=== PATIENT | female | born 1960 | race Caucasian/White ===

== ENCOUNTER 2017-10-05 13:09 | Emergency (ER) | payer MEDICARE, MEDICAID, SELFPAY ==
[2017-10-05 13:10] VITALS: BP 132/66; PULSE 109; RESP 16; TEMP 36.8; O2SAT 98; BMI 38.0
--- NOTE | 2017-10-05 13:54 | ED.DCSUM_ITS ---
- ER Visit Summary Date of Service: 10/05/17 Chief Complaint: [] Acute recurrent lumbar back pain History of Present Illness: The patient is a 56 F [] history of lumbar back pain lumbar back surgery 2013 that did not results resolve her back pain issues. She indicates in having long-standing lumbar back pain she said the pain management physician she gets intermittent lumbar back injections, she is on MS Contin and Percocet Flexeril and other medications she reports that is not helping her pain she had no obvious reason for the exacerbation of the pain she has had no trauma no fever no cough normal bowel bladder habits is able to walk and execute activities affect is a walking to the bridge without difficulty she is indicating something else things with of her pain as her home meds are not helping View of systems otherwise negative Physical Examination: [] Is in no distress head neck chest unremarkable the lungs are clear the abdomen soft nontender the midline back shows some scar in the midline is a vague diffuse pain to this area but no lesions with petechia or purpura. Her gait was strong sitting stable on arrival to the emergency department no weakness numbness or paresthesias or signs of cauda equina She assures me this is her chronic recurring pain Test Results: [] Emergency Department Course and Treatment: [] I explained to her that given her pain management her chronic condition she needs to follow-up with her pain management physicians her care cannot be assumed from the emergency department, she given the restrictions related to narcotic use and the fact she is on multiple narcotics of the medication should be treated with Toradol 60 mg IM will follow with her physicians return for change in symptoms Treatment Plan: [] Disposition: [] Home stable Impression: [] Acute recurrent lumbar back pain This note was generated with [employer] dictation software. It may contain incorrect words, spelling, and punctuation that were not noted in review of the chart prior to signing ED Disposition - Plan for ED Patient: Chief Complaint: Back Referrals: Gauri Kidd MD [Primary Care Provider] -
--- NOTE | 2017-10-05 13:54 | ED.DEP ---
ED Disposition - Plan for ED Patient: Chief Complaint: Back Instructions: ED Spasm Back No Trauma Referrals: Gauri Kidd MD [Primary Care Provider] -
[2017-10-05] MEDS: Ketorolac 60 MG/2 ML Vial IM (14:07)
== END 2017-10-05 14:33 | disposition short-term general hospital (02) ==
PROVIDERS: Emergency Provider Emergency Medicine; Family Provider Family Medicine; PCP Family Medicine
DX: M54.5 Low back pain (principal); Z79.891 Long term (current) use of opiate analgesic
CPT/HCPCS: 96372; 99282

== ENCOUNTER 2018-08-18 14:11 | Emergency (ER) | payer MEDICARE, MEDICAID, SELFPAY ==
[2018-08-18 14:13] VITALS: BP 112/81; PULSE 91; RESP 18; TEMP 36.2; O2SAT 93; BMI 38.2
--- NOTE | 2018-08-18 15:14 | ED.VISSUMM ---
- ER Visit Summary Date of Service: 08/18/18 Chief Complaint: Back pain History of Present Illness: The patient is a 57 F presenting with back pain. Patient states this started a week ago. She states she was reaching for a cereal box and had pain in her low back. She has pain that goes down both legs. She denies numbness or weakness. Denies bowel or bladder incontinence. She is able to ambulate with pain. She is in pain management for chronic back pain. She takes [place], MS Contin, Flexeril, and gabapentin. She denies fever. Denies other complaints. Physical Examination: Vitals are stable. Patient is afebrile. Alert no acute distress. HEENT exam is unremarkable. Neck is supple. Lungs are clear and equal bilaterally. Heart is regular rate and rhythm. Abdomen is soft nontender nondistended. Back bilateral paraspinal lumbar muscle tenderness, no midline tenderness. Extremities are unremarkable. Skin is warm and dry. No focal neurologic deficit. Normal strength and sensation Remainder of exam is unremarkable. Emergency Department Course and Treatment: Patient was given Dilaudid, Zofran IM. She is advised to follow up with her pain management physician. Advised return to ED for worsening complaints. Disposition: Discharge home Impression: Acute on chronic back pain This note was generated with [employer] dictation software. It may contain incorrect words, spelling, and punctuation that were not noted in review of the chart prior to signing ED Disposition - Plan for ED Patient: Instructions: ED Sprain Strain Lumbar Referrals: Gauri Kidd MD [Primary Care Provider] -
--- NOTE | 2018-08-18 15:17 | ED.DCSUM_ITS ---
- ER Visit Summary Date of Service: 08/18/18 Chief Complaint: Back pain History of Present Illness: The patient is a 57 F presenting with back pain. Patient states this started a week ago. She states she was reaching for a cereal box and had pain in her low back. She has pain that goes down both legs. She denies numbness or weakness. Denies bowel or bladder incontinence. She is able to ambulate with pain. She is in pain management for chronic back pain. She takes [place], MS Contin, Flexeril, and gabapentin. She denies fever. Denies other complaints. Physical Examination: Vitals are stable. Patient is afebrile. Alert no acute distress. HEENT exam is unremarkable. Neck is supple. Lungs are clear and equal bilaterally. Heart is regular rate and rhythm. Abdomen is soft nontender nondistended. Back bilateral paraspinal lumbar muscle tenderness, no midline tenderness. Extremities are unremarkable. Skin is warm and dry. No focal neurologic deficit. Normal strength and sensation Remainder of exam is unremarkable. Emergency Department Course and Treatment: Patient was given Dilaudid, Zofran IM. She is advised to follow up with her pain management physician. Advised return to ED for worsening complaints. Disposition: Discharge home Impression: Acute on chronic back pain This note was generated with [employer] dictation software. It may contain incorrect words, spelling, and punctuation that were not noted in review of the chart prior to signing ED Disposition - Plan for ED Patient: Instructions: ED Sprain Strain Lumbar Referrals: Gauri Kidd MD [Primary Care Provider] -
[2018-08-18] MEDS: HYDROmorphone 1 MG/ML Syringe 2 MG IM (15:21)
[2018-08-18] MEDS: Ondansetron 4 MG/2 ML Vial IM (15:22)
[2018-08-18 16:20] VITALS: BP 148/76; PULSE 85; RESP 18; O2SAT 93
== END 2018-08-18 16:22 | disposition home or self-care (01) ==
LOC: ED 15:33
PROVIDERS: Emergency Provider Emergency Medicine; Family Provider Family Medicine; PCP Family Medicine
DX: M54.5 Low back pain (principal); G89.29 Other chronic pain; I10 Essential (primary) hypertension; E11.9 Type 2 diabetes mellitus without complications; J44.9 Chronic obstructive pulmonary disease, unspecified; Z79.891 Long term (current) use of opiate analgesic; Z79.84 Long term (current) use of oral hypoglycemic drugs; Z79.899 Other long term (current) drug therapy
CPT/HCPCS: 96372; 99282; J2405

== ENCOUNTER → 2019-03-17 16:49 | Outpatient (CLI) | payer MEDICARE, MEDICAID, SELFPAY ==
--- NOTE | 2019-03-17 17:27 | MRI_ITS ---
STUDY: MRI LEFT FOREFOOT WITHOUT CONTRAST REASON FOR EXAM: Female, 58 years old. R/O STRESS FX, C/O PAIN LATERAL TECHNIQUE: Standardized fat and water weighted pulse sequences were obtained in all 3 orthogonal planes. COMPARISON: None. FINDINGS: There is mild degenerative arthrosis of the metatarsophalangeal joint of the hallux. Normal tibial and fibular sesamoids, with normal sesamoids-first metatarsal articulations. Normal interphalangeal joint of the hallux. Normal proximal and distal phalanges of the great toe. Normal medial and lateral heads of the flexor hallucis brevis tendons. Normal flexor and extensor hallucis longus tendons. Normal second through fifth metatarsophalangeal (MTP) joints. Normal interphalangeal joints of the second through fifth toes. Normal proximal, middle and distal phalanges of the second through fifth toes. There is intermetatarsal bursitis of the second interspace. There is adjacent 0.6 cm diminished T1 signal consistent with neuroma, series 4 image /. Normal flexor and extensor tendons of the second through fifth toes. Normal visualized metatarsi. Normal intrinsic muscles of the forefoot. There is no demonstrated fracture. MRI/Lower Ext/No Jt/w/o IMPRESSION: No fracture or periosteal reaction. 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 Electronically Signed: Hardeep Bay MD at 23:10 EST , Service support ,
== END ==
PROVIDERS: Family Provider Family Medicine; PCP Family Medicine; Referring Provider Podiatrist; Visit Provider Podiatrist
DX: M84.375A Stress fracture, left foot, initial encounter for fracture (principal)
CPT/HCPCS: 73718

== ENCOUNTER 2021-09-01 15:35 | Emergency (ER) | payer MEDICARE, MEDICAID, SELFPAY ==
[2021-09-01] VITALS (7 sets, daily range): BP systolic 90–127; BP diastolic 45–64; PULSE 69–79; RESP 13–18; TEMP 36.8; O2SAT 93–99; BMI 29.2
--- NOTE | 2021-09-01 15:11 | RAD_ITS ---
STUDY: X-RAY - LEFT ANKLE REASON FOR EXAM: Female, 60 years old. Injury/Pain TECHNIQUE: 3 view(s) of the ankle. COMPARISON: None. FINDINGS: Normal visualized distal tibia and fibula. Osseous densities adjacent to the lateral malleolus and talus with soft tissue swelling. Normal tibiotalar articulation and ankle mortise. Normal visualized talus and calcaneus. The visualized subtalar, talonavicular, calcaneocuboid and tarsal articulations are normal. The soft tissue structures are otherwise unremarkable. RAD/Ankle min 3 Views IMPRESSION: Avulsion fractures of the lateral ankle likely arising from the talus and lateral malleolus. Electronically Signed: Clive Chambers MD ([place]) at 17:32 EDT ,
--- NOTE | 2021-09-01 16:24 | EX.ED.DYSGE1 ---
HPI History of Present Illness Chief Complaint: Syncope Onset/Context/Timing Onset: Today Context: Sudden Onset Timing: Intermittent Quality: Loss of consciousness Location: Generalized Worsened by: Nothing Relieved by: Nothing Associated Symptoms Associated Symptoms: Patient also has pain in her left ankle. Patient describes it as sharp. Narrative Narrative: Patient presents with syncopal episodes that occurred today. Patient states she was walking along the sidewalk down a slope when she twisted her left ankle. Patient states she fell and felt something pop in her left ankle. Since that time, she has had 3 syncopal episodes. Patient states that she completely lost her vision and passed out patient denies any chest pain or palpitations. Patient denies any shortness of breath or cough. Patient denies any nausea or vomiting. Patient denies any prodromal symptoms. [facility] Medical History (Updated 09/01/21 @ 20:[address] Juan Pablo Denney, ) Diabetes Home Medications Flexeril 15 mg PO TID 07/20/15 [History Last Taken Unknown] aripiprazole 15 mg tablet (Abilify) 15 mg PO DAILY 07/20/15 [History Last Taken Unknown] atorvastatin 40 mg tablet 40 mg PO QHS 07/20/15 [History Last Taken Unknown] dexlansoprazole 60 mg capsule,biphase delayed release (Dexilant) 60 mg PO DAILY 07/20/15 [History Last Taken Unknown] duloxetine 60 mg capsule,delayed release 120 mg PO DAILY 07/20/15 [History Last Taken Unknown] estradiol 1 mg tablet 1 mg PO DAILY 07/20/15 [History Last Taken Unknown] morphine 15 mg tablet,extended release 15 mg PO Q8H 07/20/15 [History Last Taken Unknown] oxycodone-acetaminophen 7.5 mg-325 mg tablet (Percocet) 1 tab PO Q6H PRN PRN Pain 07/20/15 [History Last Taken Unknown] zolpidem 10 mg tablet (Ambien) 10 mg PO QHS 07/20/15 [History Last Taken Unknown] oxybutynin chloride 5 mg tablet 5 mg PO DAILY 11/07/15 [History Last Taken Unknown] albuterol sulfate 90 mcg/actuation aerosol inhaler (ProAir HFA) 2 puff inhalation Q4H PRN PRN Sob &/Or Wheezing 10/05/17 [History Last Taken Unknown] alprazolam 1 mg tablet (Xanax) 1 mg PO TID 10/05/17 [History Last Taken Unknown] dapagliflozin 10 mg tablet (Farxiga) 10 mg PO DAILY 10/05/17 [History Last Taken Unknown] gabapentin 800 mg tablet 800 mg PO TIDCM 10/05/17 [History Last Taken Unknown] levothyroxine 137 mcg tablet (Levoxyl) 137 mcg PO DAILY 10/05/17 [History Last Taken Unknown] lisinopril 5 mg tablet 5 mg PO DAILY 10/05/17 [History Last Taken Unknown] metformin 1,000 mg 24 hr tablet,extended release 1,000 mg PO BID 10/05/17 [History Last Taken Unknown] Allergy/AdvReac Type Severity Reaction Status Date / Time clarithromycin [From Biaxin] AdvReac Nausea Verified 09/01/21 15:39 hydromorphone [From Dilaudid] AdvReac Upset Verified 09/01/21 15:39 Stomach Surgical History (Updated 09/01/21 @ 16:[address] Juan Pablo Denney DO) History of back surgery Social History Smoking Status: Former smoker ROS ROS ED Constitutional Constitutional ED: Denies chills or fever(s) Eyes Eyes: Reports change in vision; Denies blurry vision ENT ENT ED: Denies rhinorrhea or sore throat Cardiovascular Cardiovascular: Denies chest pain or palpitations Respiratory/Chest Respiratory/Chest: Denies cough or dyspnea Gastrointestinal Gastrointestinal: Denies nausea or vomiting Genitourinary Genitourinary ED: Denies dysuria or hematuria Musculoskeletal Musculoskeletal: Reports back pain and neck pain Integumentary Denies abscess or rash Neurologic Neurologic: Denies headache(s) or weakness Allergic/Immunologic Allergic/Immunologic ED: Denies mouth swelling or urticaria EXAM Physical Exam Const Vital Signs: 09/01/21 15:36 09/01/21 16:46 09/01/21 17:40 Temperature 98.2 F Temperature Source Temporal Pulse Rate 79 74 Respiratory Rate 16 17 Respiratory Effort Normal Non-Labored Respiratory Depth Normal Respiratory Pattern Normal Blood Pressure 90/45 L 105/54 L Blood Pressure Mean 60 71 Pulse Ox 98 98 Oxygen Delivery Method Room Air Room Air Room Air 09/01/21 17:46 09/01/21 18:34 09/01/21 19:00 Temperature Temperature Source Pulse Rate 70 72 70 Respiratory Rate 18 16 15 Respiratory Effort Respiratory Depth Respiratory Pattern Blood Pressure 127/64 H 109/57 L 116/52 L Blood Pressure Mean 85 74 73 Pulse Ox 97 97 93 Oxygen Delivery Method Room Air Room Air Room Air 09/01/21 20:00 Temperature Temperature Source Pulse Rate 74 Respiratory Rate 18 Respiratory Effort Respiratory Depth Respiratory Pattern Blood Pressure 120/64 Blood Pressure Mean 82 Pulse Ox 95 Oxygen Delivery Method Room Air Positive well nourished and well developed General Appearance ED: well developed HEENT Reports moist mucous membranes Neck supple and no JVD Resp normal respiratory effort and clear to auscultation bilaterally Cardio regular rate, regular rhythm and no murmurs GI normal to inspection, nondistended, normoactive bowel sounds and non-tender Palpation: soft Extremity Extremity Narrative: There is tenderness, edema, and ecchymosis over the lateral aspect of the left ankle. There is no obvious deformity. Range of motion was limited in all motions of the left ankle secondary to pain. Pedal pulses are equal bilaterally. Sensation was intact to light touch bilaterally in the lower extremities. Strength is 5/5 bilaterally in the lower extremities. Neuro oriented x3, CN's II-XII intact bilaterally and no sensory deficits noted Sensorium / Orientation: alert Motor Exam: strength 5/5 throughout Psych mental status grossly normal Skin Skin Narrative: There is a superficial abrasion over the anterior aspect of the right knee. There is no active bleeding. There is no tenderness. There is good range of motion. Trauma: abrasion MDM MDM MDM Narrative Medical decision making narrative: EKG was obtained. On my interpretation, it showed a normal sinus rhythm with a rate of 75. MT interval, QRS interval, and QTc intervals were all normal. [place] was normal. There are no acute ST or T wave changes. X-rays of the left ankle were obtained. There are 3 views. On my interpretation, there are small avulsion fractures of the distal fibula and lateral talus. There is no dislocation noted. There is mild soft tissue swelling noted. Radiologist also interpreted the x-rays and agrees. CBC and comprehensive metabolic profile were obtained and were within normal limits. High-sensitivity troponin was normal. 2-hour repeat high-sensitivity troponin was normal. Patient was given a walking boot. Patient was instructed to ice and elevate the left ankle. Patient was instructed to follow-up with her primary care physician in 5 to 7 days. Patient understood and was agreeable with the plan. All questions were answered. Lab Data Attestation: I reviewed the patient's lab results. Labs: Laboratory Results - last 24 hr 09/01/21 09/01/21 09/01/21 16:15 16:15 19:27 WBC 10.0 RBC 4.67 Hgb 13.7 Hct 41.9 MCV 89.7 MCH 29.3 MCHC 32.7 RDW Std Deviation 46.4 H RDW Coeff of Shawn 14.1 Plt Count 202 MPV 10.0 Immature Gran % (Auto) 0.700 Neut % (Auto) 82.3 H Lymph % (Auto) 11.[address] [place] % (Auto) 4.8 Eos % (Auto) 0.1 Baso % (Auto) 0.3 Absolute Neuts (auto) 8.3 H Absolute Lymphs (auto) 1.18 Nucleated RBC % 0 Sodium 137 Potassium 4.1 Chloride 103 Carbon Dioxide 29.0 Anion Gap 5 BUN 17 Creatinine 1.19 H Estim Creat Clear Calc 43.96 Est GFR (MDRD) Af Amer 60 Est GFR (MDRD) Non-Af 49 L BUN/Creatinine Ratio 14.3 Glucose 160 H Calcium 9.2 Total Bilirubin 0.40 AST 18 ALT 31 Alkaline Phosphatase 84 Troponin I High Sens < 3 L 3 Total Protein 6.9 Albumin 3.8 Globulin 3.1 Albumin/Globulin Ratio 1.2 Radiography Diagnostic Testing: Clinical Impression(s) from Imaging Studies Ankle X-Ray 09/01/21 15:11 IMPRESSION: Avulsion fractures of the lateral ankle likely arising from the talus and lateral malleolus. Electronically Signed: Clive Chambers MD ([place]) at 17:32 EDT , Discharge Plan Triage Chief Complaint: Syncope Other Complaint: Fall ED Provider: Juan Pablo Denney Dx/Rx/DC Orders Clinical Impression: Avulsion fracture of left ankle, Syncope and collapse Instructions: ED Ankle Fracture, ED Fainting, Uncertain Cause Prescriptions: No Action atorvastatin 40 MG tablet 40 mg PO QHS estradiol 1 MG tablet 1 mg PO DAILY morphine 15 MG tablet 15 mg PO Q8H oxycodone-acetaminophen [Percocet] 1 EACH tablet 1 tab PO Q6H PRN PRN (Reason: Pain) zolpidem [Ambien] 10 MG tablet 10 mg PO QHS aripiprazole [Abilify] 15 MG tablet 15 mg PO DAILY duloxetine 60 MG capsule 120 mg PO DAILY dexlansoprazole [Dexilant] 60 MG Cap.Dr.Mp 60 mg PO DAILY Flexeril 10 MG 15 mg PO TID oxybutynin chloride 5 MG tablet 5 mg PO DAILY levothyroxine [Levoxyl] 137 MCG tablet 137 mcg PO DAILY alprazolam [Xanax] 1 MG tablet 1 mg PO TID gabapentin 800 MG tablet 800 mg PO TIDCM lisinopril 5 MG tablet 5 mg PO DAILY albuterol sulfate [ProAir HFA] 1 PUFF inhaler 2 puff inhalation Q4H PRN PRN (Reason: Sob &/Or Wheezing) metformin 1,000 MG [id number] 1,000 mg PO BID dapagliflozin [Farxiga] 10 MG tablet 10 mg PO DAILY Primary Care Provider: Gauri Kidd Referrals: Gauri Kidd MD [Primary Care Provider] - 5-7 Days Disposition Disposition: Home, Self Care
--- NOTE | 2021-09-01 16:29 | EKG12_ITS ---
Test Reason : SYNCOPE Blood Pressure : / mmHG Vent. Rate : 075 BPM Atrial Rate : 075 BPM P-R Int : 162 ms QRS Dur : 094 ms QT Int : 376 ms P-R-T Axes : 072 068 045 degrees QTc Int : 419 ms Normal sinus rhythm Normal ECG Confirmed by JOSEMANUEL GREWAL, ERIN ([id number]), food editor AGUSTIN WORKMAN ([id number]) on 09/04/2021 8:19:46 AM Referred By: MIGUEL Confirmed By:ERIN ABERNATHY MD
[2021-09-01] MEDS: HYDROcodone Bitartrate/Apap 5/325 Tablet PO (16:50)
[2021-09-01] MEDS: 0.9% Normal Saline 1,000 ML 1000 ML IV (16:51)
[2021-09-01 16:53] LABS: Absolute Lymphocyte Count 1.18 X10^3/uL (0.83-4.51); Absolute Neutrophil Count 8.3 X10^3/uL (2.0-7.7); Basophil# 0.03 X10^3/uL; Basophil% 0.3 % (0-1); Eosinophil# 0.01 X10^3/uL; Eosinophils% 0.1 % (0-5); Hematocrit 41.9 % (37-47); Hemoglobin 13.7 g/dL (12.0-15.0); Lymphocyte # 1.18 X10^3/ul (0.83-4.51); Lymphocyte % 11.8 % (19-41); Mean Corp Hgb Conc 32.7 g/dL (32-36); Mean Corpuscular Hgb 29.3 pg (27.0-32.0); Mean Corpuscular Volume 89.7 fL (81-99); Monocyte# 0.48 X10^3/uL; Monocyte% 4.8 % (0-10); NRBC Flagged by Analyzer 0 % (0-5); Neutrophil # 8.25 X10^3/uL (2.7-7.7); Neutrophil % 82.3 % (47-70); Platelet Count 202 K/mm3 (150-450); RBC Distribution Width CV 14.1 % (11.6-14.6); RBC Distribution Width SD 46.4 fl (35.1-43.9); Red Blood Count 4.67 M/mm3 (4.2-5.4)
[2021-09-01 17:11] LABS: ALB/GLOB Ratio 1.2 RATIO (0.9-2.4); AST(SGOT) 18 U/L (15-37); Alanine Aminotransfer ALT/SGPT 31 U/L (13-56); Albumin, Serum 3.8 g/dL (3.2-5.0); Alkaline Phosphatase 84 U/L (45-117); Anion Gap 5 (5-15); BUN 17 mg/dL (7-18); BUN/Creat Ratio 14.3 RATIO (10-20); Calcium,Total 9.2 mg/dL (8.5-10.1); Chloride 103 mmol/L (98-107); Creatinine, Serum 1.19 mg/dL (0.55-1.02); EST Glomerular Filtration Rate 49 mL/min (>60); Est Glom Filt Rate - Afr Amer 60 mL/min (>60); Estimated Creatinine Clearance 43.96 ml/min; Globulin 3.1 g/dL (2.2-4.2); Glucose 160 mg/dL (74-106); Potassium 4.1 mmol/L (3.5-5.1); Protein, Total 6.9 g/dL (6.4-8.2); Sodium Level 137 mmol/L (136-145); Troponin-I HS (w/2H Reflex) < 3 pg/mL (3.0-54.0)
[2021-09-01 18:49] LABS: Reflex Troponin-HS? (from REC) Y
[2021-09-01 19:53] LABS: Troponin-I HS 3 pg/mL (3.0-54.0)
== END 2021-09-01 20:41 | disposition home or self-care (01) ==
PROVIDERS: Emergency Provider Emergency Medicine; PCP Family Medicine; Visit Provider Emergency Medicine
DX: S82.892A Other fracture of left lower leg, initial encounter for closed fracture (principal); E11.9 Type 2 diabetes mellitus without complications; W19.XXXA Unspecified fall, initial encounter; Z79.899 Other long term (current) drug therapy; Z87.891 Personal history of nicotine dependence
CPT/HCPCS: 73610; 80053; 84484; 85025; 93005; 96360; 99285; J7030; A4216

== ENCOUNTER → 2023-05-21 | Outpatient (CLI) | payer MEDICARE, SELFPAY ==
--- NOTE | 2023-05-21 13:06 | RAD_ITS ---
STUDY: X-RAY CHEST REASON FOR EXAM: Female, 62 years old. Emphysema. TECHNIQUE: Frontal and lateral views of the chest. COMPARISON: 11/07/2015 FINDINGS: Stable mild hyperinflation. There is no demonstrated pleural abnormality. Mild cardiomegaly unchanged. Normal mediastinum and janeen. Prominent central pulmonary arteries. Aortic tortuosity with calcification unchanged. Thoracic osteopenia with diffuse spondylosis. Normal visualized ribs, clavicles, and shoulders. No abnormality of the visualized soft tissue structures of the upper abdomen. RAD/Chest PA and Lateral IMPRESSION: Stable cardiomegaly with hyperinflation and no acute finding. Electronically Signed: Nakul Malcolm MD at 15:39 EDT ,
--- OUTSIDE RECORDS SUMMARY | 2023-05-21 21:13 | XMS RPT_ITS | CCD ---
Author Name Unknown Address [address] [facility] [address] [place] [address] Organization [facility] Care Team Providers Care Track Rider Name Role Phone RANDA LARSON Unavailable Unavailable SMARTALEC III, RANDA GUDINO Unavailable Un available Gauri Kidd Primary Care Provider [phone] Gauri Kidd Primary Care Provider [phone] Gauri Kidd MD Primary Care Provider [employer] CAMP ATTENDANT-COMPUTER SYSTEMS SUPPORT SPECIALIST, Samantha Unavailable [phone] Gauri Kidd Primary Care Unavailable PROVIDER, UNKNOWN Referring Unavailable Keaton Gardiner Attending Unavailable Gauri Kidd Attending Unavailable PROVIDER, UNKNOWN Referring Unavailable Gauri Kidd Primary Care Unavailable Gauri Kidd MD Primary Care Provider Gauri Kidd MD Primary Care Provider Gauri Kidd MD Primary Care Provider GAURI KIDD Primary Care Unavailable CONI GRAY Referring Unavailable KEISHA ACNDELARIA Attending Unavailable GAURI KIDD Primary Care Unavailable CONI GRAY Referring Unavailable GAURI KIDD Primary Care Unavailable CONI GRAY Referring Unavailable CONI GRAY Attending Unavailable GAURI KIDD Primary Care Unavailable GAURI KIDD Primary Care Unavailable KALKA, KEISHA Referring Unavailable GAURI KIDD Primary Care Unavailable KALKA, KEISHA Referring Unavailable KALKA, KEISHA Referring Unavailable GAURI KIDD Primary Care Unavailable KALKEISHA MARTINEZ Attending Unavailable GAURI KIDD Primary Care Unavailable CATIA ISIDRO Attending Unavaila ble KALKA, KEISHA Referring Unavailable GAURI KIDD Primary Care Unavailable Gauri Kidd MD Primary Care Provider KEATON GARDINER Referring Unavailable GAURI KIDD Primary Care Unavailable LISBETH HAQ Attending Unavailable GAURI KIDD Primary Care Unavailable Allergies Allergy Classification Reported Allergen(s) Allergy Type Date of Onset Reaction(s) Facility (20 sources) clarithromycin; Translations: [CLARITHROMYCIN] Drug Allergy 07-06-19 11 Unknown [facility] Repository (20 sources) pregabalin; Translations: [PREGABALIN] Drug Allergy 08-25-19 19 [place], [place] (20 sources) Amoxicillin-Pot Clavulanate; Translations: [AMOXICILLIN-POT CLAVULANATE] Propensity to adverse reactions to drug 08-25-19 19 [place], [place] (1 source) Clarithromycin Drug Allergy 11-25-19 12 gi [facility] Work Phone: (15 sources) HYDROmorphone; Translations: [HYDROMORPHONE] Drug Allergy 09-02-19 22 Other: See Comments [facility] (3 sources) Pregabalin Propensity to adverse reactions 08-25-19 [facility] Medications Current Medications Medication Drug Class(es) Dates Sig (Normalized) Sig (Original) [id number] 200 actuat albuterol 0.09 mg/actuat metered dose inhaler (8 sources) beta2-Adrenergic Agonist Start: 10-02-2022 take 2 puff(s) by inhalation four times daily albuterol 108 (90 Base) MCG/ACT inhaler inhale 2 puffs FOUR TIMES A DAY 0 10/02/2022 Active Completed/Discontinued Medications Medication Drug Class(es) Dates Sig (Normalized) Sig (Original) Acetaminophen (1 source) Start: 08-17-2020 TYLENOL 325 MG CAPS ACETAMINOPHEN Grace Leos AT celecoxib 200 mg oral capsule (12 sources) Nonsteroidal Anti-inflammatory Drug Start: 12-18-2020 celecoxib (CELEBREX) 200 mg capsule Take 200 mg by mouth. 0 12/18/2020 Active Problems Active Problems Problem Classification Problem Date Documented Da te Episodic/Chronic Abdominal hernia (1 source) Gastroesophageal reflux disease with hiatal hernia; Translations: [Diaphragmatic hernia without obstruction or gangrene] Episodic Abdominal pain (8 sources) Generalized abdominal pain; Translations: [Generalized abdominal pain] Onset: 3 Episodic Biliary tract disease (6 sources) Polyp of gallbladder; Translations: [Cholesterolosis of gallbladder] Onset: 3 Episodic Esophageal disorders (1 source) Lower esophageal ring; Translations: [Esophageal obstruction] Chronic Mood disorders (1 source) Major depressive disorder, recurrent, in full remission; Translations: [Major depressive disorder, recurrent, in full remission] Onset: 7 Chronic Nausea and vomiting (3 sources) Nausea; Translations: [Nausea] Onset: 3 Episodic Other gastrointestinal disorders (1 source) Alteration in bowel elimination; Translations: [Change in bowel habit] Episodic Other gastrointestinal disorders (2 sources) Loose stool; Translations: [Other fecal abnormalities] Episodic Other gastrointestinal disorders (4 sources) Abdominal bloating; Translations: [Abdominal distension (gaseous)] Episodic Other gastrointestinal disorders (1 source) Stool color abnormal; Translations: [Other fecal abnormalities] Episodic Other gastrointestinal disorders (1 source) Swollen abdomen; Translations: [Abdominal distension (gaseous)] Episodic Other gastrointestinal disorders (1 source) Altered bowel function; Translations: [Change in bowel habit] Episodic Other gastrointestinal disorders (2 sources) Abdominal distension, gaseous; Translations: [Abdominal distension (gaseous)] Episodic Other gastrointestinal disorders (2 sources) Abdominal distension (gaseous); Translations: [Bloating] Onset: 3 Episodic Other nervous system disorders (1 source) Chronic low back pain; Translations: [Other chronic pain] Onset: 9 08-20-2018 Chronic Other nutritional; endocrine; and metabolic disorders (2 sources) Abnormal weight loss; Translations: [Abnormal weight loss] Episodic Other nutritional; endocrine; and metabolic disorders (1 source) Abnormal weight loss; Translations: [Abnormal weight loss] Onset: 3 Episodic Other screening for suspected conditions (not mental disorders or infectious disease) (2 sources) Encounter for screening mammogram for malignant neoplasm of breast; Translations: [Encntr screen mammogram for malignant neoplasm of breast] Onset: 2 Episodic Residual codes; unclassified (1 source) FH: Stomach cancer; Translations: [Family history of malignant neoplasm of digestive organs] Episodic Spondylosis; intervertebral disc disorders; other back problems (7 sources) Lumbar post-laminectomy syndrome; Translations: [Postlaminectomy syndrome, not elsewhere classified] Onset: 9 11-16-2018 Chronic Thyroid disorders (13 sources) Hypothyroidism; Translations: [Hypothyroidism, unspecified] Onset: 9 08-24-2018 Chronic Past or Other Problems Problem Classification Problem Date Documented Da te Episodic/Chronic Joint disorders and dislocations; trauma-related (1 source) Tear of medial meniscus of knee; Translations: [Other tear of medial meniscus, current injury, left knee, initial encounter] Onset: 11-16-2018 11-16-2018 Episodic Other connective tissue disease (1 source) History of lumbar fusion; Translations: [Arthrodesis status] Onset: 11-16-2018 11-16-2018 Episodic Other non-traumatic joint disorders (1 source) Knee pain; Translations: [Pain in unspecified knee] Onset: 11-16-2018 11-16-2018 Episodic Spondylosis; intervertebral disc disorders; other back problems (9 sources) Disorder of sacrum; Translations: [Sacrococcygeal disorders, not elsewhere classified] Onset: 08-20-2018 03-23-2020 Episodic Sprains and strains (1 source) Lower back injury; Translations: [Strain of muscle, fascia and tendon of lower back, initial encounter] Onset: 08-20-2018 08-20-2018 Episodic Unclassified (1 source) Problem Results Test Name Value Interpretation Reference Range Facil ity Vital Signs Date Time Vital Sign Value Performing Clinician Facility 11-28-2022 [id number] Body weight 87.54 kg Lisbeth Haq DO Work Phone: [facility] 07-09-2022 11:31-0400 Body height 162.6 cm Keisha BUSTOS-Michael Work Phone: [facility] 07-09-2022 11:31-0400 Body weight 85.73 kg Keisha BUSTOS-C Work Phone: [facility] 07-09-2022 11:31-0400 Diastolic blood pressure 72 mm[Hg] Keisha BUSTOS-C Work Phone: [facility] 07-09-2022 11:31-0400 Heart rate 83 /min Keisha Kalka PA-C Work Phone: [facility] 07-09-2022 11:31-0400 Systolic blood pressure 118 mm[Hg] Keisha Kalka PA-C Work Phone: [facility] 05-30-2022 11:47-0400 Body height 162.6 cm Keisha Kalka PA-C Work Phone: [facility] 05-30-2022 11:47-0400 Body weight 88.91 kg Keisha Kalka PA-C Work Phone: [facility] 05-30-2022 11:47-0400 Diastolic blood pressure 80 mm[Hg] Keisha Kalka PA-C Work Phone: [facility] 05-30-2022 11:47-0400 Heart rate 76 /min Keisha Kalka PA-C Work Phone: [facility] 05-30-2022 11:47-0400 Systolic blood pressure 136 mm[Hg] Keisha Kalka PA-C Work Phone: [facility] 12-31-2021 11:51-0400 Body height 162.6 cm Coni Gray MD Work Phone: [facility] 12-31-2021 11:51-0400 Body weight 80.29 kg Coni Gray MD Work Phone: [facility] 12-31-2021 11:51-0400 Diastolic blood pressure 80 mm[Hg] Coni Gray MD Work Phone: [facility] 12-31-2021 11:51-0400 Heart rate 80 /min Coni Gray MD Work Phone: [facility] 12-31-2021 11:51-0400 Systolic blood pressure 138 mm[Hg] Coni Gray MD Work Phone: [facility] NEGATED: Highlighted [id number] 12:55-0500 Body height 162.56 cm Grace Villalta AT [facility] Work Phone: NEGATED: Highlighted [id number] 12:55-0500 Body height 163 cm Grace Villalta AT [facility] Work Phone: NEGATED: Highlighted [id number] 12:55-0500 Body mass index (BMI) [Ratio] 32.39 kg/m2 Grace Villalta AT [facility] Work Phone: NEGATED: Highlighted [id number] 12:55-0500 Body temperature 98 [degF] Grace Villalta AT [facility] Work Phone: NEGATED: Highlighted [id number] 12:55-0500 Body temperature 98.06 [degF] Grace Villalta AT [facility] Work Phone: NEGATED: Highlighted [id number] 12:55-0500 Body weight 85.28 kg Grace Villalta AT [facility] Work Phone: NEGATED: Highlighted [id number] 12:55-0500 Body weight 85 kg Grace Villalta AT [facility] Work Phone: Encounters Encounter Date Encounter Type Care Provider Facility Start: 05-12-2023 [facility]ulatory [facility] Start: 05-12-2023 Patient encounter procedure Lia Perez Clinical Communication Start: 11-28-2022 End: 11-28-2022 ambulatory LISBETH HAQ [facility] Start: 11-28-2022 End: 11-28-2022 Office outpatient new 30 minutes Lisbeth Haq DO Work Phone: [facility] Procedures Date Procedure Procedure Detail Performing Clinician Start: 07-16-2022 Ct abdomen & pelvis w/contrast material Keisha Candelaria PA-C Work Phone: Start: 04-04-2022 Us abdominal real ti me w/image limited Coni Gray MD Work Phone: Start: 12-26-2021 End: 12-26-2021 Screening digital breast tomosynthesis bi Gauri Kidd MD Work Phone: Start: 05-01-2021 End: 05-01-2021 BP scrn no perf at interval Samantha Marino CAMP ATTENDANT-COMPUTER SYSTEMS SUPPORT SPECIALIST Work Phone: Start: 05-01-2021 End: 05-01-2021 Calc BMI out nrm magali nof/u Samantha Marino CAMP ATTENDANT-COMPUTER SYSTEMS SUPPORT SPECIALIST Work Phone: Start: 05-01-2021 End: 05-01-2021 Current tobacco non-user cad cap copd pv dm Samantha Marino CAMP ATTENDANT-COMPUTER SYSTEMS SUPPORT SPECIALIST Work Phone: Start: 05-01-2021 End: 05-01-2021 Docrev cur meds by izabella Marino CAMP ATTENDANT-COMPUTER SYSTEMS SUPPORT SPECIALIST Work Phone: Start: 05-01-2021 End: 05-01-2021 Pain doc pos and plan Samantha Marino CAMP ATTENDANT-COMPUTER SYSTEMS SUPPORT SPECIALIST Work Phone: Start: 05-01-2021 End: 05-01-2021 Patient encounter procedure Samantha Marino CAMP ATTENDANT-COMPUTER SYSTEMS SUPPORT SPECIALIST Work Phone: Start: 04-27-2020 Creatinine blood Lolis Randhawa Work Phone: Start: 11-03-2019 Screening digital br east tomosynthesis bi Gauri Kidd Work Phone: Start: 10-13-2019 Colonoscopy oCni gomez MD Work Phone: Start: 11-20-2018 Mri any jt lower ext rem w/o contrast matrl Keaton R Magoline Work Phone: NEGATED: Highlighted rowStart: 05-01-2021 End: 02-22-2022 Documentation of current medications Grace Villalta AT Plan of Treatment Date Care Activity Detail Author Start: 12-26-2022 Mammography Mammogram Screening [facility] Start: 12-26-2022 Screening for malign ant neoplasm of breast Mammogram [facility] Start: 12-12-2022 Screening for malign ant neoplasm of breast Breast cancer screen [facility] Start: 11-08-2022 Covid-19 Vaccine () Covid-19 Vaccine () [facility] Start: 11-08-2022 Influenza vaccination Influenza Vacc ine (#1) [facility] Start: 09-29-2022 End: 06-29-2023 US ABD RT UPPER QUADRANT US ABD RT UPPER QUADRANT Radiology Routine Gallbladder polyp Expected: 09/29/2022, Expires: 06/29/2023 [facility] Work Phone: Immunizations Immunization Date Immunization Notes Care Provider Fa cility 12-28-2021 influenza virus vacc ine, unspecified formulation [address] 06-22-2020 Pfizer SARS-CoV-[address] 06-02-2020 Pfizer SARS-CoV-[address] Payers Date Payer Category Payer Medicaid MEDICAID [facility] DEPT OF JOB xxxxxxxxxxxx 2014-Present [phone] [address] [place] [address] xxxxxxxxxxxx [id number] 2014 Medicaid [id number] 2014 Medicare MEDICARE MEDICAR E PART A AND B xxxxxxxxxxx 2014-Present [phone] [place] [address] xxxxxxxxxxx [id number] 1997 Medicare [id number] 1997 Medicare 1960 Unknown [id number] 1960 Unknown [id number] Medicaid Medicare [id number] Social History Date Type Detail Facility Start: 09-03-2018 End: 12-10-2018 Tobacco smoking status NHIS Never smoker [facility] Work Phone: Start: 09-03-2018 End: 11-28-2022 Alcohol intake No [facility] [employer] Start: 1960 Sex Assigned At Not on file M [employer] Start: 12-10-2018 End: 11-28-2022 Alcohol intake Current non-drinker of alcohol (finding) [facility] [employer] Start: 12-10-2018 End: 05-30-2022 Tobacco use and exposure Never used [facility] [employer] Start: 05-01-2021 End: 05-01-2021 Assertion Unknown if ever smoked [facility] Work Phone: Start: 01-06-2018 End: 05-30-2022 Tobacco smoking status MSIS Ex-smoker [facility] History of tobacco use Current smoker [facility] Start: 01-06-2018 Alcohol Comment quit [facility] Start: 12-21-2021 End: 10-29-2022 Exposure to SARS-CoV-2 (event) Not sure [facility] Start: 07-09-2022 End: 11-28-2022 History of Social function [facility] National Score (1-10 0), lower number is lower risk 99 [facility] Medical Equipment Procedure Code Equipment Code Equipment Origin al Text Equipment Identifier Dates Start: 2015 Clinical Notes 12-31-2021 to 05-12-2023 Telephone Encounter - Lia Srinivasan RN - 05/12/2023 7:19 AM ESTTelephone Encounter - Lia Srinivasan RN - 05/12/2023 7:19 AM Joaquim Haq DO - 11/28/2022 11:00 AM EDT Note Date & Type Note Facility 05-12-2023 Telephone encounter Note S: Patient called the clinical access center B: She cancelled her appointment for scheduled blood work A: She cancelled due to not feeling well. She is aware she has a scheduled follow up next week. R: She can be reached at [phone]. Appointment scheduled for today has been cancelled. Patient instructed to call back with worsening symptoms, concerns or questions. Documented in Ruby Reason for Disposition Health Information question, no triage required and triager able to answer question Protocols used: Information Only Call - No [id number] [facility] 05-12-2023 Miscellaneous Notes S: Patient called the clinical access center B: She cancelled her appointment for scheduled blood work A: She cancelled due to not feeling well. She is aware she has a scheduled follow up next week. R: She can be reached at [phone]. Appointment scheduled for today has been cancelled. Patient instructed to call back with worsening symptoms, concerns or questions. Documented in Ruby Reason for Disposition Health Information question, no triage required and triager able to answer question Protocols used: Information Only Call - No [id number] documented in this encounter [facility] 11-28-2022 History of Present illness Narrative [facility] [address] [facility] [address] Dept: [phone] Dept Loc: [phone] Assessment and Recommendations Marissa was seen today for new patient. Diagnoses and all orders for this visit: Cervical radiculopathy (Primary) Patient's laryngoscopy shows normal bilateral vocal cord motion. Specifically the right side shows no postprocedure paralysis or paresis can proceed with revision ACDF via the left side without any concern for bilateral vocal cord injury. Follow-up with me as needed Subjective: Patient: Marissa Miller is a 61 y.o. female HPI Marissa Miller is a 61 y.o. yo female who presents to clinic today for presurgical clearance for revision ACDF surgery with Dr. Hogue on Friday for symptoms of cervical radiculopathy with numbness and tingling in the upper extremities. She reports her prior ACDF surgery was back in 1992 via right anterior approach. Denies any problems with postoperative dysphonia or dysphagia. Currently not having any problems with dysphonia or dysphagia. No blood thinners. No history of tobacco use. Review of Systems 14 point review of systems completed and all negative except as noted in HPI. Allergies Allergen Reactions Clarithromycin Other reaction(s): gi upset, Nausea, Unknown nausea Amoxicillin-Pot Clavulanate Other reaction(s): GI Upset Hydromorphone Other reaction(s): Other: See Comments, Upset Stomach Pregabalin Other reaction(s): GI Upset Current Outpatient Medications Medication Sig Dispense Refill gabapentin (Neurontin) 800 MG tablet Take 800 mg by mouth 3 times daily. lamoTRIgine (LaMICtal) 200 MG tablet Take 1 tablet by mouth daily. Mometasone Furoate 100 MCG/ACT aerosol Inhale 2 puffs 2 times daily. pregabalin (Lyrica) 100 MG capsule Take 100 mg by mouth 3 times daily. pregabalin (Lyrica) 150 MG capsule Take 150 mg by mouth 3 times daily. zolpidem (Ambien) 10 MG tablet Take 10 mg by mouth Nightly. No current facility-administered medications for this visit. Past Medical History: Diagnosis Date Anemia Asthma Cancer ([facility]) ([facility]) Cholesterolosis of gallbladder Chronic pain Degeneration of lumbar intervertebral disc Diabetes mellitus ([facility]) GERD (gastroesophageal reflux disease) Hyperlipidemia Hypertension Hyperthyroidism Major depressive disorder Morbid obesity due to excess calories ([facility]) Osteoarthritis Osteopenia Sleep apnea, obstructive Past Surgical History: Procedure Laterality Date LUMBAR FUSION 2013 2 titanium rods placed [facility] Family History Problem Relation Name Age of Onset Cancer Mother 79.00 STOMACH Other ([id number]) Father PACEMAKER Social History Tobacco Use Smoking status: Never Smokeless tobacco: Never Substance Use Topics Alcohol use: No Objective: Wt 193 lb (87.5 kg) Physical Exam General: Patient is not in acute distress. Appearance: Patient is well-developed. Eyes: Conjunctiva/sclera: Conjunctivae normal. Pupils: Pupils are equal, round, and reactive to light. HENT: Jaw: No trismus. Ears: Microscope brought in for exam. Bilateral external ears normal. Right EAC normal, TM clear with normal middle ear landmarks. Left EAC normal, TM clear with normal middle ear landmarks Nose: No nasal deformity, mucosal edema or rhinorrhea. Mouth: Mucous membranes are not pale, not dry and not cyanotic. No oral lesions. Pharynx: Uvula midline. No oropharyngeal exudate or uvula swelling. Tonsils: No tonsillar exudate. No abnormal masses or lesions Neck: No lymphadenopathy Thyroid: No significant thyromegaly. Trachea: Trachea and phonation normal. No tracheal deviation. Pulmonary: Effort: Pulmonary effort is normal. No respiratory distress. Breath sounds: No stridor. Musculoskeletal: Head: Normocephalic and atraumatic. Neck: Full passive range of motion without pain, neck supple. Skin: General: Skin is warm and dry. Findings: No erythema or rash. Neurological: Cranial Nerves: No cranial nerve deficit. Sensory: No sensory deficit. Coordination: Coordination normal. Extremities: No significant peripheral edema or varicosities Psychiatric: Mood and Affect: Mood and affect normal. Cognition and Memory: Cognition and memory normal. Procedure: Flexible fiberoptic laryngoscopy Indications: Presurgical clearance for revision ACDF Mirror examination was attempted for visualization of the hypopharynx and vocal cords, this was unsuccessful secondary to patient's gag reflex therefore flexible laryngoscopy was obtained Anesthesia: None Consent: Indications, risks, benefits and alternatives were discussed with the patient. The patient was given an opportunity to ask questions and after they were answered he verbally consented to the procedure. Description: The fiberoptic scope was advanced down the patients right nare to the nasopharynx. There were no signs of pus, polyps, or synechia. The nasopharynx was clear or any masses or lesions. The scope was then flexed and advanced downwards to the vocal folds. The cords were inspected and work properly; no lesions, masses, paresis or paralysis noted. The patient's piriform spaces, vallecula, epiglottis, aryepiglottic folds and base of tongue were inspected and found to be normal without masses, lesions or ulcerations. The scope was removed and the patient tolerated the procedure well. No complications noted. Significant findings: Normal bilateral vocal cord motion documented in this encounter [facility] 07-16-2022 Note HNO ID: [id number] Author: RT Sade(Anil) Service: ? Author Type: Auditing Coder Type: Progress Notes Filed: 07/16/2022 1:30 PM Note Text: Radiology Service Progress Note DATE OF SERVICE: July 16, 2022 TIME: 1:30 PM PATIENT IDENTITY VERIFICATION COMPLETED USING TWO (2) STANDARD IDENTIFIERS: Name and Date of confirmed by patient verbally. FALL SCREENING: Has the patient had 2 falls in the last year or 1 fall with injury or currently using an Ambulatory Assistive Device (Walker, Cane, Wheelchair, Crutches, etc.)? No PATIENT GENDER DATA: Female. status: : No status: NO. PATIENT RELEVANT IMPLANT DATA REVIEWED: Yes ALLERGIES: Reviewed and unchanged CONTRAST ALLERGY: NO. EXAM: CT -CONTRAST INDUCED NEPHROPATHY RISK FACTORS: Patient age > 60 years CREATININE: Creatinine Date Value Ref Range Status 07/10/2022 0.75 0.58 - 0.96 mg/dL Final Estimated Glomerular Filtration Rate Date Value Ref Range Status 07/10/2022 91 >=60 mL/min/1.73m? Final Comment: Estimated Glomerular Filtration Rate (eGFR) is calculated using the 2020 CKD-EPI creatinine equation. This equation utilizes serum creatinine, sex, and age as parameters. The creatinine assay has traceable calibration to isotope dilution-mass spectrometry. Refer to KDIGO guidelines for clinical interpretation. In patients with unstable renal function, e.g. those with acute kidney injury, the eGFR may not accurately reflect actual GFR. P.O.C.T. RESULTS: POC done: Yes, See Lab Tab July 16, 2022 TREATMENT: N/A PERIPHERAL IV DATA: Ambulatory: A peripheral IV was started in the Left antecubital site with a Angio cath: 22 gauge. RADIOLOGY DEPARTMENT: CT; Exam(s) Completed: Abdomen/Pelvis SIGNATURE: RT Alphonso(R) PATIENT NAME: Marissa Miller DATE: July 16, 2022 TIME: 1:30 PM [facility] 07-16-2022 History of Present illness Narrative Radiology Service Progress Note DATE OF SERVICE: July 16, 2022 TIME: 1:30 PM PATIENT IDENTITY VERIFICATION COMPLETED USING TWO (2) STANDARD IDENTIFIERS: Name and Date of confirmed by patient verbally. FALL SCREENING: Has the patient had 2 falls in the last year or 1 fall with injury or currently using an Ambulatory Assistive Device (Walker, Cane, Wheelchair, Crutches, etc.)? No PATIENT GENDER DATA: Female. status: : No status: NO. PATIENT RELEVANT IMPLANT DATA REVIEWED: Yes ALLERGIES: Reviewed and unchanged CONTRAST ALLERGY: NO. EXAM: CT -CONTRAST INDUCED NEPHROPATHY RISK FACTORS: Patient age > 60 years CREATININE: Creatinine Date Value Ref Range Status 07/10/2022 0.75 0.58 - 0.96 mg/dL Final Estimated Glomerular Filtration Rate Date Value Ref Range Status 07/10/2022 91 >=60 mL/min/1.73m Final Comment: Estimated Glomerular Filtration Rate (eGFR) is calculated using the 2020 CKD-EPI creatinine equation. This equation utilizes serum creatinine, sex, and age as parameters. The creatinine assay has traceable calibration to isotope dilution-mass spectrometry. Refer to KDIGO guidelines for clinical interpretation. In patients with unstable renal function, e.g. those with acute kidney injury, the eGFR may not accurately reflect actual GFR. P.O.C.T. RESULTS: POC done: Yes, See Lab Tab July 16, 2022 TREATMENT: N/A PERIPHERAL IV DATA: Ambulatory: A peripheral IV was started in the Left antecubital site with a Angio cath: 22 gauge. RADIOLOGY DEPARTMENT: CT; Exam(s) Completed: Abdomen/Pelvis SIGNATURE: RT Alphonso(R) PATIENT NAME: Marissa Miller DATE: July 16, 2022 TIME: 1:30 PM documented in this encounter [facility] 07-09-2022 Miscellaneous Notes Reviewed. Keisha Candelaria PA-C Just an FYI for the future Patient called in to let us know that Dr. Miller is no longer taking gallbladder patients at this time. She was given the number to Dr. Maldonado instead. documented in this encounter [facility] 07-09-2022 Note HNO ID: [id number] Author: Keisha Candelaria PA-C Service: ? Author Type: Physician Exchange Engineer Type: Progress Notes Filed: 07/09/2022 12:21 PM Note Text: CHIEF COMPLAINT: Patient presents with: Procedure Follow Up: Complains of abdominal bloating and pain. Some nausea this morning. EGD 06/04/22 HPI Marissa Miller is a 61 year old female here today for Procedure Follow Up (Complains of abdominal bloating and pain. Some nausea this morning. EGD 06/04/22). Seen last for postprandial epigastric pain, gallbladder polyp, altered Bms. Repeat EGD 05/2022 showed evidence of GERD w/ HH. Lost 7 lbs since last OV, includes part of this was intentional. Not able to start carafate as med was on backorder. Admits to persistent postprandial bloating/epigastric pain, mild in severity. Stool is green in color. Bms are daily, loose to formed, no blood. EGD 05/2022 4 cm HH, Schatzki's (no dilation), LA Grade A esophagitis FINAL DIAGNOSIS A. Stomach, antrum, biopsy: - Gastric antral mucosa with no significant pathologic change. - No intestinal metaplasia or morphologic evidence of Helicobacter pylori organisms. RUQ US 03/2022 IMPRESSION: Unchanged size of a 9 mm gallbladder polyp. A follow-up study could BE obtained in 6 months to assess for any change in size. Colonoscopy 10/13/2019 - Preparation of the colon was fair. - Three 5 to 7 mm polyps in the rectum and at 15 cm proximal to the anus, removed with a hot snare. Resected and retrieved. - Diverticulosis in the sigmoid colon. Rectum, polypectomy x3 - Fragments of hyperplastic polyp OV 05/2022 Marissa Miller is a 61 year old female here today for Recheck (Gallbladder polyp- repeat US done /Abdominal pain, constipation/diarrhea, gas, nausea ). Seen last by Dr. Gray for altered bowel habits, gallbladder polyp. Repeat RUQ US showed persistent unchanged polyp. Started on trial of Questran which she was unable to tolerate. Admits to persistent epigastric abd pain, altered bowel habits, postprandial abd pain. Prilosec 40 mg daily working well for her heartburn. Bms are daily, alters between constipated/diarrhea (more loose), no blood. Not able to tolerate fiber powders. [facility] 03/2022 IMPRESSION: Unchanged size of a 9 mm gallbladder polyp. A follow-up study could BE obtained in 6 months to assess for any change in size. EGD 02/17/2018 - Normal esophagus. - Bilious gastric fluid. - Bile gastritis. Biopsied. - Normal duodenal bulb, first portion of the duodenum and second portion of the duodenum. Antrum, biopsy - Antral and fundic mucosa with reactive foveolar hyperplasia. Colonoscopy 10/13/2019 - Preparation of the colon was fair. - Three 5 to 7 mm polyps in the rectum and at 15 cm proximal to the anus, removed with a hot snare. Resected and retrieved. - Diverticulosis in the sigmoid colon. Rectum, polypectomy x3 - Fragments of hyperplastic polyp Current Outpatient Medications Medication Sig lamoTRIgine (LAMICTAL) 200 mg tablet Take 200 mg by mouth once daily. pregabalin (LYRICA) 100 mg capsule Take 100 mg by mouth three times daily. lisinopril (ZESTRIL) 10 mg tablet Take 10 mg by mouth once daily. omeprazole (PRILOSEC) 40 mg capsule take 1 capsule by mouth once daily celecoxib (CELEBREX) 200 mg capsule Take 200 mg by mouth. glimepiride (AMARYL) 4 mg tablet Take 4 mg by mouth twice daily. levothyroxine (SYNTHROID) 100 mcg tablet oxybutynin XL (DITROPAN XL) 5 mg 24 hr tablet VITAMIN B-12 1,000 mcg tab promethazine (PHENERGAN) 25 mg tablet Take 12.5 mg by mouth. FARXIGA 10 mg tab Take 10 mg by mouth once daily. ARIPiprazole (ABILIFY) 15 mg tablet Take 1 tablet by mouth once daily. DULoxetine (CYMBALTA) 60 mg capsule Take 2 capsules by mouth once daily. HEALTHPRO TEST STRIPS test strip EASY TOUCH TWIST LANCETS 30 gauge misc atorvastatin (LIPITOR) 40 mg tablet cyclobenzaprine (FLEXERIL) 10 mg tablet No current facility-administered medications for this visit. Facility-Administered Medications Ordered in Other Visits Medication Dose Route Frequency lidocaine (PF) 10 mg/mL (1 %) 1-2 mg injection (XYLOCAINE) 0.1-0.2 mL INTRADERMAL PRN lactated ringers iv infusion 30 mL/hr INTRAVENOUS CONTINUOUS ALLERGIES Allergen Reactions Clarithromycin Unknown Amoxicillin-Pot Cla* GI Upset Hydromorphone Other: See Comments Pregabalin GI Upset Social History Tobacco Use Smoking status: Former Smokeless tobacco: Never Vaping Use Vaping Use: Never used Substance Use Topics Alcohol use: No Comment: quit Drug use: No PAST MEDICAL HISTORY Diagnosis Date Anemia Back pain Bile reflux gastritis Cancer (HCC) Cholesterolosis of gallbladder Depression DM (diabetes mellitus) (HCC) Fatty liver Fibromyalgia Gastroparesis GERD with esophagitis History of colon polyps HTN (hypertension) Hypothyroidism IBS (irritable bowel syndrome) Thyroid disease Ulcer, gastric, acute PAST SURG (more content not included)... [facility] 07-09-2022 History of Present illness Narrative CHIEF COMPLAINT: Patient presents with: Procedure Follow Up: Complains of abdominal bloating and pain. Some nausea this morning. EGD 06/04/22 HPI Marissa Miller is a 61 year old female here today for Procedure Follow Up (Complains of abdominal bloating and pain. Some nausea this morning. EGD 06/04/22). Seen last for postprandial epigastric pain, gallbladder polyp, altered Bms. Repeat EGD 05/2022 showed evidence of GERD w/ HH. Lost 7 lbs since last OV, includes part of this was intentional. Not able to start carafate as med was on backorder. Admits to persistent postprandial bloating/epigastric pain, mild in severity. Stool is green in color. Bms are daily, loose to formed, no blood. EGD 05/2022 4 cm HH, Schatzki's (no dilation), LA Grade A esophagitis FINAL DIAGNOSIS A. Stomach, antrum, biopsy: - Gastric antral mucosa with no significant pathologic change. - No intestinal metaplasia or morphologic evidence of Helicobacter pylori organisms. RUQ US 03/2022 IMPRESSION: Unchanged size of a 9 mm gallbladder polyp. A follow-up study could BE obtained in 6 months to assess for any change in size. Colonoscopy 10/13/2019 - Preparation of the colon was fair. - Three 5 to 7 mm polyps in the rectum and at 15 cm proximal to the anus, removed with a hot snare. Resected and retrieved. - Diverticulosis in the sigmoid colon. Rectum, polypectomy x3 - Fragments of hyperplastic polyp OV 05/2022 Marissa Miller is a 61 year old female here today for Recheck (Gallbladder polyp- repeat US done /Abdominal pain, constipation/diarrhea, gas, nausea ). Seen last by Dr. Gray for altered bowel habits, gallbladder polyp. Repeat RUQ US showed persistent unchanged polyp. Started on trial of Questran which she was unable to tolerate. Admits to persistent epigastric abd pain, altered bowel habits, postprandial abd pain. Prilosec 40 mg daily working well for her heartburn. Bms are daily, alters between constipated/diarrhea (more loose), no blood. Not able to tolerate fiber powders. RUQ US 03/2022 IMPRESSION: Unchanged size of a 9 mm gallbladder polyp. A follow-up study could BE obtained in 6 months to assess for any change in size. EGD 02/17/2018 - Normal esophagus. - Bilious gastric fluid. - Bile gastritis. Biopsied. - Normal duodenal bulb, first portion of the duodenum and second portion of the duodenum. Antrum, biopsy - Antral and fundic mucosa with reactive foveolar hyperplasia. Colonoscopy 10/13/2019 - Preparation of the colon was fair. - Three 5 to 7 mm polyps in the rectum and at 15 cm proximal to the anus, removed with a hot snare. Resected and retrieved. - Diverticulosis in the sigmoid colon. Rectum, polypectomy x3 - Fragments of hyperplastic polyp Current Outpatient Medications Medication Sig lamoTRIgine (LAMICTAL) 200 mg tablet Take 200 mg by mouth once daily. pregabalin (LYRICA) 100 mg capsule Take 100 mg by mouth three times daily. lisinopril (ZESTRIL) 10 mg tablet Take 10 mg by mouth once daily. omeprazole (PRILOSEC) 40 mg capsule take 1 capsule by mouth once daily celecoxib (CELEBREX) 200 mg capsule Take 200 mg by mouth. glimepiride (AMARYL) 4 mg tablet Take 4 mg by mouth twice daily. levothyroxine (SYNTHROID) 100 mcg tablet oxybutynin XL (DITROPAN XL) 5 mg 24 hr tablet VITAMIN B-12 1,000 mcg tab promethazine (PHENERGAN) 25 mg tablet Take 12.5 mg by mouth. FARXIGA 10 mg tab Take 10 mg by mouth once daily. ARIPiprazole (ABILIFY) 15 mg tablet Take 1 tablet by mouth once daily. DULoxetine (CYMBALTA) 60 mg capsule Take 2 capsules by mouth once daily. HEALTHPRO TEST STRIPS test strip EASY TOUCH TWIST LANCETS 30 gauge misc atorvastatin (LIPITOR) 40 mg tablet cyclobenzaprine (FLEXERIL) 10 mg tablet No current facility-administered medications for this visit. Facility-Administered Medications Ordered in Other Visits Medication Dose Route Frequency lidocaine (PF) 10 mg/mL (1 %) 1-2 mg injection (XYLOCAINE) 0.1-0.2 mL INTRADERMAL PRN lactated ringers iv infusion 30 mL/hr INTRAVENOUS CONTINUOUS ALLERGIES Allergen Reactions Clarithromycin Unknown Amoxicillin-Pot Cla* GI Upset Hydromorphone Other: See Comments Pregabalin GI Upset Social History Tobacco Use Smoking status: Former Smokeless tobacco: Never Vaping Use Vaping Use: Never used Substance Use Topics Alcohol use: No Comment: quit Drug use: No PAST MEDICAL HISTORY Diagnosis Date Anemia Back pain Bile reflux gastritis Cancer (HCC) Cholesterolosis of gallbladder Depression DM (diabetes mellitus) (HCC) Fatty liver Fibromyalgia Gastroparesis GERD with esophagitis History of colon polyps HTN (hypertension) Hypothyroidism IBS (irritable bowel syndrome) Thyroid disease Ulcer, gastric, acute PAST SURGICAL HISTORY Procedure Laterality Date APPENDECTOMY BACK SURGERY HX x 3 COLONOSCOPY 09/27/2014 hyperplastic polyp COLONOSCOPY GEN ANES N/A 10/13/2019 fair prep, hyperplastic polyps x3, diverticulosis EGD 10/31/2014 negative H pylori, gastritis, esophagitis EGD 02/17/2018 Bile gastritis. EGD W/O BRSH SPEC VARICIES INJ 06/04/2022 Normal GASTRIC EMPTYING STUDY 03/17/2018 normal HYSTERECTOMY PAST SURGICAL HISTORY OF stomach surgery FAMILY HISTORY Problem Relation Age of Onset other (heart problems) Mother other (liver disease) Mother other (stomach cancer) Mother Skin Cancer Father other (colon polyps) Father other (htn) Father REVIEW OF SYSTEMS Review of Systems Constitutional: Positive for fatigue. Gastrointestinal: Positive for abdominal distention, abdominal pain, diarrhea and nausea. Gas All other systems reviewed and are negative. PHYSICAL EXAM BP 118/72 Pulse 83 Ht 162.6 cm (5' 4 ) Wt 85.7 kg (189 lb) BMI 32.44 kg/m Physical Exam Constitutional: General: She is not in acute distress. Appearance: Normal appearance. She is obese. She is not ill-appearing, toxic-appearing or diaphoretic. HENT: Head: Normocephalic and atraumatic. Nose: Nose normal. Eyes: General: No scleral icterus. Right eye: No discharge. Left eye: No discharge. Extraocular Movements: Extraocular movements intact. Conjunctiva/sclera: Conjunctivae normal. Pupils: Pupils are equal, round, and reactive to light. Cardiovascular: Rate and Rhythm: Normal rate and regular rhythm. Pulses: Normal pulses. Heart sounds: Normal heart sounds. No murmur heard. No friction rub. No gallop. Pulmonary: Effort: No respiratory distress. Breath sounds: Normal breath sounds. No stridor. No wheezing, rhonchi or rales. Chest: Chest wall: No tenderness. Abdominal: General: Bowel sounds are normal. There is distension. Palpations: Abdomen is soft. There is no mass. Tenderness: There is abdominal tenderness (Mild generalized TTP). There is no right CVA tenderness, left CVA tenderness, guarding or rebound. Hernia: No hernia is present. Musculoskeletal: General: Normal range of motion. Cervical back: Normal range of motion and neck supple. Skin: General: Skin is warm and dry. Neurological: General: No focal deficit present. Mental Status: She is alert and oriented to person, place, and time. Psychiatric: Mood and Affect: Mood normal. Behavior: Behavior normal. Assessment/Plan (R10.84) Generalized abdominal pain (primary encounter diagnosis) (K82.4) Gallbladder polyp (K44.9, K21.00) Hiatal hernia with GERD and esophagitis (K22.2) Lower esophageal ring (Schatzki) (R19.5) Loose stools (R14.0) Bloating (R63.4) Abnormal weight loss (R14.0) Abdominal distension (gaseous) (R11.0) Nausea 1. Generalized abdominal pain - CELIAC SCREEN WITH REFLEX; Future - CT ABD/PEL W IVCON; Future - iv contrast (will be provided with radiology test); CT ABD/PEL -Inject, intravenously, once for 1 dose.No IV access, insert saline lock prior to the beginning of sedation, infusion, injection of imaging exam. Discontinue saline lock post exam. If Pt. has a central line or IVAD, may access for administration according to line specific nursing protocol. Once exam is complete flush line and de-access according to line specific nursing protocol in the CT contrast administration guidelines link. Dispense: 1 Each; Refill: 0 - enteric contrast (will be provided with radiology test); For CT ABD/PEL W IVCON Routine order Administer, As Directed One Time Only, via Oral, Rectal, both Oral and Rectal, Enteric Tube, Stoma or Indwelling Catheter, Enteric Contrast as designated per enteric contrast guidelines Dispense: 1 Each; Refill: 0 - CREATININE BLD; Future - Check Celiac serology - Will obtain CT abd to further assess generalized abd pain, bloating - Discussed potential to obtain HIDA to r/o biliary dyskinesia given h/o polyp. Pt reports she attempted HIDA in the past but could not lay on table due to severe back pain. She is interested in discussing with surgeon potential options for cholecystectomy as she is concerned about malignant potential for gallbladder polyp. Referral placed 2. Gallbladder polyp - CONSULT TO GENERAL SURGERY; Future 3. Hiatal hernia with GERD and esophagitis - Prilosec 40 mg daily working well for GERD, neg stomach biopsies from EGD 05/2022 4. Lower esophageal ring (Schatzki) 5. Loose stools - colestipol (COLESTID) 1 gram tablet; Take 1 tablet by mouth twice daily. Dispense: 120 tablet; Refill: 1 - Not able to tolerate fiber powders - Not able to tolerate Questran - Will provide trial of Colestid - Pt declined stool testing at this time until she is able to get CT/surg opinion on gallbladder - H/O colonic polyps, due for repeat 10/2024 I spent a total of 22 minutes on the date of the service which included preparing to see the patient, [id number] patient care, completing clinical documentation, obtaining and/or reviewing separately obtained history, performing a medically appropriate examination, counseling and educating the patient/family/caregiver, ordering medications, tests, or procedures, communicating with other HCPs (not separately reported), independently interpreting results (not separately reported), communicating results to the patient/family/caregiver, and care coordination (not separately reported). Keisha Candelaria PA-C July 09, 2022 11:53 AM documented in this encounter [facility] 06-04-2022 Note HNO ID: [id number] Author: Donal Solomon RN Service: Gastroenterology Author Type: Registered Nurse Type: Nursing Progress Note Filed: 06/04/2022 11:31 AM Note Text: MD at the bedside. [facility] 06-04-2022 Note HNO ID: [id number] Author: Donal Solomon RN Service: Gastroenterology Author Type: Registered Nurse Type: Nursing Progress Note Filed: 06/04/2022 11:31 AM Note Text: Discharge instructions given, pt verbalized understanding. [facility] 05-30-2022 Note HNO ID: [id number] Author: Keisha Candelaria PA-C Service: ? Author Type: Physician Exchange Engineer Type: Progress Notes Filed: 05/30/2022 12:26 PM Note Text: CHIEF COMPLAINT: Patient presents with: Recheck: Gallbladder polyp- repeat US done Abdominal pain, constipation/diarrhea, gas, nausea HPI Marissa Miller is a 61 year old female here today for Recheck (Gallbladder polyp- repeat US done /Abdominal pain, constipation/diarrhea, gas, nausea ). Seen last by Dr. Gray for altered bowel habits, gallbladder polyp. Repeat RUQ US showed persistent unchanged polyp. Started on trial of Questran which she was unable to tolerate. Admits to persistent epigastric abd pain, altered bowel habits, postprandial abd pain. Prilosec 40 mg daily working well for her heartburn. Bms are daily, alters between constipated/diarrhea (more loose), no blood. Not able to tolerate fiber powders. RUQ US 03/2022 IMPRESSION: Unchanged size of a 9 mm gallbladder polyp. A follow-up study could BE obtained in 6 months to assess for any change in size. EGD 02/17/2018 - Normal esophagus. - Bilious gastric fluid. - Bile gastritis. Biopsied. - Normal duodenal bulb, first portion of the duodenum and second portion of the duodenum. Antrum, biopsy - Antral and fundic mucosa with reactive foveolar hyperplasia. Colonoscopy 10/13/2019 - Preparation of the colon was fair. - Three 5 to 7 mm polyps in the rectum and at 15 cm proximal to the anus, removed with a hot snare. Resected and retrieved. - Diverticulosis in the sigmoid colon. Rectum, polypectomy x3 - Fragments of hyperplastic polyp OV 12/2021 Marissa Miller is a 61 year old female here today for Abdominal Pain (Abdominal bloating and stool is a different color. ) Abd cramping Intermittent For the past few months Comes with green stool ++ bloating all the times Epigastric area with distention and there was lump there Bowel movements are altered between diarrhea and constipation Moving 1-2 loose bowel movements Previous ultrasound with polyp in the gallbladder and cholesterolosis Mother of stomach cancer the patient is concerned EGD 02/17/2018 - Normal esophagus. - Bilious gastric fluid. - Bile gastritis. Biopsied. - Normal duodenal bulb, first portion of the duodenum and second portion of the duodenum. Antrum, biopsy - Antral and fundic mucosa with reactive foveolar hyperplasia. Colonoscopy 10/13/2019 - Preparation of the colon was fair. - Three 5 to 7 mm polyps in the rectum and at 15 cm proximal to the anus, removed with a hot snare. Resected and retrieved. - Diverticulosis in the sigmoid colon. Rectum, polypectomy x3 - Fragments of hyperplastic polyp Current Outpatient Medications Medication Sig lamoTRIgine (LAMICTAL) 200 mg tablet Take 200 mg by mouth once daily. pregabalin (LYRICA) 100 mg capsule Take 100 mg by mouth three times daily. lisinopril (ZESTRIL) 10 mg tablet Take 10 mg by mouth once daily. omeprazole (PRILOSEC) 40 mg capsule take 1 capsule by mouth once daily celecoxib (CELEBREX) 200 mg capsule Take 200 mg by mouth. glimepiride (AMARYL) 4 mg tablet Take 4 mg by mouth twice daily. levothyroxine (SYNTHROID) 100 mcg tablet oxybutynin XL (DITROPAN XL) 5 mg 24 hr tablet VITAMIN B-12 1,000 mcg tab promethazine (PHENERGAN) 25 mg tablet Take 12.5 mg by mouth. FARXIGA 10 mg tab Take 10 mg by mouth once daily. ARIPiprazole (ABILIFY) 15 mg tablet Take 1 tablet by mouth once daily. DULoxetine (CYMBALTA) 60 mg capsule Take 2 capsules by mouth once daily. HEALTHPRO TEST STRIPS test strip EASY TOUCH TWIST LANCETS 30 gauge misc atorvastatin (LIPITOR) 40 mg tablet cyclobenzaprine (FLEXERIL) 10 mg tablet No current facility-administered medications for this visit. ALLERGIES Allergen Reactions Clarithromycin Unknown Amoxicillin-Pot Cla* GI Upset Hydromorphone Other: See Comments Pregabalin GI Upset Social History Tobacco Use Smoking status: Former Smokeless tobacco: Never Vaping Use Vaping Use: Never used Substance Use Topics Alcohol use: No Comment: quit Drug use: No PAST MEDICAL HISTORY Diagnosis Date Anemia Back pain Bile reflux gastritis Cancer (HCC) Cholesterolosis of gallbladder Depression DM (diabetes mellitus) (HCC) Fatty liver Fibromyalgia Gastroparesis GERD with esophagitis History of colon polyps HTN (hypertension) Hypothyroidism IBS (irritable bowel syndrome) Thyroid disease Ulcer, gastric, acute PAST SURGICAL HISTORY Procedure Laterality Date APPENDECTOMY BACK SURGERY HX x 3 COLONOSCOPY 09/27/2014 hyperplastic polyp COLONOSCOPY GEN ANES N/A 10/13/2019 fair prep, hyperplastic polyps x3, diverticulosis EGD 10/31/2014 negative H pylori, gastritis, esophagitis EGD 02/17/2018 Bile gastritis. GASTRIC EMPTYING STUDY 03/17/2018 normal HYSTERECTOMY PAST SURGICAL HISTORY OF stomach surgery FAMILY HISTORY Problem Relation Ag (more content not included)... [facility] 05-30-2022 History of Present illness Narrative CHIEF COMPLAINT: Patient presents with: Recheck: Gallbladder polyp- repeat US done Abdominal pain, constipation/diarrhea, gas, nausea HPI Marissa Miller is a 61 year old female here today for Recheck (Gallbladder polyp- repeat US done /Abdominal pain, constipation/diarrhea, gas, nausea ). Seen last by Dr. Gray for altered bowel habits, gallbladder polyp. Repeat RUQ US showed persistent unchanged polyp. Started on trial of Questran which she was unable to tolerate. Admits to persistent epigastric abd pain, altered bowel habits, postprandial abd pain. Prilosec 40 mg daily working well for her heartburn. Bms are daily, alters between constipated/diarrhea (more loose), no blood. Not able to tolerate fiber powders. RUQ US 03/2022 IMPRESSION: Unchanged size of a 9 mm gallbladder polyp. A follow-up study could BE obtained in 6 months to assess for any change in size. EGD 02/17/2018 - Normal esophagus. - Bilious gastric fluid. - Bile gastritis. Biopsied. - Normal duodenal bulb, first portion of the duodenum and second portion of the duodenum. Antrum, biopsy - Antral and fundic mucosa with reactive foveolar hyperplasia. Colonoscopy 10/13/2019 - Preparation of the colon was fair. - Three 5 to 7 mm polyps in the rectum and at 15 cm proximal to the anus, removed with a hot snare. Resected and retrieved. - Diverticulosis in the sigmoid colon. Rectum, polypectomy x3 - Fragments of hyperplastic polyp OV 12/2021 Marissa Miller is a 61 year old female here today for Abdominal Pain (Abdominal bloating and stool is a different color. ) Abd cramping Intermittent For the past few months Comes with green stool ++ bloating all the times Epigastric area with distention and there was lump there Bowel movements are altered between diarrhea and constipation Moving 1-2 loose bowel movements Previous ultrasound with polyp in the gallbladder and cholesterolosis Mother of stomach cancer the patient is concerned EGD 02/17/2018 - Normal esophagus. - Bilious gastric fluid. - Bile gastritis. Biopsied. - Normal duodenal bulb, first portion of the duodenum and second portion of the duodenum. Antrum, biopsy - Antral and fundic mucosa with reactive foveolar hyperplasia. Colonoscopy 10/13/2019 - Preparation of the colon was fair. - Three 5 to 7 mm polyps in the rectum and at 15 cm proximal to the anus, removed with a hot snare. Resected and retrieved. - Diverticulosis in the sigmoid colon. Rectum, polypectomy x3 - Fragments of hyperplastic polyp Current Outpatient Medications Medication Sig lamoTRIgine (LAMICTAL) 200 mg tablet Take 200 mg by mouth once daily. pregabalin (LYRICA) 100 mg capsule Take 100 mg by mouth three times daily. lisinopril (ZESTRIL) 10 mg tablet Take 10 mg by mouth once daily. omeprazole (PRILOSEC) 40 mg capsule take 1 capsule by mouth once daily celecoxib (CELEBREX) 200 mg capsule Take 200 mg by mouth. glimepiride (AMARYL) 4 mg tablet Take 4 mg by mouth twice daily. levothyroxine (SYNTHROID) 100 mcg tablet oxybutynin XL (DITROPAN XL) 5 mg 24 hr tablet VITAMIN B-12 1,000 mcg tab promethazine (PHENERGAN) 25 mg tablet Take 12.5 mg by mouth. FARXIGA 10 mg tab Take 10 mg by mouth once daily. ARIPiprazole (ABILIFY) 15 mg tablet Take 1 tablet by mouth once daily. DULoxetine (CYMBALTA) 60 mg capsule Take 2 capsules by mouth once daily. HEALTHPRO TEST STRIPS test strip EASY TOUCH TWIST LANCETS 30 gauge misc atorvastatin (LIPITOR) 40 mg tablet cyclobenzaprine (FLEXERIL) 10 mg tablet No current facility-administered medications for this visit. ALLERGIES Allergen Reactions Clarithromycin Unknown Amoxicillin-Pot Cla* GI Upset Hydromorphone Other: See Comments Pregabalin GI Upset Social History Tobacco Use Smoking status: Former Smokeless tobacco: Never Vaping Use Vaping Use: Never used Substance Use Topics Alcohol use: No Comment: quit Drug use: No PAST MEDICAL HISTORY Diagnosis Date Anemia Back pain Bile reflux gastritis Cancer (HCC) Cholesterolosis of gallbladder Depression DM (diabetes mellitus) (HCC) Fatty liver Fibromyalgia Gastroparesis GERD with esophagitis History of colon polyps HTN (hypertension) Hypothyroidism IBS (irritable bowel syndrome) Thyroid disease Ulcer, gastric, acute PAST SURGICAL HISTORY Procedure Laterality Date APPENDECTOMY BACK SURGERY HX x 3 COLONOSCOPY 09/27/2014 hyperplastic polyp COLONOSCOPY GEN ANES N/A 10/13/2019 fair prep, hyperplastic polyps x3, diverticulosis EGD 10/31/2014 negative H pylori, gastritis, esophagitis EGD 02/17/2018 Bile gastritis. GASTRIC EMPTYING STUDY 03/17/2018 normal HYSTERECTOMY PAST SURGICAL HISTORY OF stomach surgery FAMILY HISTORY Problem Relation Age of Onset other (heart problems) Mother other (liver disease) Mother other (stomach cancer) Mother Skin Cancer Father other (colon polyps) Father other (htn) Father REVIEW OF SYSTEMS Review of Systems Constitutional: Positive for unexpected weight change. Gastrointestinal: Positive for abdominal distention, abdominal pain, constipation, diarrhea and nausea. Change in Bowel Habits, Gas, Heartburn All other systems reviewed and are negative. PHYSICAL EXAM BP 136/80 Pulse 76 Ht 5' 4 (1.63m) Wt 196 lb (88.9kg) BMI 33.63 kg/(m^2). Physical Exam Constitutional: General: She is not in acute distress. Appearance: Normal appearance. She is normal weight. She is not ill-appearing, toxic-appearing or diaphoretic. HENT: Head: Normocephalic and atraumatic. Nose: Nose normal. Eyes: General: No scleral icterus. Right eye: No discharge. Left eye: No discharge. Extraocular Movements: Extraocular movements intact. Conjunctiva/sclera: Conjunctivae normal. Pupils: Pupils are equal, round, and reactive to light. Cardiovascular: Rate and Rhythm: Normal rate and regular rhythm. Pulses: Normal pulses. Heart sounds: Normal heart sounds. No murmur heard. No friction rub. No gallop. Pulmonary: Effort: No respiratory distress. Breath sounds: Normal breath sounds. No stridor. No wheezing, rhonchi or rales. Chest: Chest wall: No tenderness. Abdominal: General: Abdomen is flat. Bowel sounds are normal. There is no distension. Palpations: Abdomen is soft. There is no mass. Tenderness: There is no abdominal tenderness. There is no right CVA tenderness, left CVA tenderness, guarding or rebound. Hernia: No hernia is present. Musculoskeletal: General: Normal range of motion. Cervical back: Normal range of motion and neck supple. Skin: General: Skin is warm and dry. Neurological: General: No focal deficit present. Mental Status: She is alert and oriented to person, place, and time. Psychiatric: Mood and Affect: Mood normal. Behavior: Behavior normal. Assessment/Plan (R10.13) Postprandial epigastric pain (primary encounter diagnosis) (R19.4) Altered bowel habits (K82.4) Gallbladder polyp 1. Postprandial epigastric pain - sucralfate (CARAFATE) 1 gram tablet; Take 1 tablet by mouth twice daily. Crush and mix with small tablespoon of applesauce. Dispense: 60 tablet; Refill: 0 - EGD DIAGNOSTIC; Future - Continue Prilosec 40 mg daily - Start Carafate BID for h/o bile gastritis, pt reports control of blood sugars, is to monitor numbers while taking med - EGD to r/o H. Pylori, Celiac 2. Altered bowel habits - H/O side effects with fiber powders - Consider colon if EGD unremarkable, h/o colonic polyps, due for repeat 10/2024 3. Gallbladder polyp - US ABD RT UPPER QUADRANT; Future - Repeat RUQ US around 09/2022 I spent a total of 15 minutes on the date of the service which included preparing to see the patient, [id number] patient care, completing clinical documentation, obtaining and/or reviewing separately obtained history, performing a medically appropriate examination, counseling and educating the patient/family/caregiver, ordering medications, tests, or procedures, communicating with other HCPs (not separately reported), independently interpreting results (not separately reported), communicating results to the patient/family/caregiver, and care coordination (not separately reported). Keisha Candelaria PA-C May 30, 2022 12:04 PM documented in this encounter [facility] 04-04-2022 Note HNO ID: [id number] Author: Nova Vallejo RDMS Service: ? Author Type: Auditing Coder Type: Progress Notes Filed: 04/04/2022 10:54 AM Note Text: Radiology Service Progress Note PATIENT NAME: Marissa Miller DATE OF SERVICE: April 04, 2022 TIME: 10:54 AM PATIENT IDENTITY VERIFICATION COMPLETED USING TWO (2) IDENTIFIERS: Name and Date of confirmed by patient verbally. FALL SCREENING: Has the patient had 2 falls in the last year or 1 fall with injury or currently using an Ambulatory Assistive Device (Walker, Cane, Wheelchair, Crutches, etc.)? No PATIENT GENDER DATA: Female. status: : No status: NO. PATIENT RELEVANT IMPLANT DATA REVIEWED: Not Applicable RADIOLOGY DEPARTMENT: Ultrasound PERIPHERAL IV DATA: Not applicable SIGNED BY: Nova Vallejo RDMS April 04, 2022 10:54 AM [facility] 04-04-2022 History of Present illness Narrative Radiology Service Progress Note PATIENT NAME: Marissa Miller DATE OF SERVICE: April 04, 2022 TIME: 10:54 AM PATIENT IDENTITY VERIFICATION COMPLETED USING TWO (2) IDENTIFIERS: Name and Date of confirmed by patient verbally. FALL SCREENING: Has the patient had 2 falls in the last year or 1 fall with injury or currently using an Ambulatory Assistive Device (Walker, Cane, Wheelchair, Crutches, etc.)? No PATIENT GENDER DATA: Female. status: : No status: NO. PATIENT RELEVANT IMPLANT DATA REVIEWED: Not Applicable RADIOLOGY DEPARTMENT: Ultrasound PERIPHERAL IV DATA: Not applicable SIGNED BY: Nova Vallejo RDMS April 04, 2022 10:54 AM documented in this encounter [facility] 03-18-2022 Miscellaneous Notes Patient phones requesting refills as follows: Requested Prescriptions Pending Prescriptions Disp Refills omeprazole (PRILOSEC) 40 mg capsule [Pharmacy Med Name: OMEPRAZOLE DR 40 MG CAPSULE] 90 capsule 3 Sig: take 1 capsule by mouth once daily Please review and advise. Pavel Mota MA documented in this encounter [facility] 01-04-2022 Miscellaneous Notes Patient notified of results and recommendations. Ultrasound of the liver showed a polyp in the gallbladder but does not look like cancer. Please repeat ultrasound after 3 months. If it grows, will refer to surgery since it could potentially become a cancer documented in this encounter [facility] 01-03-2022 Note HNO ID: [id number] Author: RT Caleb(R) Service: Radiology Author Type: Technologist Type: Progress Notes Filed: 01/03/2022 2:49 PM Note Text: Radiology Service Progress Note PATIENT NAME: Marissa Miller DATE OF SERVICE: January 03, 2022 TIME: 2:48 PM PATIENT IDENTITY VERIFICATION COMPLETED USING TWO (2) IDENTIFIERS: Name and Date of confirmed by patient verbally. FALL SCREENING: Has the patient had 2 falls in the last year or 1 fall with injury or currently using an Ambulatory Assistive Device (Walker, Cane, Wheelchair, Crutches, etc.)? No PATIENT GENDER DATA: Female. status: : No status: N/A PATIENT RELEVANT IMPLANT DATA REVIEWED: Not Applicable RADIOLOGY DEPARTMENT: Ultrasound PERIPHERAL IV DATA: Not applicable SIGNED BY: Marlin Alicea Rdms January 03, 2022 2:48 PM [facility] 12-31-2021 Note HNO ID: [id number] Author: Coni Gray MD Service: ? Author Type: Physician Type: Progress Notes Filed: 12/31/2021 12:27 PM Note Text: CHIEF COMPLAINT: Patient presents with: Abdominal Pain: Abdominal bloating and stool is a different color. HPI Marissa Miller is a 61 year old female here today for Abdominal Pain (Abdominal bloating and stool is a different color. ) Abd cramping Intermittent For the past few months Comes with green stool ++ bloating all the times Epigastric area with distention and there was lump there Bowel movements are altered between diarrhea and constipation Moving 1-2 loose bowel movements Previous ultrasound with polyp in the gallbladder and cholesterolosis Mother of stomach cancer the patient is concerned EGD 02/17/2018 - Normal esophagus. - Bilious gastric fluid. - Bile gastritis. Biopsied. - Normal duodenal bulb, first portion of the duodenum and second portion of the duodenum. Antrum, biopsy - Antral and fundic mucosa with reactive foveolar hyperplasia. Colonoscopy 10/13/2019 - Preparation of the colon was fair. - Three 5 to 7 mm polyps in the rectum and at 15 cm proximal to the anus, removed with a hot snare. Resected and retrieved. - Diverticulosis in the sigmoid colon. Rectum, polypectomy x3 - Fragments of hyperplastic polyp Current Outpatient Medications Medication Sig celecoxib (CELEBREX) 200 mg capsule Take 200 mg by mouth. glimepiride (AMARYL) 4 mg tablet Take 4 mg by mouth twice daily. levothyroxine (SYNTHROID) 100 mcg tablet oxybutynin XL (DITROPAN XL) 5 mg 24 hr tablet omeprazole (PRILOSEC) 40 mg capsule Take 1 capsule by mouth once daily. VITAMIN B-12 1,000 mcg tab promethazine (PHENERGAN) 25 mg tablet Take 12.5 mg by mouth. FARXIGA 10 mg tab Take 10 mg by mouth once daily. lisinopril (ZESTRIL, PRINIVIL) 5 mg tablet Take 5 mg by mouth once daily. ARIPiprazole (ABILIFY) 15 mg tablet Take 1 tablet by mouth once daily. DULoxetine (CYMBALTA) 60 mg capsule Take 2 capsules by mouth once daily. zolpidem (AMBIEN) 10 mg tab Take 1 tablet by mouth daily at bedtime. HEALTHPRO TEST STRIPS test strip EASY TOUCH TWIST LANCETS [facility] atorvastatin (LIPITOR) 40 mg tablet cyclobenzaprine (FLEXERIL) 10 mg tablet gabapentin (NEURONTIN) 800 mg tablet cholestyramine low-calorie (CHOLESTYRAMINE LIGHT) 4 gram packet Take 1 Packet by mouth twice daily with meals. No current facility-administered medications for this visit. ALLERGIES Allergen Reactions Clarithromycin Unknown Amoxicillin-Pot Cla* GI Upset Hydromorphone Other: See Comments Pregabalin GI Upset Social History Tobacco Use Smoking status: Former Smokeless tobacco: Never Vaping Use Vaping Use: Never used Substance Use Topics Alcohol use: No Comment: quit Drug use: No PAST MEDICAL HISTORY Diagnosis Date Anemia Back pain Bile reflux gastritis Cancer (HCC) Cholesterolosis of gallbladder Depression DM (diabetes mellitus) (HCC) Fatty liver Fibromyalgia Gastroparesis GERD with esophagitis History of colon polyps HTN (hypertension) Hypothyroidism IBS (irritable bowel syndrome) Thyroid disease Ulcer, gastric, acute PAST SURGICAL HISTORY Procedure Laterality Date APPENDECTOMY BACK SURGERY HX x 3 COLONOSCOPY 09/27/2014 hyperplastic polyp COLONOSCOPY GEN ANES N/A 10/13/2019 fair prep, hyperplastic polyps x3, diverticulosis EGD 10/31/2014 negative H pylori, gastritis, esophagitis EGD 02/17/2018 Bile gastritis. GASTRIC EMPTYING STUDY 03/17/2018 normal HYSTERECTOMY PAST SURGICAL HISTORY OF stomach surgery FAMILY HISTORY Problem Relation Age of Onset other (heart problems) Mother other (liver disease) Mother other (stomach cancer) Mother Skin Cancer Father other (colon polyps) Father other (htn) Father REVIEW OF SYSTEMS Review of Systems Constitutional: Positive for fatigue. Gastrointestinal: Positive for abdominal distention, abdominal pain and diarrhea. Change in bowel habits All other systems reviewed and are negative. PHYSICAL EXAM BP 138/80 Pulse 80 Ht 5' 4 (1.63m) Wt 177 lb (80.3kg) BMI 30.37 kg/(m2). Physical Exam General: Alert, oriented, No acute distress. Skin: No rash; warm. Head: Normocephalic, atraumatic. Eyes: EOMI, PERRLA. Lymph: No cervical lymphadenopathy. Thyroid: Neck supple. No thyromegaly. Heart: S1, S2. No murmurs, gallops or rubs. Lungs: Clear to auscultation bilaterally. No wheezes or crackles. Abdomen: Soft, diffusely tender, nondistended. Bowel sounds are normal. No organomegaly. Musculoskeletal: No joint swelling or effusion. Extremities: No cyanosis, clubbing or edema. Mental: Mood appropriate. Not depressed. Neuro: Cranial nerves II through XII intact. ASSESSMENT: Gallbladder polyp (primary encounter diagnosis) Altered bowel habits Loose stools Bloating Stool color abnormal Abdominal distention Gen (more content not included)... [facility] 12-31-2021 History of Present illness Narrative CHIEF COMPLAINT: Patient presents with: Abdominal Pain: Abdominal bloating and stool is a different color. HPI Marissa Miller is a 61 year old female here today for Abdominal Pain (Abdominal bloating and stool is a different color. ) Abd cramping Intermittent For the past few months Comes with green stool ++ bloating all the times Epigastric area with distention and there was lump there Bowel movements are altered between diarrhea and constipation Moving 1-2 loose bowel movements Previous ultrasound with polyp in the gallbladder and cholesterolosis Mother of stomach cancer the patient is concerned EGD 02/17/2018 - Normal esophagus. - Bilious gastric fluid. - Bile gastritis. Biopsied. - Normal duodenal bulb, first portion of the duodenum and second portion of the duodenum. Antrum, biopsy - Antral and fundic mucosa with reactive foveolar hyperplasia. Colonoscopy 10/13/2019 - Preparation of the colon was fair. - Three 5 to 7 mm polyps in the rectum and at 15 cm proximal to the anus, removed with a hot snare. Resected and retrieved. - Diverticulosis in the sigmoid colon. Rectum, polypectomy x3 - Fragments of hyperplastic polyp Current Outpatient Medications Medication Sig celecoxib (CELEBREX) 200 mg capsule Take 200 mg by mouth. glimepiride (AMARYL) 4 mg tablet Take 4 mg by mouth twice daily. levothyroxine (SYNTHROID) 100 mcg tablet oxybutynin XL (DITROPAN XL) 5 mg 24 hr tablet omeprazole (PRILOSEC) 40 mg capsule Take 1 capsule by mouth once daily. VITAMIN B-12 1,000 mcg tab promethazine (PHENERGAN) 25 mg tablet Take 12.5 mg by mouth. FARXIGA 10 mg tab Take 10 mg by mouth once daily. lisinopril (ZESTRIL, PRINIVIL) 5 mg tablet Take 5 mg by mouth once daily. ARIPiprazole (ABILIFY) 15 mg tablet Take 1 tablet by mouth once daily. DULoxetine (CYMBALTA) 60 mg capsule Take 2 capsules by mouth once daily. zolpidem (AMBIEN) 10 mg tab Take 1 tablet by mouth daily at bedtime. HEALTHPRO TEST STRIPS test strip EASY TOUCH TWIST LANCETS 30 gauge [facility] atorvastatin (LIPITOR) 40 mg tablet cyclobenzaprine (FLEXERIL) 10 mg tablet gabapentin (NEURONTIN) 800 mg tablet cholestyramine low-calorie (CHOLESTYRAMINE LIGHT) 4 gram packet Take 1 Packet by mouth twice daily with meals. No current facility-administered medications for this visit. ALLERGIES Allergen Reactions Clarithromycin Unknown Amoxicillin-Pot Cla* GI Upset Hydromorphone Other: See Comments Pregabalin GI Upset Social History Tobacco Use Smoking status: Former Smokeless tobacco: Never Vaping Use Vaping Use: Never used Substance Use Topics Alcohol use: No Comment: quit Drug use: No PAST MEDICAL HISTORY Diagnosis Date Anemia Back pain Bile reflux gastritis Cancer (HCC) Cholesterolosis of gallbladder Depression DM (diabetes mellitus) (HCC) Fatty liver Fibromyalgia Gastroparesis GERD with esophagitis History of colon polyps HTN (hypertension) Hypothyroidism IBS (irritable bowel syndrome) Thyroid disease Ulcer, gastric, acute PAST SURGICAL HISTORY Procedure Laterality Date APPENDECTOMY BACK SURGERY HX x 3 COLONOSCOPY 09/27/2014 hyperplastic polyp COLONOSCOPY GEN ANES N/A 10/13/2019 fair prep, hyperplastic polyps x3, diverticulosis EGD 10/31/2014 negative H pylori, gastritis, esophagitis EGD 02/17/2018 Bile gastritis. GASTRIC EMPTYING STUDY 03/17/2018 normal HYSTERECTOMY PAST SURGICAL HISTORY OF stomach surgery FAMILY HISTORY Problem Relation Age of Onset other (heart problems) Mother other (liver disease) Mother other (stomach cancer) Mother Skin Cancer Father other (colon polyps) Father other (htn) Father REVIEW OF SYSTEMS Review of Systems Constitutional: Positive for fatigue. Gastrointestinal: Positive for abdominal distention, abdominal pain and diarrhea. Change in bowel habits All other systems reviewed and are negative. PHYSICAL EXAM BP 138/80 Pulse 80 Ht 5' 4 (1.63m) Wt 177 lb (80.3kg) BMI 30.37 kg/(m^2). Physical Exam General: Alert, oriented, No acute distress. Skin: No rash; warm. Head: Normocephalic, atraumatic. Eyes: EOMI, PERRLA. Lymph: No cervical lymphadenopathy. Thyroid: Neck supple. No thyromegaly. Heart: S1, S2. No murmurs, gallops or rubs. Lungs: Clear to auscultation bilaterally. No wheezes or crackles. Abdomen: Soft, diffusely tender, nondistended. Bowel sounds are normal. No organomegaly. Musculoskeletal: No joint swelling or effusion. Extremities: No cyanosis, clubbing or edema. Mental: Mood appropriate. Not depressed. Neuro: Cranial nerves II through XII intact. ASSESSMENT: Gallbladder polyp (primary encounter diagnosis) Altered bowel habits Loose stools Bloating Stool color abnormal Abdominal distention Generalized abdominal pain Family history of stomach cancer PLAN: Start Questran once a day since she likely has bile salt induced loose stool Repeat colonoscopy next year per last colonoscopy recommendation. No history of colon polyps per the patient Might benefit from repeat upper endoscopy with small bowel biopsies if she does not improve Might benefit from low FODMAP diet in the future Obtain ultrasound of the right upper quadrant to check her gallbladder polyp This office note has been created using [employer], a speech recognition software program, and may contain errors including punctuation, grammar, spelling, gender, and inappropriate words or phrases that pertain to the sytem. Coni Gray MD Office Visit on 12/31/21 US ABD RT UPPER QUADRANT No follow-ups on file. Coni Gray MD DATE: 12/31/21 TIME: 11:54 AM documented in this encounter [facility] Evaluation note There may be informa tion available, but it has not been provided by the sender. [facility] Work Phone: [facility] Gallbladder polyp- Primary Cholesterolosis of gallbladder [facility] Diagnosis Epigastric abdominal tenderness without rebound tenderness Bloating Flatulence, eructation, and gas pain [facility] Diagnosis Postprandial epigastric pain- Primary Abdominal pain, epigastric Altered bowel habits Other symptoms involving digestive system Gallbladder polyp Cholesterolosis of gallbladder [facility] Diagnosis Postprandial epigastric pain Abdominal pain, epigastric [facility] Diagnosis Generalized abdominal pain- Primary Abdominal pain, generalized Gallbladder polyp Cholesterolosis of gallbladder Hiatal hernia with GERD and esophagitis Lower esophageal ring (Schatzki) Loose stools Abnormal feces Bloating Flatulence, eructation, and gas pain Abnormal weight loss Loss of weight Abdominal distension (gaseous) Flatulence, eructation, and gas pain Nausea Nausea alone documented in this encounter [facility] note* Diagnosis Postlaminectomy syndrome, not elsewhere classified documented in this encounter [facility] note* Diagnosis Cervical radiculopathy- Primary Brachial neuritis or radiculitis nos documented in this encounter [facility] note* Diagnosis Gallbladder polyp Cholesterolosis of gallbladder documented in this encounter [facility] note* Diagnosis Generalized abdominal pain Abdominal pain, generalized Bloating Flatulence, eructation, and gas pain Abnormal weight loss Loss of weight Abdominal distension (gaseous) Flatulence, eructation, and gas pain Nausea Nausea alone documented in this encounter [facility] note* Diagnosis Postlaminectomy syndrome, not elsewhere classified- Primary Postlaminectomy syndrome, not elsewhere classified [facility] Description Start Date Completed [facility] Work Phone: [facility] for referral (narrative)* Diagnostic Procedure Only (Routine) - Authorized Specialty Diagnoses / Procedures Referred By Contac t Referred To Contact US IMAGING Diagnoses Gallbladder polyp Procedures US ABD RT UPPER QUADRANT US ABDOMINAL [place] [address] [place] [id number] Us Imaging Referral ID Status Reason Start Date Expiration Date Visits Requested Visits Authorized [id number] Authorized Auto-Generat ed Referral 2 01/30/2023 1 1 [facility] for referral (narrative)* Diagnostic Procedure Only (Routine) - Pending Review Specialty Diagnoses / Procedures Referred By Contac t Referred To Contact US IMAGING Diagnoses Gallbladder polyp Procedures US ABD RT UPPER QUADRANT US ABDOMINAL REAL TIME W/IMAGE LIMITED Coni Gray MD [address] [place], [place] [address], [place] [address] Us Imaging Referral ID Status Reason Start Date Expiration Date Visits Requested Visits Authorized [id number] Pending Review Auto-Generat ed Referral 02/03/2023 1 1 [facility] for referral (narrative)* Outpatient Procedure (Routine) - Authorized Specialty Diagnoses / Procedures [facility] Diagnoses Postprandial epigastric pain Procedures EGD DIAGNOSTIC ESOPHAGOGASTRODUODENOS COPY TRANSORAL DIAGNOSTIC Keisha Candelaria PA-C [address] [place] [address] [facility] [place] [address] [place] [address] Referral ID Status Reason Start Date Expiration Date Visits Requested Visits Authorized [id number] Authorized Auto-Generat ed Referral 05/30/2022 05/31/2023 1 1 * Diagnostic Procedure Only (Routine) - Pending Review Specialty Diagnoses / Procedures [facility] Referred To Contact US IMAGING Diagnoses Gallbladder polyp Procedures US ABD RT UPPER QUADRANT US ABDOMINAL REAL TIME W/IMAGE LIMITED Keisha Candelaria PA-C [address] [place] [address] Us Imaging Referral ID Status Reason Start Date Expiration Date Visits Requested Visits Authorized [id number] Pending Review Auto-Generat ed Referral 09/29/2022 06/29/2023 1 1 [facility] for referral (narrative)* Diagnostic Procedure Only (Routine) - Closed Specialty Diagnoses / Procedures [facility] To Contact [facility] IMAGING Diagnoses Gallbladder polyp Procedures US ABD RT UPPER QUADRANT US ABDOMINAL REAL TIME W/IMAGE LIMITED Coni Gray MD [address] [place] [address] [place] [address] Referral ID Status Reason Start Date Expiration Date V isits Requested Visits Authorized [id number] Closed Auto-Generate d Referral 01/04/2022 02/03/2023 1 1 [facility] Summary Purpose Family History No Family History Records FoundNo Family History Records FoundThere may be information available, but it has not been provided by the sender.No Family History Records FoundNo Family History Records FoundNo Family History Records Found Advance Directives No Advanced Directives Records FoundDocuments on File Type Date Recorded Patient Event Attendant Expl anation Advance Directives and Living Will Power of Ultra Sound Technician Latest Code Status on File Code Status Date Activated Date Inactivated Comments Full Code 08/25/2018 12:25 AM 08/28/2018 3:47 PM Documents on File Type Date Recorded Patient Event Attendant Expl anation ACP-Advance Directive ACP-Power of Ultra Sound Technician Chief Complaint Chief Complaint Description Start Date lower back post Lumbar fusio n L4-L5 L5-S1 on 04/09/2021 Preliminary chief co mplaint data, not yet signed by the author as of Reason for Referral Specialty Diagnoses / Procedures [facility] IM[facility]ING Diagnoses Generalized abdominal pain Bloating Abnormal weight loss Abdominal distension (gaseous) Nausea Procedures CT ABD/PEL W IVCON CT ABD & PELVIS W/CONTRAST Keisha Candelaria PA-C [address] [facility] [place] [address] Ct Imaging Referral ID Status Reason Start Date Expiration Date Visits Requested Visits Authorized [id number] Authorized Auto-Generat ed Referral 07/09/2022 08/08/2023 1 1 Specialty Diagnoses / Procedures [facility]erred To Contact General Surgery Diagnoses Gallbladder polyp Generalized abdominal pain Procedures CONSULT TO GENERAL SURGERY Keisha Candelaria PA-C [address] [facility] [place] [address] Vasquez Miller MD [address] [address] Referral ID Status Reason Start Date Expiration Date Visits Requested Visits Authorized [id number] Ref Not Required PCP Requested Referral 07/09/2022 07/09/2023 1 1 Specialty Diagnoses / Procedures [facility] To Contact CT IMAGING Diagnoses Generalized abdominal pain Bloating Abnormal weight loss Abdominal distension (gaseous) Nausea Procedures CT ABD/PEL W IVCON CT ABD & PELVIS W/CONTRAST Keisha Candelaria PA-C [address] [place] [address] Ct Imaging [facility] Referral ID Status Reason Start Date Expiration Date V isits Requested Visits Authorized [id number] Closed Auto-Generate d Referral 07/09/2022 08/08/2023 1 1 Additional Source Comments INFORMATION SOURCE (unrecogn ized section and content) DATE CREATED AUTHOR AUTHOR'S ORGANIZ ATION 09/03/2017 [facility] DATE CREATED AUTHOR AUTHOR'S ORGANIZ ATION 12/29/2021 [facility] DATE CREATED AUTHOR AUTHOR'S ORGANIZ ATION 08/20/2022 [facility] DATE CREATED AUTHOR AUTHOR'S ORGANIZ ATION 05/12/2023 [facility] Reason for Visit (unrecogniz ed section and content) Specialty Diagnoses / Procedures Referred By [facility] t Referred To Contact CT IMAGING Diagnoses Generalized abdominal pain Bloating Abnormal weight loss Abdominal distension (gaseous) Nausea Procedures CT ABD/PEL W IVCON CT ABD & PELVIS W/CONTRAST Keisha Candelaria PA-C [address] [place] [address] Ct Imaging [place] [address] Referral ID Status Reason Start Date Expiration Date V isits Requested Visits Authorized [id number] Closed Auto-Generate d Referral 07/09/2022 08/08/2023 1 1 Reason For Visit Description Start Date Postop - 1st visit Preliminary reason f or visit data, not yet signed by the author as of lower back post Lumbar fusio n L4-L5 L5-S1 on 04/09/2021 Reason Comments Abdominal Pain Abdominal bloating a nd stool is a different color. Reason Comments Results Reason Comments Refill Request Reason Comments Recheck Gallbladder polyp- r epeat US done Abdominal pain, constipation/diarrhea, gas, nausea Reason Comments Med Change Request Reason Comments Procedure Follow Up Complains of abdomin al bloating and pain. Some nausea this morning. EGD 06/04/22 Reason Comments Patient Update Reason Comments New Patient Check throat Reason Comments Radiology US Specialty Diagnoses / Procedures Referred By [facility] t Referred To Contact US IMAGING Diagnoses Gallbladder polyp Procedures US ABD RT UPPER QUADRANT US ABDOMINAL REAL TIME W/IMAGE LIMITED Coni Gray MD [address] [place] [address] [place] [address] Referral ID Status Reason Start Date Expiration Date V isits Requested Visits Authorized [id number] Closed Auto-Generate d Referral 01/04/2022 02/03/2023 1 1 Reason Onset Date Comments Cancelled Appointment 05/12/2023 Care Teams (unrecognized sec tion and content) Track Rider Relationship Specialty Start Date End Date Gauri Kidd MD [address] [address] PCP - General Family Medicine 10/27/17 Track Rider Relationship Specialty Start Date End Date Gauri Kidd MD [address] [address] PCP - General Family Medicine 10/27/17 Track Rider Relationship Specialty Start Date End Date Gauri Kidd MD [address] [address] PCP - General Family Medicine 10/27/17 Track Rider Relationship Specialty Start Date End Date Gauri Kidd MD [address] [address] PCP - General Family Medicine 10/27/17 Track Rider Relationship Specialty Start Date End Date Gauri Kidd MD [address] [address] PCP - General Family Medicine 10/27/17 Track Rider Relationship Specialty Start Date End Date Gauri Kidd MD [address] [address] PCP - General Family Medicine 10/27/17 Track Rider Relationship Specialty Start Date End Date Gauri Kidd MD [address] [place] [address] PCP - General Family Medicine 10/27/17 Track Rider Relationship Specialty Start Date End Date Gauri Kidd MD [address] [place] [address] PCP - General Family Medicine 10/27/17 Track Rider Relationship Specialty Start Date End Date Gauri Kidd MD [address] [place] [phone] PCP - General 11/22/15 Track Rider Relationship Specialty Start Date End Date Gauri Kidd MD [address] [place] [phone] PCP - General 11/22/15 Track Rider Relationship Specialty Start Date End Date Gauri Kdid MD [address] [place] [address] PCP - General Family Medicine 10/27/17 Track Rider Relationship Specialty Start Date End Date Gauri Kidd MD [address] [place] [address] PCP - General Family Medicine 10/27/17 Track Rider Relationship Specialty Start Date End Date Gauri Kidd MD [address] [place] [address] PCP - General Family Medicine 10/27/17 Track Rider Relationship Specialty Start Date End Date Gauri Kidd MD [address] [place] [phone] PCP - General 11/22/15 Source Comments (unrecognize d section and content) In the event this informatio n is protected by the Federal Confidentiality of Alcohol and Drug Abuse Patient Records regulations: The Federal rules restrict any use of the information to criminally investigate or prosecute any alcohol or drug abuse patient.[facility] the event this information is protected by the Federal Confidentiality of Alcohol and Drug Abuse Patient Records regulations: The Federal rules restrict any use of the information to criminally investigate or prosecute any alcohol or drug abuse patient.[facility] the event this information is protected by the Federal Confidentiality of Alcohol and Drug Abuse Patient Records regulations: The Federal rules restrict any use of the information to criminally investigate or prosecute any alcohol or drug abuse patient.[facility] the event this information is protected by the Federal Confidentiality of Alcohol and Drug Abuse Patient Records regulations: The Federal rules restrict any use of the information to criminally investigate or prosecute any alcohol or drug abuse patient.[facility] the event this information is protected by the Federal Confidentiality of Alcohol and Drug Abuse Patient Records regulations: The Federal rules restrict any use of the information to criminally investigate or prosecute any alcohol or drug abuse patient.[facility] the event this information is protected by the Federal Confidentiality of Alcohol and Drug Abuse Patient Records regulations: The Federal rules restrict any use of the information to criminally investigate or prosecute any alcohol or drug abuse patient.[facility] the event this information is protected by the Federal Confidentiality of Alcohol and Drug Abuse Patient Records regulations: The Federal rules restrict any use of the information to criminally investigate or prosecute any alcohol or drug abuse patient.[facility] the event this information is protected by the Federal Confidentiality of Alcohol and Drug Abuse Patient Records regulations: The Federal rules restrict any use of the information to criminally investigate or prosecute any alcohol or drug abuse patient.[facility] the event this information is protected by the Federal Confidentiality of Alcohol and Drug Abuse Patient Records regulations: The Federal rules restrict any use of the information to criminally investigate or prosecute any alcohol or drug abuse patient.[facility] the event this information is protected by the Federal Confidentiality of Alcohol and Drug Abuse Patient Records regulations: The Federal rules restrict any use of the information to criminally investigate or prosecute any alcohol or drug abuse patient.[facility] the event this information is protected by the Federal Confidentiality of Alcohol and Drug Abuse Patient Records regulations: The Federal rules restrict any use of the information to criminally investigate or prosecute any alcohol or drug abuse patient.[facility] FOR RECORDS PERTAINING TO PATIENTS WHO ARE OR HAVE BEEN ENROLLED IN A CHEMICAL DEPENDENCY/SUBSTANCEABUSE PROGRAM, SOME INFORMATION MAY BE OMITTED. This clinical summary was aggregated from multiple sources. Caution should be exercised in using it in the provision of clinical care. This summary normalizes information from multiple sources, and as a consequence, information in this document may materially change the coding, format and clinical context of patient data. In addition, data may be omitted in some cases. CLINICAL DECISIONS SHOULD BE BASED ON THE PRIMARY CLINICAL RECORDS. [facility]. provides no warranty or guarantee of the accuracy or completeness of information in this document."
== END | disposition home or self-care (01) ==
LOC: LAB 12:58
PROVIDERS: PCP Family Medicine; Referring Provider Family Medicine; Visit Provider Family Medicine
DX: J43.2 Centrilobular emphysema (principal)
CPT/HCPCS: 71046

== ENCOUNTER → 2023-07-09 | Outpatient (CLI) | payer MEDICARE, SELFPAY ==
--- NOTE | 2023-07-09 15:14 | BD_ITS ---
STUDY: DUAL ENERGY X-RAY ABSORPTIOMETRY / DXA REASON FOR EXAM: Female, 62 years old. Z780 TECHNIQUE: Bone Mineral Density (BMD) measurements of left forearm and bilateral hips were obtained. COMPARISON: None. FINDINGS: Left Femur Total: g/cm2 (0.774) / T-score (-1.4) / Z-score (-0.3) Left Femoral Neck: g/cm2 (0.610) / T-score (-2.2) / Z-score (-0.8) Right Femur Total: g/cm2 (0.805) / T-score (-1.1) / Z-score (-0.1) Right Femoral Neck: g/cm2 (0.908) / T-score (0.5) / Z-score (1.9) Left Forearm: g/cm2 (0.565) / T-score (-0.3) / Z-score (1.1) BD/Dexa Bone Density Study IMPRESSION: The patient is considered osteopenic as outlined below according to World Rasheed Organization (WHO) criteria with a high fracture risk. Reference Information: The T-score is the number of standard deviations above or below the standard which is normal for young adults at their peak bone mineral density. The World Health Organization (WHO) interprets the T-scores as follows: Above -1 Normal bone density Between -1 and -2.5 Osteopenia Equal to / or below -2.5 Osteoporosis As a practical clinical guideline, osteopenia may be graded as follows: Mild -1 through -1.5 Moderate -1.6 through -2.0 Severe -2.1 through -2.4 The Z-score is the number of standard deviations above or below age-matched controls. A Z-score of less than -1.5 would be considered abnormal. References: 1. NIH Osteoporosis and Related Bone Diseases www osteo.org 2. International Society for Clinical Densitometry www iscd.org 3. National Osteoporosis Foundation www nof.org Electronically Signed: Dilip Rodriguez MD at 8:42 EDT ,
== END | disposition home or self-care (01) ==
LOC: OPBD 15:10
PROVIDERS: PCP Family Medicine; Referring Provider Family Medicine; Visit Provider Family Medicine
DX: Z78.0 Asymptomatic menopausal state (principal)
CPT/HCPCS: 77080

== ENCOUNTER → 2023-07-18 | Outpatient (CLI) | payer MEDICARE, SELFPAY | END | disposition home or self-care (01) | LOC: PSN 12:49 | PROVIDERS: PCP Family Medicine; Referring Provider Family Medicine; Visit Provider Family Medicine | DX: J43.2 Centrilobular emphysema (principal) | CPT/HCPCS: 94060; 94726; 94729 ==

== ENCOUNTER 2023-07-24 10:54 | Day surgery (SDC) | payer MEDICARE, SELFPAY ==
[2023-07-24 11:09] VITALS: BP 140/72; PULSE 91; RESP 16; TEMP 37.1; O2SAT 95; BMI 32.3
--- NOTE | 2023-07-24 11:15 | HP.PCM_ITS ---
History and Physical Date of Admission: 07/24/23 Date of Service: 07/04/23 MR#: [id number] Acct: [id number] Name: MATTIE RODRIGUES Rep #: [id number] : 1960 Provider: Dr. Chhaya May MD Age/Sex: 62/F Location: [facility] Status: Signed Intake Vital Signs 09/01/2214:36 07/03/2408:48 Height 5 ft 4 in 5 ft 4 in Weight: 191 lb BMI 32.8 BP 105/67 Blood Pressure Location Rt brachial Position Sitting Respiration 17 Pulse 88 Pulse Source Monitor Temp 97 F L Temp Source Temporal Pulse Oximetry (%) 97 Oxygen Delivery Method room air Intake Visit Reasons: GALLBLADDER POLYP Chief Complaint: gallbladder polyp Is patient in pain?: No Allergies clarithromycin [From Biaxin] Adverse Reaction (Verified 07/04/23 09:50) Nauseahydromorphone [From Dilaudid] Adverse Reaction (Verified 07/04/23 09:50) Upset Stomach Medications aripiprazole 15 mg tablet (Abilify) 15 mg PO DAILY 07/20/15 [History Confirmed 07/04/23] atorvastatin 40 mg tablet 40 mg PO QHS 07/20/15 [History Confirmed 07/04/23] duloxetine 60 mg capsule,delayed release 60 mg PO DAILY 07/20/15 [History Confirmed 07/04/23] zolpidem 10 mg tablet (Ambien) 10 mg PO QHS 07/20/15 [History Confirmed 07/04/23] oxybutynin chloride 5 mg tablet 5 mg PO DAILY 11/07/15 [History Confirmed 07/04/23] dapagliflozin propanediol 10 mg tablet (Farxiga) 10 mg PO DAILY 10/05/17 [History Confirmed 07/04/23] celecoxib 200 mg capsule 200 mg PO DAILY 09/01/21 [History Confirmed 07/04/23] cyclobenzaprine 10 mg tablet 1 tab PO TID 09/01/21 [History Confirmed 07/04/23] glimepiride 4 mg tablet 4 mg PO DAILY 09/01/21 [History Confirmed 07/04/23] omeprazole 40 mg capsule,delayed release 40 mg PO DAILY 09/01/21 [History Confirmed 07/04/23] levothyroxine 112 mcg tablet 112 mcg PO QDAY 07/04/23 [History Confirmed 07/04/23] lisinopril 10 mg tablet 10 mg PO QDAY 07/04/23 [History Confirmed 07/04/23] sucralfate 1 gram tablet 1 g PO QACHS #56 tabs 07/04/23 [Rx Confirmed 07/04/23] PFSH Medical History (Updated 07/04/23 @ 12:[address] Chhaya May MD) Arthritis Asthma Back problem COPD (chronic obstructive pulmonary disease) Diabetes HTN (hypertension) Thyroid disease Surgical History (Updated 07/04/23 @ 09:46 by Marly Bhatt) Cervical vertebral fusion History of back surgery Family History (Updated 07/04/23 @ 09:47 by Marly Bhatt) Father Heart disease HypertensionMother Heart disease Thyroid disorder Social History (Updated 07/04/23 @ 09:48 by Marly Bhatt) Smoking Status: Former smoker alcohol intake: never additional social history: medical marijuana HPI HPI HPI: 62-year-old female presents due to gallbladder polyp as well as epigastric pain and bloating. Patient states she has had the epigastric discomfort fairly constant for the last couple of years along with some bloating. Patient states she gets them bloating right after eating. Patient also states occasionally she has green stool she has had diarrhea daily for the last year before that was normal. Patient denies any blood. Patient did have an ultrasound showed 1 cm x 0.9 cm polyp near the neck of the gallbladder otherwise normal wall no pericholecystic fluid. Patient states she has been on previous reflux medication including Protonix and has been on omeprazole 40 mg p.o. daily for the last 4 years patient states she had an EGD 2 years ago by [facility] she was found to have a hiatal hernia and a question gastroparesis per the patient. Patient states her last colonoscopy was about 2019 and she had polyps at that time denies any family history of colon cancer. ROS General General: Yes fatigue; No weight change, appetite, colon cancer or breast cancer HEENT HEENT: Yes eye surgery; No difficulty swallowing, eye injury, swollen glands or hoarseness Endo Endocrine: Yes thyroid disease and diabetes mellitus; No thyroid cancer, Hair loss, heat intolerance or cold intolerance Skin Skin: No rash or changing moles Musc Musculoskeletal: Yes back problems and arthritis; No rheumatoid arthritis, gout or joint pain Cardio Cardiovascular: Yes high blood pressure; No murmur, pacemaker, heart disease, atrial fibrillation, heart attack, heart stent, palpitations, shortness of breat with exertion or chest pain Psych Psychiatric: No depression, anxiety or hearing voices Resp Respiratory: No shortness of breath, No sleep apnea, Yes cough, Yes COPD, Yes asthma, Yes emphysema and No wheezing Gastro Gastrointestinal: Yes abdominal pain, Yes nausea or vomiting, Yes diarrhea, No constipation, No blood in stool, Yes acid reflux, No hemorrhoids, No ulcers, Yes gallbladder problem and No black,tarry stools Sven Hematologic: No blood thinners, No blood disorders, No bleeding, No anemia and No blood clots Neuro Neurologic: Yes numbness and Yes tingling Exam Const General: cooperative, healthy appearing, comfortable and no acute distress HENWV Head: normocephalic and atraumatic Neck Neck: supple Resp Effort & Inspection: normal respiratory effort Cardio Rate: regular rate GI Inspection: non-distended Palpation: soft and tender in the epigastrum and in the LUQ Skin General: no rashes or lesions noted Neuro General: CN's II-XI intact bilaterally Extrem General: normal to inspection Psych Mental Status: mental status grossly normal Attitude: cooperative Assessment and Plan Assessment and Plan (1) Gallbladder polyp: Status: Acute Comment: 1 cm x 0.9 mm?measured on ultrasound (2) GERD (gastroesophageal reflux disease): Status: Acute (3) Hx of colonic polyps: Status: Acute Medications: New sucralfate Take an hour before meals and at bedtime 1 g PO QACHS 56 tabs 1RF Plan Discussed with patient that likely her abdominal pain and bloating are more likely due to gastric etiology would recommend patient going on Carafate that does not improve may also recommend changing to Nexium as she has been on omeprazole for 4 years. Will also plan for an EGD and colonoscopy for GERD and screening. Would plan to do the scope prior to laparoscopic cholecystectomy as if she continued to have pain after the surgery, otherwise would assume there is a complication that may just be due to other etiologies not being treated. I have discussed the above with the patient. I have offered the patient esophagogastroduodenoscopy and colonoscopy for evaluation. I have explained the risks/benefits of the procedure and described the procedure. I have discussed the risks with the patient, including but not limited to: infection, bleeding, perforation of the GI tract requiring emergency surgery, inability to complete the procedure, injury to any internal organs, complications of anesthesia, etc. - the patient understands and agrees to proceed. I have answered all the patient's questions to the patient's satisfaction and the patient has no further questions. The patient has been given instructions for the colon cleansing preparation. 1 day of clears, MiraLAX Dulcolax split prep. Reviewed the anatomy with the patient and discussed the procedure: laparoscopic cholecystectomy with possible cholangiograms, possible open--will plan to do due to the centimeter bladder polyp. Review risks including but not limited to bleeding, infection, hernia, bile leak, retained gallstones requiring another procedure ERCP- Endoscopic Retrograde Cholangiopancreatography, injury to another organ (bile ducts, common bile duct, small bowel, etc.) and conversion to an open procedure. All questions were answered. Chhaya May M.D. Pager: [phone] [facility] [address] [place] [address], [address] [place] [address] Office: [phone] Coding Level of Care Code Off vis,new,level 4 Diagnoses Gallbladder polyp K82.4 GERD (gastroesophageal reflux disease) K21.9 Hx of colonic polyps Z86.010 07/04/23 1300 <Electronically signed by Chhaya May MD> Date Chhaya May MD
[2023-07-24] MEDS: Lactated Ringers 1,000 ML 15 ML IV (11:19)
[2023-07-24 11:42] LABS: Bedside Glucose 116 mg/dL (74-106)
--- NOTE | 2023-07-24 12:15 | IMM_PTH ---
PATIENT: MATTIE RODRIGUES LOC: EN U#:[id number] AGE/SX: 62/F ROOM: RE07/24/[address]: Dr. Chhaya May MD : 1960 BED: DIS: 07/24/2023 SPEC #: [id number] RECD: 07/25/23 08:02 STATUS: ROBERT MAGNUS #: [id number] KATT: 07/24/23 12:[address]: Chhaya May DEPT: IMMUNOHISTOCHEMISTRY RECD BY: Brent Mon ENTERED: 07/25/23 08:02 SP TYPE: IMMUNO OTHR DR: Dr. Gauri Kidd MD Tissues: A - Stomach, NOS Procedures: H Pylori (initial) PHYSICIAN & INSTITUTION [place] [id number] SPECIMEN INFORMATION: Tissue Source: A- Gastric antrum biopsy Clinical Info: Gallbladder polyp, cm x 0.9mm- measured on ultrasound, GERD, history of colonic polyps Specimen Number: [id number] CPT code: 21023 METHODOLOGY: Deparaffinized sections of prefer/formalin-fixed tissue or PAP/DQ stained slides are incubated with monoclonal/polyclonal antibodies/oligonucleotide probes. Localization is made via biotin free immunoperoxidase method. Appropriate controls are performed and reacted as expected. Results on target cell population are indicated in the following table: RESULTS: ANTIBODY / CLONE RESULT Block A H Pylori (polyclonal) negative These tests were developed and their performance characteristics determined by [facility]. They may not have been cleared or approved by the U.S. Food and Drug Administration. The FDA has determined that such clearance or approval is not necessary. The above immunohistochemical/dualISH markers are ordered and reviewed by the Pathologist. INTERPRETATION: A. Gastric antrum, biopsy: Negative for Helicobacter pylori organisms. LIGIA/ 07/28/2023
--- NOTE | 2023-07-24 12:15 | EGD_PTH ---
PATIENT: MATTIE RODRIGUES LOC: EN U#:[id number] AGE/SX: 62/F ROOM: RE07/24/[address]: Dr. Chhaya May MD : 1960 BED: DIS: 07/24/2023 SPEC #: [id number] RECD: 07/24/23 15:28 STATUS: ROBERT MAGNUS #: [id number] KATT: 07/24/23 12:[address]: Chhaya May DEPT: SURGICAL PATHOLOGY RECD BY: Renate Ventura ENTERED: 07/25/23 07:28 SP TYPE: EGD BIOPSY DELMA DR: Dr. Gauri Kidd MD Tissues: A - Gastric mucous membrane B - Sigmoid colon biopsy C - Rectum, NOS Procedures: Surgery Specimen Level IV HEADER OPERATION: Colonoscopy, EGD, biopsy PRE-OP DIAGNOSIS: Gallbladder polyp, c, x0.9mm- measured on ultrasound, history of colonic polyps TISSUE SUBMITTED: A- Antrum biopsy, B- Sigmoid polypsx2 biopsy, C- Rectal polyps biopsy MICROSCOPIC DIAGNOSIS A. Gastric antrum, biopsy: Mild chronic gastritis. B. Sigmoid colon polyp, biopsy: Fragments of hyperplastic polyp. C. Rectal polyps, biopsy: Fragments of hyperplastic polyp. LIGIA/ 07/28/2023 COMMENT A. The results of immunohistochemistry for Helicobacter pylori will be reported separately ([id number]). MICROSCOPIC DESCRIPTION Slides are reviewed. GROSS DESCRIPTION A. Received in fixative is one container labeled with the patient's name and designated Antrum biopsy. The specimen consists of one irregular fragment of light benitez soft tissue that measures 0.4 x 0.3 x 0.1 cm. The specimen is totally submitted in one cassette. B. Received in fixative is one container labeled with the patient's name and designated Sigmoid polyps. The specimen consists of multiple irregular fragments of light benitez soft tissue that in aggregate measure 0.8 x 0.3 x 0.1 cm. The specimen is totally submitted in one cassette. C. Received in fixative is one container labeled with the patient's name and designated Rectal polyp biopsy. The specimen consists of multiple irregular fragments of light benitez soft tissue that in aggregate measure 1.0 x 0.4 x 0.1 cm. The specimen is totally submitted in one cassette. Morena 07/25/2023 TC:5 CPT:78375b4
[2023-07-24 13:20] VITALS: BP 140/72; BP 94/55; PULSE 110; RESP 16; TEMP 36.3; O2SAT 99
--- NOTE | 2023-07-24 13:24 | OP.EGD_ITS ---
Patient Name: Marissa Miller Procedure Date: 07/24/2023 12:37 PM Date of : 1960 Age: 62 Procedure: Upper GI endoscopy Indications: Heartburn Providers: Chhaya May MD Referring MD: Gauri Kidd Md Medicines: Monitored Anesthesia Care Patient Profile: This is a 62 year old female. Complications: No immediate complications. Procedure: Pre-Anesthesia Assessment: - Prior to the procedure, a History and Physical was performed, and patient medications and allergies were reviewed. The patient's tolerance of previous anesthesia was also reviewed. The risks and benefits of the procedure and the sedation options and risks were discussed with the patient. All questions were answered, and informed consent was obtained. Prior Anticoagulants: The patient has taken no anticoagulant or antiplatelet agents. ASA Grade Assessment: Per anesthesia. After reviewing the risks and benefits, the patient was deemed in satisfactory condition to undergo the procedure. After obtaining informed consent, the endoscope was passed under direct vision. Throughout the procedure, the patient's blood pressure, pulse, and oxygen saturations were monitored continuously. The Colonoscope was introduced through the mouth, and advanced to the second part of duodenum. The upper GI endoscopy was accomplished without difficulty. The patient tolerated the procedure well. Scope In: 12:48:01 PM Scope Out: 12:52:32 PM Total Procedure Duration Time 0 hours 4 minutes 31 seconds Findings: The Z-line was variable and was found 40 cm from the incisors. The cardia and gastric fundus were normal on retroflexion. The examined duodenum was normal. Diffuse mildly erythematous mucosa without bleeding was found in the gastric antrum. Biopsies were taken with a cold forceps for histology. Biopsies were taken with a cold forceps for Helicobacter pylori cultures. Bilious fluid was found in the gastric antrum. Impression: - Z-line variable, 40 cm from the incisors. - Normal examined duodenum. - Erythematous mucosa in the antrum. Biopsied. - Bilious gastric fluid. Recommendation: - Await pathology results. - Discharge patient to home. - Resume previous diet. - Use Nexium (esomeprazole) 40 mg PO daily. - Continue present medications. Procedure Code(s): --- Professional --- 41611, Esophagogastroduodenoscopy, flexible, transoral; with biopsy, single or multiple Diagnosis Code(s): --- Professional --- K22.89, Other specified disease of esophagus K31.89, Other diseases of stomach and duodenum R12, Heartburn CPT copyright 2021 [employer]. All rights reserved. The codes documented in this report are preliminary and upon bookbinder apprentice review may be revised to meet current compliance requirements. MD Chhaya Santiago MD 07/24/2023 1:24:46 PM This report has been signed electronically. Number of Addenda: 0 Note Initiated On: 07/24/2023 12:37 PM
[2023-07-24 13:25] VITALS: BP 112/55; BP 140/72; PULSE 74; RESP 16; O2SAT 99
--- NOTE | 2023-07-24 13:25 | OP.CCLET_ITS ---
07/24/2023 Gauri Kidd Md Re : Upper GI endoscopy procedure for Marissa Rios Bernabe This procedure was performed on July. My impressions and recommendations are as follows: Impressions : - Z-line variable, 40 cm from the incisors. - Normal examined duodenum. - Erythematous mucosa in the antrum. Biopsied. - Bilious gastric fluid. Recommendations : - Await pathology results. - Discharge patient to home. - Resume previous diet. - Use Nexium (esomeprazole) 40 mg PO daily. - Continue present medications. My findings are described in the full procedure note, which is enclosed. If I can be of further assistance, please feel free to contact me at Doctor phone number(s): , Work: . Sincerely, MD Chhaya Santiago MD 07/24/2023 1:24:46 PM This report has been signed electronically.
--- NOTE | 2023-07-24 13:28 | OP.CCLET_ITS ---
07/24/2023 Gauri Kidd Md Re : Colonoscopy procedure for Marissa Kidd This procedure was performed on July. My impressions and recommendations are as follows: Impressions : - Multiple less than 5 mm polyps in the rectum and in the sigmoid colon, removed with a cold biopsy forceps. Resected and retrieved. - The examination was otherwise normal on direct and retroflexion views. Recommendations : - Discharge patient to home. - Resume previous diet. - Continue present medications. - Await pathology results. - Repeat colonoscopy in 5-10 years for surveillance of multiple polyps. My findings are described in the full procedure note, which is enclosed. If I can be of further assistance, please feel free to contact me at Doctor phone number(s): , Work: . Sincerely, MD Chhaya Santiago MD 07/24/2023 1:27:46 PM This report has been signed electronically.
--- NOTE | 2023-07-24 13:28 | OP.COLON_ITS ---
Patient Name: Marissa Miller Procedure Date: 07/24/2023 12:52 PM Date of : 1960 Age: 62 Procedure: Colonoscopy Indications: High risk colon cancer surveillance: Personal history of colonic polyps Providers: Chhaya May MD Referring MD: Gauri Kidd Md Medicines: Monitored Anesthesia Care Patient Profile: This is a 62 year old female. Last Colonoscopy: 2019. Complications: No immediate complications. Procedure: Pre-Anesthesia Assessment: - Prior to the procedure, a History and Physical was performed, and patient medications and allergies were reviewed. The patient's tolerance of previous anesthesia was also reviewed. The risks and benefits of the procedure and the sedation options and risks were discussed with the patient. All questions were answered, and informed consent was obtained. Prior Anticoagulants: The patient has taken no anticoagulant or antiplatelet agents. ASA Grade Assessment: Per anesthesia. After reviewing the risks and benefits, the patient was deemed in satisfactory condition to undergo the procedure. After I obtained informed consent, the scope was passed under direct vision. Throughout the procedure, the patient's blood pressure, pulse, and oxygen saturations were monitored continuously. The Colonoscope was introduced through the anus and advanced to the cecum, identified by the appendiceal orifice, ileocecal valve and palpation. The colonoscopy was performed without difficulty. The patient tolerated the procedure well. The quality of the bowel preparation was good. Scope In: 12:54:07 PM Scope Withdrawal Time 0 hours 13 minutes 26 seconds Scope Out: 1:15:56 PM Total Procedure Duration Time 0 hours 21 minutes 49 seconds Findings: The perianal and digital rectal examinations were normal. Multiple sessile polyps were found in the rectum and sigmoid colon. The polyps were less than 5 mm in size. These polyps were removed with a cold biopsy forceps. Resection and retrieval were complete. The exam was otherwise without abnormality on direct and retroflexion views. Impression: - Multiple less than 5 mm polyps in the rectum and in the sigmoid colon, removed with a cold biopsy forceps. Resected and retrieved. - The examination was otherwise normal on direct and retroflexion views. Recommendation: - Discharge patient to home. - Resume previous diet. - Continue present medications. - Await pathology results. - Repeat colonoscopy in 5-10 years for surveillance of multiple polyps. Procedure Code(s): --- Professional --- 21764, PT, Colonoscopy, flexible; with biopsy, single or multiple Diagnosis Code(s): --- Professional --- Z86.010, Personal history of colonic polyps D12.8, Benign neoplasm of rectum D12.5, Benign neoplasm of sigmoid colon CPT copyright 2021 [employer]. All rights reserved. The codes documented in this report are preliminary and upon lead systems architect review may be revised to meet current compliance requirements. MD Chhaya Santiago MD 07/24/2023 1:27:46 PM This report has been signed electronically. Number of Addenda: 0 Note Initiated On: 07/24/2023 12:52 PM
[2023-07-24 13:30] VITALS: BP 122/61; BP 140/72; PULSE 74; RESP 16; TEMP 36.5; O2SAT 99
[2023-07-24 13:46] VITALS: BP 140/72
== END 2023-07-24 13:56 | disposition home or self-care (01) ==
LOC: EN 10:56 → AC 10:57
PROVIDERS: PCP Family Medicine; Referring Provider Family Medicine; Visit Provider Surgery
PROC: 0DJD8ZZ Inspection of Lower Intestinal Tract, Via Natural or Artificial Opening Endoscopic (ICD-10-PCS; CPT 45378; principal; 2023-07-24 12:10)
DX: K29.50 Unspecified chronic gastritis without bleeding (principal); J44.9 Chronic obstructive pulmonary disease, unspecified; E11.9 Type 2 diabetes mellitus without complications; K21.9 Gastro-esophageal reflux disease without esophagitis; K82.4 Cholesterolosis of gallbladder; K62.1 Rectal polyp; I10 Essential (primary) hypertension; Z79.84 Long term (current) use of oral hypoglycemic drugs; Z87.891 Personal history of nicotine dependence; Z86.010 Personal history of colon polyps; K63.5 Polyp of colon; Z79.899 Other long term (current) drug therapy; Z79.890 Hormone replacement therapy; E78.00 Pure hypercholesterolemia, unspecified; Z87.19 Personal history of other diseases of the digestive system; E03.9 Hypothyroidism, unspecified
CPT/HCPCS: 45380; 43239; 82962; 88305; 88342; J7120; J2405

== ENCOUNTER 2023-08-12 05:58 | Day surgery (SDC) | payer MEDICARE, SELFPAY ==
[2023-08-12] VITALS (13 sets, daily range): BP systolic 119–174; BP diastolic 57–88; PULSE 74–94; RESP 16–18; TEMP 36.7–36.9; O2SAT 86–96; BMI 32.8
--- NOTE | 2023-08-12 06:28 | EKG12_ITS ---
Test Reason : preop Blood Pressure : / mmHG Vent. Rate : 090 BPM Atrial Rate : 090 BPM P-R Int : 160 ms QRS Dur : 082 ms QT Int : 350 ms P-R-T Axes : 065 063 046 degrees QTc Int : 428 ms Normal sinus rhythm Normal ECG When compared with ECG of 01-SEP-2021 16:38, No significant change was found Confirmed by ZION GERWAL, JACK ([id number]), associate entertainment editor TYSON DAWN ([id number]) on 08/12/2023 2:17:05 PM Referred By: Chhaya May Confirmed By:JACK DONOVAN MD
--- NOTE | 2023-08-12 06:30 | RAD_ITS ---
STUDY: INTRAOPERATIVE CHOLANGIOGRAM. REASON FOR EXAM: Female, 62 years old. PAIN, LAP MELLO WITH IOC FLUOROSCOPY TIME (if supplied): ( 8.7 seconds ) minutes/seconds. 3.08 mGy. TECHNIQUE: An intraoperative cholangiogram was performed by the surgeon. Imaging was submitted. COMPARISON: None. FINDINGS: The intrahepatic biliary ducts and the common bile duct are unremarkable. No intraluminal filling defect is seen. There is free flow of contrast into the duodenum. RAD/Cholangiogram/ O R,Initial IMPRESSION: Unremarkable intraoperative cholangiogram. Electronically Signed: Dilip Rodriguez MD at 9:15 EDT ,
[2023-08-12] MEDS: Lactated Ringers 1,000 ML 15 ML IV ×2 (06:35→09:13)
--- NOTE | 2023-08-12 07:05 | HP.PCM_ITS ---
History and Physical Date of Admission: 08/12/23 Date of Service: 08/08/23 MR#: [id number] Acct: [id number] Name: MATTIE RODRIGUES Rep #: [id number] : 1960 Provider: Dr. Chhaya May MD Age/Sex: 62/F Location: [facility] Status: Signed Intake Vital Signs 07/23/2410:09 Height 5 ft 3.5 in Intake Visit Reasons: DISCUSS CSCOPE RESULTS/GALLBLADDER SURGERY Chief Complaint: discuss lap tyree Back Tender Insulation Board Required: No Is patient in pain?: No Allergies clarithromycin (From Biaxin) Adverse Reaction (Verified 08/08/23 12:58) Nauseahydromorphone (From Dilaudid) Adverse Reaction (Verified 08/08/23 12:58) Upset Stomach Medications ?Medication ?Instructions ?Recorded ?Confirmed ?Type atorvastatin 40 mg tablet 40 mg PO QHS 07/20/15 08/08/23 History duloxetine 60 mg capsule,delayed 60 mg PO BID 07/20/15 08/08/23 History release oxybutynin chloride 5 mg tablet 5 mg PO DAILY 11/07/15 08/08/23 History dapagliflozin propanediol 10 mg 10 mg PO DAILY 10/05/17 08/08/23 History tablet (Farxiga) celecoxib 200 mg capsule 200 mg PO DAILY 09/01/21 08/08/23 History cyclobenzaprine 10 mg tablet 1 tab PO TID PRN PRN pain 09/01/21 08/08/23 History glimepiride 4 mg tablet 4 mg PO DAILY 09/01/21 08/08/23 History levothyroxine 112 mcg tablet 112 mcg PO QDAY 07/04/23 08/08/23 History lisinopril 10 mg tablet 10 mg PO QDAY 07/04/23 08/08/23 History sucralfate 1 gram tablet 1 g PO QACHS #56 tabs 07/04/23 08/08/23 Rx albuterol sulfate 90 mcg/actuation 2 puff inhalation 4X/DAY PRN 07/23/23 08/08/23 History aerosol inhaler shortness of breath or wheezing tiotropium bromide 2.5 2 puff inhalation DAILY 07/23/23 08/08/23 History mcg/actuation mist for inhalation (Spiriva Respimat) esomeprazole magnesium 40 mg 40 mg PO DAILY #30 caps 07/24/23 08/08/23 Rx capsule,delayed release Subjective Details: 62-year-old female with presents status post EGD and colonoscopy to review pathology as well as discuss laparoscopic cholecystectomy due to gallbladder polyp which has somewhat creased in size. Patient states that she does chronically have diarrhea however states last 3 days it has gotten worse describes as watery. Patient goes 2-3 times daily. Patient is currently taking the omeprazole and Nexium and Carafate. Discussed with patient she only needs to take the generic Nexium and stop the omeprazole. Patient's biopsy showed some mild chronic gastritis, chronic inflammation, hyperplastic polyp in the sigmoid and rectum. Recommend follow-up colonoscopy in 10 years. Objective Details: Patient's abdomen soft, nondistended, mild tenderness epigastric, no peritoneal signs Coding Level of Care Code Off vis,est,level 3 Diagnoses Diarrhea R19.7 Gallbladder polyp K82.4 [facility] Medical History (Updated 08/08/23 @ 13:07 by Cece Corona) Diarrhea Wears glasses Wears dentures Post-menopausal Depression Marijuana use Bladder disease Anemia High cholesterol Back pain History of hiatal hernia History of ulceration History of IBS Gastric reflux Smoker Shortness of breath on exertion Leg cramps History of pain when walking History of stress test Asthma COPD (chronic obstructive pulmonary disease) HTN (hypertension) Arthritis Thyroid disease Diabetes Surgical History (Updated 07/23/23 @ 10:52 by Argenis Henderson) Hx of esophagogastroduodenoscopy Hx of colonoscopy History of hysteroscopy Hx of hysterectomy, total History of lumbar discectomy History of lumbar fusion Cervical vertebral fusion Family History (Updated 07/04/23 @ 09:47 by Maryl Bhatt) Father Heart disease HypertensionMother Heart disease Thyroid disorder Social History (Updated 07/04/23 @ 09:48 by Marly Bhatt) Smoking Status: Current some day smoker tobacco type: cigarettes alcohol intake: never additional social history: medical marijuana Assessment and Plan (No Qualifiers) Assessment and Plan (1) Diarrhea: Status: Acute (2) Gallbladder polyp: Status: Acute Comment: 1 cm x 0.9 mm?measured on ultrasound Plan Discussed with patient we will get stool studies due to the worsening diarrhea. Patient states she does have history of chronic diarrhea for about the past 2 years but again last few days it has been worse. Reviewed the anatomy with the patient and discussed the procedure: laparoscopic cholecystectomy with possible cholangiograms, possible open. Review risks including but not limited to bleeding, infection, hernia, bile leak, retained gallstones requiring another procedure ERCP- Endoscopic Retrograde Cholangiopancreatography, injury to another organ (bile ducts, common bile duct, small bowel, etc.) and conversion to an open procedure. All questions were answered. Patient is scheduled for laparoscopic cholecystectomy next Friday. Chhaya May M.D. Pager: [phone] [facility] [address] [place] [address] [place] [address] Office: [phone] 08/09/23 0838 <Electronically signed by Chhaya May MD> Date Chhaya May MD
[2023-08-12 07:25] LABS: Bedside Glucose 140 mg/dL (74-106)
--- NOTE | 2023-08-12 07:30 | GALL_PTH ---
PATIENT: MATTIE RODRIGUES [place] [facility] [id number] AGE/SX: 62/F ROOM: RE08/12/[address]: Dr. Chhaya May MD : 1960 BED: DIS: 08/12/2023 SPEC #: [id number] RECD: 08/12/23 10:49 STATUS: ROBERT MAGNUS #: [id number] KATT: 08/12/23 07:[address]: Chhaya May DEPT: SURGICAL PATHOLOGY RECD BY: Shanika Milan ENTERED: 08/12/23 11:52 SP TYPE: DALI NGUYỄN DR: Dr. Gauri Kidd MD Tissues: Gallbladder, NOS Procedures: Surgery Specimen Level III HEADER OPERATION: Laparoscopic, cholecystectomy with IOC PRE-OP DIAGNOSIS: Gallbladder polyp TISSUE SUBMITTED: Gallbladder MICROSCOPIC DIAGNOSIS Gallbladder, cholecystectomy: Chronic cholecystitis and cholelithiasis. AM/mr 08/13/2023 MICROSCOPIC DESCRIPTION Slides are reviewed. GROSS DESCRIPTION Received is one container labeled with the patient's name and designated gallbladder. The specimen consists of a gallbladder measuring 9.5 cm in length and up to 4.0 cm in diameter. The external surface is pink-benitez, smooth and glistening for the most part. Focally it is granular, hemorrhagic and contains cautery artifact. The gallbladder contains gyjpn-gztdgz-gmunl mucoid bile and one black irregular stone measuring in aggregate 1.0 cm in greatest dimension. The mucosa is bile-stained and without any mass lesions. The gallbladder wall measures up to 0.3 cm in thickness. Correctional Therapy Director sections from the gallbladder and the cystic duct are submitted in one cassette. / SJ:mr 08/12/2023 TC:3 CPT: 46566
[2023-08-12] MEDS: Cefazolin 2 GM in 0.9% Normal Saline (100mL Bag) 100 ML IV (07:39)
[2023-08-12] MEDS: Bupivacaine Mpf 0.5% 30 ML VIAL (07:44)
--- NOTE | 2023-08-12 08:38 | OP.PCM_ITS ---
Report of Operation Date of Procedure: 08/12/23 Pre-Operative Diagnosis: 9 mm gallbladder polyp Post-Operative Diagnosis: Same Surgery/Procedure Performed:: Laparoscopic cholecystectomy with cholangiograms Surgeon: Chhaya May policy specialist: Doe Bailey Type of Anesthesia: General/Supplemental Anesthesiologist: Juan Pablo Rogers Special Medications: Ancef 2 g IV x 1 Specimen's removed: Gallbladder Estimated Blood Loss (mL): 40 cc Description of Procedure: Indications: this is a 62 year-old female who developed abdominal pain/nausea/vomiting and on workup was found to have enlarging gallbladder polyp was 6 mm more recent ultrasound showed 9 mm, with a normal common bile duct. Laparoscopic cholecystectomy was elected. Description procedure: The patient was placed on operating table in supine position. A timeout was completed verifying correct patient, procedure, site, position and special equipment prior to beginning procedure. General Anesthesia was induced. The abdomen was prepped and draped in usual sterile fashion. An incision was made in the natural skin line above the umbilicus. The fascia was elevated and incised. The peritoneum was elevated and incised. Entry into the peritoneum was confirmed visually and no bowel was noted in the vicinity of the incision. Barraza trocar was placed. The abdomen was insufflated with carbon dioxide to a pressure of 12-15 mmHg. Patient tolerated insufflation well. The laparoscope was then inserted and abdomen inspected. No injuries from initial trocar placement were noted. Additional trochars were then inserted in the following locations 5 mm trocar in the epigastrium and 2 more 5 mm trochars along the right costal margin. The abdomen was inspected no abnormalities were found. The table is placed in reverse Trendelenburg position with the right side up. The dome of the gallbladder was grasped with atraumatic grasper passed through the lateral port and retracted over the dome of the liver. Infundibulum was then grasped with atraumatic grasper through the midclavicular port and re tracted to the right lower quadrant. This maneuver exposed Calot's triangle. The peritoneum overlying the gallbladder infundibulum was then incised and cystic duct and artery identified and circumferentially dissected. Houston catheter was used for cholangiograms. The cholangiogram showed good filling of the common bile duct into the duodenum with no filling defects, good filling of the right and left bile ducts as well. The cystic duct and artery were then doubly clipped and divided close to the gallbladder. The gallbladder then dissected from its peritoneal attachments by electrocautery?gallbladder was intrahepatic there is bleeding from the liver bed and so the gallbladder was being removed. Erbe was used for hemostasis.. Hemostasis was checked and the gallbladder was removed using the endoscopic retrieval bag through the umbilical port. The gallbladder is passed off table as specimen. The gallbladder fossa was irrigated with saline and hemostasis obtained with Erbe and Surgicel powder. There is no evidence of bleeding from the gallbladder fossa or cystic artery leakage of bile from the cystic duct stump. Secondary trochars removed under direct vision. No bleeding was noted the trocar sites. The laparoscope was withdrawn and umbilical trocar removed. The abdomen was allowed to collapse. The fascia of the 12 mm trocar was closed with a bqqxgy-jk-ygdld 0 Vicryl suture. The skin was closed with sutures of 4-0 Monocryl and Steri-Strips. The patient was extubated. The patient tolerated procedure well and was taken to the postanesthesia care unit in stable condition. Complications none
--- NOTE | 2023-08-12 08:43 | DCINST_ITS ---
Discharge Instructions Diet Discharge Diet: Light diet - advance as tolerated Activity Discharge Activity: May Not Drive (while taking narcotic pain medications.) May shower in (days): 1 Lifting Restrictions: no lifting >20 lbs x 2 wks, no strenuous exercise for 4 wks Dressing / Incision Call your doctor if your incision/area has: Continuous Slow Oozing, Sudden Increased Bleeding, Increased Pain/ Swelling, Increased Redness, Foul Smelling Discharge and Swelling at the incision site Call your doctor if you observe: Fever of 101 or Higher Remove Dressing in: 2 days Cleanse incision/area with: Soap & Water Additional Dressing/Incision Instructions:: Steri-Strips will fall off in 7 to 10 days, if they do not fall off okay to remove after 10 days. Follow Up Care Please Follow Up With: Chhaya May MD When: Call the office for a follow-up appointment 2 weeks; after 5 PM and on the weekends call [phone] with any concerns. Test Results: Test results from this visit will be discussed in further detail at your follow- up appointment, if applicable. Discharge Plan Admission Attending Provider: Chhaya May Primary Care Provider: Gauri Kidd Instructions Additional Instructions / Restrictions: Avoid aspirin for a week Print Language: Macedonian Discharge Orders/Prescriptions Prescriptions: New tramadol 50 mg tablet 50 mg PO Q6H PRN (Reason: pain) Qty: 14 0RF Continued lisinopril 10 mg tablet 10 mg PO QDAY levothyroxine 112 mcg tablet 112 mcg PO QDAY sucralfate 1 gram tablet 1 g PO QACHS Qty: 56 1RF Rx Instructions: Take an hour before meals and at bedtime atorvastatin 40 MG tablet 40 mg PO QHS duloxetine 60 MG capsule 60 mg PO BID oxybutynin chloride 5 MG tablet 5 mg PO DAILY dapagliflozin propanediol [Farxiga] 10 MG tablet 10 mg PO DAILY celecoxib 200 mg Capsule 200 mg PO DAILY cyclobenzaprine 10 mg tablet 1 tab PO TID PRN PRN (Reason: pain) glimepiride 4 mg Tablet 4 mg PO DAILY albuterol sulfate 90 mcg/actuation HFA aerosol inhaler 2 puff INHALATION 4X/DAY PRN (Reason: shortness of breath or wheezing) Spiriva Respimat 2.5 mcg/actuation mist 2 puff INHALATION DAILY esomeprazole magnesium 40 mg capsule,delayed release(DR/EC) 40 mg PO DAILY Qty: 30 5RF pregabalin 150 mg capsule 150 mg PO TID Referrals / Follow Up: Gauri Kidd MD [Primary Care Provider] - Disposition Disposition (needs filled in before D/C Order can be placed): Home, Self Care
--- NOTE | 2023-08-12 10:12 | EKG12_ITS ---
Test Reason : chest pain Blood Pressure : / mmHG Vent. Rate : 084 BPM Atrial Rate : 084 BPM P-R Int : 168 ms QRS Dur : 096 ms QT Int : 384 ms P-R-T Axes : 069 063 034 degrees QTc Int : 453 ms Normal sinus rhythm Possible Left atrial enlargement Borderline ECG When compared with ECG of 12-AUG-2023 06:31, MANUAL COMPARISON REQUIRED, DATA IS UNCONFIRMED Confirmed by ZION GREWAL, JACK ([id number]), movie editor AGUSTIN WORKMAN ([id number]) on 08/14/2023 9:52:57 AM Referred By: Chhaya May Confirmed By:JACK DONOVAN MD
[2023-08-12] MEDS: traMADol 50 MG Tablet PO (11:28)
== END 2023-08-12 12:04 | disposition home or self-care (01) ==
LOC: SDC 05:59 → AC 05:59
PROVIDERS: PCP Family Medicine; Referring Provider Surgery; Visit Provider Surgery
PROC: (CPT 47610; principal; 2023-08-12 07:10)
DX: K80.10 Calculus of gallbladder with chronic cholecystitis without obstruction (principal); J44.9 Chronic obstructive pulmonary disease, unspecified; E11.9 Type 2 diabetes mellitus without complications; R19.7 Diarrhea, unspecified; E78.00 Pure hypercholesterolemia, unspecified; I10 Essential (primary) hypertension; F17.210 Nicotine dependence, cigarettes, uncomplicated; F12.90 Cannabis use, unspecified, uncomplicated; K21.9 Gastro-esophageal reflux disease without esophagitis; Z79.51 Long term (current) use of inhaled steroids; Z79.899 Other long term (current) drug therapy; Z79.84 Long term (current) use of oral hypoglycemic drugs; Z86.010 Personal history of colon polyps
CPT/HCPCS: 47563; 00790; 74300; 76000; 82962; 88304; 93005; J7120; J2405

== ENCOUNTER → 2023-08-26 | Outpatient (CLI) | payer MEDICARE, SELFPAY ==
[2023-08-26 13:53] LABS: Absolute Neutrophil Count 6.2 X10^3/uL (2.0-7.7); Basophil# 0.07 X10^3/uL; Basophil% 0.8 % (0-1); Eosinophil# 0.06 X10^3/uL; Eosinophils% 0.7 % (0-5); Hematocrit 45.8 % (37-47); Lymphocyte % 25.4 % (19-41); Mean Corp Hgb Conc 34.9 g/dL (32-36); Mean Corpuscular Hgb 30.7 pg (27.0-32.0); Mean Corpuscular Volume 87.9 fL (81-99); Mean Platelet Vol. 10.7 fl (6.2-12.0); Monocyte# 0.42 X10^3/uL; Monocyte% 4.6 % (0-10); NRBC Flagged by Analyzer 0 % (0-5); Neutrophil # 6.18 X10^3/uL (2.7-7.7); Neutrophil % 68.2 % (47-70); Platelet Count 212 K/mm3 (150-450); RBC Distribution Width CV 14.2 % (11.6-14.6); RBC Distribution Width SD 45.3 fl (35.1-43.9); Red Blood Count 5.21 M/mm3 (4.2-5.4); White Blood Count 9.1 K/mm3 (4.4-11.0)
[2023-08-26 14:15] LABS: AST(SGOT) 12 U/L (15-37); Alanine Aminotransfer ALT/SGPT 22 U/L (13-56); Albumin, Serum 3.7 g/dL (3.2-5.0); Alkaline Phosphatase 102 U/L (45-117); Anion Gap 3 (5-15); BUN 13 mg/dL (7-18); BUN/Creat Ratio 13.9 RATIO (10-20); Chloride 105 mmol/L (98-107); Creatinine, Serum 0.94 mg/dL (0.55-1.02); EST Glomerular Filtration Rate 64 mL/min (>60); Est Glom Filt Rate - Afr Amer 78 mL/min (>60); Globulin 3.6 g/dL (2.2-4.2); Glucose 108 mg/dL (74-106); Potassium 4.1 mmol/L (3.5-5.1); Protein, Total 7.3 g/dL (6.4-8.2); Sodium Level 138 mmol/L (136-145)
== END | disposition home or self-care (01) ==
LOC: PAVLAB 13:16
PROVIDERS: Physician Assistant; PCP Family Medicine; Referring Provider Surgery; Visit Provider Surgery
DX: K82.4 Cholesterolosis of gallbladder (principal)
CPT/HCPCS: 36415; 80053; 85025

== ENCOUNTER 2023-09-02 12:22 | Observation (INO) | payer MEDICARE, SELFPAY ==
[2023-09-02] VITALS (8 sets, daily range): BP systolic 119–152; BP diastolic 62–113; PULSE 72–92; RESP 16–74; TEMP 36.4–36.8; O2SAT 97–99; BMI 32.1; BMI 31.8
[2023-09-02 13:21] LABS: Color, Urine Yellow (Yellow); Glucose, Dipstick 1000 mg/dl (Normal); Ketone-Dipstick 15 mg/dl (Negative); Leukocyte Esterase-Dipstick 25 /ul (Negative); Nitrite-Dipstick Negative (Negative); Occult Blood-Urine 10 /ul (Negative); Protein-Dipstick 30 mg/dl (Negative); Urine Bilirubin Dipstick Negative (Negative); Urine Clarity Clear (Clear); Urine Urobilinogen Normal (Normal)
[2023-09-02 13:22] LABS: Absolute Lymphocyte Count 2.39 X10^3/uL (0.83-4.51); Absolute Neutrophil Count 7.1 X10^3/uL (2.0-7.7); Basophil# 0.11 X10^3/uL; Basophil% 1.1 % (0-1); Eosinophil# 0.03 X10^3/uL; Eosinophils% 0.3 % (0-5); Hematocrit 54.1 % (37-47); Hemoglobin 17.9 g/dL (12.0-15.0); Lymphocyte # 2.39 X10^3/ul (0.83-4.51); Lymphocyte % 23.6 % (19-41); Mean Corp Hgb Conc 33.1 g/dL (32-36); Mean Corpuscular Hgb 29.4 pg (27.0-32.0); Mean Platelet Vol. 10.6 fl (6.2-12.0); Monocyte# 0.47 X10^3/uL; Monocyte% 4.6 % (0-10); NRBC Flagged by Analyzer 0 % (0-5); Platelet Count 251 K/mm3 (150-450); RBC Distribution Width CV 14.7 % (11.6-14.6); RBC Distribution Width SD 47.5 fl (35.1-43.9); Red Blood Count 6.08 M/mm3 (4.2-5.4); White Blood Count 10.1 K/mm3 (4.4-11.0)
[2023-09-02 13:28] LABS: Bacteria 1+ /hpf (None Seen); Mucous, Urine 1+ /hpf (<or=2+); Red Blood Cells-Urine 0-5 SEEN /hpf (0-5); Squamous Epithelial Cells - UA 0-5 SEEN /hpf (5-10); White Blood Cells 0-5 SEEN /hpf (0-5)
[2023-09-02 13:36] LABS: AST(SGOT) 13 U/L (15-37); Alanine Aminotransfer ALT/SGPT 31 U/L (13-56); Albumin, Serum 4.4 g/dL (3.2-5.0); Alkaline Phosphatase 123 U/L (45-117); Anion Gap 3 (5-15); BUN 12 mg/dL (7-18); BUN/Creat Ratio 12.1 RATIO (10-20); Calcium,Total 10.3 mg/dL (8.5-10.1); Chloride 103 mmol/L (98-107); Creatinine, Serum 0.99 mg/dL (0.55-1.02); EST Glomerular Filtration Rate 60 mL/min (>60); Est Glom Filt Rate - Afr Amer 73 mL/min (>60); Estimated Creatinine Clearance 60.62 ml/min; Globulin 4.2 g/dL (2.2-4.2); Glucose 114 mg/dL (74-106); Potassium 4.3 mmol/L (3.5-5.1); Protein, Total 8.6 g/dL (6.4-8.2); Sodium Level 135 mmol/L (136-145)
--- NOTE | 2023-09-02 14:08 | ED.VIS.GI ---
HPI HPI - GI History of Present Illness Chief Complaint: Nausea/Vomiting Informant: patient Nausea/Vomiting/Emesis GI Symptom: Positive for Nausea and Vomiting Onset: Weeks (2.5) Quality: Positive for Nonbilious; Negative for Blood streaks, Coffee ground or Hematemesis Diarrhea/Melena/Hematochezia GI Symptom: Positive for Diarrhea; Negative for Melena or Hematochezia Associated Symptoms Associated Symptoms: Positive for Dysuria; Negative for Frequency or Hematuria Narrative Narrative: Patient presents with nausea vomiting for the past 2-1/2 weeks. Patient also admits to some diarrhea. Patient states she had a cholecystectomy 3 weeks ago. Patient states that a few days after that she started having the nausea and vomiting. Patient denies any hematemesis or coffee-ground emesis. Patient states she is unable to keep much down. Patient states that over the past couple days she started feeling she was getting a urinary tract infection and was having some mild dysuria. Patient denies any abdominal pain. Patient admits to a low-grade fever of 101 at home. Patient also admits to some subjective chills. Patient admits to a headache and feeling weak. [facility] Medical History Diarrhea Wears glasses Wears dentures Post-menopausal Depression Marijuana use Bladder disease Anemia High cholesterol Back pain History of hiatal hernia History of ulceration History of IBS Gastric reflux Smoker Shortness of breath on exertion Leg cramps History of pain when walking History of stress test Asthma COPD (chronic obstructive pulmonary disease) HTN (hypertension) Arthritis Thyroid disease Diabetes Home Medications ?Medication ?Instructions ?Recorded ?Last Taken ?Type atorvastatin 40 mg tablet 40 mg PO QHS 07/20/15 08/11/23 History duloxetine 60 mg capsule,delayed 60 mg PO BID 07/20/15 08/11/23 History release oxybutynin chloride 5 mg tablet 5 mg PO DAILY 11/07/15 08/11/23 History dapagliflozin propanediol 10 mg 10 mg PO DAILY 10/05/17 08/11/23 History tablet (Farxiga) celecoxib 200 mg capsule 200 mg PO DAILY 09/01/21 08/11/23 History cyclobenzaprine 10 mg tablet 1 tab PO TID PRN PRN pain 09/01/21 08/11/23 History glimepiride 4 mg tablet 4 mg PO DAILY 09/01/21 08/11/23 History levothyroxine 112 mcg tablet 112 mcg PO QDAY 07/04/23 08/12/23 History lisinopril 10 mg tablet 10 mg PO QDAY 07/04/23 08/12/23 History sucralfate 1 gram tablet 1 g PO QACHS #56 tabs 07/04/23 08/11/23 Rx albuterol sulfate 90 mcg/actuation 2 puff inhalation 4X/DAY PRN 07/23/23 Unknown History aerosol inhaler shortness of breath or wheezing tiotropium bromide 2.5 2 puff inhalation DAILY 07/23/23 08/12/23 History mcg/actuation mist for inhalation (Spiriva Respimat) esomeprazole magnesium 40 mg 40 mg PO DAILY #30 caps 07/24/23 08/12/23 Rx capsule,delayed release pregabalin 150 mg capsule 150 mg PO TID 08/11/23 08/12/23 History Allergy/AdvReac Type Severity Reaction Status Date / Time clarithromycin (From Biaxin) AdvReac Nausea Verified 09/02/23 12:34 hydromorphone (From Dilaudid) AdvReac Upset Verified 09/02/23 12:34 Stomach Family History Father Heart disease Hypertension Mother Heart disease Thyroid disorder Surgical History S/P cholecystectomy Hx of esophagogastroduodenoscopy Hx of colonoscopy History of hysteroscopy Hx of hysterectomy, total History of lumbar discectomy History of lumbar fusion Cervical vertebral fusion Social History household members: none housing: house current occupational status: retired Smoking Status: Current some day smoker tobacco type: cigarettes alcohol intake: never additional social history: medical marijuana ROS ROS ED Constitutional Constitutional ED: Reports chills and fever(s) Eyes Eyes: Denies blurry vision or change in vision ENT ENT ED: Denies rhinorrhea or sore throat Cardiovascular Cardiovascular: Denies chest pain or palpitations Respiratory/Chest Respiratory/Chest: Denies cough or dyspnea Gastrointestinal Gastrointestinal: Reports nausea and vomiting Genitourinary Genitourinary ED: Reports dysuria; Denies hematuria Musculoskeletal Musculoskeletal: Reports back pain and neck pain Integumentary Denies abscess or rash Neurologic Neurologic: Reports headache(s) and weakness Allergic/Immunologic Allergic/Immunologic ED: Denies mouth swelling or urticaria EXAM Physical Exam Const Vital Signs: 09/02/23 12:22 09/02/23 12:32 09/02/23 12:39 Temperature 98 F 98.2 F Temperature Source Temporal Oral Pulse Rate 92 86 Respiratory Rate 16 18 Blood Pressure 130/74 H 119/69 Blood Pressure Mean 92 85 Pulse Ox 98 97 Oxygen Delivery Method Room Air Room Air 09/02/23 14:32 09/02/23 16:05 Temperature Temperature Source Pulse Rate 76 Respiratory Rate 74 H 17 Blood Pressure 137/113 H 139/62 H Blood Pressure Mean 121 87 Pulse Ox 99 99 Oxygen Delivery Method Room Air Room Air Positive well nourished and well developed General Appearance ED: well developed and NAD HEENT Reports moist mucous membranes Neck supple and no JVD Resp normal respiratory effort and clear to auscultation bilaterally Cardio regular rate and regular rhythm GI non-distended Palpation: soft and tender epigastric and LUQ; Negative for guarding or rebound tenderness present Extremity full ROM Neuro CN's II-XII intact bilaterally, moves all extremities and no sensory deficits noted Sensorium / Orientation: alert Motor Exam: strength 5/5 throughout Psych mental status grossly normal and thought process normal MDM MDM MDM Narrative Medical decision making narrative: Differential diagnosis includes bowel obstruction, perforation, choledocholithiasis, peptic ulcer disease, duodenal ulcer, urinary tract infection, pyelonephritis, diverticulitis, and viral illness. CBC will be obtained to assess for leukocytosis and anemia. Comprehensive metabolic profile will be obtained to assess for hepatic function, renal function, and electrolyte abnormality. Lipase will be obtained to assess for pancreatitis. Urinalysis will be obtained to assess for urinary tract infection and pyelonephritis. CT scan of the abdomen pelvis will be obtained to assess for bowel obstruction, perforation, pancreatitis, and choledocholithiasis. Lab Data Attestation: I reviewed the patient's lab results. Lab results narrative: CBC was reviewed. Hemoglobin was slightly elevated at 17.9 and hematocrit was 54.1. Neurologist comprehensive metabolic profile was reviewed. Alkaline phosphatase was slightly elevated at 123. The remainder was essentially within normal limits. Urinalysis was reviewed. Urine glucose was 1000. There is no evidence of urinary tract infection or hematuria. Labs: Laboratory Results - last 24 hr 09/02/23 13:03 WBC 10.1 RBC 6.08 H Hgb 17.9 H Hct 54.1 H MCV 89.0 MCH 29.4 MCHC 33.1 RDW Std Deviation 47.5 H RDW Coeff of Shawn 14.7 H Plt Count 251 MPV 10.6 Immature Gran % (Auto) 0.400 Neut % (Auto) 70.0 Lymph % (Auto) 23.6 [place] % (Auto) 4.6 Eos % (Auto) 0.3 Baso % (Auto) 1.1 H Absolute Neuts (auto) 7.1 Absolute Lymphs (auto) 2.39 Nucleated RBC % 0 Sodium 135 L Potassium 4.3 Chloride 103 Carbon Dioxide 29.0 Anion Gap 3 L BUN 12 Creatinine 0.99 Estim Creat Clear Calc 60.62 Est GFR (MDRD) Af Amer 73 Est GFR (MDRD) Non-Af 60 BUN/Creatinine Ratio 12.1 Glucose 114 H Calcium 10.3 H Total Bilirubin 0.70 AST 13 L ALT 31 Alkaline Phosphatase 123 H Total Protein 8.6 H Albumin 4.4 Globulin 4.2 Albumin/Globulin Ratio 1.0 Lipase 33 Urine Color Yellow Urine Clarity Clear Urine pH 6.0 Ur Specific [place] 1.020 Urine Protein 30 H Urine Glucose (UA) 1000 H Urine Ketones 15 H Urine Occult Blood 10 H Urine Nitrite Negative Urine Bilirubin Negative Urine Urobilinogen Normal Ur Leukocyte Esterase 25 H Urine RBC 0-5 SEEN Urine WBC 0-5 SEEN Ur Squamous Epith Cells 0-5 SEEN Urine Bacteria 1+ Urine Mucus 1+ Radiography Diagnostic Testing: Clinical Impression(s) from Imaging Studies Abdomen/Pelvis CT 09/02/23 14:14 IMPRESSION: Ileus versus low-grade distal small bowel obstruction Electronically Signed: Nhan Steve MD at 16:27 EDT , ADDENDUM: 09/02/23 8934 IMPRESSION: undefined CT scan of the abdomen pelvis was obtained. There is ileus versus low-grade distal small bowel obstruction. There is fluid in the gallbladder fossa. This was interpreted by the radiologist was also independently reviewed by myself. Treatment and Re-Evaluation :: Patient was given IV fluids, morphine, and Zofran. Patient was feeling better on reevaluation. Patient was advised of her findings. Case was discussed with Dr. May. She will admit the patient to her service. Patient understood and was agreeable with the plan. All questions were answered. Discharge Plan Dx/Rx/DC Orders Clinical Impression: Nausea & vomiting, Intra-abdominal fluid collection, Ileus Disposition Disposition: Acute Care Hospital [facility]
--- NOTE | 2023-09-02 14:14 | CT_ITS ---
STUDY: CT ABDOMEN AND PELVIS WITH CONTRAST REASON FOR EXAM: Female, 62 years old. Abdominal pain -- IV PO Contrast RADIATION DOSAGE (If Supplied By Facility): CTDIvol = ( 14.38 ) mGy, DLP = ( 1010.06 ) mGycm TECHNIQUE: Transaxial images were obtained from the dome of the diaphragm to the symphysis pubis without oral contrast. 100 ML ISOVUE 300 AND 15ML GASTRO was administered. Sagittal and coronal images were reconstructed. Individualized dose optimization techniques were used for slightly distended with several air-fluid levels. CT. The protocol utilizes one or more of the following dose reduction techniques: automated exposure control, adjustment of mA and/or kV according to patient size,and/or use of iterative reconstruction technique. COMPARISON: Gallbladder ultrasound August 12, 2023. CT abdomen and pelvis July 20, 2015. FINDINGS: The visualized lung bases are unremarkable. The visualized portions of the heart are within normal limits. Normal liver. Normal gallbladder and extrahepatic biliary system. Normal spleen. Normal pancreas. Normal bilateral adrenal glands. Normal right kidney. Normal left kidney. Normal visualized stomach. Oral contrast noted throughout the small bowel Normal colon. The appendix is surgically absent. Calcified plaque noted along the aorta and its branches. Normal inferior vena cava. Surgical clips are noted along the retroperitoneum on the left. Normal urinary bladder. Surgical clips left pelvis. Normal abdominal wall. Posterior interbody fusion rods and pedicular screws at L3-4. Laminectomies and Disc spacers at L4-5 and L5-S1. CT/Abdomen/Pelvis WITH Contrast IMPRESSION: Ileus versus low-grade distal small bowel obstruction Electronically Signed: Nhan Steve MD at 16:27 EDT ,
[2023-09-02 14:28] LABS: Lipase 33 U/L (13-75)
[2023-09-02] MEDS: Acetaminophen 500 MG Tablet 1000 MG PO (14:28)
[2023-09-02] MEDS: 0.9% Normal Saline (1000mL) 1,000 ML 999 ML IV ×2 (14:28→17:17)
[2023-09-02] MEDS: Ondansetron 4 MG/2 ML Vial IV (14:29)
--- NOTE | 2023-09-02 16:40 | HP.PCM.SX_ITS ---
HPI - General General Date of Admission: 09/02/23 HPI Narrative MATTIE RODRIGUES, is a 62 F who presents due to nausea and vomiting and chills and fever of 101 at home. Patient status post laparoscopic cholecystectomy on 08/12/2023 due to believed polyp which was cholelithiasis. Patient states after surgery started having a lot of nausea and some vomiting and chills. Patient is also had some loose stools. Patient rates her abdominal pain as 3/10 and has not needed any medication for this. Patient states her incisional pain did resolve from the surgery. CBC showed normal white blood cell count no shift. Patient had an elevated alk phos slightly at 123 otherwise normal liver functions. Patient did have leukoesterase of 25 good catch nitrate negative for UA. CT abdomen pelvis was initially read normal gallbladder however there is a fluid collection at the gallbladder fossa status postcholecystectomy, also called mild ileus. [facility] Medical History Diarrhea Wears glasses Wears dentures Post-menopausal Depression Marijuana use Bladder disease Anemia High cholesterol Back pain History of hiatal hernia History of ulceration History of IBS Gastric reflux Smoker Shortness of breath on exertion Leg cramps History of pain when walking History of stress test Asthma COPD (chronic obstructive pulmonary disease) HTN (hypertension) Arthritis Thyroid disease Diabetes Home Medications ?Medication ?Instructions ?Recorded ?Last Taken ?Type atorvastatin 40 mg tablet 40 mg PO QHS 07/20/15 08/11/23 History duloxetine 60 mg capsule,delayed 60 mg PO BID 07/20/15 08/11/23 History release oxybutynin chloride 5 mg tablet 5 mg PO DAILY 11/07/15 08/11/23 History dapagliflozin propanediol 10 mg 10 mg PO DAILY 10/05/17 08/11/23 History tablet (Farxiga) celecoxib 200 mg capsule 200 mg PO DAILY 09/01/21 08/11/23 History cyclobenzaprine 10 mg tablet 1 tab PO TID PRN PRN pain 09/01/21 08/11/23 History glimepiride 4 mg tablet 4 mg PO DAILY 09/01/21 08/11/23 History levothyroxine 112 mcg tablet 112 mcg PO QDAY 07/04/23 08/12/23 History lisinopril 10 mg tablet 10 mg PO QDAY 07/04/23 08/12/23 History sucralfate 1 gram tablet 1 g PO QACHS #56 tabs 07/04/23 08/11/23 Rx albuterol sulfate 90 mcg/actuation 2 puff inhalation 4X/DAY PRN 07/23/23 Unknown History aerosol inhaler shortness of breath or wheezing tiotropium bromide 2.5 2 puff inhalation DAILY 07/23/23 08/12/23 History mcg/actuation mist for inhalation (Spiriva Respimat) esomeprazole magnesium 40 mg 40 mg PO DAILY #30 caps 07/24/23 08/12/23 Rx capsule,delayed release pregabalin 150 mg capsule 150 mg PO TID 08/11/23 08/12/23 History Allergy/AdvReac Type Severity Reaction Status Date / Time clarithromycin (From Biaxin) AdvReac Nausea Verified 09/02/23 12:34 hydromorphone (From Dilaudid) AdvReac Upset Verified 09/02/23 12:34 Stomach Family History Father Heart disease Hypertension Mother Heart disease Thyroid disorder Surgical History S/P cholecystectomy Hx of esophagogastroduodenoscopy Hx of colonoscopy History of hysteroscopy Hx of hysterectomy, total History of lumbar discectomy History of lumbar fusion Cervical vertebral fusion Social History household members: none housing: house current occupational status: retired Smoking Status: Former smoker alcohol intake: never additional social history: medical marijuana Vital Signs Vital Signs Vital Signs: 09/02/23 12:22 09/02/23 12:32 09/02/23 12:39 Temperature 98 F 98.2 F Temperature Source Temporal Oral Pulse Rate 92 86 Respiratory Rate 16 18 Blood Pressure 130/74 H 119/69 Blood Pressure Mean 92 85 Pulse Ox 98 97 Oxygen Delivery Method Room Air Room Air 09/02/23 14:32 09/02/23 16:05 Temperature Temperature Source Pulse Rate 76 Respiratory Rate 74 H 17 Blood Pressure 137/113 H 139/62 H Blood Pressure Mean 121 87 Pulse Ox 99 99 Oxygen Delivery Method Room Air Room Air Weight Weight: 181 lb 6 oz Body Mass Index (BMI) 32.1 Physical Exam Const oriented x3 and no apparent distress Resp normal respiratory effort Cardio regular rate GI soft to palpation GI Narrative: Mild tenderness palpation right upper quadrant and epigastric, no peritoneal signs Extremity normal to inspection Results Lab / Micro Data 09/02/23 13:03 09/02/23 13:03 Labs: Laboratory Results - last 24 hr 09/02/23 13:03: WBC 10.1, RBC 6.08 H, Hgb 17.9 H, Hct 54.1 H, MCV 89.0, MCH 29.4, MCHC 33.1, RDW Std Deviation 47.5 H, RDW Coeff of [place] 14.7 H, Plt Count 251, MPV 10.6, Immature Gran % (Auto) 0.400, Neut % (Auto) 70.0, Lymph % (Auto) 23.6, [place] % (Auto) 4.6, Eos % (Auto) 0.3, Baso % (Auto) 1.1 H, Absolute Neuts (auto) 7.1, Absolute Lymphs (auto) 2.39, Nucleated RBC % 0, Sodium 135 L, Potassium 4.3, Chloride 103, Carbon Dioxide 29.0, Anion Gap 3 L, BUN 12, Creatinine 0.99, Estim Creat Clear Calc 60.62, Est GFR (MDRD) Af Amer 73, Est GFR (MDRD) Non-Af 60, BUN/Creatinine Ratio 12.1, Glucose 114 H, Calcium 10.3 H, Total Bilirubin 0.70, AST 13 L, ALT 31, Alkaline Phosphatase 123 H, Total Protein 8.6 H, Albumin 4.4, Globulin 4.2, Albumin/Globulin Ratio 1.0, Lipase 33, Urine Color Yellow, Urine Clarity Clear, Urine pH 6.0, Ur Specific [place] 1.020, Urine Protein 30 H, Urine Glucose (UA) 1000 H, Urine Ketones 15 H, Urine Occult Blood 10 H, Urine Nitrite Negative, Urine Bilirubin Negative, Urine Urobilinogen Normal, Ur Leukocyte Esterase 25 H, Urine RBC 0-5 SEEN, Urine WBC 0-5 SEEN, Ur Squamous Epith Cells 0-5 SEEN, Urine Bacteria 1+, Urine Mucus 1+ Imaging Radiology Impression Abdomen/Pelvis CT 09/02/23 14:14 IMPRESSION: Ileus versus low-grade distal small bowel obstruction Electronically Signed: Nhan Steve MD at 16:27 EDT , Assessment & Plan Assessment/Plan (1) Nausea & vomiting: (2) Intra-abdominal fluid collection: PLAN: Plan Discussed with patient with plan to admit okay for clears today and then n.p.o. after midnight. Will plan to get a HIDA scan in the morning see if this fluid collection is bile or could just be hematoma as patient did have bleeding from the gallbladder which was thought to be controlled with Erbe at the time of surgery. Discussed with patient that if this were to found to be bile with plan for an ERCP as well as a drain to this collection whether this would be CT- guided or operative. Will place patient on Zosyn in case this is a bile leak, however patient does have a normal white blood cell count and no shift. Continue patient's home meds. Chhaya May M.D. Pager: [phone] [facility] [address] [place] [address], [facility], [address] [place] [address] Office: [phone]
[2023-09-02] MEDS: 0.9% Normal Saline (1000mL) 1,000 ML 130 ML IV (18:08)
[2023-09-02 18:33] LABS: Bedside Glucose 63 mg/dL (74-106)
[2023-09-02] MEDS: Pantoprazole Sodium 40 MG in 0.9% Normal Saline (100mL MB+) 100 ML 330 MG IV (18:34)
[2023-09-02] MEDS: 0.9% Normal Saline (250mL Bag) 250 ML 15 ML IV (18:46)
[2023-09-02] MEDS: Ketorolac 15 MG/ML Vial IV (18:49)
[2023-09-02] MEDS: 0.9% Saline Lock 10 ML Syringe IV (18:50)
[2023-09-02] MEDS: Piperacil/Tazobactam 3.375 GM in 0.9% Normal Saline (50mL MB+) 50 ML IV (18:54)
[2023-09-02] MEDS: DULoxetine Hcl 60 MG Capsule PO (21:42)
[2023-09-02] MEDS: Pregabalin 75 MG Capsule 150 MG PO (21:42)
[2023-09-02] MEDS: cycloBENZAPRine HCl 10 MG Tablet PO (21:42)
[2023-09-02] MEDS: Acetaminophen 325 MG Tablet 650 MG PO (21:42)
--- NOTE | 2023-09-02 23:44 | NURSING ---
FSBS 64, pt requesting kyrgyz ice to eat to help raise blood sugar level. Pt denies symptoms. Snack provided per request. RN will reassess blood sugar level.
[2023-09-02 23:59] LABS: Bedside Glucose 64 mg/dL (74-106)
[2023-09-03] VITALS (19 sets, daily range): BP systolic 96–142; BP diastolic 46–73; PULSE 63–73; RESP 12–16; TEMP 36.4–36.7; O2SAT 92–97
[2023-09-03] MEDS: 0.9% Normal Saline (1000mL) 1,000 ML 130 ML IV (00:20)
[2023-09-03 00:40] LABS: Bedside Glucose 97 mg/dL (74-106)
[2023-09-03] MEDS: Piperacil/Tazobactam 3.375 GM in 0.9% Normal Saline (50mL MB+) 50 ML IV (05:20)
[2023-09-03] MEDS: Ketorolac 15 MG/ML Vial IV (05:20)
[2023-09-03] MEDS: Ondansetron 4 MG/2 ML Vial IV (05:20)
[2023-09-03 05:32] LABS: Bedside Glucose 69 mg/dL (74-106)
[2023-09-03] MEDS: Dextrose 5%/0.9% NaCl 1,000 ML 130 ML IV (06:01)
[2023-09-03] MEDS: Dextrose 50%-Water 25 GM/50 ML DISP.SYRIN IV (06:01)
[2023-09-03 07:13] LABS: Bedside Glucose 208 mg/dL (74-106)
--- NOTE | 2023-09-03 07:30 | NM_ITS ---
CLINICAL: 62-year-old female with history of recent cholecystectomy with postoperative pain and suspected bile leak. RADIONUCLIDE HEPATOBILIARY SCINTIGRAPHY COMPARISON: CT of the abdomen-pelvis report 09/02/2023 FINDINGS: Following the intravenous administration of 5.9 mCi of 99m Tc Mebrofenin, hepatobiliary images reveal: 1. Relatively prompt and homogeneous radiopharmaceutical concentration is noted by a normal sized liver. No parenchymal defects are identified. 2. Gallbladder activity is not identified during 60 minutes of sequential imaging commensurate with known history of prior cholecystectomy. 3. Small intestinal tract is observed at 14-15 minutes post radiopharmaceutical administration. 4. Washout of the radiopharmaceutical by the hepatic parenchyma appears qualitatively normal. 5. There is no evidence of a visualized bile leak identified during 60 minutes of sequential imaging. 6. Duodenal gastric reflux is demonstrated initiating at approximately 41 minutes following radiotracer provision. NM/Hepatobilliary Imaging IMPRESSION: 1. Nonvisualization of the gallbladder is consistent with prior cholecystectomy. 2. There is no scintigraphic evidence of bile leak. 3. The presence of duodenal gastric reflux is visualized as articulated above. Electronically Signed: Landen Chang DO at 8:48 EDT ,
[2023-09-03] MEDS: Acetaminophen 325 MG Tablet 650 MG PO (07:53)
[2023-09-03] MEDS: Levothyroxine 112 MCG Tablet PO (07:55)
--- NOTE | 2023-09-03 08:08 | PCM.PN.SRG ---
Subjective Subjective Patient evaluated resting comfortably in bed. She voices her main concern is a severe headache with associated nausea. Patient denies any abdominal pain at this time. She denies any vomiting. Objective Data Objective Data Vital Signs: Vital Signs Temp Pulse Resp BP Pulse Ox O2 Del Method 97.6 F L 67 16 115/61 96 Room Air 09/03/23 08:00 09/03/23 08:00 09/03/23 08:00 09/03/23 08:00 09/03/23 08:00 09/03/23 08:00 Oxygen Delivery Method Room Air Weight: 182 lb 15.739 oz Body Mass Index (BMI) 31.8 Intake & Output: Intake and Output for Last 24 Hours 09/01/23 09/02/23 09/03/23 23:59 23:59 23:59 Intake Total 1453.17 / 1453.17 Balance 1453.17 / 1453.17 Lab / Micro Data 09/03/23 09:05 09/02/23 13:03 Labs: Laboratory Results - last 24 hr 09/02/23 13:03: WBC 10.1, RBC 6.08 H, Hgb 17.9 H, Hct 54.1 H, MCV 89.0, MCH 29.4, MCHC 33.1, RDW Std Deviation 47.5 H, RDW Coeff of Shawn 14.7 H, Plt Count 251, MPV 10.6, Immature Gran % (Auto) 0.400, Neut % (Auto) 70.0, Lymph % (Auto) 23.6, [place] % (Auto) 4.6, Eos % (Auto) 0.3, Baso % (Auto) 1.1 H, Absolute Neuts (auto) 7.1, Absolute Lymphs (auto) 2.39, Nucleated RBC % 0, Sodium 135 L, Potassium 4.3, Chloride 103, Carbon Dioxide 29.0, Anion Gap 3 L, BUN 12, Creatinine 0.99, Estim Creat Clear Calc 60.62, Est GFR (MDRD) Af Amer 73, Est GFR (MDRD) Non-Af 60, BUN/Creatinine Ratio 12.1, Glucose 114 H, Calcium 10.3 H, Total Bilirubin 0.70, AST 13 L, ALT 31, Alkaline Phosphatase 123 H, Total Protein 8.6 H, Albumin 4.4, Globulin 4.2, Albumin/Globulin Ratio 1.0, Lipase 33, Urine Color Yellow, Urine Clarity Clear, Urine pH 6.0, Ur Specific [place] 1.020, Urine Protein 30 H, Urine Glucose (UA) 1000 H, Urine Ketones 15 H, Urine Occult Blood 10 H, Urine Nitrite Negative, Urine Bilirubin Negative, Urine Urobilinogen Normal, Ur Leukocyte Esterase 25 H, Urine RBC 0-5 SEEN, Urine WBC 0-5 SEEN, Ur Squamous Epith Cells 0-5 SEEN, Urine Bacteria 1+, Urine Mucus 1+ 09/02/23 18:13: POC Glucose 63 L 09/02/23 23:39: POC Glucose 64 L 09/03/23 00:17: POC Glucose 97 09/03/23 05:14: POC Glucose 69 L 09/03/23 06:12: POC Glucose 208 H Radiography Diagnostic Testing: Radiology Impression Abdomen/Pelvis CT 09/02/23 14:14 IMPRESSION: Ileus versus low-grade distal small bowel obstruction Electronically Signed: Nhan Steve MD at 16:27 EDT , ADDENDUM: 09/02/23 0219 IMPRESSION: undefined Physical Exam GI GI Narrative: Abdomen- soft, mild tenderness in the RUQ. Incisions completely healed Assessment & Plan Assessment/Plan (1) Intra-abdominal fluid collection: (2) Ileus: PLAN: Plan I am following this patient in conjunction with Dr. May. She will independently evaluate this patient. Patient had a HIDA scan this morning to rule out a bile leak. Results returned demonstrating no bile was found. On CT scan of the ab/pel completed in the ED, patient does have a 6.9 x 3.5 cm loculated fluid collection. Plan to have radiology place a drain today. Plan to keep patient NPO at this time. Patient has had the opportunity to ask and have questions answered. Charges/Coding Visit Charges Inpatient E&M: 71110 [facility] Hosp L1
--- NOTE | 2023-09-03 08:18 | CPS ---
PATIENT NOT IN ROOM
[2023-09-03 09:12] LABS: Absolute Lymphocyte Count 1.53 X10^3/uL (0.83-4.51); Basophil# 0.06 X10^3/uL; Basophil% 1.4 % (0-1); Eosinophils% 11.4 % (0-5); Hematocrit 42.4 % (37-47); Hemoglobin 14.1 g/dL (12.0-15.0); Lymphocyte # 1.53 X10^3/ul (0.83-4.51); Mean Corp Hgb Conc 33.3 g/dL (32-36); Mean Corpuscular Hgb 29.6 pg (27.0-32.0); Mean Corpuscular Volume 89.1 fL (81-99); Mean Platelet Vol. 10.2 fl (6.2-12.0); Monocyte# 0.26 X10^3/uL; Monocyte% 5.9 % (0-10); NRBC Flagged by Analyzer 0 % (0-5); Neutrophil # 2.01 X10^3/uL (2.7-7.7); Neutrophil % 46.1 % (47-70); POSITIVE MORPHOLOGY YES; Platelet Count 155 K/mm3 (150-450); RBC Distribution Width CV 14.2 % (11.6-14.6); Red Blood Count 4.76 M/mm3 (4.2-5.4); White Blood Count 4.4 K/mm3 (4.4-11.0)
[2023-09-03 09:13] LABS: Differential Indicated SCAN CRITERIA MET
[2023-09-03 09:28] LABS: Anion Gap 1 (5-15); BUN 9 mg/dL (7-18); BUN/Creat Ratio 12.4 RATIO (10-20); Calcium,Total 8.5 mg/dL (8.5-10.1); Chloride 112 mmol/L (98-107); Creatinine, Serum 0.72 mg/dL (0.55-1.02); EST Glomerular Filtration Rate 87 mL/min (>60); Est Glom Filt Rate - Afr Amer 105 mL/min (>60); Estimated Creatinine Clearance 83.73 ml/min; Glucose 113 mg/dL (74-106); Potassium 3.8 mmol/L (3.5-5.1); Sodium Level 139 mmol/L (136-145)
[2023-09-03 09:34] LABS: Toxic Granulation 2+
[2023-09-03] MEDS: 0.9% Normal Saline (250mL Bag) 250 ML 15 ML IV (10:58)
[2023-09-03] MEDS: Midazolam 2 MG/2 ML Syringe IV ×2 (11:00→11:24)
[2023-09-03] MEDS: fentaNYL 100 MCG/2 ML Ampul IV (11:01)
[2023-09-03] MEDS: Lidocaine 2% (20 ml mdv) 20 ML Vial INFILT (11:26)
--- NOTE | 2023-09-03 11:49 | PRO.PCM_ITS ---
Procedure Report Date of Procedure: 09/03/23 Assessment & Plan Assessment/Plan (1) Intra-abdominal fluid collection: PLAN: PROCEDURE: CT DIRECTED drainage of postoperative fluid collection in the gallbladder fossa ORDERING PROVIDER: Dr. May INDICATION: Female, 62 years old. Postoperative fluid collection in the gallbladder fossa. PROVIDER: RUBY Ramires CONSENT: Written informed consent was obtained having explained the risks, benefits and alternatives in detail with the patient who accepted the risks and agreed to proceed. Laboratory review and clinical assessment was performed. PRE-PROCEDURE SEDATION ASSESSMENT: Current history and physical dictated by referring physician and reviewed. No clinical changes since date of exam. Patient has a Mallampati Score of Class 1 and ASA Class of 2. PROCEDURAL SEDATION PROTOCOL: The Drugs used were: 2 mg Versed, IV, and 50 mcg Fentanyl, IV. The sedation time was: 35 minutes, starting at 11:00 and terminated at 1135. The procedural sedation protocol was independently monitored by the department nurse. RADIATION DOSAGE (If Supplied By Facility): CTDIvol = 21.78 mGy, DLP = 1077.41 mGycm Individualized dose optimization techniques were used for this CT. CONSENT: Written informed consent was obtained having explained the risks, benefits and alternatives in detail with the patient who accepted the risks and agreed to proceed. Laboratory review and clinical assessment was performed. TECHNIQUE: CT sections were made through the abdomen and revealed fluid collection in the postoperative gallbladder fossa. The skin surface was prepped and draped in a sterile fashion. Puncture of this collection was performed with a 5 Maltese catheter and fluid was aspirated. Drainage catheter was then inserted into the collection and formed into position. Additional fluid was aspirated for a total of approximately 40 cc of dark raul cloudy colored fluid. The catheter was sutured into position to allow for continued drainage. Followup CT sections reveals good position of the catheter. IMPRESSION: 1. CT directed drainage of a fluid collection using CT image guidance and image documentation as described. 2. Procedural Sedation protocol utilized with independent monitoring by the department nurse. Procedures Radiology Radiology CT Procedures: 36938 Image guided catheter drainage
--- NOTE | 2023-09-03 12:26 | DCINST_ITS ---
Discharge Instructions Diet Discharge Diet: No restrictions Dressing / Incision Call your doctor if your incision/area has: Continuous Slow Oozing, Sudden Increased Bleeding, Increased Redness and Foul Smelling Discharge Change Dressing in: 1 day Additional Dressing/Incision Instructions:: If tried okay to leave open otherwise can redressed with a Band-Aid daily Follow Up Care Please Follow Up With: hChaya May MD When: Call the office for a follow-up appointment in 1 to 2 weeks Test Results: Test results from this visit will be discussed in further detail at your follow- up appointment, if applicable. Discharge Plan Admission Admit Date/Time: 09/02/23 16:41 Attending Provider: Chhaya May Primary Care Provider: Gauri Kidd Discharge Orders/Prescriptions Prescriptions: Continued lisinopril 10 mg tablet 10 mg PO QDAY levothyroxine 112 mcg tablet 112 mcg PO QDAY sucralfate 1 gram tablet 1 g PO QACHS Qty: 56 1RF Rx Instructions: Take an hour before meals and at bedtime atorvastatin 40 MG tablet 40 mg PO QHS duloxetine 60 MG capsule 60 mg PO BID oxybutynin chloride 5 MG tablet 5 mg PO DAILY dapagliflozin propanediol [Farxiga] 10 MG tablet 10 mg PO DAILY celecoxib 200 mg Capsule 200 mg PO DAILY cyclobenzaprine 10 mg tablet 1 tab PO TID PRN PRN (Reason: pain) glimepiride 4 mg Tablet 4 mg PO DAILY albuterol sulfate 90 mcg/actuation HFA aerosol inhaler 2 puff INHALATION 4X/DAY PRN (Reason: shortness of breath or wheezing) Spiriva Respimat 2.5 mcg/actuation mist 2 puff INHALATION DAILY esomeprazole magnesium 40 mg capsule,delayed release(DR/EC) 40 mg PO DAILY Qty: 30 5RF pregabalin 150 mg capsule 150 mg PO TID Referrals / Follow Up: Gauri Kidd MD [Primary Care Provider] - Disposition Disposition (needs filled in before D/C Order can be placed): Home, Self Care
--- NOTE | 2023-09-03 13:11 | PHA.DC.MR.R ---
Pharmacy [place] Med Reconciliation Pharmacy Service has performed discharge medication reconciliation for this patient. The patient's discharge medication list was reviewed for discrepancies and discrepancies were resolved. Medications at Discharge Home Medications atorvastatin 40 mg tablet 40 mg PO QHS 07/20/15 duloxetine 60 mg capsule,delayed release 60 mg PO BID 07/20/15 oxybutynin chloride 5 mg tablet 5 mg PO DAILY 11/07/15 dapagliflozin propanediol 10 mg tablet (Farxiga) 10 mg PO DAILY 10/05/17 celecoxib 200 mg capsule 200 mg PO DAILY 09/01/21 cyclobenzaprine 10 mg tablet 1 tab PO TID PRN PRN pain 09/01/21 glimepiride 4 mg tablet 4 mg PO DAILY 09/01/21 levothyroxine 112 mcg tablet 112 mcg PO QDAY 07/04/23 lisinopril 10 mg tablet 10 mg PO QDAY 07/04/23 sucralfate 1 gram tablet 1 g PO QACHS #56 tabs 07/04/23 albuterol sulfate 90 mcg/actuation aerosol inhaler 2 puff inhalation 4X/DAY PRN shortness of breath or wheezing 07/23/23 tiotropium bromide 2.5 mcg/actuation mist for inhalation (Spiriva Respimat) 2 puff inhalation DAILY 07/23/23 esomeprazole magnesium 40 mg capsule,delayed release 40 mg PO DAILY #30 caps 07/24/23 pregabalin 150 mg capsule 150 mg PO TID 08/11/23
== END 2023-09-03 13:51 | disposition home or self-care (01) ==
LOC: ED 16:56 → MS3 17:09
PROVIDERS: Admitting Provider Surgery; Emergency Provider Emergency Medicine; PCP Family Medicine; Visit Provider Surgery
DX: R18.8 Other ascites (principal); K56.7 Ileus, unspecified; J44.9 Chronic obstructive pulmonary disease, unspecified; E11.9 Type 2 diabetes mellitus without complications; R19.7 Diarrhea, unspecified; Z79.84 Long term (current) use of oral hypoglycemic drugs; R51.9 Headache, unspecified; I10 Essential (primary) hypertension; E07.9 Disorder of thyroid, unspecified; F17.210 Nicotine dependence, cigarettes, uncomplicated; E78.00 Pure hypercholesterolemia, unspecified; K91.872 Postprocedural seroma of a digestive system organ or structure following a digestive system procedure; Y83.6 Removal of other organ (partial) (total) as the cause of abnormal reaction of the patient, or of later complication, without mention of misadventure at the time of the procedure; Z79.899 Other long term (current) drug therapy; Z79.890 Hormone replacement therapy; R30.0 Dysuria; K21.9 Gastro-esophageal reflux disease without esophagitis
CPT/HCPCS: 49406; 20501; 36415; 74177; 77012; 78226; 80048; 80053; 81001; 82962; 83690; 85025; 87070; 87075; 87086; 87205; 96361; 96365; 96366; 96367; 96375; 96376; 99156; 99157; 99221; 99284; A9537; J7030; J7050; Q9967; A4216; G0378; J2405

== ENCOUNTER → 2023-09-19 | Outpatient (CLI) | payer MEDICARE, SELFPAY ==
--- NOTE | 2023-09-19 11:45 | RAD_ITS ---
STUDY: X-RAY - LEFT HAND REASON FOR EXAM: Female, 62 years old. INJURY OF LEFT MIDDLE FINGER TECHNIQUE: 2 view(s) of the hand. COMPARISON: None. FINDINGS: Normal radiocarpal articulation. Normal distal radioulnar joint. Normal visualized carpal bones. Normal carpal articulations Normal carpometacarpal articulation of the thumb. Normal second through fifth carpometacarpal joints. Normal metacarpi. Normal metacarpophalangeal joint of the thumb. Normal interphalangeal joint of the thumb. Normal proximal and distal phalanges of the thumb. Normal metacarpophalangeal joints of the second through fifth fingers. Normal proximal and distal interphalangeal joints of the second through fifth fingers. Acute nondisplaced oblique fracture of the dorsal aspect of the base of the third distal phalanx. The soft tissue structures are unremarkable. RAD/Hand 2 Views IMPRESSION: Acute nondisplaced oblique fracture of the dorsal aspect of the base of the third distal phalanx. Electronically Signed: Landen Sanchez MD at 12:57 EDT ,
--- NOTE | 2023-09-19 11:53 | RAD_ITS ---
STUDY: X-RAY - RIGHT HAND REASON FOR EXAM: Female, 62 years old. Unspecified injury of right wrist, hand and finger(s), initial en TECHNIQUE: 2 view(s) of the hand. COMPARISON: 04/28/2009 FINDINGS: Normal radiocarpal articulation. Normal distal radioulnar joint. Normal visualized carpal bones. Normal carpal articulations Normal carpometacarpal articulation of the thumb. Normal second through fifth carpometacarpal joints. Normal metacarpi. Normal metacarpophalangeal joint of the thumb. Normal interphalangeal joint of the thumb. Normal proximal and distal phalanges of the thumb. Normal metacarpophalangeal joints of the second through fifth fingers. Normal proximal and distal interphalangeal joints of the second through fifth fingers. Normal phalanges of the second through fifth fingers. The soft tissue structures are unremarkable. RAD/Hand 2 Views IMPRESSION: Normal x-ray examination of the hand. Electronically Signed: Landen Sanchez MD at 12:45 EDT ,
== END | disposition home or self-care (01) ==
PROVIDERS: PCP Family Medicine; Referring Provider Family Medicine; Visit Provider Family Medicine
DX: S69.91XA Unspecified injury of right wrist, hand and finger(s), initial encounter (principal)
CPT/HCPCS: 73120

== ENCOUNTER → 2023-10-14 | Outpatient (CLI) | payer MEDICARE, SELFPAY ==
--- NOTE | 2023-10-14 12:45 | RAD_ITS ---
HISTORY: Radiculopathy, thoracic region. TECHNIQUE: XR Spine Thoracic 3 Views. COMPARISON: Chest 05/21/2023. FINDINGS: VERTEBRAE: Cervical and lumbar spinal fusion hardware again seen. No acute fracture identified. ALIGNMENT: No significant anterior or posterior subluxation. Very mild upper thoracic levocurvature. INTERVERTEBRAL DISCS: Degenerative changes with osteophytes and mild intervertebral disc space narrowing at multiple levels. SOFT TISSUES: Unremarkable paraspinal soft tissues. RAD/Thoracic Spine 3 Views IMPRESSION: No acute fracture or dislocation identified in the thoracic spine. Mild degenerative change. Electronically Signed: Sasha Lawrence MD at 9:12 EDT ,
== END | disposition home or self-care (01) ==
LOC: RAD 12:36
PROVIDERS: PCP Family Medicine
DX: M54.14 Radiculopathy, thoracic region (principal)
CPT/HCPCS: 72072

== ENCOUNTER → 2023-11-05 | Outpatient (CLI) | payer MEDICARE, SELFPAY ==
--- NOTE | 2023-11-05 15:35 | MRI_ITS ---
INDICATION: RADICULOPATHY EXAMINATION: MRI - MR Spine Thoracic W/O Contrast TECHNIQUE: Multiplanar and multisequence MR images of the thoracic spine without contrast. IV Contrast Dosage and Agent: None COMPARISON: Thoracic spine radiograph October 14, 2023.. FINDINGS: VERTEBRAE: Heterogeneous bone marrow without discrete mass or intraosseous edema. No fracture or acute compression deformity. Vertebral body osseous fusion in the lower cervical spine. Normal thoracic spine alignment DISCS: T7-T8: small posterior central disc protrusion with mild spinal canal narrowing T8-T9: moderate posterior disc protrusion with slight cephalad extrusion extending 6 mm posterior to vertebral body and 4 mm superior to the inferior endplate of T8, effacing the anterior cord without gross compression. No significant neural foraminal stenosis. . T9-T10: small posterior left central disc protrusion with mild spinal canal narrowing T10-T11: small posterior left central disc protrusion with mild spinal canal narrowing T11-T12: Slight posterior left central disc protrusion with minimal spinal canal narrowing CORD: Unremarkable in signal and morphology. SOFT TISSUES: Mild diffuse fatty replacement of the posterior paraspinal musculature.. MRI/Spine Thoracic (Routine) IMPRESSION: Mid to lower thoracic spondylosis, most prominent at T8-T9 with effacement of the anterior cord by posterior disc extrusion. Electronically Signed: Camron Finnegan MD at 8:47 EDT ,
== END | disposition home or self-care (01) ==
LOC: MRI 15:28
PROVIDERS: PCP Family Medicine
DX: M54.14 Radiculopathy, thoracic region (principal)
CPT/HCPCS: 72146

== ENCOUNTER → 2023-12-05 | Outpatient (CLI) | payer MEDICARE, SELFPAY ==
--- NOTE | 2023-12-05 12:18 | BI_ITS ---
MAMMOGRAPHY - BILATERAL SCREENING REASON FOR EXAM: Female, 62 years old. Routine annual screening examination. PERTINENT HISTORY: Non-contributory. TECHNIQUE: Digital bilateral breast vaughn (3D mammographic acquisition) in the CC and MLO projections. 2-D mediolateral oblique (MLO) and craniocaudad (CC) views of both breasts were obtained. CAD: Full Field Digital Mammography with Computer Added Detection was performed. COMPARISON: Comparison is made with prior outside examination of December 26, 2021. FINDINGS: Breast Composition: The breasts are heterogeneously dense, which may obscure small masses. There is a 2.8 cm x 2.1 cm well-defined nodule in the upper the lateral aspect of the right breast. This most likely represents a cyst. Correlation with ultrasound is recommended. No other significant abnormalities are identified. BI/SCRN MAMM (CAD)W/VAUGHN BILAT IMPRESSION: Nodular density in the right breast as described. Correlation with ultrasound is recommended. ASSESSMENT CATEGORY: BIRADS Category 0: Incomplete. Need additional imaging evaluation. A letter regarding these results will be sent to the patient by the facility within 30 days. Approximately 10% of breast cancers are not detected by mammography. A normal mammogram should not delay biopsy of a clinically suspicious abnormality. [id number] Electronically Signed: Dilip Rodriguez MD at 13:55 EDT ,
== END | disposition home or self-care (01) ==
LOC: OPBI 12:17
PROVIDERS: PCP Family Medicine; Referring Provider Family Medicine; Visit Provider Family Medicine
DX: Z12.31 Encounter for screening mammogram for malignant neoplasm of breast (principal)
CPT/HCPCS: 77063; 77067

== ENCOUNTER → 2023-12-15 | Outpatient (CLI) | payer MEDICARE, SELFPAY ==
--- NOTE | 2023-12-15 13:44 | RAD_ITS ---
INDICATION: CHEST PAIN EXAMINATION/TECHNIQUE: X-RAY - XR Chest 2 Views COMPARISON: Prior study dated: 07/21/2023 FINDINGS: LINES/DEVICES: None. LUNGS: No consolidation, edema or effusion. No pneumothorax. MEDIASTINUM AND CARDIOVASCULAR STRUCTURES: Cardiac silhouette not enlarged. Central airways and mediastinal contour are unremarkable. BONES AND SOFT TISSUES: Stable soft tissues and osseous structures RAD/Chest PA and Lateral IMPRESSION: No radiographic evidence of acute cardiopulmonary disease. Electronically Signed: Lamont Taylor MD at 15:08 EDT ,
== END | disposition home or self-care (01) ==
LOC: RAD 13:40
PROVIDERS: PCP Family Medicine; Referring Provider Internal Medicine; Visit Provider Internal Medicine
DX: R07.9 Chest pain, unspecified (principal); J44.9 Chronic obstructive pulmonary disease, unspecified
CPT/HCPCS: 71046

== ENCOUNTER → 2023-12-18 | Outpatient (CLI) | payer MEDICARE, SELFPAY ==
--- NOTE | 2023-12-18 10:58 | US_ITS ---
STUDY: ULTRASOUND BREAST - RIGHT REASON FOR EXAM: Female, 62 years old. Abnormal screening mammogram. TECHNIQUE: Axial and longitudinal images of the RIGHT breast were performed with a high resolution ultrasound transducer. # OF IMAGES: 19 COMPARISON: Comparison is made with prior mammogram dated December 05, 2023. FINDINGS: RIGHT Breast: The upper outer quadrant of the right breast was examined with ultrasound. There is a heterogeneously dense fibroglandular tissue. No sonographic abnormality is seen. The mammographic abnormality most likely corresponded to superimposition of breast tissue. US/Breast Limited Unilateral IMPRESSION: Unremarkable sonogram of the upper outer quadrant of the right breast. Routine mammographic follow-up recommended. ASSESSMENT CATEGORY: BIRADS Category 2: Benign. A letter regarding these results will be sent to the patient by the facility within 30 days. Electronically Signed: Dilip Rodriguez MD at 11:59 EDT ,
== END | disposition home or self-care (01) ==
PROVIDERS: Referring Provider Internal Medicine; Visit Provider Internal Medicine
DX: R92.8 Other abnormal and inconclusive findings on diagnostic imaging of breast (principal)
CPT/HCPCS: 76642

== ENCOUNTER → 2024-01-12 | Outpatient (CLI) | payer MEDICARE, SELFPAY ==
--- NOTE | 2024-01-12 10:33 | RAD_ITS ---
INDICATION: ACUTE COUGH EXAMINATION/TECHNIQUE: X-RAY - XR Chest 2 Views COMPARISON: Prior study dated: 12/15/2023 FINDINGS: LINES/DEVICES: None. LUNGS: No consolidation, edema or effusion. No pneumothorax. MEDIASTINUM AND CARDIOVASCULAR STRUCTURES: Cardiac silhouette not enlarged. Central airways and mediastinal contour are unremarkable. BONES AND SOFT TISSUES: Stable soft tissues and osseous structures. RAD/Chest PA and Lateral IMPRESSION: No radiographic evidence of acute cardiopulmonary disease. Electronically Signed: Lamont Taylor MD at 9:27 EST ,
== END | disposition home or self-care (01) ==
LOC: RAD 10:29
PROVIDERS: PCP Family Medicine; Referring Provider Internal Medicine; Visit Provider Internal Medicine
DX: R05.1 Acute cough (principal)
CPT/HCPCS: 71046

== ENCOUNTER → 2024-02-10 | Outpatient (CLI) | payer MEDICARE, SELFPAY ==
[2024-02-10 12:56] LABS: T4 Free Direct 1.17 ng/dL (0.76-1.46)
== END | disposition home or self-care (01) ==
LOC: LAB 11:53
PROVIDERS: PCP Family Medicine; Referring Provider Nurse Practitioner Family; Visit Provider Nurse Practitioner Family
DX: E03.9 Hypothyroidism, unspecified (principal)
CPT/HCPCS: 36415; 84439; 84443

== ENCOUNTER → 2024-02-24 | Outpatient (CLI) | payer MEDICARE, SELFPAY ==
[2024-02-24 12:33] LABS: Absolute Neutrophil Count 4.1 X10^3/uL (2.0-7.7); Basophil# 0.05 X10^3/uL; Basophil% 0.8 % (0-1); Eosinophil# 0.16 X10^3/uL; Eosinophils% 2.4 % (0-5); Hematocrit 49.5 % (37-47); Lymphocyte % 28.8 % (19-41); Mean Corp Hgb Conc 32.3 g/dL (32-36); Mean Corpuscular Hgb 29.6 pg (27.0-32.0); Mean Corpuscular Volume 91.5 fL (81-99); Mean Platelet Vol. 11.5 fl (6.2-12.0); Monocyte# 0.39 X10^3/uL; Monocyte% 5.9 % (0-10); NRBC Flagged by Analyzer 0 % (0-5); Neutrophil # 4.05 X10^3/uL (2.7-7.7); Neutrophil % 61.5 % (47-70); Platelet Count 188 K/mm3 (150-450); RBC Distribution Width CV 14.5 % (11.6-14.6); RBC Distribution Width SD 48.5 fl (35.1-43.9); Red Blood Count 5.41 M/mm3 (4.2-5.4); White Blood Count 6.6 K/mm3 (4.4-11.0)
[2024-02-24 13:13] LABS: ALB/GLOB Ratio 0.9 RATIO (0.9-2.4); AST(SGOT) 12 U/L (15-37); Alanine Aminotransfer ALT/SGPT 28 U/L (13-56); Albumin, Serum 3.7 g/dL (3.2-5.0); Alkaline Phosphatase 119 U/L (45-117); Anion Gap 6 (5-15); BUN 15 mg/dL (7-18); BUN/Creat Ratio 15.9 RATIO (10-20); Calcium,Total 9.4 mg/dL (8.5-10.1); Chloride 101 mmol/L (98-107); Creatinine, Serum 0.94 mg/dL (0.55-1.02); EST Glomerular Filtration Rate 64 mL/min (>60); Est Glom Filt Rate - Afr Amer 77 mL/min (>60); Ferritin 30 ng/mL (8-252); Globulin 3.9 g/dL (2.2-4.2); Glucose 168 mg/dL (74-106); Iron 58 ug/dL (50-170); Potassium 4.2 mmol/L (3.5-5.1); Protein, Total 7.6 g/dL (6.4-8.2); Sodium Level 136 mmol/L (136-145)
[2024-02-26 08:32] LABS: Vitamin B12 560 pg/mL (211-911); Vitamin D,25 Hydroxy 23.5 ng/mL
== END | disposition home or self-care (01) ==
LOC: BFHLAB 08:48
PROVIDERS: PCP Family Medicine; Referring Provider Family Medicine; Visit Provider Family Medicine
DX: R53.83 Other fatigue (principal)
CPT/HCPCS: 36415; 80053; 82306; 82607; 82728; 83540; 85025

== ENCOUNTER → 2024-02-26 | Outpatient (CLI) | payer MEDICARE, SELFPAY ==
--- NOTE | 2024-02-26 10:54 | RAD_ITS ---
EXAM: XR CHEST, 2 VIEWS CLINICAL INDICATION: COUGH COPD TECHNIQUE: Frontal and lateral views of the chest. COMPARISON: XR Chest dated 01/12/2024 FINDINGS: LUNGS AND PLEURAL SPACES: Normal. No consolidation or edema. No pneumothorax. No effusion. HEART: Normal heart size. MEDIASTINUM: No mediastinal or hilar mass. BONES/JOINTS: No acute abnormality. RAD/Chest PA and Lateral IMPRESSION: No acute cardiopulmonary abnormality. No interval change. Electronically Signed: Viraj Godoy MD at 15:54 EST ,
== END | disposition home or self-care (01) ==
LOC: RAD 10:45
PROVIDERS: PCP Family Medicine; Referring Provider Family Medicine; Visit Provider Family Medicine
DX: J44.9 Chronic obstructive pulmonary disease, unspecified (principal)
CPT/HCPCS: 71046

== ENCOUNTER → 2024-03-23 | Outpatient (CLI) | payer MEDICARE, SELFPAY ==
--- NOTE | 2024-03-23 13:46 | CT_ITS ---
STUDY: LOW DOSE CT LUNG CANCER SCREENING REASON FOR EXAM: Female, 63 years old. Lung cancer screening -- and gt;20 p k yr hx;current smoker;asymptomatic RADIATION DOSAGE (If Supplied By Facility): CTDIvol = ( 3.18 ) mGy, DLP = ( 96.08 ) mGycm TECHNIQUE: No contrast was administered. Low dose technique was utilized (average mAS-38 and kVp 120). 1.25 mm axial source images with a slice interval of 1.25-mm were reconstructed in lung windows. 2.5 mm axial source images with a slice interval of 2.5-mm were reconstructed in lung windows. 5.0 mm axial source images with a slice interval of 5.0-mm were reconstructed in soft tissue windows. COMPARISON: None. NODULES: 3.1 mm noncalcified nodule in the anterior peripheral aspect of the right upper lobe as seen on axial image #72. Emphysema: Mild degree of emphysematous changes. Endobronchial lesion: None Aorta: Minimal atherosclerotic costophrenic plaques. CORONARY ARTERIES: Coronary artery calcification is seen. Heart: Unremarkable Pulmonary artery: Unremarkable Mediastinal nodes: Small mediastinal lymph nodes Other chest and abdominal findings: Healed right rib fractures. CT/Low Dose CT Lung Screening IMPRESSION: Lung-RADS category 2 - Continue annual screening with LDCT in 12 months. IMPORTANT NOTES FOR USE: ACR Lung-RADS Version 1.1 Assessment Categories Release Date: 2018 Category: Coded 0-4 bases on nodule(s) with highest degree of suspicion. Negative screen is defined as categories 1 and 2; a positive screen is defined as categories 3 and 4. Category 3 and 4A nodules that are unchanged on interval CT should be coded as category 2, and individuals returned to screening in 12 months. Category 4X: Category 3 or 4 nodules with additional imaging findings that increase the suspicion of lung cancer, such as spiculation, GGN that doubles in size in 1 year, enlarged lymph notes, etc. Category Modifiers: S (significant finding unrelated to lung cancer) Electronically Signed: Dilip Rodriguez MD at 14:14 EST ,
== END | disposition home or self-care (01) ==
PROVIDERS: PCP Nurse Practitioner Family; Referring Provider Nurse Practitioner Family; Visit Provider Nurse Practitioner Family
DX: Z12.2 Encounter for screening for malignant neoplasm of respiratory organs (principal); Z87.891 Personal history of nicotine dependence
CPT/HCPCS: 71271

== ENCOUNTER → 2024-05-05 | Outpatient (CLI) | payer MEDICARE, SELFPAY ==
--- NOTE | 2024-05-05 09:41 | STE_ITS ---
Reason For Study Reason For Study: Chest Pain; Palpitations; Dyspnea Stress Results Protocol: Rudi Protocol Maximum Predicted HR: 158 bpm Target HR: 134 bpm % Maximum Predicted HR: 82 % DurationHeart Rate Stage (mm:ss) (bpm) BP Comment Baseline 80 132/78Mild Chest Pressure Rudi Protocol Stage I 3:00 110 144/72Mod Chest Pressure; Mild Dyspnea Rudi Protocol Stage II 2:10 129 160/70Mod Chest Pressure; Mod Dyspnea; SPO2 95% Recovery 84 140/70Mild Chest Pressure Stress Duration: 5:10 mm:ss Maximum Stress HR: 129 bpm METS: 7 Baseline Echocardiogram Findings The estimated ejection fraction is 65 %. post exercise EF is 70%. Stress Echo Wall motion Data Resting WM Intermediate WM Stress WM Resting Wall Motion Wall Motion Stress No regional wall motion abnormalities No regional wall motion abnormalities noted. noted. EKG Data The baseline ECG displays normal sinus rhythm. No significant ischemic changes. Symptoms with Stress The patient experinced mild CP at rest that increased to moderate with exercise . Doppler Measurements & Calculations TR max kilo: 264.9 cm/sec TR max P.1 mmHg ECHO/Stress Test Echo w/o Contrast Interpretation Summary The estimated ejection fraction is 65 %. The patient had mild CP at rest that increased to moderate with exercise. Inability to reach 85% of maximal age-predicted heart rate decreases the sensit ivity of this test. Test is negative for exercise-induced EKG or echocardiographic changes of ische jan. Test is positive for exercise-induced chest pain as described above Ordering Physician: Marika Raymond Referring Physician: Marika Raymond Performed By: Isabella See RDCS
== END | disposition home or self-care (01) ==
LOC: CVS 09:40
PROVIDERS: PCP Nurse Practitioner Family; Referring Provider Nurse Practitioner Family; Visit Provider Nurse Practitioner Family
DX: R00.2 Palpitations (principal); R07.9 Chest pain, unspecified; Z82.49 Family history of ischemic heart disease and other diseases of the circulatory system
CPT/HCPCS: 93017; 93350

== ENCOUNTER → 2024-07-05 | Outpatient (CLI) | payer MEDICARE, SELFPAY ==
--- NOTE | 2024-07-05 10:12 | RAD_ITS ---
EXAM: Right elbow CLINICAL HISTORY: Elbow pain COMPARISON: None TECHNIQUE: Three views FINDINGS: No acute fracture or dislocation. Normal alignment the elbow joint. Normal soft tissues. RAD/Elbow min 3 Views IMPRESSION: Normal elbow. Reading Location: [id number]
== END | disposition home or self-care (01) ==
LOC: RAD 10:05
PROVIDERS: PCP Nurse Practitioner Family; Referring Provider Nurse Practitioner Family; Visit Provider Nurse Practitioner Family
DX: M79.601 Pain in right arm (principal)
CPT/HCPCS: 73080

== ENCOUNTER → 2024-07-19 | Outpatient (CLI) | payer MEDICARE, SELFPAY ==
--- NOTE | 2024-07-19 12:12 | MRI_ITS ---
PROCEDURE: UPPER EXT JOINT ONLY(ROUTINE) 07/19/2024 REASON FOR EXAM: RT ELBOW PAIN TECHNIQUE: MRI of the right elbow T1, T2, stir, multiplanar and multisequence images were obtained without IV contrast administration. COMPARISON: COMPARISON : July 05, 2024 FINDINGS: Bone Marrow: There is normal marrow signal seen in the distal humerus and in the visualized radius and ulna with no evidence of bony contusion or occult injury. Effusion: There is no joint effusion. Soft Tissues: The biceps and triceps tendons are normal in appearance. There is a partial-thickness undersurface tear of the common extensor tendon origin. There is moderate thickening of the radial collateral ligament without full-thickness tear or laxity. The lateral ulnar collateral ligament shows mild thickening with attenuation of the proximal portion without tear. There is normal alignment of the radiocapitellar articulation. The common flexor tendon is normal in appearance. The brachialis tendon is normal in appearance. Neurovascular bundle and ulnar nerves are normal in appearance. MRI/Upper Ext Joint Only(Routine) IMPRESSION: There is a partial-thickness undersurface tear of the common extensor tendon or igin. There is moderate thickening of the radial collateral ligament without full-thickness tear or laxity. The lateral ulnar co llateral ligament shows mild thickening with attenuation of the proximal portion without tear. Findings are consistent with lateral epicondylitis. Reading Location: [facility]
== END | disposition home or self-care (01) ==
LOC: MRI 13:23
PROVIDERS: PCP Nurse Practitioner Family; Referring Provider Nurse Practitioner Family; Visit Provider Nurse Practitioner Family
DX: M25.521 Pain in right elbow (principal)
CPT/HCPCS: 73221

== ENCOUNTER → 2024-08-12 | Outpatient (CLI) | payer MEDICARE, SELFPAY ==
[2024-08-12 08:36] VITALS: PULSE 100; PULSE 102; PULSE 103; PULSE 104; PULSE 91; PULSE 94; O2SAT 94; O2SAT 95; O2SAT 96; O2SAT 97; O2SAT 98
--- NOTE | 2024-08-13 13:07 | WT_ITS ---
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 Assistive device None used: Pre-test Oxygen Delivery Room Air Method Pulse Ox (%) 97 Pulse Rate (60-100 91 beats/min) Dyspnea Vani Scale ( 2 0-10) Exertion Vani Scale 7 (6-20) 1st minute Oxygen Delivery Room Air Method Pulse Ox (%) 95 Pulse Rate (60-100 94 beats/min) Dyspnea Vani Scale ( 2 0-10) Number of Rests 0 Taken 2nd minute Oxygen Delivery Room Air Method Pulse Ox (%) 95 Pulse Rate (60-100 100 beats/min) Dyspnea Vani Scale ( 2 0-10) Number of Rests 0 Taken 3rd minute Oxygen Delivery Room Air Method Pulse Ox (%) 97 Pulse Rate (60-100 102 H beats/min) Dyspnea Vani Scale ( 2 0-10) Number of Rests 0 Taken 4th minute Oxygen Delivery Room Air Method Pulse Ox (%) 94 Pulse Rate (60-100 102 H beats/min) Dyspnea Vani Scale ( 3 0-10) Number of Rests 0 Taken Reported Symptoms Increased Work of Breathing 5th minute Oxygen Delivery Room Air Method Pulse Ox (%) 96 Pulse Rate (60-100 103 H beats/min) Dyspnea Vani Scale ( 3 0-10) Number of Rests 0 Taken Reported Symptoms Increased Work of Breathing 6th minute Oxygen Delivery Room Air Method Pulse Ox (%) 95 Pulse Rate (60-100 104 H beats/min) Dyspnea Vani Scale ( 3 0-10) Exertion Vani Scale 7 (6-20) Number of Rests 0 Taken Reported Symptoms Increased Work of Breathing Post-test Oxygen Delivery Room Air Method Pulse Ox (%) 98 Pulse Rate (60-100 94 beats/min) Dyspnea Vani Scale ( 2 0-10) Full Laps Walked 16 Partial Lap, Number 37 of Tiles Walked Total Distance 981 Walked (ft) Interpretation Interpretation: The patient ambulated 981 feet over the course of 6 minutes beginning on room air without assistive devices. Pretesting oxygen saturation was noted to be 97% on room air. With ambulation, the lenny oxygen saturation was 94%. There was no significant exertional oxygen desaturation. Recommendations Recommendations: There is no indication for the use of supplemental oxygen at this time.
== END | disposition home or self-care (01) ==
LOC: PSN 08:12
PROVIDERS: PCP Nurse Practitioner Family; Referring Provider Nurse Practitioner Acute Care; Visit Provider Nurse Practitioner Acute Care
DX: R06.02 Shortness of breath (principal)
CPT/HCPCS: 94618

== ENCOUNTER → 2024-09-06 | Outpatient (CLI) | payer MEDICARE, SELFPAY | END | disposition home or self-care (01) | LOC: PSN 08:19 | PROVIDERS: PCP Nurse Practitioner Family; Referring Provider Nurse Practitioner Acute Care; Visit Provider Nurse Practitioner Acute Care | DX: R06.02 Shortness of breath (principal) | CPT/HCPCS: 94060; 94726; 94729 ==

== ENCOUNTER 2024-10-22 12:36 | Emergency (ER) | payer MEDICARE, SELFPAY ==
[2024-10-22 12:37] VITALS: BP 162/75; PULSE 59; RESP 16; TEMP 36.7; O2SAT 97
[2024-10-22 12:40] VITALS: BMI 34.7
--- NOTE | 2024-10-22 14:10 | ED.RN ---
c/o increased incontinence when standing up. 12/17 neck and back pain w/ a history of degenerative disc disease. pt states she does have a medical marijuana card and smokes daily.
[2024-10-22 14:36] VITALS: BP 143/68; PULSE 98; RESP 16; O2SAT 96
--- NOTE | 2024-10-22 15:30 | ED.VIS.BACK ---
HPI History of Present Illness Chief Complaint: Back Detail of Chief Complaint: Exacerbation of chronic back pain. Informant: patient Onset/Context/Timing Onset: Yesterday Context: Sudden Onset Chronic pain exacerbated by: Nothing specific Timing: Continuous Quality: Dull Location: Lumbar Current Severity: Moderate Maximum Severity: Severe Worsened by: improves with Movement, Ambulation and Bending Relieved by: Nothing Associated Symptoms Associated Symptoms: Numbness (Chronic numbness right lower extremity.), Radiation to Right Leg, Radiation to Left Leg and - (Denies saddle anesthesia or paresthesia, denies foot drop. Denies buckling of her knees going up or down steps.); Negative for Fever, Abdominal Pain, Dysuria, Unable to Ambulate, Unable to Transfer, Urinary Retention, Urinary Incontinence, Constipation or Fecal Incontinence Narrative Narrative: Patient is a 63-year-old with history of chronic back pain multiple surgeries by Dr. Hector Hogue at [facility]. She is now seeing Dr. Juan Pablo Valderrama. She has not had an MRI in a month or 2. She complains of low back pain that radiates to both the right and left greater trochanteric region. She denies bowel bladder dysfunction. Denies saddle paresthesia or anesthesia. She denies pain going down the back of her leg. She denies recent dental procedure. She denies fever or chills. She has no history of endocarditis or IV drug use. There is no specific inciting event. She states she has chronic numbness in her right leg. She has had multiple discectomies and fusion. Patient prefer to sit over standing. There is no history of trauma. Prior similar symptoms: Yes Recent Illness/Hospitalization: No PFSH PFS Medical History Tobacco use disorder, continuous Encounter for screening for malignant neoplasm of lung Diarrhea Wears glasses Wears dentures Post-menopausal Depression Marijuana use Bladder disease Anemia High cholesterol Back pain History of hiatal hernia History of ulceration History of IBS Gastric reflux Smoker Shortness of breath on exertion Leg cramps History of pain when walking History of stress test Asthma COPD (chronic obstructive pulmonary disease) HTN (hypertension) Arthritis Thyroid disease Diabetes Home Medications ?Medication ?Instructions ?Recorded ?Last Taken ?Type atorvastatin 40 mg tablet 40 mg PO QHS 07/20/15 08/11/23 History duloxetine 60 mg capsule,delayed 60 mg PO BID 07/20/15 08/11/23 History release cyclobenzaprine 10 mg tablet 1 tab PO TID PRN PRN pain 09/01/21 08/11/23 History glimepiride 4 mg tablet 4 mg PO DAILY 09/01/21 08/11/23 History levothyroxine 112 mcg tablet 112 mcg PO QDAY 07/04/23 08/12/23 History lisinopril 10 mg tablet 10 mg PO QDAY 07/04/23 08/12/23 History albuterol sulfate 90 mcg/actuation 2 puff inhalation 4X/DAY PRN 07/23/23 Unknown History aerosol inhaler shortness of breath or wheezing esomeprazole magnesium 40 mg 40 mg PO DAILY #30 caps 07/24/23 08/12/23 Rx capsule,delayed release pregabalin 150 mg capsule 150 mg PO TID 08/11/23 08/12/23 History medical marjuana miscellaneous 03/23/24 Unknown History fluticasone fur. 200 mcg-umeclid 1 inh inhalation QDAY 03/30/24 Unknown History 62.5 mcg-vilant 25 mcg inhalat.powder (Trelegy Ellipta) albuterol sulfate 0.63 mg/3 mL 0.63 mg inhalation Q4-6H PRN 09/21/24 Unknown History solution for nebulization albuterol sulfate 90 mcg/actuation 1 puff inhalation Q4-6H 09/21/24 Unknown History aerosol inhaler (Ventolin HFA) azithromycin 250 mg tablet See Rx Instructions PO .COMPLEX #6 09/21/24 Unknown Rx tabs buspirone 10 mg tablet 20 mg PO TID PRN anxiety 09/21/24 Unknown History celecoxib 200 mg capsule 200 mg PO DAILY 09/21/24 Unknown History guaifenesin 1,200 mg tablet, 1,200 mg PO .QD #90 tabs 09/21/24 Unknown Rx extended release 12 hr (Mucinex) omeprazole 40 mg capsule,delayed 40 mg PO QDAY 09/21/24 Unknown History release ondansetron HCl 4 mg tablet 4 mg PO BID PRN 09/21/24 Unknown History oxybutynin chloride 5 mg 5 mg PO QDAY 09/21/24 Unknown History tablet,extended release 24 hr prednisone 10 mg tablet 10 mg PO QDAY #27 tabs 09/21/24 Unknown Rx semaglutide 0.5 mg/0.1 mL mg subcut 09/21/24 Unknown History subcutaneous syringe tramadol 50 mg tablet 50 mg PO QD-BID PRN pain 09/21/24 Unknown History hydrocodone-acetaminophen 5-325mg 1 tab PO Q6H PRN PRN Pain 3 days 10/22/24 Unknown Rx 5mg-325mg #10 TABLETS Allergy/AdvReac Type Severity Reaction Status Date / Time clarithromycin (From Biaxin) AdvReac Nausea Verified 10/22/24 12:40 hydromorphone (From Dilaudid) AdvReac Upset Verified 10/22/24 12:40 Stomach Family History Father Heart disease Hypertension Mother Heart disease Thyroid disorder Surgical History S/P cholecystectomy Hx of esophagogastroduodenoscopy Hx of colonoscopy History of hysteroscopy Hx of hysterectomy, total History of lumbar discectomy History of lumbar fusion Cervical vertebral fusion Social History household members: none housing: house current occupational status: retired Smoking Status: Current every day smoker tobacco type: cigarettes Tobacco: How many years used: 30 how long ago did patient quit smoking: Pt. had stopped smoking for about 13 years and restarted last year. alcohol intake: never additional social history: medical marijuana ROS ROS ED Constitutional Constitutional ED: Denies chills, fever(s), subjective or sweats Gastrointestinal Gastrointestinal: Reports other Details: Further detailed HPI narrative ; Denies abdominal pain, constipation, diarrhea, melena, nausea or vomiting Genitourinary Genitourinary ED: Reports other Details: Further detailed HPI narrative ; Denies dysuria, hematuria or urinary frequency Musculoskeletal Musculoskeletal: Reports back pain Integumentary Denies Abrasions or rash Neurologic Neurologic: Reports paresthesias and other Details: Paresthesia chronic right lower extremity ; Denies weakness Psychiatric Psychiatric: Reports depression; Denies anxiety Hematologic/Lymphatic Hematologic/Lymphatic: Denies easy bleeding or easy bruising EXAM Physical Exam Const Vital Signs: 10/22/24 12:37 10/22/24 14:36 Temperature 98.0 F Temperature Source Oral Pulse Rate 59 L 98 Respiratory Rate 16 16 Blood Pressure 162/75 H 143/68 H Blood Pressure Mean 104 93 Pulse Ox 97 96 Oxygen Delivery Method Room Air Room Air Positive well nourished and well developed Constitutional Narrative: BMI is 34.8. General Appearance ED: well developed; Negative for pallor HEENT Reports moist mucous membranes HEENT Narrative: Head is atraumatic, cephalic. Ears normal. Eyes PERRL and EOMs intact bilaterally General Eye ED: Negative for pale conjunctiva or scleral icterus Neck no lymphadenopathy, supple and no JVD Resp normal respiratory effort and clear to auscultation bilaterally Cardio regular rate, regular rhythm, S1 normal heart sound, S2 normal heart sound and no murmurs GI normal to inspection, nondistended, normoactive bowel sounds, soft to palpation, non-tender, non-distended and no masses GI Narrative: There is no palpable mass or pulsatile mass. Back/Spine normal to inspection Back/Spine Narrative: Well-healed scars back. There is tenderness of the lumbar region and paralumbar region bilaterally. Patella and ankle reflex are 1+. There is no clonus at the ankles. There is no Babinski sign noted. EHL is intact. Sensation is abnormal L5. Gait was observed. She has no foot drop. She is able to walk on heels and toes. She able to perform 1 legged squat right and left. General Back: scar(s) Lumbar Spine / Lower Back: ROM limited and straight leg raise negative bilaterally Extremity normal to inspection and no clubbing, cyanosis or edema Neuro oriented x3 and no sensory deficits noted Sensorium / Orientation: alert Deep Tendon Reflexes: Rt Patellar (L4): 1+, Lt Patellar (L4): 1+, Rt Ankle (S1): 1+ and Lt Ankle (S1): 1+ Deep Tendon Reflexes Back: Rt Patellar (L4): 1+, Lt Patellar (L4): 1+, Rt Ankle (S1): 1+ and Lt Ankle (S1): 1+ Plantar Reflex: Downgoing: bilateral (There is no clonus at the ankles.) Psych mental status grossly normal Skin no rashes or lesions noted and no wounds General Skin Exam: Negative for jaundice or pallor Trauma: Negative for abrasion MDM MDM MDM Narrative Medical decision making narrative: Patient with acute exacerbation of chronic back pain. This is probably the cause of her elevated blood pressure. Patient has no objective new neurologic findings. She was medicated with Toradol and morphine. Her most recent BMP revealed no kidney dysfunction. In my opinion imaging is not indicated at this time. She does not require emergent MRI either. She is scheduled to see Dr. Juan Pablo Valderrama at the [facility]. He is a spine surgeon. Patient was reassessed at 1531. Her pain is improved markedly. She was discharged to home with pain medicine. History & Record Review Additional record(s) reviewed:: Prior inpatient record (Cholecystectomy due to cholesterol stones of the gallbladder. This was performed by Dr. May) and Prior outpatient record (Outpatient records for pulmonary visit, oncology visit were reviewed. This was for her COPD asthma and screen) Discharge Plan Triage Chief Complaint: Back ED Provider: Darci Rachel Dx/Rx/DC Orders Clinical Impression: Acute exacerbation of chronic low back pain, GERD (gastroesophageal reflux disease), Tobacco use disorder, continuous, Asthma-COPD overlap syndrome Instructions: ED Back Pain (Acute or Chronic) Prescriptions: New hydrocodone-acetaminophen 5-325 mg tablet 1 tab PO Q6H PRN PRN (Reason: Pain) 3 Days Qty: 10 0RF No Action lisinopril 10 mg tablet 10 mg PO QDAY levothyroxine 112 mcg tablet 112 mcg PO QDAY [facility] miscellaneous Trelegy Ellipta 200-62.5-25 mcg blister with device 1 inh inhalation QDAY semaglutide 0.5 mg/0.1 mL syringe subcut tramadol 50 mg tablet 50 mg PO QD-BID PRN (Reason: pain) omeprazole 40 mg capsule,delayed release(DR/EC) 40 mg PO QDAY ondansetron HCl 4 mg tablet 4 mg PO BID PRN buspirone 10 mg tablet 20 mg PO TID PRN (Reason: anxiety) oxybutynin chloride 5 mg tablet extended release 24hr 5 mg PO QDAY albuterol sulfate [Ventolin HFA] 90 mcg/actuation HFA aerosol inhaler 1 puff inhalation Q4-6H albuterol sulfate 0.63 mg/3 mL solution for nebulization 0.63 mg inhalation Q4-6H PRN guaifenesin [Mucinex] 1,200 mg tablet extended release 12hr 1,200 mg PO .QD Qty: 90 3RF azithromycin 250 mg tablet See Rx Instructions PO .COMPLEX Qty: 6 0RF Rx Instructions: For 250 mg dose pack: take 500 mg today (day 1), then 250 mg for 4 days (days 2-5) PO prednisone 10 mg tablet 10 mg PO QDAY Qty: 27 0RF Rx Instructions: take 4 tabs for three days, then 3 tabs for three days, then 2 tabs for three days atorvastatin 40 MG tablet 40 mg PO QHS duloxetine 60 MG capsule 60 mg PO BID cyclobenzaprine 10 mg tablet 1 tab PO TID PRN PRN (Reason: pain) glimepiride 4 mg Tablet 4 mg PO DAILY celecoxib 200 mg capsule 200 mg PO DAILY albuterol sulfate 90 mcg/actuation HFA aerosol inhaler 2 puff INHALATION 4X/DAY PRN (Reason: shortness of breath or wheezing) esomeprazole magnesium 40 mg capsule,delayed release(DR/EC) 40 mg PO DAILY Qty: 30 5RF pregabalin 150 mg capsule 150 mg PO TID Primary Care Provider: Marika Raymond Referrals: Marika Raymond, [employer]INE [employer]ATOR-[employer] [Primary Care Provider] - 3-5 Days if not improving Activity Restrictions/Additional Instructions: Return if you are unable to urinate, loss of bowel control, decrease sensation in your vaginal buttocks area or dragging your right leg. Print Language: Filipino Disposition Disposition: Home, Self Care
[2024-10-22 15:52] VITALS: BP 135/85; PULSE 70; RESP 18; TEMP 36.2; O2SAT 100
== END 2024-10-22 15:53 | disposition home or self-care (01) ==
PROVIDERS: Emergency Provider Emergency Medicine; PCP Nurse Practitioner Family; Visit Provider Emergency Medicine
DX: M54.50 Low back pain, unspecified (principal); J44.9 Chronic obstructive pulmonary disease, unspecified; E11.9 Type 2 diabetes mellitus without complications; G89.29 Other chronic pain; K21.9 Gastro-esophageal reflux disease without esophagitis; I10 Essential (primary) hypertension; F17.210 Nicotine dependence, cigarettes, uncomplicated; Z98.1 Arthrodesis status; Z79.51 Long term (current) use of inhaled steroids; Z79.84 Long term (current) use of oral hypoglycemic drugs; Z79.899 Other long term (current) drug therapy
CPT/HCPCS: 96374; 96375; 99283; A4216; J2405

== ENCOUNTER → 2024-11-22 | Outpatient (CLI) | payer MEDICARE, SELFPAY ==
[2024-11-22 12:05] LABS: Hematocrit 43.7 % (37-47); Hemoglobin 14.8 g/dL (12.0-15.0); Immature Granulocytes Count 0.060 X10^3/uL (0.0-0.0); Mean Corp Hgb Conc 33.9 g/dL (32-36); Mean Corpuscular Volume 92.0 fL (81-99); Mean Platelet Vol. 10.7 fl (6.2-12.0); NRBC Flagged by Analyzer 0 % (0-5); Platelet Count 173 K/mm3 (150-450); RBC Distribution Width CV 14.6 % (11.6-14.6); RBC Distribution Width SD 49.3 fl (35.1-43.9); Red Blood Count 4.75 M/mm3 (4.2-5.4); White Blood Count 10.8 K/mm3 (4.4-11.0)
[2024-11-22 13:05] LABS: Iron 76 ug/dL (50-170)
[2024-11-22 13:18] LABS: AST(SGOT) 15 U/L (<=31); Alanine Aminotransfer ALT/SGPT 21 U/L (<=34); Albumin, Serum 4.3 g/dL (3.4-4.8); Alkaline Phosphatase 81 U/L (35-104); Anion Gap 14 (5-15); BUN 16 mg/dL (4-19); BUN/Creat Ratio 15.1 RATIO (10-20); Calcium,Total 9.7 mg/dL (7.6-11.0); Carbon Dioxide 24.9 mmol/L (21.0-32.0); Chloride 101 mmol/L (98-108); Cholesterol 204 mg/dL (<=200); Ferritin 53 ng/mL (22-378); Globulin 2.4 g/dL (2.2-4.2); Glucose 72 mg/dL (70-99); Low Density Lipoprotein Calc. 88 mg/dL; Potassium 3.8 mmol/L (3.3-5.1); Triglycerides 92 mg/dL; Very Low Density Lipoprotein 18 mg/dL (5-40); Vitamin D,25 Hydroxy 33.1 ng/mL (30-100); cholesterol:hdl ratio screen 2.09
== END | disposition home or self-care (01) ==
LOC: BFHLAB 09:44
PROVIDERS: PCP Nurse Practitioner Family; Visit Provider Nurse Practitioner Family
DX: I10 Essential (primary) hypertension (principal); E11.69 Type 2 diabetes mellitus with other specified complication; E55.9 Vitamin D deficiency, unspecified; E61.1 Iron deficiency; E78.5 Hyperlipidemia, unspecified
CPT/HCPCS: 36415; 80053; 80061; 82306; 82728; 83036; 83540; 84439; 84443; 85025

== ENCOUNTER 2024-12-17 16:52 | Emergency (ER) | payer MEDICARE, SELFPAY ==
[2024-12-17] VITALS (8 sets, daily range): BP systolic 109–119; BP diastolic 52–69; PULSE 69–115; RESP 11–18; TEMP 36.6–36.7; O2SAT 96–100; BMI 34.9
--- NOTE | 2024-12-17 17:16 | ED.VIS.DYS ---
HPI History of Present Illness Chief Complaint: Shortness of Breath Informant: patient Onset/Context/Timing Onset: Weeks (2) Context: gradual Timing: Continuous Quality: Positive for Dyspnea on exertion Worsened by: Exertion Relieved by: Rest Associated Symptoms cough, post nasal drip and green sputum; Negative for rhinorrhea, ear pain, fever, sore throat, chills, sweats, clear sputum, white sputum or yellow sputum Chest Pain: Positive for Sharp, Aching and - (Right lower chest) Narrative Narrative: Patient presents with shortness of breath and cough that has been getting worse over the past 2 weeks. Patient states it came on gradually. Patient states her breathing is worse with any exertion. Patient states it is better with rest. Patient states she is coughing up some green or brown sputum. Patient also admits to some postnasal drainage. Patient states she has pain over the right side of her lower chest. Patient describes it as sharp and aching. Patient denies any fevers or chills. Patient admits to some nausea but denies any vomiting. PE Risk Factors: Negative for Cancer, Prior DVT or PE, Recent immobilization, Recent surgery or Recent travel [facility] Medical History Tobacco use disorder, continuous Encounter for screening for malignant neoplasm of lung Diarrhea Wears glasses Wears dentures Post-menopausal Depression Marijuana use Bladder disease Anemia High cholesterol Back pain History of hiatal hernia History of ulceration History of IBS Gastric reflux Smoker Shortness of breath on exertion Leg cramps History of pain when walking History of stress test Asthma COPD (chronic obstructive pulmonary disease) HTN (hypertension) Arthritis Thyroid disease Diabetes Home Medications ?Medication ?Instructions ?Recorded ?Last Taken ?Type atorvastatin 40 mg tablet 40 mg PO QHS 07/20/15 08/11/23 History duloxetine 60 mg capsule,delayed 60 mg PO BID 07/20/15 08/11/23 History release cyclobenzaprine 10 mg tablet 1 tab PO TID PRN PRN pain 09/01/21 08/11/23 History glimepiride 4 mg tablet 4 mg PO DAILY 09/01/21 08/11/23 History levothyroxine 112 mcg tablet 112 mcg PO QDAY 07/04/23 08/12/23 History lisinopril 10 mg tablet 10 mg PO QDAY 07/04/23 08/12/23 History esomeprazole magnesium 40 mg 40 mg PO DAILY #30 caps 07/24/23 08/12/23 Rx capsule,delayed release pregabalin 150 mg capsule 150 mg PO TID 08/11/23 08/12/23 History medical marjuana miscellaneous 03/23/24 Unknown History buspirone 10 mg tablet 20 mg PO TID PRN anxiety 09/21/24 Unknown History celecoxib 200 mg capsule 200 mg PO DAILY 09/21/24 Unknown History guaifenesin 1,200 mg tablet, 1,200 mg PO .QD #90 tabs 09/21/24 Unknown Rx extended release 12 hr (Mucinex) omeprazole 40 mg capsule,delayed 40 mg PO QDAY 09/21/24 Unknown History release ondansetron HCl 4 mg tablet 4 mg PO BID PRN nausea 09/21/24 Unknown History oxybutynin chloride 5 mg 5 mg PO QDAY 09/21/24 Unknown History tablet,extended release 24 hr tramadol 50 mg tablet 50 mg PO QD-BID PRN pain 09/21/24 Unknown History hydrocodone-acetaminophen 5-325mg 1 tab PO Q6H PRN PRN Pain 3 days 10/22/24 Unknown Rx 5mg-325mg #10 TABLETS amoxicillin 875 mg-potassium 1 tab PO BID #14 tabs 12/08/24 Unknown Rx clavulanate 125 mg tablet budesonide 160 mcg-glycopyr 9 2 inh inhalation BID #10.7 grams 12/08/24 Unknown Rx mcg-formot 4.8 mcg/actuation HFA inhaler (Breztri Aerosphere) levalbuterol HCl 0.63 mg/3 mL 0.63 mg (3 mL) inhalation ONCE #75 12/08/24 Unknown Rx solution for nebulization mL levalbuterol tartrate 45 2 puff inhalation Q4-6H PRN 12/08/24 Unknown Rx mcg/actuation aerosol inhaler shortness of breath or wheezing #15 grams nicotine (polacrilex) 2 mg buccal 2 mg buccal Q8H PRN nicotine 12/08/24 Unknown Rx lozenge cravings #72 ea nicotine See Rx Instructions transdermal 12/08/24 Unknown Rx 21mg/24hr-14mg/24hr-7mg/24hr daily .COMPLEX #56 patches transderm patches,sequentl tirzepatide 7.5 mg/0.5 mL mg subcut 12/08/24 Unknown History subcutaneous pen injector (Mounjaro) Allergy/AdvReac Type Severity Reaction Status Date / Time clarithromycin (From Biaxin) AdvReac Nausea Verified 12/17/24 16:54 hydromorphone (From Dilaudid) AdvReac Upset Verified 12/17/24 16:54 Stomach Family History Father Heart disease Hypertension Mother Heart disease Thyroid disorder Surgical History S/P cholecystectomy Hx of esophagogastroduodenoscopy Hx of colonoscopy History of hysteroscopy Hx of hysterectomy, total History of lumbar discectomy History of lumbar fusion Cervical vertebral fusion Social History household members: none housing: house current occupational status: retired Smoking Status: Current every day smoker tobacco type: cigarettes Tobacco: How many years used: 30 how long ago did patient quit smoking: Pt. had stopped smoking for about 13 years and restarted last year. alcohol intake: never additional social history: medical marijuana ROS ROS ED Constitutional Constitutional ED: Denies chills or fever(s) Eyes Eyes: Denies blurry vision or change in vision ENT ENT ED: Denies rhinorrhea or sore throat Cardiovascular Cardiovascular: Reports chest pain; Denies palpitations Respiratory/Chest Respiratory/Chest: Reports cough and dyspnea Gastrointestinal Gastrointestinal: Reports nausea; Denies vomiting Genitourinary Genitourinary ED: Denies dysuria or hematuria Musculoskeletal Musculoskeletal: Reports back pain and neck pain Integumentary Denies abscess or rash Neurologic Neurologic: Denies headache(s) or weakness Allergic/Immunologic Allergic/Immunologic ED: Denies mouth swelling or urticaria EXAM Physical Exam Const Vital Signs: 12/17/24 16:53 12/17/24 17:13 12/17/24 17:13 Temperature 98 F 98.1 F Temperature Source Oral Oral Pulse Rate 115 H 78 Respiratory Rate 16 16 Respiratory Effort Normal Respiratory Depth Normal Respiratory Pattern Normal Blood Pressure 109/69 117/58 L Blood Pressure Mean 82 77 Pulse Ox 98 96 Oxygen Delivery Method Room Air Room Air Room Air 12/17/24 18:17 12/17/24 18:18 12/17/24 18:55 Temperature 98.0 F 98.1 F Temperature Source Oral Oral Pulse Rate 69 71 74 Respiratory Rate 11 L 13 18 Respiratory Effort Respiratory Depth Respiratory Pattern Blood Pressure 119/59 L 118/52 L Blood Pressure Mean 79 74 Pulse Ox 98 96 Oxygen Delivery Method Room Air 12/17/24 20:00 Temperature 98.1 F Temperature Source Oral Pulse Rate 75 Respiratory Rate 18 Respiratory Effort Respiratory Depth Respiratory Pattern Blood Pressure 118/57 L Blood Pressure Mean 77 Pulse Ox 100 Oxygen Delivery Method Room Air Positive well nourished and well developed Constitutional Narrative: BMI is 34.9. General Appearance ED: well developed and NAD HEENT Reports moist mucous membranes Neck supple, no meningeal signs and no JVD Resp normal respiratory effort Auscultation: rhonchi throughout Cardio regular rate and regular rhythm GI non-tender and non-distended Palpation: soft Neuro oriented x3, CN's II-XII intact bilaterally and no sensory deficits noted Hoa Coma Scale: document GCS findings Spontaneous Obeys Commands Oriented 15 Sensorium / Orientation: alert Speech: speech normal Motor Exam: strength 5/5 throughout Psych mental status grossly normal MDM MDM MDM Narrative Medical decision making narrative: Differential diagnosis includes pneumonia, bronchitis, viral illness, dehydration, asthma exacerbation, and electrolyte abnormality. Chest x-ray will be obtained to assess for pneumonia and bronchitis. CBC will be obtained to assess for leukocytosis and anemia. Basic metabolic profile will be obtained to assess for electrolyte abnormality and renal function. Lab Data Attestation: I reviewed the patient's lab results. Lab results narrative: CBC was reviewed and was within normal limits. Basic metabolic profile was reviewed. Glucose was slightly low at 64. The remainder is within normal limits. COVID-19 PCR was reviewed and was negative. Influenza PCR was reviewed and was negative for influenza A and influenza B. RSV PCR was reviewed and was negative. Labs: Laboratory Results - last 24 hr 12/17/24 18:15 WBC 5.6 RBC 4.16 L Hgb 13.1 Hct 37.5 MCV 90.1 MCH 31.5 MCHC 34.9 RDW Std Deviation 46.9 H RDW Coeff of Shawn 14.1 Plt Count 145 L MPV 10.8 Immature Gran % (Auto) 0.400 Neut % (Auto) 55.8 Lymph % (Auto) 36.5 [place] % (Auto) 6.8 Eos % (Auto) 0.0 Baso % (Auto) 0.5 Absolute Neuts (auto) 3.1 Absolute Lymphs (auto) 2.05 Nucleated RBC % 0 Sodium 137 Potassium 3.8 Chloride 103 Carbon Dioxide 26.1 Anion Gap 8 BUN 9 Creatinine 0.96 Estim Creat Clear Calc 64.45 Est GFR (MDRD) Non-Af 67 BUN/Creatinine Ratio 9.2 L Glucose 64 L Calcium 9.0 Radiography Chest X-Ray - ED: 2 View, Read by ED Physician, Read by Radiologist and No Acute Disease Diagnostic Testing: Clinical Impression(s) from Imaging Studies Chest X-Ray 12/17/24 18:30 IMPRESSION: Possible vascular congestion. Reading Location: [address] [place] and lateral chest x-ray was obtained. There are 2 views. On my independent interpretation, lung gunn show possible mild vascular congestion. There is no acute infiltrate noted. There is normal cardiac silhouette. Bony thorax is normal. There is no acute process noted. Radiologist also interpreted the x-ray and agrees. Treatment and Re-Evaluation :: Patient was given a DuoNeb aerosol. Patient is feeling somewhat better on reevaluation. Patient was advised of her findings. Patient was instructed to continue her inhalers as prescribed. Patient was instructed to take Tylenol or ibuprofen as needed for any fevers or bodyaches. Patient was instructed to follow-up with her primary care physician in 5 to 7 days. Patient and spouse understood and was agreeable with plan. All questions were answered. Discharge Plan Triage Chief Complaint: Shortness of Breath ED Provider: Juan Pablo Denney Dx/Rx/DC Orders Clinical Impression: Acute viral bronchitis, Asthma-COPD overlap syndrome Instructions: ED Bronchitis, No Antibiotic (Adult) Prescriptions: No Action lisinopril 10 mg tablet 10 mg PO QDAY levothyroxine 112 mcg tablet 112 mcg PO QDAY [facility] miscellaneous tramadol 50 mg tablet 50 mg PO QD-BID PRN (Reason: pain) omeprazole 40 mg capsule,delayed release(DR/EC) 40 mg PO QDAY ondansetron HCl 4 mg tablet 4 mg PO BID PRN (Reason: nausea) buspirone 10 mg tablet 20 mg PO TID PRN (Reason: anxiety) oxybutynin chloride 5 mg tablet extended release 24hr 5 mg PO QDAY guaifenesin [Mucinex] 1,200 mg tablet extended release 12hr 1,200 mg PO .QD Qty: 90 3RF Mounjaro 7.5 mg/0.5 mL pen injector subcut Patient Comments: [NO ORIGINAL SIG] levalbuterol HCl 0.63 mg/3 mL solution for nebulization 0.63 mg inhalation ONCE Qty: 75 11RF Breztri Aerosphere 160-9-4.8 mcg/actuation HFA aerosol inhaler 2 inh inhalation BID Qty: 10.7 11RF levalbuterol tartrate 45 mcg/actuation HFA aerosol inhaler 2 puff inhalation Q4-6H PRN (Reason: shortness of breath or wheezing) Qty: 15 11RF nicotine 21-14-7 mg/24 hr patch, TD daily, sequential See Rx Instructions transdermal .COMPLEX Qty: 56 0RF Rx Instructions: apply 1-21 mg NICOTINE PATCH daily for 28 days; follow with 1-14 mg PATCH daily for 14 days, then 1-7mg PATCH daily for 14 days transdermal nicotine (polacrilex) 2 mg lozenge 2 mg buccal Q8H PRN (Reason: nicotine cravings) Qty: 72 2RF amoxicillin-pot clavulanate 875-125 mg tablet 1 tab PO BID Qty: 14 0RF atorvastatin 40 MG tablet 40 mg PO QHS duloxetine 60 MG capsule 60 mg PO BID cyclobenzaprine 10 mg tablet 1 tab PO TID PRN PRN (Reason: pain) glimepiride 4 mg Tablet 4 mg PO DAILY celecoxib 200 mg capsule 200 mg PO DAILY esomeprazole magnesium 40 mg capsule,delayed release(DR/EC) 40 mg PO DAILY Qty: 30 5RF pregabalin 150 mg capsule 150 mg PO TID hydrocodone-acetaminophen 5-325 mg tablet 1 tab PO Q6H PRN PRN (Reason: Pain) 3 Days Qty: 10 0RF Primary Care Provider: Marika Raymond Referrals: Marika Raymond NP-C [Primary Care Provider, Family Practice] - 5-7 Days Print Language: Serbian Disposition Disposition: Home, Self Care
--- NOTE | 2024-12-17 18:30 | RAD_ITS ---
PROCEDURE: CHEST PA AND LATERAL 12/17/2024 REASON FOR EXAM: COUGH TECHNIQUE: Procedure Code: RADCXR Modality: DX Procedure: CHEST PA AND LATERAL FINDINGS: The heart is normal in size. Hilar prominence suggestive of vascular congestion.. No acute osseous abnormalities. RAD/Chest PA and Lateral IMPRESSION: Possible vascular congestion. Reading Location: [id number]
[2024-12-17 18:31] LABS: Hematocrit 37.5 % (37-47); Hemoglobin 13.1 g/dL (12.0-15.0); Immature Granulocytes Count 0.020 X10^3/uL (0.0-0.0); Mean Corp Hgb Conc 34.9 g/dL (32-36); Mean Corpuscular Volume 90.1 fL (81-99); Mean Platelet Vol. 10.8 fl (6.2-12.0); NRBC Flagged by Analyzer 0 % (0-5); POSITIVE MORPHOLOGY YES; Platelet Count 145 K/mm3 (150-450); RBC Distribution Width CV 14.1 % (11.6-14.6); RBC Distribution Width SD 46.9 fl (35.1-43.9); Red Blood Count 4.16 M/mm3 (4.2-5.4); White Blood Count 5.6 K/mm3 (4.4-11.0)
[2024-12-17 19:16] LABS: Differential Indicated SCAN CRITERIA MET
[2024-12-17 19:28] LABS: Anion Gap 8 (5-15); BUN 9 mg/dL (4-19); BUN/Creat Ratio 9.2 RATIO (10-20); Calcium,Total 9.0 mg/dL (7.6-11.0); Carbon Dioxide 26.1 mmol/L (21.0-32.0); Chloride 103 mmol/L (98-108); Estimated Creatinine Clearance 64.45 ml/min (50-250); Glucose 64 mg/dL (70-99); Potassium 3.8 mmol/L (3.3-5.1)
[2024-12-17 20:56] LABS: Differential Comment SCANNED
== END 2024-12-17 21:17 | disposition home or self-care (01) ==
PROVIDERS: Emergency Provider Emergency Medicine; PCP Nurse Practitioner Family; Visit Provider Emergency Medicine
DX: J20.8 Acute bronchitis due to other specified organisms (principal); J44.9 Chronic obstructive pulmonary disease, unspecified; E11.9 Type 2 diabetes mellitus without complications; I10 Essential (primary) hypertension; K21.9 Gastro-esophageal reflux disease without esophagitis; E07.9 Disorder of thyroid, unspecified; F32.A Depression, unspecified; N32.9 Bladder disorder, unspecified; E78.00 Pure hypercholesterolemia, unspecified; F17.210 Nicotine dependence, cigarettes, uncomplicated; Z79.84 Long term (current) use of oral hypoglycemic drugs; Z79.890 Hormone replacement therapy; Z79.899 Other long term (current) drug therapy
CPT/HCPCS: 71046; 80048; 85025; 87631; 94640; 99284; A4216

== ENCOUNTER → 2025-01-24 | Outpatient (CLI) | payer MEDICARE, SELFPAY | END | disposition home or self-care (01) | LOC: LABSPEC 11:36 | PROVIDERS: PCP Nurse Practitioner Family; Visit Provider Nurse Practitioner Family | DX: N39.0 Urinary tract infection, site not specified (principal) | CPT/HCPCS: 87086; 87088 ==

== ENCOUNTER → 2025-02-01 | Outpatient (CLI) | payer MEDICARE, SELFPAY ==
--- NOTE | 2025-02-01 06:42 | CT_ITS ---
PROCEDURE: SPINE LUMBAR WITHOUT CONTRAST; SPINE THORACIC WITHOUT CONTRAS 02/01/2025 REASON FOR EXAM: FAILED BACK SYNDROME; THORACIC DISC DISORDER W/ RADICULOPATHY, FAILED TECHNIQUE: Procedure Code: CTSPL; CTSPTH Modality: CT Procedure: SPINE LUMBAR WITHOUT CONTRAST; SPINE THORACIC WITHOUT CONTRAS Coronal and Sagittal reconstruction series were provided. One or more dose reduction techniques were used (e.g., Automated exposure control, adjustment of the mA and/or kV according to patient size, use of iterative reconstruction technique COMPARISON: Correlation with MRI thoracic spine 11/05/2023 RADIATION DOSE SUMMARY: DLP: 1880 mGycm FINDINGS: For the purposes of this report, the lowest well-formed intervertebral disc space level in the midline sagittal plane will be designated L5-S1. Posterior fusion of L3-L4 with paired screws at each level within the confines of the cortex. There are bilateral vertical bars which appear intact. There has been posterior decompression. Streak artifact from spinal hardware limits evaluation of adjacent structures. The normal thoracic kyphosis and lumbar lordosis are maintained. The thoracolumbar vertebral bodies are within normal limits of height. Thoracolumbar vertebral alignment is maintained. There is thoracolumbar spondylosis. Multiple anterior osteophytes in the thoracic spine. T8-T9: Central disc protrusion with sjntpyay-bd-jkcmgn spinal canal stenosis. T9-T10: Left paracentral disc protrusion contributes to minimal spinal canal stenosis T10-T11: Central disc protrusion contributes to mild spinal canal stenosis. T12-L1: No significant spinal canal stenosis or neural foraminal narrowing. L1-L2: No significant spinal canal stenosis and neural foraminal narrowing. L2-L3: Posterior decompression. No significant spinal canal stenosis. Facet joint arthrosis contributes to ugen-jv-wmnjonan bilateral neural foraminal narrowing. L3-L4: Posterior decompression. No significant spinal canal stenosis. Facet joint arthrosis contributes to jtfo-ox-dcisdmhp bilateral neural foraminal narrowing. L4-L5: Posterior decompression. No significant spinal canal stenosis or neural foraminal narrowing. There is calcification within the intervertebral disc space. L5-S1: Posterior decompression. No significant spinal canal stenosis or neural foraminal narrowing. There is calcification within the intervertebral disc space. The visualized chest, abdomen, and pelvis appear within normal limits, although assessment is limited. CT/Spine Lumbar without Contrast IMPRESSION: 1. Streak artifact from spinal hardware limits evaluation of adjacent structure s. Posterior fusion of L3-L4. Multiple levels of posterior decompression in the lumbar spine. 2. Multiple disc herniations in the lower thoracic spine, most prominent at T8- T9 where there is wjyctqtw-jb-rpyhej spinal canal stenosis on CT. 3. No high-grade spinal canal stenosis in the lumbar spine. Reading Location: [id number]
--- NOTE | 2025-02-01 06:42 | CT_ITS ---
PROCEDURE: SPINE LUMBAR WITHOUT CONTRAST; SPINE THORACIC WITHOUT CONTRAS 02/01/2025 REASON FOR EXAM: FAILED BACK SYNDROME; THORACIC DISC DISORDER W/ RADICULOPATHY, FAILED TECHNIQUE: Procedure Code: CTSPL; CTSPTH Modality: CT Procedure: SPINE LUMBAR WITHOUT CONTRAST; SPINE THORACIC WITHOUT CONTRAS Coronal and Sagittal reconstruction series were provided. One or more dose reduction techniques were used (e.g., Automated exposure control, adjustment of the mA and/or kV according to patient size, use of iterative reconstruction technique COMPARISON: Correlation with MRI thoracic spine 11/05/2023 RADIATION DOSE SUMMARY: DLP: 1880 mGycm FINDINGS: For the purposes of this report, the lowest well-formed intervertebral disc space level in the midline sagittal plane will be designated L5-S1. Posterior fusion of L3-L4 with paired screws at each level within the confines of the cortex. There are bilateral vertical bars which appear intact. There has been posterior decompression. Streak artifact from spinal hardware limits evaluation of adjacent structures. The normal thoracic kyphosis and lumbar lordosis are maintained. The thoracolumbar vertebral bodies are within normal limits of height. Thoracolumbar vertebral alignment is maintained. There is thoracolumbar spondylosis. Multiple anterior osteophytes in the thoracic spine. T8-T9: Central disc protrusion with oxgatscu-eb-nbcpxn spinal canal stenosis. T9-T10: Left paracentral disc protrusion contributes to minimal spinal canal stenosis T10-T11: Central disc protrusion contributes to mild spinal canal stenosis. T12-L1: No significant spinal canal stenosis or neural foraminal narrowing. L1-L2: No significant spinal canal stenosis and neural foraminal narrowing. L2-L3: Posterior decompression. No significant spinal canal stenosis. Facet joint arthrosis contributes to hbra-qu-vtxgmauz bilateral neural foraminal narrowing. L3-L4: Posterior decompression. No significant spinal canal stenosis. Facet joint arthrosis contributes to kxgs-ku-jiwafncs bilateral neural foraminal narrowing. L4-L5: Posterior decompression. No significant spinal canal stenosis or neural foraminal narrowing. There is calcification within the intervertebral disc space. L5-S1: Posterior decompression. No significant spinal canal stenosis or neural foraminal narrowing. There is calcification within the intervertebral disc space. The visualized chest, abdomen, and pelvis appear within normal limits, although assessment is limited. CT/Spine Thoracic without Contras IMPRESSION: 1. Streak artifact from spinal hardware limits evaluation of adjacent structure s. Posterior fusion of L3-L4. Multiple levels of posterior decompression in the lumbar spine. 2. Multiple disc herniations in the lower thoracic spine, most prominent at T8- T9 where there is cekolmfv-ns-qwtgoc spinal canal stenosis on CT. 3. No high-grade spinal canal stenosis in the lumbar spine. Reading Location: [id number]
--- OUTSIDE RECORDS SUMMARY | 2025-02-01 06:56 | XMS RPT_ITS | CCD ---
Author Organization [facility] Care Team Providers Care Access Developer Name Role Phone NEONOEMÍLENNY Unavailable Unavailable SMARTALEC III, LENNY GUDINO Unavailable Un available Gauri Kidd Primary Care Provider Gauri Kidd Primary Care Provider [phone] Gauri Kidd MD Primary Care Provider Filippoitalec HIDES AND SKINS COLORER-MICROSTRATEGY ARCHITECT, Samantha Unavailable [phone] Gauri Kidd Primary Care Unavailable PROVIDER, UNKNOWN Referring Unavailable Keaton Gardiner Attending Unavailable Gauri Kidd Attending Unavailable PROVIDER, UNKNOWN Referring Unavailable Gauri Kidd Primary Care Unavailable Gauri Kidd MD Primary Care Provider Gauri Kidd MD Primary Care Provider Gauri Kidd MD Primary Care Provider GAURI KIDD Primary Care Unavailable JULES GRAY Referring Unavailable KEISHA CHEN Attending Unavailable GAURI KIDD Primary Care Unavailable JULES GRAY Referring Unavailable GAURI KIDD Primary Care Unavailable JULES GRAY Referring Unavailable JULES GRAY Attending Unavailable GAURI KIDD Primary Care Unavailable GAURI KIDD Primary Care Unavailable KALMICHELLE, KEISHA Referring Unavailable GAURI KIDD Primary Care Unavailable KALKA, KEISHA Referring Unavailable KALKA, KEISHA Referring Unavailable GAURI KIDD Primary Care Unavailable AURA CHENEN Attending Unavailable GAURI KIDD Primary Care Unavailable CATIA TRUJILLO Attending Unavaila ble TEAGAN KEISHA Referring Unavailable GAURI KIDD Primary Care Unavailable Kidd MD, Gauri A Primary Care Provider Dr. Gauri Kidd Primary Care Provider Dr. Gauri Kidd Referring Provider Dr. Chhaya May Attending Provider Gauri Kidd MD Primary Care Provider GAURI KIDD Primary Care Unavailable GILSON HAQ Attending Unavailable GAURI KIDD Referring Unavailable GAURI KIDD Attending Unavailable GAURI KIDD Primary Care Unavailable Dr. Ananda Menezes DO Primary Care Provider Segundo HOME HEALTH ATTENDANT-C, Marika Attending Provider Segundo HOME HEALTH ATTENDANT-C, Marika Referring Provider Dr. Ananda Menezes DO Attending Provider Dr. Ananda Menezes DO Referring Provider Kulwinder GREWAL, Dr. Guzman Attending Provider Dr. Megan Miramontes MD Referring Provider Maria De Jesus HOME HEALTH ATTENDANT-C, Soco Attending Provider Maria De Jesus HOME HEALTH ATTENDANT-C, Soco Referring Provider Segundo HOME HEALTH ATTENDANT-C, Marika Primary Care Provider Dawkins HOME HEALTH ATTENDANT-C, Talia Attending Provider Tracy GREWAL, Dr. Platt Attending Provider Segundo HOME HEALTH ATTENDANT-C, Marika Primary Care Provider Segundo HOME HEALTH ATTENDANT-C, Marika Referring Provider Segundo HOME HEALTH ATTENDANT-C, Marika Attending Provider Segundo HOME HEALTH ATTENDANT-C, Marika Primary Care Provider Segundo HOME HEALTH ATTENDANT-C, Marika Referring Provider [phone] Juancho HOME HEALTH ATTENDANT-C, Talia Attending Provider Juancho HOME HEALTH ATTENDANT-C, Talia Referring Provider Juancho HOME HEALTH ATTENDANT-C, Talia Other Provider Dr. Papi Rai DO Attending Provider Segundo HOME HEALTH ATTENDANT-C, Marika Primary Care Provider Segundo HOME HEALTH ATTENDANT-C, Marika Attending Provider Segundo HOME HEALTH ATTENDANT-C, Marika Referring Provider Renetta HOME HEALTH ATTENDANT-C, Zoran Erazo Attending Provider Wilson GREWAL, Dr. Bejarano Emergency Provider Chelsie GREWAL, Juan Pablo Esteves Unavailable NONE, NONE Unavailable Unavailable Segundo CATHETER BUILDER, Marika Unavailable Segundo HOME HEALTH ATTENDANT-C, Marika Primary Care Physician Juancho HOME HEALTH ATTENDANT-C, Talia Attending Physician Juancho HOME HEALTH ATTENDANT-C, Talia Nurse Practitioner Dr. Papi Rai DO Attending Physician Segundo HOME HEALTH ATTENDANT-C, Marika Referring Provider Renetta HOME HEALTH ATTENDANT-C, Zoran Erazo Attending Physician Wilson GREWAL, Dr. Bejarano Attending Physician [phone] Dr. Darci Rachel MD Emergency Department Physician Segundo HOME HEALTH ATTENDANT-C, Marika Attending Physician Segundo HOME HEALTH ATTENDANT-C, Marika Primary Care Physician Juancho HOME HEALTH ATTENDANT-C, Talia Attending Physician Juancho HOME HEALTH ATTENDANT-C, Talia Referring Provider Dr. Juan Pablo Denney DO Attending Physician Dr. Juan Pablo Denney DO Emergency Department Physi daljit Dulgar HIDES AND SKINS COLORER-MICROSTRATEGY ARCHITECT, Awa Unavailable Megan Miramontes Referring Unavailable Megan Miramontes Attending Unavailable Ananda Menezes Primary Care Unavailable Papi Rai Attending Unavailable Segundo, Marika Primary Care Unavailable Juancho HOME HEALTH ATTENDANT, Talia Referring Unavailable Papi Rai Attending Unavailable Esgundo, Marika Primary Care Unavailable Dawkins HOME HEALTH ATTENDANT, Talia Consulting Unavailable Dawkins HOME HEALTH ATTENDANT, Talia Referring Unavailable Zoran Jackson Attending Unavailable Segundo, Marika Primary Care Unavailable Segundo, Marika Referring Unavailable Segundo, Marika Primary Care Unavailable Dawkins HOME HEALTH ATTENDANT, Talia Referring Unavailable Dawkins HOME HEALTH ATTENDANT, Talia Attending Unavailable Segundo, Marika Attending Unavailable Segundo, Marika Primary Care Unavailable Segundo, Marika Referring Unavailable Segundo, Marika Primary Care Unavailable Juan Pablo Denney Attending Unavailable Segundo, Marika Primary Care Unavailable Darci Rachel Attending Unavailable Segundo, Marika Primary Care Unavailable Maria De Jesus HOME HEALTH ATTENDANT, Soco Referring Unavailable Maria De Jesus HOME HEALTH ATTENDANT, Soco Attending Unavailable Zoran Jackson Attending Unavailable Segundo, Marika Primary Care Unavailable Segundo, Marika Referring Unavailable Segundo, Marika Primary Care Unavailable Dawkins HOME HEALTH ATTENDANT, Talia Referring Unavailable Dawkins HOME HEALTH ATTENDANT, Talia Attending Unavailable Segundo, Marika Referring Unavailable Segundo, Marika Primary Care Unavailable Segundo, Marika Attending Unavailable Segundo, Marika Primary Care Unavailable Maria De Jesus HOME HEALTH ATTENDANT, Soco Referring Unavailable Maria De Jesus HOME HEALTH ATTENDANT, Soco Attending Unavailable Segundo, Marika Referring Unavailable Dawkins HOME HEALTH ATTENDANT, Talia Attending Unavailable Segundo, Marika Primary Care Unavailable Segundo, Marika Primary Care Unavailable Lc Molina Attending Unavailcatrachita Dawkins HOME HEALTH ATTENDANT, Talia Attending Unavailable Segundo, Marika Referring Unavailable Segundo, Marika Primary Care Unavailable Segundo, Marika Attending Unavailable Segundo, Marika Referring Unavailable Segundo, Marika Primary Care Unavailable Segundo, Marika Attending Unavailable Segundo, Marika Referring Unavailable Riri, Ananda Primary Care Unavailable Segundo, Marika Attending Unavailable Riri, Ananda Referring Unavailable Riri, Ananda Attending Unavailable Riri, Ananda Primary Care Unavailable Segundo, Marika Primary Care Unavailable ChelsieJuan Pablo crowder Referring Unavailable ChelsieJuan Pablo Attending Unavailable Segundo, Marika Attending Unavailable Segundo, Marika Primary Care Unavailable Allergies Allergy Classification Reported Allergen(s) Allergy Type Date of Onset Reaction(s) Facility (20 sources) clarithromycin; Translations: [CLARITHROMYCIN] Drug Allergy 07-06-19 11 Unknown [facility] Repository (20 sources) pregabalin; Translations: [PREGABALIN] Drug Allergy 08-25-19 19 [facility] [place] (20 sources) Amoxicillin-Pot Clavulanate; Translations: [AMOXICILLIN-POT CLAVULANATE] Propensity to adverse reactions to drug 08-25-19 19 [facility] [place] (5 sources) Clarithromycin Drug Allergy 11-25-19 12 gi upset [facility] Work Phone: (20 sources) HYDROmorphone; Translations: [HYDROMORPHONE] Drug Allergy 09-02-19 22 Other: See Comments [facility] (8 sources) Pregabalin Propensity to adverse reactions 08-25-19 19 [facility] (4 sources) DILAUDED Drug allergy (disorder) 12-18-19 23 [facility] (1 source) HYDROmorphone Drug Allergy 12-18-19 25 [facility] Repository Medications Current Medications Medication Drug Class(es) Dates Sig (Normalized) Sig (Original) acetaminophen 325 mg / HYDROcodone bitartrate 5 mg oral tablet (4 sources) Opioid Agonist Start: 10-22-2024 take 1 tablet by mouth every six hours as needed for pain Hydrocodone-Acetamino phen 5-325 mg tablet Active 1 {tbl} PO EVERY 6 HOURS NEEDED as needed for Pain 10 3 0 October 22, 2024 Acute exacerbation of chronic low back pain Gastroesophageal reflux disease Low back pain, unspecified Other chronic pain Gastro-esophageal reflux disease without esophagitis Complies with drug therapy albuterol sulfate HFA 108 (90 Base) MCG/ACT inhaler (3 sources) take 2 puff(s) by inhalation every six hours as needed for wheezing albuterol sulfate HFA 108 (90 Base) MCG/ACT inhaler Inhale 2 puffs into the lungs every 6 hours as needed for Wheezing 0 Active amoxicillin 875 mg / clavulanate 125 mg oral tablet (2 sources) Penicillin-class Antibacterial Start: 12-08-2024 ARIPiprazole 5 mg oral tablet (20 sources) Atypical Antipsychotic Start: 11-19-2022 ARIPiprazole (Abilify) 5 MG tablet 11/19/2022 Active Start: 07-20-2015 End: 07-23-2023 take 1 tablet by mouth once daily aripiprazole 15 mg tablet Take 1 tablet by mouth once a day active [facility] Start: 11-25-2011 JACOB HERNANDEZ t wice a day LILIANEMicki Leos AT Comment on above: Take 1 tablet by petar th once daily. atorvastatin 40 mg oral tablet (20 sources) HMG-CoA Reductase Inhibitor Start: 11-25-19 12 take 1 tablet by mouth once daily Lipitor 40 mg tablet Take 1 tablet by mouth once a day active [facility] Bgftdnsazs-Efifaivm-Wb rmoterol (2 sources) Corticosteroid, beta2-Adrenergic Agonist Start: 12-09-19 25 Budesonide-Glycopyr -Formoterol (Breztri Aerosphere) 160-9-4.8 mcg/actuation HFA aerosol inhaler Active 2 NMA INHALATION TWICE A DAY 10.7 11 December 08, 2024 12:00am Complies with drug therapy busPIRone hydrochloride 10 mg oral tablet (5 sources) Start: 09-22-19 25 take 2 tablets by mouth three times daily as needed for anxiety Buspirone 10 mg tablet Active 20 mg PO THREE TIMES A DAY as needed for anxiety September 21, 2024 12:00am Complies with drug therapy celecoxib 200 mg oral capsule (20 sources) Nonsteroidal Anti-inflammatory Drug Start: 12-19-19 21 End: 02-12-20 25 celecoxib 200 mg capsule Take 1 capsule by mouth once a day with meals active - Madeline Boone HIDES AND SKINS COLORER-MICROSTRATEGY ARCHITECT, [address] [facility] [address] [facility] [address] [facility] [place] Start: 11-26-2018 CELEBREX 100 M G CAPS 1 capsule once a day celecoxib [id number] Grace Leos AT Comment on above: Take 200 mg by mouth . clonazePAM 1 mg oral tablet (9 sources) Benzodiazepine take 1 tablet by mouth three times daily clonazePAM (KLONOPIN) 1 MG tablet Take 1 mg by mouth 3 times daily. 0 Active cyclobenzaprine hydrochloride 10 mg oral tablet (20 sources) Muscle Relaxant Start: 022 Cyclobenzaprine 10 mg tablet Active 1 {tbl} PO 3 TIMES DAILY NEEDED as needed for pain September 01, 2021 12:00am Complies with drug therapy Start: 07-20-2013 take 1 tablet by petar th three times daily cyclobenzaprine 10 mg tablet Take 1 tablet by mouth three times a day active [facility] Cymbalta 60 mg capsule,delayed release (2 sources) Start: 08-17-2020 take 2 capsules by mouth once daily Cymbalta 60 mg capsule,delayed release Take 2 capsule by mouth once a day active [facility] dexlansoprazole 60 mg delayed release oral capsule (9 sources) Proton Pump Inhibitor take 1 capsule by mouth once daily dexlansoprazole (DEXILANT) 60 MG CPDR capsule Take 60 mg by mouth daily 0 Active DULoxetine 60 mg delayed release oral capsule (20 sources) Serotonin and Norepinephrine Reuptake Inhibitor Start: 08-17-2020 CYMBALTA 20 MG CPEP duloxetine [id number] Grace Leos AT Start: 12-11-2016 take 2 capsules by m outh once daily Cymbalta 60 mg capsule,delayed release Take 2 capsule by mouth once a day active [facility] Start: 07-20-2015 take 1 capsule by mo uth twice daily Duloxetine 60 MG capsule Active 60 mg PO TWICE A DAY July 20, 2015 12:00am Complies with drug therapy Start: 07-20-2015 take 60 mg by mouth once daily Duloxetine Active 60 MG PO DAILY July 20, 2015 12:00am Comment on above: Take 2 capsules by m outh once daily. enteric contrast (will be provided with radiology test) (2 sources) Start: 07-10-19 End: 07-11-19 enteric contrast (will be provided with radiology test) Indications: Generalized abdominal pain , Bloating , Abnormal weight loss , Abdominal distension (gaseous) , Nausea For CT ABD/PEL W IVCON Routine order Administer, As Directed One Time Only, via Oral, Rectal, both Oral and Rectal, Enteric Tube, Stoma or Indwelling Catheter, Enteric Contrast as designated per enteric contrast guidelines 1 Each 0 07/09/2022 07/10/2022 Active Comment on above: For CT ABD/PEL W IVC ON Routine order Administer, As Directed One Time Only, via Oral, Rectal, both Oral and Rectal, Enteric Tube, Stoma or Indwelling Catheter, Enteric Contrast as designated per enteric contrast guidelines ergocalciferol 1.25 mg oral capsule (7 sources) Provitamin D2 Compound Start: 09-03-19 End: 11-20-19 take 1 capsule by mouth every week ergocalciferol (ERGOCALCIFEROL) 33525 units capsule Take 1 capsule by mouth once a week for 12 doses 12 capsule 0 09/02/2018 Active esomeprazole 40 mg delayed release oral capsule (9 sources) Proton Pump Inhibitor Start: 07-24-19 take 1 capsule by mouth once daily Esomeprazole Magnesium 40 mg capsule,delayed release(DR/EC) Active 40 mg PO DAILY 30 July 24, 2023 12:00am Complies with drug therapy estradiol 1 mg oral tablet (9 sources) Estrogen take 1 tablet by mouth once daily estradiol (ESTRACE) 1 MG tablet Take 1 mg by mouth daily 0 Active estrogens, conjugated (long-term) 0.45 mg oral tablet (9 sources) Estrogen take 1 tablet by mouth once daily estrogens, conjugated, (PREMARIN) 0.45 MG tablet Take 0.45 mg by mouth daily 0 Active glimepiride 4 mg oral tablet (20 sources) Sulfonylurea Start: 09-02-19 take 1 tablet by mouth once daily Glimepiride 4 mg Tablet Active 4 mg PO DAILY September 01, 2021 12:00am Complies with drug therapy Start: 11-27-2020 take 1 tablet by petar twice daily glimepiride (AMARYL) 4 mg tablet Take 4 mg by mouth twice daily. 11/27/2020 Active Start: 03-23-2020 glimepiride 2 mg tablet Take 1 1/2 tablet by mouth as directed 1 tablet in the am, 1/2 tablet in the pm active Kitty Sanchez [facility] Start: 03-23-2020 GLIMEPIRIDE 2 MG TABS 1 tablet twice a day glimepiride [id number] Grace Leos AT Comment on above: Take 4 mg by mouth t wice daily. 12 hr guaiFENesin 1200 mg extended release oral tablet (5 sources) Start: take 1 tablet by mouth once daily, then take 1 tablet by mouth every twelve hours Guaifenesin (Mucinex) 1,200 mg tablet extended release 12hr Active 1200 mg PO .QD 90 September 21, 2024 12:00am Complies with drug therapy iv contrast (will be provided with radiology test) (2 sources) Start: End: iv contrast (will be provided with radiology test) Indications: Generalized abdominal pain , Bloating , Abnormal weight loss , Abdominal distension (gaseous) , Nausea CT ABD/PEL -Inject, intravenously, once for 1 [...] in the CT contrast administration guidelines link. 1 Each 0 07/09/2022 07/10/2022 Active Comment on above: CT ABD/PEL -Inject, intravenously, once for 1 [...] in the CT contrast administration guidelines link. levalbuterol 0.21 mg/ml inhalation solution (4 sources) beta2-Adrenergic Agonist Start: 025 take 0.63 mg by inhalation once Levalbuterol Hcl 0.63 mg/3 mL solution for nebulization Active 0.63 mg INHALATION ONCE 75 December 08, 2024 12:00am Complies with drug therapy Start: 12-08-2024 Levalbuterol T artrate 45 mcg/actuation HFA aerosol inhaler Active 2 NMA INHALATION EVERY 4-6 HOURS as needed for shortness of breath or wheezing 15 December 08, 2024 12:00am Complies with drug therapy levothyroxine sodium 0.112 mg oral tablet (20 sources) l-Thyroxine Start: 09-05-2022 take 1 tablet by mouth once daily in the morning levothyroxine (Synthroid, Levoxyl) 125 MCG tablet Take 125 mcg by mouth every morning. Take on an empty stomach. 09/05/2022 Active Start: 12-28-2020 levothyroxine (SYNTHROID) 100 mcg tablet 12/28/2020 Active Start: 08-29-2018 take 1 tablet by petar th once daily levothyroxine (SYNTHROID) 137 MCG tablet Take 1 tablet by mouth Daily 30 tablet 0 08/29/2018 Active Start: 10-05-2017 End: 07-04-2023 Levothyroxine (Levoxyl) 137 MCG tablet Discontinued 100 ug PO DAILY October 05, 2017 12:00am July 04, 2023 9:51am Start: 11-25-2011 take 1 tablet by petar th once daily Synthroid 112 mcg tablet Take 1 tablet by mouth once a day active [facility] Start: 11-25-2011 take 1 tablet by petar th once daily SYNTHROID 125 MCG TABS 1 by mouth once a day levothyroxine [id number] Grace Leos AT lisinopril 10 mg oral tablet (20 sources) Angiotensin Converting Enzyme Inhibitor Start: 03-27-2022 take 1 tablet by mouth once daily Lisinopril 10 mg tablet Active 10 mg PO daily July 04, 2023 12:00am Complies with drug therapy Start: 10-05-2017 End: 07-04-2023 take 1 tablet by mouth once daily Lisinopril 5 MG tablet Discontinued 5 mg PO DAILY October 05, 2017 12:00am July 04, 2023 9:51am Comment on above: Take 5 mg by mouth o nce daily. Take 10 mg by mouth once daily. MEDICAL MARIJUANA (5 sources) Start: 03-23-2020 MEDICAL MARIJUANA Use as directed active [facility] Start: 03-23-2020 MEDICAL MARIJU IZABELLA MEDICAL MARIJUANA Grace Leos AT medical marjuana (9 sources) Start: 03-23-2024 medical marjua na Active March 23, 2024 1:00am Complies with drug therapy Start: 03-23-2024 Start: 03-23-2024 medical sheri burks Active [facility] March 23, 2024 1:00am metFORMIN hydrochloride 500 mg oral tablet (9 sources) Biguanide take 1 tablet by mouth twice daily at mealtime metFORMIN (GLUCOPHAGE) 500 MG tablet Take 500 mg by mouth 2 times daily (with meals) 0 Active 120 actuat mometasone furoate 0.1 mg/actuat metered dose inhaler (16 sources) Corticosteroid take 2 puff(s) by inhalation twice daily Mometasone Furoate 100 MCG/ACT aerosol Inhale 2 puffs 2 times daily. Active morphine sulfate 15 mg extended release oral tablet (9 sources) Opioid Agonist take 1 tablet by mouth twice daily morphine (MS CONTIN) 15 MG extended release tablet Take 15 mg by mouth 2 times daily. 0 Active Nicotine (4 sources) Cholinergic Nicotinic Agonist Start: 025 Nicotine (Polacrilex) 2 mg lozenge Active 2 mg BUCCAL Q8H as needed for nicotine cravings 72 2 December 08, 2024 12:00am Complies with drug therapy Start: 12-08-2024 apply 1 dose transde rmal route once daily, then apply 1 dose transdermal route once daily Nicotine 21-14-7 mg/24 hr patch, TD daily, sequential Active 0 TD .COMPLEX 56 0 December 08, 2024 12:00am apply 1-21 mg NICOTINE PATCH daily for 28 days; follow with 1-14 mg PATCH daily for 14 days, then 1-7mg PATCH daily for 14 days transdermal Complies with drug therapy omeprazole 40 mg delayed release oral capsule (20 sources) Proton Pump Inhibitor Start: 09-21-2024 take 1 capsule by mouth once daily Omeprazole 40 mg capsule,delayed release(DR/EC) Active 40 mg PO daily September 21, 2024 12:00am Complies with drug therapy Start: 01-08-2021 End: 07-24-2023 take 1 capsule by mouth once daily Omeprazole 40 mg Capsule,Delayed Release(Dr/Ec) Discontinued 40 mg PO DAILY September 01, 2021 12:00am July 24, 2023 1:19pm Comment on above: Take 1 capsule by [facility] once daily. take 1 capsule by [facility] once daily Omeprazole 40 mg capsule,delayed release(DR/EC) (2 sources) Start: take 1 capsule by mouth once daily Omeprazole 40 mg capsule,delayed release(DR/EC) Active 40 mg PO daily September 21, 2024 12:00am ondansetron 4 mg oral tablet (5 sources) Serotonin-3 Receptor Antagonist Start: take 1 tablet by mouth twice daily as needed for nausea Ondansetron Hcl 4 mg tablet Active 4 mg PO TWICE A DAY as needed for nausea September 21, 2024 12:00am Complies with drug therapy 24 hr oxybutynin chloride 5 mg extended release oral tablet (20 sources) Cholinergic Muscarinic Antagonist Start: take 1 tablet by mouth once daily Oxybutynin Chloride 5 mg tablet extended release 24hr Active 5 mg PO daily September 21, 2024 12:00am Complies with drug therapy Start: 12-28-2020 oxybutynin XL (DITROPAN XL) 5 mg 24 hr tablet 12/28/2020 Active Start: 11-07-2015 End: 09-21-2024 take 1 tablet by mouth once daily Oxybutynin Chloride 5 MG tablet Discontinued 5 mg PO DAILY November 07, 2015 12:00am September 21, 2024 9:43am oxyCODONE hydrochloride 5 mg oral tablet (1 source) Opioid Agonist Start: 04-30-2021 End: 05-07-2021 take 1 tablet by mouth every six hours as needed for pain OXYCODONE HCL 5 MG TABS Take 1 tablet by mouth every six hours as needed for pain oxycodone [id number] Samantha Marino HIDES AND SKINS COLORER-MICROSTRATEGY ARCHITECT predniSONE 20 mg oral tablet (9 sources) Start: 10-27-2024 take 3 tablets by mouth once daily, then take 2 tablets by mouth once daily, then take 1 tablet by mouth once daily prednisone 20 mg tablet Take 3 tablets by mouth daily for 6 days, then 2 tablets daily for 3 days, then 1 tablet daily for 3 days active Juan Pablo Holguin MD, [address] [facility] [address] [facility] Start: 09-21-2024 End: 12-08-2024 Prednisone 10 mg tablet Disc ontinued 10 mg PO daily 27 0 September 21, 2024 12:00am December 08, 2024 9:02am take 4 tabs for three days, then 3 tabs for three days, then 2 tabs for three days pregabalin 150 mg oral capsule (20 sources) Start: 10-29-2022 End: 01-12-2025 take 1 capsule by mouth three times daily Pregabalin 150 mg capsule Active 150 mg PO THREE TIMES A DAY August 11, 2023 12:00am Complies with drug therapy Start: 05-08-2022 take 1 capsule by mo uth three times daily pregabalin (LYRICA) 100 mg capsule Take 100 mg by mouth three times daily. 05/08/2022 Active Comment on above: Take 100 mg by mouth three times daily. promethazine hydrochloride 25 mg oral tablet (20 sources) Phenothiazine Start: 11-25-2011 promethazine (PHENERGAN) 25 mg tablet Take 12.5 mg by mouth. 11/25/2011 Active Start: 11-25-2011 promethazine 2 5 mg tablet Take 1 tablet by mouth as directed as needed active Kitty Sanchez [facility] Start: 11-25-2011 PROMETHAZINE H CL 25 MG TABS as needed promethazine [id number] Grace Leos AT Comment on above: Take 12.5 mg by mozohreh motta TIRZEPATIDE (3 sources) Mounjaro 5 mg/0. 5 mL subcutaneous pen injector as directed active [facility] [place] Tirzepatide (2 sources) Start: 12-08-2024 Start: 12-08-2024 Tirzepatide (M ounjaro) 7.5 mg/0.5 mL pen injector Active mg SC December 08, 2024 12:00am Complies with drug therapy traMADol hydrochloride 50 mg oral tablet (15 sources) Opioid Agonist Start: 10-27-2024 End: 11-03-2024 tramadol 50 mg tablet Take 1 tablet by mouth every eight hours for pain for 7 days active - Juan Pablo Holguin MD, [address] [facility] [address] [facility] [address] [facility] Start: 09-21-2024 Tramadol 50 mg tablet Active 50 mg PO 1 to 2 times per day as needed for pain September 21, 2024 12:00am Complies with drug therapy Start: 08-12-2023 End: 09-02-2023 take 1 tablet by mouth every six hours as needed for pain Tramadol 50 mg tablet Discontinued 50 mg PO EVERY 6 HOURS as needed for pain 14 0 August 12, 2023 12:00am September 02, 2023 12:36pm Postoperative pain Other acute postprocedural pain vitamin b12 1 mg oral tablet (20 sources) Vitamin B12 Start: 08-28-2018 VITAMIN B-12 1 ,000 mcg tab 0 08/28/2018 Active Completed/Discontinued Medications Medication Drug Class(es) Dates Sig (Normalized) Sig (Original) Acetaminophen (1 source) Start: 08-17-2020 TYLENOL 325 MG CAPS ACETAMINOPHEN Grace Leos AT [id number] 200 actuat albuterol 0.09 mg/actuat metered dose inhaler (20 sources) beta2-Adrenergic Agonist Start: 09-21-2024 End: 12-08-2024 take 0.63 mg by inhalation every four to six hours as needed Albuterol Sulfate 0.63 mg/3 mL solution for nebulization Discontinued 0.63 mg INHALATION EVERY 4-6 HOURS as needed September 21, 2024 12:00am December 08, 2024 9:16am Start: 09-21-2024 End: 12-08-2024 Albuterol Sulfate (Ventolin Hfa) 90 mcg/actuation HFA aerosol inhaler Discontinued 1 NMA INHALATION EVERY 4-6 HOURS September 21, 2024 12:00am December 08, 2024 9:18am Start: 07-23-2023 End: 12-08-2024 Albuterol Sulfate 90 mcg/act uation HFA aerosol inhaler Discontinued 2 NMA INHALATION 4 TIMES DAILY as needed for shortness of breath or wheezing July 23, 2023 12:00am December 08, 2024 9:03am Start: 10-02-2022 take 2 puff(s) by in halation four times daily albuterol 108 (90 Base) MCG/ACT inhaler inhale 2 puffs FOUR TIMES A DAY 10/02/2022 Active take 2 puff(s) by in halation every six hours as needed for wheezing albuterol sulfate HFA 108 (90 Base) MCG/ACT inhaler Inhale 2 puffs into the lungs every 6 hours as needed for Wheezing 0 Active take 2 puff(s) by in halation every six hours as needed for wheezing albuterol sulfate HFA 108 (90 Base) MCG/ACT inhaler Inhale 2 puffs into the lungs every 6 hours as needed for Wheezing 0 Active amoxicillin 500 mg oral tablet (9 sources) Penicillin-class Antibacterial Start: 07-24-2023 End: 08-08-2023 take 1 tablet by mouth three times daily Amoxicillin 500 mg tablet Discontinued 500 mg PO THREE TIMES A DAY July 24, 2023 12:00am August 08, 2023 12:58pm azithromycin 250 mg oral tablet (5 sources) Macrolide Antimicrobial Start: 09-21-2024 End: 12-08-2024 Azithromycin 250 mg tablet Discontinued 0 PO .COMPLEX 6 0 September 21, 2024 12:00am December 08, 2024 9:03am For 250 mg dose pack: take 500 mg today (day 1), then 250 mg for 4 days (days 2-5) PO sugar-free cholestyramine resin 4000 mg powder for oral suspension (5 sources) Bile Acid Sequestrant Start: 12-31-2021 End: 05-30-2022 take 1 dose by mouth twice daily at mealtime cholestyramine low-calorie (CHOLESTYRAMINE LIGHT) 4 gram packet Take 1 Packet by mouth twice daily with meals. 60 Packet 5 12/31/2021 05/30/2022 Discontinued Comment on above: Take 1 Packet by [facility] twice daily with meals. colestipol hydrochloride 5000 mg granules for oral suspension (20 sources) Bile Acid Sequestrant Start: 08-26-2023 End: 09-02-2023 take 5 g by mouth twice daily Colestipol 5 gram packet Discontinued 5 g PO TWICE A DAY 30 August 26, 2023 12:00am September 02, 2023 12:34pm Start: 07-09-2022 End: 09-07-2022 take 1 tablet by mouth twice daily colestipol (Colestid) 1 g tablet Take 1 g by mouth 2 times daily. 07/12/2022 Active Comment on above: Take 1 tablet by petar twice daily. dapagliflozin 10 mg oral tablet (20 sources) Sodium-Glucose Cotransporter 2 Inhibitor Start: 10-06-19 End: 09-22-19 take 1 tablet by mouth once daily Dapagliflozin Propanediol (Farxiga) 10 MG tablet Discontinued 10 mg PO DAILY October 05, 2017 12:00am September 21, 2024 9:42am Comment on above: Take 10 mg by mouth once daily. Fluticasone-Umeclidin -Vilanter (9 sources) Start: 03-30-19 End: 12-09-19 Fluticasone-Umeclidin -Vilanter (Trelegy Ellipta) 200-62.5-25 mcg blister with device Discontinued 1 NMA INHALATION daily March 30, 2024 1:00am December 08, 2024 9:15am Shortness of breath Shortness of breath Start: 03-30-2024 Start: 03-30-2024 Fluticasone-Um eclidin-Vilanter (Trelegy Ellipta) 200-62.5-25 mcg blister with device Active 1 NMA INHALATION daily March 30, 2024 1:00am Shortness of breath Shortness of breath Start: 03-30-2024 Fluticasone-Um eclidin-Vilanter (Trelegy Ellipta) 200-62.5-25 mcg blister with device Active 1 NMA INHALATION daily March 30, 2024 1:00am gabapentin 800 mg oral tablet (20 sources) Anti-epileptic Agent Start: 11-25-2011 End: 07-04-2023 take 1 tablet by mouth three times daily at mealtime Gabapentin 800 MG tablet Discontinued 800 mg PO 3 TIMES DAILY WITH MEALS October 05, 2017 12:00am July 04, 2023 9:50am Iopamidol (1 source) Radiographic Contrast Agent Start: 11-23-2018 End: 11-23-2018 iopamidol (ISOVUE-370) 76 % injection 75 mL lamoTRIgine 200 mg oral tablet (20 sources) Mood Stabilizer, Anti-epileptic Agent Start: 09-01-2021 End: 07-04-2023 Lamotrigine 200 mg tablet Discontinued 1 {tbl} PO DAILY September 01, 2021 12:00am July 04, 2023 9:51am Start: 06-29-2019 End: 07-04-2023 take 1 tablet by mouth once daily lamoTRIgine (LAMICTAL) 200 mg tablet Take 200 mg by mouth once daily. 03/23/2022 Active take 1 tablet by petar th once daily lamotrigine 100 mg tablet Take 1 tablet by mouth once a day active Kitty Sanchez [facility] Comment on above: Take 200 mg by mouth once daily. loratadine 10 mg oral tablet (10 sources) Start: 08-20-2018 LORATADINE 10 MG TABS Take once a day loratadine [id number] Grace Leos AT take 1 capsule by mouth once zana ly loratadine (CLARITIN) 10 MG capsule Take 10 mg by mouth daily 0 Active meclizine hydrochloride 25 mg oral tablet (10 sources) Antiemetic Start: 08-20-2018 MECLIZINE HCL 25 MG TABS Take 1 tablet three times a day meclizine [id number] Grace Leos AT methylPREDNISolone 4 mg oral tablet (1 source) Corticosteroid Start: 04-19-2021 MEDROL 4 MG TB PK Take by mouth as directed following package instructions methylprednisolone [id number] Samantha Marino [employer]ER-MICROSTRATEGY ARCHITECT Semaglutide 0.5 mg/0.1 mL syringe (5 sources) Start: 09-21-2024 End: 12-08-2024 Semaglutide 0.5 mg/0.1 mL syringe Discontinued mg SC September 21, 2024 12:00am December 08, 2024 9:02am Start: 09-21-2024 Start: 09-21-2024 Semaglutide 0. 5 mg/0.1 mL syringe Active mg SC September 21, 2024 12:00am sucralfate 1000 mg oral tablet (13 sources) Aluminum Complex Start: 07-04-2023 End: 09-12-2023 take 1 tablet by mouth once at bedtime Sucralfate 1 gram tablet Discontinued 1 g PO before meals and at bedtime 56 July 04, 2023 12:00am September 12, 2023 10:01am Take an hour before meals and at bedtime Start: 05-30-2022 End: 06-29-2022 take 1 tablet by mouth twice daily sucralfate (CARAFATE) 1 gram tablet Indications: Postprandial epigastric pain Take 1 tablet by mouth twice daily. Crush and mix with small tablespoon of applesauce. 60 tablet 05/30/2022 06/29/2022 Comment on above: Take 1 tablet by petar th twice daily. Crush and mix with small tablespoon of applesauce. 60 actuat tiotropium 0.0025 mg/actuat inhalation spray (9 sources) Anticholinergic Start: 07-23-19 End: 03-30-19 25 take 2.5 ug by inhalation once daily Tiotropium [place] (Spiriva Respimat) 2.5 mcg/actuation mist Discontinued 2 NMA INHALATION DAILY July 23, 2023 12:00am March 30, 2024 3:57pm zolpidem tartrate 10 mg oral tablet (20 sources) gamma-Aminobutyric Acid-ergic Agonist Start: 11-25-19 End: 07-23-19 take 1 tablet by mouth at bedtime Zolpidem (Ambien) 10 MG tablet Discontinued 10 mg PO AT BEDTIME July 20, 2015 12:00am July 23, 2023 10:42am Comment on above: Take 1 tablet by petar th daily at bedtime. Problems Active Problems Problem Classification Problem Date Documented Da te Episodic/Chronic Abdominal hernia (1 source) Gastroesophageal reflux disease with hiatal hernia; Translations: [Diaphragmatic hernia without obstruction or gangrene] Episodic Abdominal pain (10 sources) Generalized abdominal pain; Translations: [Generalized abdominal pain] Onset: 3 Episodic Acute bronchitis (1 source) Acute viral bronchitis; Translations: [Acute bronchitis due to other specified organisms] 12-25-2024 Episodic Administrative/social admission (4 sources) Patient encounter status; Translations: [Tobacco abuse counseling] 12-08-2024 Episodic Asthma (10 sources) Asthma-chronic obstructive pulmonary disease overlap syndrome; Translations: [Asthma-chronic obstructive pulmonary disease overlap syndrome] 09-21-2024 Chronic Biliary tract disease (20 sources) Polyp of gallbladder; Translations: [Cholesterolosis of gallbladder] Onset: 3 Episodic Chronic obstructive pulmonary disease and bronchiectasis (1 source) Chronic obstructive pulmonary disease, unspecified; Translations: [Chronic obstructive pulmonary disease, unspecified] Onset: 5 Chronic Chronic obstructive pulmonary disease and bronchiectasis (1 source) Chronic obstructive pulmonary disease and bronchiectasis; Translations: [Other specified chronic obstructive pulmonary disease] Onset: 5 Esophageal disorders (12 sources) Lower esophageal ring; Translations: [Esophageal obstruction] Chronic Essential hypertension (1 source) Essential (primary) hypertension; Translations: [Essential (primary) hypertension] Onset: 5 Chronic Fracture of lower limb (12 sources) Fracture of ankle; Translations: [Other fracture of left lower leg, initial encounter for closed fracture] 09-09-2021 Episodic Mood disorders (1 source) Major depressive disorder, recurrent, in full remission; Translations: [Major depressive disorder, recurrent, in full remission] Onset: 7 Chronic Nausea and vomiting (12 sources) Nausea; Translations: [Nausea] Onset: 3 Episodic Other and unspecified benign neoplasm (10 sources) History of polyp of colon; Translations: [Personal history of colonic polyps] 07-04-2023 Episodic Other and unspecified benign neoplasm (1 source) Personal history of colonic polyps; Translations: [Personal history of colonic polyps] 07-04-2023 Episodic Other connective tissue disease (1 source) Arthrodesis status; Translations: [Arthrodesis status] Onset: 5 Episodic Other gastrointestinal disorders (1 source) Alteration in bowel elimination; Translations: [Change in bowel habit] Episodic Other gastrointestinal disorders (2 sources) Loose stool; Translations: [Other fecal abnormalities] Episodic Other gastrointestinal disorders (5 sources) Abdominal bloating; Translations: [Abdominal distension (gaseous)] [...] (gaseous); Translations: [Bloating] Onset: 3 Episodic Other gastrointestinal disorders (9 sources) Diarrhea; Translations: [Diarrhea, unspecified] 08-08-2023 Episodic Other gastrointestinal disorders (9 sources) Intra-abdominal collection; Translations: [Other ascites] 09-13-2023 Episodic Comment on above: at [facility] fossa-hematoma -aspirated by IR--HIDA neg for bile leak Other lower respiratory disease (12 sources) Dyspnea; Translations: [Shortness of breath] 03-30-2024 Episodic Other lower respiratory disease (12 sources) Cough; Translations: [Cough] 03-31-2024 Episodic Other lower respiratory disease (2 sources) Shortness of breath; Translations: [Shortness of breath] Onset: 5 Episodic Other nervous system disorders (5 sources) Chronic low back pain; Translations: [Other chronic pain] Onset: 9 08-20-2018 Chronic Other nervous system disorders (4 sources) Spinal cord compression; Translations: [Other cord compression] Onset: 5 08-20-2024 Chronic Other nutritional; endocrine; and metabolic disorders (2 sources) Abnormal weight loss; Translations: [Abnormal weight loss] Episodic Other nutritional; endocrine; and metabolic disorders (1 source) Abnormal weight loss; Translations: [Abnormal weight loss] Onset: 3 Episodic Other screening for suspected conditions (not mental disorders or infectious disease) (14 sources) Encounter for screening mammogram for malignant neoplasm of breast; Translations: [Patient encounter status] Onset: 2 Episodic Residual codes; unclassified (1 source) FH: Stomach cancer; Translations: [Family history of malignant neoplasm of digestive organs] Episodic Spondylosis; intervertebral disc disorders; other back problems (20 sources) Lumbar post-laminectomy syndrome; Translations: [Postlaminectomy syndrome, not elsewhere classified] Onset: 9 11-16-2018 Chronic Spondylosis; intervertebral disc disorders; other back problems (20 sources) Disorder of sacrum; Translations: [Sacrococcygeal disorders, not elsewhere classified] Onset: 9 03-23-2020 Episodic Substance-related disorders (20 sources) Cigarette smoker ; Translations: [Nicotine dependence, cigarettes, uncomplicated] Onset: 5 03-31-2024 Chronic Syncope (12 sources) Syncope and collapse; Translations: [Syncope and collapse] 09-09-2021 Episodic Thyroid disorders (19 sources) Hypothyroidism; Translations: [Hypothyroidism, unspecified] Onset: 9 08-24-2018 Chronic Thyroid disorders (10 sources) Disorder of thyroid gland; Translations: [Disorder of thyroid, unspecified] 07-04-2023 Episodic Comment on above: ON MED Unclassified (1 source) Low back pain, unspecified; Translations: [Low back pain, unspecified] Onset: Past or Other Problems Problem Classification Problem Date Documented Da te Episodic/Chronic Cardiac dysrhythmias (1 source) Palpitations; Translations: [Palpitations] Onset: 05-18-2024 Episodic Joint disorders and dislocations; trauma-related (5 sources) Tear of medial meniscus of knee; Translations: [Other tear of medial meniscus, current injury, left knee, initial encounter] Onset: 11-16-2018 11-16-2018 Episodic Malaise and fatigue (1 source) Other fatigue; Translations: [Other fatigue] Onset: 05-05-2024 Episodic Other bone disease and musculoskeletal deformities (4 sources) Osteopenia; Translations: [Other specified disorders of bone density and structure, unspecified site] Onset: 06-17-2024 06-17-2024 Episodic Other connective tissue disease (5 sources) History of lumbar fusion; Translations: [Arthrodesis status] Onset: 11-16-2018 11-16-2018 Episodic Other connective tissue disease (4 sources) History of cervical spine fusion; Translations: [Arthrodesis status] Onset: 05-21-2022 05-21-2022 Episodic Other connective tissue disease (1 source) Pain in right arm; Translations: [Pain in right arm] Onset: 07-08-2024 Episodic Other nervous system disorders (4 sources) Numbness of finger; Translations: [Anesthesia of skin] Onset: 07-28-2024 08-19-2024 Episodic Other nervous system disorders (4 sources) Numbness of upper limb; Translations: [Anesthesia of skin] Onset: 07-28-2024 08-19-2024 Episodic Other non-traumatic joint disorders (5 sources) Knee pain; Translations: [Pain in unspecified knee] Onset: 11-16-2018 11-16-2018 Episodic Other non-traumatic joint disorders (1 source) Pain in right elbow; Translations: [Pain in right elbow] Onset: 07-22-2024 Episodic Screening and history of mental health and substance abuse codes (1 source) Personal history of nicotine dependence; Translations: [Personal history of nicotine dependence] Onset: 04-13-2024 Episodic Sprains and strains (20 sources) Lower back injury; Translations: [Strain of muscle, fascia and tendon of lower back, initial encounter] Onset: 08-20-2018 08-20-2018 Episodic Unclassified (1 source) Problem Results Test Name Value Interpretation Reference Range Facility Relevant diagnostic tests/la boratory data Narrativeon 01-12-2025 Fall risk assessment no [employer] Work Phone: MEDS REVIEW Documentation of current medications (procedure) [employer] Work Phone: MEDS REVIEWD Medications reviewed without changes [employer] Work Phone: Relevant diagnostic tests/la boratory data Narrativeon 01-05-2025 [facility] REVIEWD Medications reviewed without changes [employer] Work Phone: Relevant diagnostic tests/la boratory data Narrativeon 01-04-2025 Fall risk assessment no [employer] Work Phone: MEDS REVIEW Done [employer] Work Phone: MEDS REVIEWD Medications reviewed without changes [employer] Work Phone: Absolute lymphocyte countOrd ered By: Juan Pablo Denney on 12-17-2024 Lymphocytes Auto (Unsp spec) [#/Vol] 2.05 10*3/uL 0.83-4.51 [facility] Absolute neutrophil countOrd ered By: Juan Pablo Denney on 12-17-2024 Neutrophils (Bld) [#/Vol] 3.1 10*3/uL 2.0-7.7 [facility] Anion gap in Serum or Plasma Ordered By: Juan Pablo Denney on 12-17-2024 Anion gap [Moles/Vol] 8 mmol/L 5-15 [facility] Automated lymphocyte count a s percentage of total leukocytesOrdered By: Juan Pablo Denney on 12-17-2024 Lymphocytes/100 WBC Auto (Unsp spec) 36.5 % 19-41 [facility] BUN/creatinine ratioOrdered By: Juan Pablo Denney on 12-17-2024 Urea nitrogen/Creatinine [Mass ratio] 9.2 mg/mg Low 10-20 [facility] Basic Metabolic Profile (BMP )on 12-17-2024 BUN/CRE 9.2 RATIO Low - [facility] Comment on above: Performed By: #### L 500.2500, L100.0100 ####[facility] [address] [place], [address] Calcium [Mass/Vol] 9.0 mg/dL Normal 7.6-11.0 [facility] Comment on above: Performed By: #### L 500.2500, L100.0100 ####[facility] [address] [place], [address] Chloride [Moles/Vol] 103 mmol/L Normal 98-108 [facility] Comment on above: Performed By: #### L 500.2500, L100.0100 ####[facility] [address] [place], [address] CO2 [Moles/Vol] 26.1 mmol/L Normal 21.0-32.0 [facility] Comment on above: Performed By: #### L 500.2500, L100.0100 ####[facility] [address] [place], [address] Creatinine [Mass/Vol] 0.96 mg/dL Normal 0.70-1.20 [facility] Comment on above: Performed By: #### L 500.2500, L100.0100 ####[facility] [address] [place], [address] ECRCL 64.45 ml/min Normal 50-250 [facility] Comment on above: Performed By: #### L 500.2500, L100.0100 ####[facility] [address] [place], [address] GAP 8 Normal 5-15 [facility] Comment on above: Performed By: #### L 500.2500, L100.0100 ####[facility] [address] [place], [address] GFR/1.73 sq M.predicted among non-blacks MDRD (S/P/Bld) [Vol rate/Area] 67 mL/min/{1.73_m2} Normal >60 [facility] Comment on above: Result Comment: mL/m in/1.73m2 CKD-EPI Creatinine Equation (2020) Performed By: #### L 500.2500, L100.0100 ####[facility] [address] [place], [address] Glucose [Mass/Vol] 64 mg/dL Low 70-99 [facility] Comment on above: Performed By: #### L 500.2500, L100.0100 ####[facility] [address] [place], [address] Potassium [Moles/Vol] 3.8 mmol/L Normal 3.3-5.1 [facility] Comment on above: Performed By: #### L 500.2500, L100.0100 ####[facility] [address] [place], [address] Sodium [Moles/Vol] 137 mmol/L Normal 133-145 [facility] Comment on above: Performed By: #### L 500.2500, L100.0100 ####[facility] [address] [place], [address] Urea nitrogen [Mass/Vol] 9 mg/dL Normal 4-19 [facility] Comment on above: Performed By: #### L 500.2500, L100.0100 ####[facility] [address] [place], [address] Basophil percentageOrdered B y: Juan Pablo Denney on 12-17-2024 Basophils/100 WBC (Bld) 0.5 % 0-1 [facility] Blood manual differential co mment interpretation (narrative result)Ordered By: Juan Pablo Denney on 12-17-2024 Manual differential comment Atif (Bld) [Interp] SCANNED [facility] CBC W/Diff, Automatedon 12-08 PLT EST SLT DEC Normal ADEQ [facility] Comment on above: Performed By: #### L 500.2500, L100.0100 ####[facility] [address] [place], [address] SMEAR COMMENT SCANNED Normal [facility] Comment on above: Performed By: #### L 500.2500, L100.0100 ####[facility] [address] [place], [address] Carbon dioxide, total [Moles /volume] in Central venous bloodOrdered By: Juan Pablo Denney on 12-17-2024 CO2 [Moles/Vol] 26.1 mmol/L 21.0-32.0 [facility] Chest PA and Lateralon 12-17 Chest PA and Lateral [facility] [address] [place] [address] Chest PA and Lateral MR#: [id number] Acct: [id number] Name: MARISSA MILLER Rep #: [id number] : 1960 F 63 From: Camorn Dee MD PCP: NIKOLAI Zuleta Status: REG ER Study: Chest PA and Lateral Date of Exam: 12/17/24 Exam# [id number] Ordering Dr: Juan Pablo Denney DO PROCEDURE: CHEST PA AND LATERAL 12/17/2024 REASON FOR EXAM: COUGH TECHNIQUE: Procedure Code: RADCXR Modality: DX Procedure: CHEST PA AND LATERAL FINDINGS: The heart is normal in size. Hilar prominence suggestive of vascular congestion.. No acute osseous abnormalities. RAD/Chest PA and Lateral IMPRESSION: Possible vascular congestion. Reading Location: [address] CC: HOME HEALTH ATTENDANT-C Marika Raymond; Dr. Juan Pablo Denney DO [place]: Signed Normal [facility] Chloride assayOrdered By: Stef Denney on 12-17-2024 Chloride [Moles/Vol] 103 mmol/L 98-108 [facility] Emergency Department Summary on 12-17-2024 Emergency Department Summary [facility] Medical Records Department [address] [place] [address] Emergency Department Summary 12/17/24 MR#: [id number] Acct: [id number] Name: MARISSA MILLER Rep #: [id number] : 1960 63 From: Juan Pablo Denney DO PCP: FIGUEROA ZuletaC Status:DEP ER Location: ED HPI History of Present Illness Chief Complaint: Shortness of Breath Informant: patient Onset/Context/Timing Onset: Weeks (2) Context: gradual Timing: Continuous Quality: Positive for Dyspnea on exertion Worsened by: Exertion Relieved by: Rest Associated Symptoms cough, post nasal drip and green sputum; Negative for rhinorrhea, ear pain, fever, sore throat, chills, sweats, clear sputum, white sputum or yellow sputum Chest Pain: Positive for Sharp, Aching and - (Right lower chest) Narrative Narrative: Patient presents with shortness of breath and cough that has been getting worse over the past 2 weeks. Patient states it came on gradually. Patient states her breathing is worse with any exertion. Patient states it is better with rest. Patient states she is coughing up some green or brown sputum. Patient also admits to some postnasal drainage. Patient states she has pain over the right side of her lower chest. Patient describes it as sharp and aching. Patient denies any fevers or chills. Patient admits to some nausea but denies any vomiting. PE Risk Factors: Negative for Cancer, Prior DVT or PE, Recent immobilization, Recent surgery or Recent travel [facility] Medical History Tobacco use disorder, continuous Encounter for screening for malignant neoplasm of lung Diarrhea Wears glasses Wears dentures Post-menopausal Depression Marijuana use Bladder disease Anemia High cholesterol Back pain History of hiatal hernia History of ulceration History of IBS Gastric reflux Smoker Shortness of breath on exertion Leg cramps History of pain when walking History of stress test Asthma COPD (chronic obstructive pulmonary disease) HTN (hypertension) Arthritis Thyroid disease Diabetes Home Medications ???Medication ???Instructions ???Recorded ???Last Taken ???Type atorvastatin 40 mg tablet 40 mg PO QHS 07/20/15 08/11/23 His tory duloxetine 60 mg capsule,delayed 60 mg PO BID 07/20/15 08/11/23 His tory release cyclobenzaprine 10 mg tablet 1 tab PO TID PRN PRN pain 09/01/21 08/11/23 History glimepiride 4 mg tablet 4 mg PO DAILY 09/01/21 08/11/23 Hi story levothyroxine 112 mcg tablet 112 mcg PO QDAY 07/04/23 08/12/23 History lisinopril 10 mg tablet 10 mg PO QDAY 07/04/23 08/12/23 Hi story esomeprazole magnesium 40 mg 40 mg PO DAILY #30 caps 07/24/23 0 08/12/23 Rx capsule,delayed release pregabalin 150 mg capsule 150 mg PO TID 08/11/23 08/12/23 Hi story medical marjuana miscellaneous 03/23/24 Unknown His tory buspirone 10 mg tablet 20 mg PO TID PRN anxiety 09/21/24 Unknown History celecoxib 200 mg capsule 200 mg PO DAILY 09/21/24 Unknown H istory guaifenesin 1,200 mg tablet, 1,200 mg PO .QD #90 tabs 09/21/24 Unknown Rx extended release 12 hr (Mucinex) omeprazole 40 mg capsule,delayed 40 mg PO QDAY 09/21/24 Unknown His tory release ondansetron HCl 4 mg tablet 4 mg PO BID PRN nausea 09/21/24 Un known History oxybutynin chloride 5 mg 5 mg PO QDAY 09/21/24 Unknown Hist ory tablet,extended release 24 hr tramadol 50 mg tablet 50 mg PO QD-BID PRN pain 09/21/24 Unknown History hydrocodone-acetaminoph en 5-325mg 1 tab PO Q6H PRN PRN Pain 3 days 10/22/24 Unknown Rx 5mg-325mg #10 TABLETS amoxicillin 875 mg-potassium 1 tab PO BID #14 tabs 12/08/24 Unk nown Rx clavulanate 125 mg tablet budesonide 160 mcg-glycopyr 9 2 inh inhalation BID #10.7 grams 1 Unknown Rx mcg-formot 4.8 mcg/actuation HFA inhaler (Breztri Aerosphere) levalbuterol HCl 0.63 mg/3 mL 0.63 mg (3 mL) inhalation ONCE #75 12/08/24 Unknown Rx solution for nebulization mL levalbuterol tartrate 45 2 puff inhalation Q4-6H PRN Unknown Rx mcg/actuation aerosol inhaler shortness of breath or wheezing #15 grams nicotine (polacrilex) 2 mg buccal 2 mg buccal Q8H PRN nicotine 04/03 Unknown Rx lozenge cravings #72 ea nicotine See Rx Instructions transdermal Unknown Rx 21mg/24hr-14mg/24hr-7mg /24hr daily .COMPLEX #56 patches transderm patches,sequentl tirzepatide 7.5 mg/0.5 mL mg subcut 12/08/24 Unknown History subcutaneous pen injector (Mounaugustusro) Allergy/AdvReac Type Severity Reaction Status Date / Time clarithromycin (From Biaxin) AdvReac Nausea Verified 12/17/24 16:54 hydromorphone (From Dilaudid) AdvReac Upset Verified 12/17/24 16:54 Stomach Family History Father Vineet (more content not included)... Normal [facility] Eosinophil percentageOrdered By: Juan Pablo Denney on 12-17-2024 Eosinophils/100 WBC (Bld) 0.0 % 0-5 [facility] Erythrocyte distribution wid th ratioOrdered By: Juan Pablo Denney on 12-17-2024 Erythrocyte distribution width (RBC) [Ratio] 14.1 % 11.6-14.6 [facility] Erythrocyte distribution wid th standard deviationOrdered By: Juan Pablo Denney on 12-17-2024 Erythrocyte distribution width (RBC) [Ratio] 46.9 fl High 35.1-43.9 [facility] Glomerular filtration rate ( GFR) estimation/1.73 sq m using serum, plasma, or whole bOrdered By: Jaun Pablo Denney on 12-17-2024 GFR/1.73 sq M.predicted among non-blacks MDRD (S/P/Bld) [Vol rate/Area] 67 mL/min/{1.73_m2} >60 [facility] Comment on above: mL/min/1.73m2 CKD-EP I Creatinine Equation (2020) Hematocrit Auto (Bld) [Volum e fraction]Ordered By: Juan Pablo Denney on 12-17-2024 Hematocrit (Bld) [Volume fraction] 37.5 % 37-47 [facility] Hemoglobin measurementOrdere d By: Juan Pablo Denney on 12-17-2024 Hemoglobin (Bld) [Mass/Vol] 13.1 g/dL 12.0-15.0 [facility] Immature granulocytes/100 WB C Auto (Bld)Ordered By: Juan Pablo Denney on 12-17-2024 Immature granulocytes/100 WBC (Bld) 0.400 % 0.0-0.9 [facility] Comment on above: IG% - Immature Granu locytes (promyelocytes, myelocytes and metamyelocytes) > 1% indicates that a LEFT SHIFT is Present. Influenza virus A and B and SARS-CoV-2 (COVID-19) and Respiratory syncytial virus RNAOrdered By: Juan Pablo Denney on 12-17-2024 SARS-CoV-2 (COVID-19) RNA NEGRITO+probe Ql (Unsp spec) [facility] M100.678on 12-17-2024 M100.678 Pending SARS-CoV-2 (COVID 19) Negative INFLUENZA A Negative INFLUENZA B Negative RSV PCR Negative Normal [facility] Comment on above: Performed By: #### M 100.678 ####[facility] [address] [place], [address] MCV (mean corpuscular volume ) determinationOrdered By: Juan Pablo Denney on 12-17-2024 MCV (RBC) [Entitic vol] 90.1 fL 81-99 [facility] Mean corpuscular hemoglobin (MCH) determinationOrdered By: Juan Pablo Denney on 12-17-2024 MCH (RBC) [Entitic mass] 31.5 pg 27.0-32.0 [facility] Mean corpuscular hemoglobin concentration (MCHC) determinationOrdered By: Juan Pablo Denney on 12-17-2024 MCHC (RBC) [Mass/Vol] 34.9 g/dL 32-36 [facility] Mean platelet volume determi nationOrdered By: Juan Pablo Denney on 12-17-2024 Platelet mean volume (Bld) [Entitic vol] 10.8 fL 6.2-12.0 [facility] Monocyte percentageOrdered B y: Juan Pablo Denney on 12-17-2024 Monocytes/100 WBC (Bld) 6.8 % 0-10 [facility] Neutrophil percentageOrdered By: Juan Pablo Denney on 12-17-2024 Neutrophils/100 WBC (Bld) 55.8 % 47-70 [facility] Nucleated red blood cell per centageOrdered By: Juan Pablo Denney on 12-17-2024 Nucleated RBC/100 WBC (Bld) [Ratio] 0 % 0-5 [facility] Platelet countOrdered By: Stef Denney on 12-17-2024 Platelets (Bld) [#/Vol] 145 10*3/uL Low 150-450 [facility] Platelet estimateOrdered By: Juan Pablo Denney on 12-17-2024 Platelets LM Ql (Bld) SLT DEC ADEQ [facility] Potassium measurement (mass/ volume)Ordered By: Juan Pablo Denney on 12-17-2024 Potassium (Unsp spec) [Mass/Vol] 3.8 mmol/L 3.3-5.1 [facility] RBC Auto (Bld) [#/Vol]Ordere d By: Juan Pablo Denney on 12-17-2024 RBC (Bld) [#/Vol] 4.16 10*6/uL Low 4.2-5.4 [facility] Serum creatinine measurement (mass/volume)Ordered By: Juan Pablo Denney on 12-17-2024 Creatinine [Mass/Vol] 0.96 mg/dL 0.70-1.20 [facility] Serum glucose measurement (m ass/volume)Ordered By: Juan Pablo Denney on 12-17-2024 Glucose [Mass/Vol] 64 mg/dL Low 70-99 [facility] Serum or plasma calcium nas urement (mass/volume)Ordered By: Juan Pablo Denney on 12-17-2024 Calcium [Mass/Vol] 9.0 mg/dL 7.6-11.0 [facility] Serum or plasma urea nitroge n measurement (mass/volume)Ordered By: Juan Pablo Denney on 12-17-2024 Urea nitrogen [Mass/Vol] 9 mg/dL 4-19 [facility] Sodium levelOrdered By: Juan Pablo Denney on 12-17-2024 Sodium [Moles/Vol] 137 mmol/L 133-145 [facility] Urinalysis, Completeon 12-17 BACTERIA Normal None Seen [facility] Comment on above: Order Comment: CLEAN CATCH Result Comment: REHANA ENT DISCHARGED Performed By: #### L 400.0001 ####[facility] [address] [facility] [address] BILIRUBIN URINE Normal Negative [facility] Comment on above: Order Comment: CLEAN CATCH Result Comment: REHANA ENT DISCHARGED Performed By: #### L 400.0001 ####[facility] [address] [facility] [address] Clarity (U) Normal Clear [facility] Comment on above: Order Comment: CLEAN CATCH Result Comment: REHANA ENT DISCHARGED Performed By: #### L 400.0001 ####[facility] [address] [facility] [address] Color (U) Normal Yellow [facility] Comment on above: Order Comment: CLEAN CATCH Result Comment: REHANA ENT DISCHARGED Performed By: #### L 400.0001 ####[facility] [address] [place], [address] EPI,SQUAMOUS Normal 5-10 [facility] Comment on above: Order Comment: CLEAN CATCH Result Comment: REHANA ENT DISCHARGED Performed By: #### L 400.0001 ####[facility] [address] [facility] [address] GLUCOSE, UR Normal Normal [facility] Comment on above: Order Comment: CLEAN CATCH Result Comment: REHANA ENT DISCHARGED Performed By: #### L 400.0001 ####[facility] [address] [facility] [address] KETONE UR Normal Negative [facility] Comment on above: Order Comment: CLEAN CATCH Result Comment: REHANA ENT DISCHARGED Performed By: #### L 400.0001 ####[facility] [address] [place], [address] LEUK ESTERASE Normal Negative [facility] Comment on above: Order Comment: CLEAN CATCH Result Comment: REHANA ENT DISCHARGED Performed By: #### L 400.0001 ####[facility] [address] [place], [address] Mucus Ql (Urine sed) Normal [facility] Comment on above: Order Comment: CLEAN CATCH Result Comment: REHANA ENT DISCHARGED Performed By: #### L 400.0001 ####[facility] [address] [place], [address] Nitrite Ql (U) Normal Negative [facility] Comment on above: Order Comment: CLEAN CATCH Result Comment: REHANA ENT DISCHARGED Performed By: #### L 400.0001 ####[facility] [address] [place], [address] OCCULT BLOOD-UR Normal Negative [facility] Comment on above: Order Comment: CLEAN CATCH Result Comment: REHANA ENT DISCHARGED Performed By: #### L 400.0001 ####[facility] [address] [place], [address] pH UR Normal 5.0 - 8.0 [facility] Comment on above: Order Comment: CLEAN CATCH Result Comment: REHANA ENT DISCHARGED Performed By: #### L 400.0001 ####[facility] [address] [place], [address] PROT DIPSTX Normal Negative [facility] Comment on above: Order Comment: CLEAN CATCH Result Comment: REHANA ENT DISCHARGED Performed By: #### L 400.0001 ####[facility] [address] [place], [address] RBC Normal 0-5 [facility] Comment on above: Order Comment: CLEAN CATCH Result Comment: REHANA ENT DISCHARGED Performed By: #### L 400.0001 ####[facility] [address] [place], [address] SP.GR. DIPSTX Normal 1.002-1.030 [facility] Comment on above: Order Comment: CLEAN CATCH Result Comment: RHEANA ENT DISCHARGED Performed By: #### L 400.0001 ####[facility] [address] [place], [address] UR Preservative Normal [facility] Comment on above: Order Comment: CLEAN CATCH Result Comment: REHANA ENT DISCHARGED Performed By: #### L 400.0001 ####[facility] [address] [facility] [address] UROBILI Normal Normal [facility] Comment on above: Order Comment: CLEAN CATCH Result Comment: REHANA ENT DISCHARGED Performed By: #### L 400.0001 ####[facility] [address] [place], [address] WBC Normal 0-5 [facility] Comment on above: Order Comment: CLEAN CATCH Result Comment: REHANA ENT DISCHARGED Performed By: #### L 400.0001 ####[facility] [address] [place], [address] White blood cell (WBC) count Ordered By: Juan Pablo Denney on 12-17-2024 WBC (Bld) [#/Vol] 5.6 10*3/uL 4.4-11.0 [facility] Pulmonary Visit Reporton Pulmonary Visit Report [facility] Pulmonary Medicine [address] [place] [address] OFFICE VISIT Date of Service: 12/08/24 MR#: [id number] Acct: [id number] Name: MARISSA MILLER Rep #: [id number] : 1960 Provider: Zoran Jackson NP Age/Sex: 63/F [place] [facility] [place] Status: Signed Assessment and Plan Assessment and Plan (1) Asthma-COPD overlap syndrome: Status: Chronic Plan: Although the PFT is grossly normal there is a 10% change seen with use of beta agonist in FEV1. The patient does have seasonal allergy symptoms. She reports specifically grass is a trigger. There is significant bronchospasm on today's exam. There is emphysema identified on CT imaging. Today she is experiencing another exacerbation and I have recommended that she utilize Augmentin at this time due to recent use of Z-Yuan and the recent episode of worsening symptoms after eating. I have asked for her to complete a sputum culture prior to beginning this antibiotic. The patient's NIOX is not elevated so I do not plan to use oral prednisone especially in the context of the patient reporting that she is experience side effects in the past and poor respiratory response. She does have a nebulizing device that has a flutter component to it. Continue with Mucinex as well. Due to the side effects that she is experiencing with albuterol I have recommended changing from albuterol to lev albuterol and have ordered this accordingly today. She will be provided lev albuterol in both HFA and nebulized form. This has provided her with significant benefit in the past. I do believe that she is suboptimally controlled today because she is not on a daily maintenance therapy at this time. She has difficulty tolerating the dry powdered inhaler and have recommended that she transition from Trelegy to Breztri and have ordered this accordingly. The patient understands the proper oral hygiene involved with triple therapy. Samples have been provided to her. She understands the importance of a daily maintenance therapy to be utilized prior to escalating therapy. I plan to reassess on follow-up in short interval, 8 weeks and will consider an escalation in therapy if she has continued to exacerbate. The patient does have a history of elevated eosinophils from her blood work in February 2024. Her eosinophilic count is 158.4. Nucala may be an option if she continues to have exacerbations. (2) Smoking greater than 40 pack years: Status: Chronic Plan: Encourage complete smoking cessation. The patient previously was able to quit smoking for 12 years, unfortunately started smoking a few years ago again. She is appropriate for LDCT, previously ordered and planned for March 2025. (3) Encounter for tobacco use cessation counseling: Status: Acute Plan: The patient is educated about the benefits of smoking cessation. Medical nicotine replacement therapy was offered to the patient. Discussed habits, quit date, coping mechanisms. All questions were answered. Orders: Orders Culture, Sputum Today J44.89 - Other specified chronic obstructive pulmonary disease NIOX Today J44.89 - Other specified chronic obstructive pulmonary disease Medications: New iwozbswlfd-hdntxcvg-crn moterol 160-9-4.8 mcg/actuation (Breztri Aerosphere) 2 inhalations inhalation BID 10.7 grams 11RF levalbuterol HCl 0.63 mg (3 mL) inhalation ONCE 75 mL 11RF levalbuterol tartrate 45 mcg/actuation 2 puffs inhalation Q4-6H PRN 15 grams 11RF shortness of breath or wheezing nicotine apply 1-21 mg NICOTINE PATCH daily for 28 days; follow with 1-14 mg PATCH daily for 14 days, then 1-7mg PATCH daily for 14 days transdermal 56 patches 0RF nicotine (polacrilex) 2 mg buccal Q8H PRN 72 ea 2RF nicotine cravings amoxicillin-pot clavulanate 875-125 mg 1 TAB PO BID 14 tabs 0RF J44.89 - Other specified chronic obstructive pulmonary disease Discontinued rfshhhplqts-dnonukhrk-f ilanter 200-62.5-25 mcg (Trelegy Ellipta) Discontinued Reason: Order Changed 1 inh inhalation QDAY R06.02 - Shortness of breath albuterol sulfate 90 mcg/actuation (Ventolin HFA) Discontinued Reason: Order Changed 1 puff inhalation Q4-6H albuterol sulfate Discontinued Reason: Order Changed 0.63 mg inhalation Q4-6H PRN Plan Details Follow Up: 8 Weeks (LMR) HPI HPI Comments Details: Patient is a 63-year-old female who presents today for follow-up. She is ambulatory and currently on room air. She has not recently been seen in the ED or urgent care for any respiratory illness. She has not required any antibiotics or prednisone for any breathing problems since last visit when she was treated for an exacerbation with oral prednisone and a Z-Yuan. She is uncertain if the oral prednisone benefited her at that time. She reports that oral prednisone gives her severe hypersomnolence and when she (more content not included)... Normal [facility] Relevant diagnostic tests/la boratory data Narrativeon 11-23-2024 Fall risk assessment no [employer] Work Phone: MEDS REVIEW Done [employer] Work Phone: MEDS REVIEWD Medications reviewed with changes [employer] Work Phone: Absolute lymphocyte countOrd ered By: Marika Raymond on 11-22-2024 Lymphocytes Auto (Unsp spec) [#/Vol] 2.51 10*3/uL 0.83-4.51 [facility] Absolute neutrophil countOrd ered By: Marika Raymond on 11-22-2024 Neutrophils (Bld) [#/Vol] 7.8 10*3/uL High 2.0-7.7 [facility] Anion gap in Serum or Plasma Ordered By: Marika Segundo on 11-22-2024 Anion gap [Moles/Vol] 14 mmol/L 07-22 [facility] Automated lymphocyte count a s percentage of total leukocytesOrdered By: Marika Segundo on 11-22-2024 Lymphocytes/100 WBC Auto (Unsp spec) 23.2 % - [facility] BUN/creatinine ratioOrdered By: Marika Raymond on 11-22-2024 Urea nitrogen/Creatinine [Mass ratio] 15.1 mg/mg 12-27 [facility] Comment on above: Previous reported re sult: 14.5 RATIOEdited by: AUTOINS on 11/22/24:1318 AMENDED REPORT 11/22/24 1318 BUN/CRE previously reported as: 14.5 RATIO Basophil percentageOrdered B y: Marika Segundo on 11-22-2024 Basophils/100 WBC (Bld) 0.5 % [facility] Bilirubin, totalOrdered By: Marika Raymond on 11-22-2024 Bilirubin [Mass/Vol] 0.54 mg/dL 0.00-1.30 [facility] Comment on above: Previous reported re sult: 0.58 mg/dLEdited by: AUTOINS on 11/22/24:1318 AMENDED REPORT 11/22/24 1318 T BILI previously reported as: 0.58 mg/dL CBC W/Diff, Automatedon 11-08 Absolute Lymph 2.51 X10 3/uL Normal 0.83-4.51 [facility] Comment on above: Performed By: #### L 500.4100, L503.6150, L506.1001, L100.0100, L501.9985, L506.0400, L503.6550, L500.4050, L501.9520 ####[facility] [address] [place], [address] Absolute Neut 7.8 X10 3/uL High 2.0-7.7 [facility] Comment on above: Performed By: #### L 500.4100, L503.6150, L506.1001, L100.0100, L501.9985, L506.0400, L503.6550, L500.4050, L501.9520 ####[facility] [address] [place], [address] Basophils/100 WBC (Bld) 0.5 % Normal 0-1 [facility] Comment on above: Performed By: #### L 500.4100, L503.6150, L506.1001, L100.0100, L501.9985, L506.0400, L503.6550, L500.4050, L501.9520 ####[facility] [address] [place], [address] Eosinophils/100 WBC (Bld) 0.0 % Normal 0-5 [facility] Comment on above: Performed By: #### L 500.4100, L503.6150, L506.1001, L100.0100, L501.9985, L506.0400, L503.6550, L500.4050, L501.9520 ####[facility] [address] [place], [address] Erythrocyte distribution width (RBC) [Ratio] 14.6 % Normal 11.6-14.6 [facility] Comment on above: Performed By: #### L 500.4100, L503.6150, L506.1001, L100.0100, L501.9985, L506.0400, L503.6550, L500.4050, L501.9520 ####[facility] [address] [place], [address] Hematocrit (Bld) [Volume fraction] 43.7 % Normal 37-47 [facility] Comment on above: Performed By: #### L 500.4100, L503.6150, L506.1001, L100.0100, L501.9985, L506.0400, L503.6550, L500.4050, L501.9520 ####[facility] [address] [place], [address] Hemoglobin (Bld) [Mass/Vol] 14.8 g/dL Normal 12.0-15.0 [facility] Comment on above: Performed By: #### L 500.4100, L503.6150, L506.1001, L100.0100, L501.9985, L506.0400, L503.6550, L500.4050, L501.9520 ####[facility] [address] [place], [address](440 IG% 0.600 Normal 0.0-0.9 [facility] Comment on above: Result Comment: IG% - Immature Granulocytes (promyelocytes, myelocytes and metamyelocytes) > 1% indicates that a LEFT SHIFT is Present. Performed By: #### L 500.4100, L503.6150, L506.1001, L100.0100, L501.9985, L506.0400, L503.6550, L500.4050, L501.9520 ####[facility] [address] [place], [address] Lymphocytes/100 WBC (Bld) 23.2 % Normal 19-41 [facility] Comment on above: Performed By: #### L 500.4100, L503.6150, L506.1001, L100.0100, L501.9985, L506.0400, L503.6550, L500.4050, L501.9520 ####[facility] [address] [place], [address] MCH (RBC) [Entitic mass] 31.2 pg Normal 27.0-32.0 [facility] Comment on above: Performed By: #### L 500.4100, L503.6150, L506.1001, L100.0100, L501.9985, L506.0400, L503.6550, L500.4050, L501.9520 ####[facility] [address] [place], [address] MCHC (RBC) [Mass/Vol] 33.9 g/dL Normal 32-36 [facility] Comment on above: Performed By: #### L 500.4100, L503.6150, L506.1001, L100.0100, L501.9985, L506.0400, L503.6550, L500.4050, L501.9520 ####[facility] [address] [place], [address] MCV (RBC) [Entitic vol] 92.0 fL Normal 81-99 [facility] Comment on above: Performed By: #### L 500.4100, L503.6150, L506.1001, L100.0100, L501.9985, L506.0400, L503.6550, L500.4050, L501.9520 ####[facility] [address] [place], [address] Monocytes/100 WBC (Bld) 3.8 % Normal 0-10 [facility] Comment on above: Performed By: #### L 500.4100, L503.6150, L506.1001, L100.0100, L501.9985, L506.0400, L503.6550, L500.4050, L501.9520 ####[facility] [address] [place], [address] Neutrophils/100 WBC (Bld) 71.9 % High 47-70 [facility] Comment on above: Performed By: #### L 500.4100, L503.6150, L506.1001, L100.0100, L501.9985, L506.0400, L503.6550, L500.4050, L501.9520 ####[facility] [address] [place], [address] Nucleated RBC (Bld) [#/Vol] 0 10*3/uL Normal 0-5 [facility] Comment on above: Performed By: #### L 500.4100, L503.6150, L506.1001, L100.0100, L501.9985, L506.0400, L503.6550, L500.4050, L501.9520 ####[facility] [address] [place], [address] Platelet mean volume (Bld) [Entitic vol] 10.7 fL Normal 6.2-12.0 [facility] Comment on above: Performed By: #### L 500.4100, L503.6150, L506.1001, L100.0100, L501.9985, L506.0400, L503.6550, L500.4050, L501.9520 ####[facility] [address] [place], [address] Platelets (Bld) [#/Vol] 173 10*3/uL Normal 150-450 [facility] Comment on above: Performed By: #### L 500.4100, L503.6150, L506.1001, L100.0100, L501.9985, L506.0400, L503.6550, L500.4050, L501.9520 ####[facility] [address] [place], [address] RBC (Bld) [#/Vol] 4.75 10*6/uL Normal 4.2-5.4 [facility] Comment on above: Performed By: #### L 500.4100, L503.6150, L506.1001, L100.0100, L501.9985, L506.0400, L503.6550, L500.4050, L501.9520 ####[facility] [address] [place], [place], [phone] RDW SD 49.3 fl High 35.1-43.9 [facility] Comment on above: Performed By: #### L 500.4100, L503.6150, L506.1001, L100.0100, L501.9985, L506.0400, L503.6550, L500.4050, L501.9520 ####[facility] [address] [place], [place], [phone] WBC (Bld) [#/Vol] 10.8 10*3/uL Normal 4.4-11.0 [facility] Comment on above: Performed By: #### L 500.4100, L503.6150, L506.1001, L100.0100, L501.9985, L506.0400, L503.6550, L500.4050, L501.9520 ####[facility] [address] [place], [place], [phone] Calculated very low density lipoprotein (VLDL) cholesterol measurementOrdered By: Marika Raymond on 11-22-2024 Calculated very low density lipoprotein (VLDL) cholesterol measurement 18 mg/dL 5-40 [facility] Carbon dioxide, total [Moles /volume] in Central venous bloodOrdered By: Marika Raymond on 11-22-2024 CO2 [Moles/Vol] 24.9 mmol/L 21.0-32.0 [facility] Comment on above: Previous reported re sult: 25.9 mmol/LEdited by: DAVIE on 11/22/24:1318 AMENDED REPORT 11/22/24 1318 CO2 previously reported as: 25.9 mmol/L Chloride assayOrdered By: Ra anabel Raymond on 11-22-2024 Chloride [Moles/Vol] 101 mmol/L 98-108 [facility] Comprehensive Metabolic Prof ilon 11-22-2024 Albumin [Mass/Vol] 4.3 g/dL Normal 3.4-4.8 [facility] Comment on above: Performed By: #### L 500.4100, L503.6150, L506.1001, L100.0100, L501.9985, L506.0400, L503.6550, L500.4050, L501.9520 ####[facility] [address] [place], [address] Albumin/Globulin [Mass ratio] 1.8 {ratio} Normal 0.9-2.4 [facility] Comment on above: Result Comment: AMENDED REPORT 11/22/241317 A/G previously reported as: 1.7 RATIO Performed By: #### L 500.4100, L503.6150, L506.1001, L100.0100, L501.9985, L506.0400, L503.6550, L500.4050, L501.9520 ####[facility] [address] [place], [address] ALK PHOS 81 U/L Normal 35-104 [facility] Comment on above: Result Comment: AMENDED REPORT 11/22/241317 ALK P previously reported as: 79 U/L Performed By: #### L 500.4100, L503.6150, L506.1001, L100.0100, L501.9985, L506.0400, L503.6550, L500.4050, L501.9520 ####[facility] [address] [place], [place], [phone] ALT [Catalytic activity/Vol] 21 U/L Normal <=34 [facility] Comment on above: Result Comment: AMENDED REPORT 11/22/241317 ALT previously reported as: 23 U/L Performed By: #### L 500.4100, L503.6150, L506.1001, L100.0100, L501.9985, L506.0400, L503.6550, L500.4050, L501.9520 ####[facility] [address] [place], [place], [phone] AST [Catalytic activity/Vol] 15 U/L Normal <=31 [facility] Comment on above: Result Comment: AMENDED REPORT 11/22/241317 AST previously reported as: 16 U/L Performed By: #### L 500.4100, L503.6150, L506.1001, L100.0100, L501.9985, L506.0400, L503.6550, L500.4050, L501.9520 ####[facility] [address] [place], [place], [phone] Bilirubin [Mass/Vol] 0.54 mg/dL Normal 0.00-1.30 [facility] Comment on above: Result Comment: AMENDED REPORT 11/22/241317 T BILI previously reported as: 0.58 mg/dL Performed By: #### L 500.4100, L503.6150, L506.1001, L100.0100, L501.9985, L506.0400, L503.6550, L500.4050, L501.9520 ####[facility] [address] [place], [place], [phone] BUN/CRE 15.1 RATIO Normal 10-20 [facility] Comment on above: Result Comment: AMENDED REPORT 11/22/241317 BUN/CRE previously reported as: 14.5 RATIO Performed By: #### L 500.4100, L503.6150, L506.1001, L100.0100, L501.9985, L506.0400, L503.6550, L500.4050, L501.9520 ####[facility] [address] [place], [place], [phone] Calcium [Mass/Vol] 9.7 mg/dL Normal 7.6-11.0 [facility] Comment on above: Result Comment: AMENDED REPORT 11/22/241317 CA previously reported as: 9.6 mg/dL Performed By: #### L 500.4100, L503.6150, L506.1001, L100.0100, L501.9985, L506.0400, L503.6550, L500.4050, L501.9520 ####[facility] [address] [place], [address] Chloride [Moles/Vol] 101 mmol/L Normal 98-108 [facility] Comment on above: Performed By: #### L 500.4100, L503.6150, L506.1001, L100.0100, L501.9985, L506.0400, L503.6550, L500.4050, L501.9520 ####[facility] [address] [place], [address] CO2 [Moles/Vol] 24.9 mmol/L Normal 21.0-32.0 [facility] Comment on above: Result Comment: AMENDED REPORT 11/22/241317 CO2 previously reported as: 25.9 mmol/L Performed By: #### L 500.4100, L503.6150, L506.1001, L100.0100, L501.9985, L506.0400, L503.6550, L500.4050, L501.9520 ####[facility] [address] [place], [address] Creatinine [Mass/Vol] 1.05 mg/dL Normal 0.70-1.20 [facility] Comment on above: Result Comment: AMENDED REPORT 11/22/241317 CREAT,SERUM previously reported as: 1.07 mg/dL Performed By: #### L 500.4100, L503.6150, L506.1001, L100.0100, L501.9985, L506.0400, L503.6550, L500.4050, L501.9520 ####[facility] [address] [place], [address] GAP 14 Normal 5-15 [facility] Comment on above: Performed By: #### L 500.4100, L503.6150, L506.1001, L100.0100, L501.9985, L506.0400, L503.6550, L500.4050, L501.9520 ####[facility] [address] [place], [address] Globulin (S) [Mass/Vol] 2.4 g/dL Normal 2.2-4.2 [facility] Comment on above: Result Comment: AMENDED REPORT 11/22/241317 GLOB previously reported as: 2.6 g/dL Performed By: #### L 500.4100, L503.6150, L506.1001, L100.0100, L501.9985, L506.0400, L503.6550, L500.4050, L501.9520 ####[facility] [address] [place], [address] Glucose [Mass/Vol] 72 mg/dL Normal 70-99 [facility] Comment on above: Result Comment: AMENDED REPORT 11/22/241317 GLU previously reported as: 73 mg/dL Performed By: #### L 500.4100, L503.6150, L506.1001, L100.0100, L501.9985, L506.0400, L503.6550, L500.4050, L501.9520 ####[facility] [address] [place], [address] Potassium [Moles/Vol] 3.8 mmol/L Normal 3.3-5.1 [facility] Comment on above: Result Comment: AMENDED REPORT 11/22/241317 K previously reported as: 3.7 mmol/L Performed By: #### L 500.4100, L503.6150, L506.1001, L100.0100, L501.9985, L506.0400, L503.6550, L500.4050, L501.9520 ####[facility] [address] [place], [place], [phone] Sodium [Moles/Vol] 140 mmol/L Normal 133-145 [facility] Comment on above: Performed By: #### L 500.4100, L503.6150, L506.1001, L100.0100, L501.9985, L506.0400, L503.6550, L500.4050, L501.9520 ####[facility] [address] [place], [place], [phone] T PROT 6.7 g/dL Normal 5.9-8.4 [facility] Comment on above: Result Comment: AMENDED REPORT 11/22/241317 T PROT previously reported as: 6.9 g/dL Performed By: #### L 500.4100, L503.6150, L506.1001, L100.0100, L501.9985, L506.0400, L503.6550, L500.4050, L501.9520 ####[facility] [address] [place], [place], [phone] Urea nitrogen [Mass/Vol] 16 mg/dL Normal 4-19 [facility] Comment on above: Performed By: #### L 500.4100, L503.6150, L506.1001, L100.0100, L501.9985, L506.0400, L503.6550, L500.4050, L501.9520 ####[facility] [address] [place], [place], [phone] Eosinophil percentageOrdered By: Marika Raymond on 09-15-2025 Eosinophils/100 WBC (Bld) 0.0 % 0-5 [facility] Erythrocyte distribution wid th ratioOrdered By: Vallejo Segundo on 11-22-2024 Erythrocyte distribution width (RBC) [Ratio] 14.6 % 11.6-14.6 [facility] Erythrocyte distribution wid th standard deviationOrdered By: [facility] on 11-22-2024 Erythrocyte distribution width (RBC) [Ratio] 49.3 fl High 35.1-43.9 [facility] Ferritinon 11-22-2024 Ferritin [Mass/Vol] 53 ng/mL Normal 22-378 [facility] Comment on above: Performed By: #### L 500.4100, L503.6150, L506.1001, L100.0100, L501.9985, L506.0400, L503.6550, L500.4050, L501.9520 ####[facility] [address] [place], [place], [phone] Glomerular filtration rate ( GFR) estimation/1.73 sq m using serum, plasma, or whole bOrdered By: [facility] on 11-22-2024 GFR/1.73 sq M.predicted among non-blacks MDRD (S/P/Bld) [Vol rate/Area] 59 mL/min/{1.73_m2} Low >60 [facility] Comment on above: mL/min/1.73m2 CKD-EP I Creatinine Equation (2020) Hematocrit Auto (Bld) [Volum e fraction]Ordered By: [facility] on 11-22-2024 Hematocrit (Bld) [Volume fraction] 43.7 % 37-47 [facility] Hemoglobin A1con 11-22-2024 HbA1c (Bld) [Mass fraction] 5.8 % High <=5.6 [facility] Comment on above: Result Comment: Norm al < 5.7 % Prediabetic 5.7 - 6.4 % Diabetic >or= 6.5 % Please note range changes. Performed By: #### L 500.4100, L503.6150, L506.1001, L100.0100, L501.9985, L506.0400, L503.6550, L500.4050, L501.9520 ####[facility] [address] [place], [place], [phone] Hemoglobin A1c percentageOrd ered By: Marika Raymond on 11-22-2024 HbA1c (Bld) [Mass fraction] 5.8 % High <5.7 [facility] Comment on above: Normal < 5.7 % Predi abetic 5.7 - 6.4 % Diabetic >or= 6.5 % Please note range changes. Hemoglobin measurementOrdere d By: Marika Raymond on 11-22-2024 Hemoglobin (Bld) [Mass/Vol] 14.8 g/dL 12.0-15.0 [facility] Immature granulocytes/100 WB C Auto (Bld)Ordered By: Marika Raymond on 11-22-2024 Immature granulocytes/100 WBC (Bld) 0.600 % 0.0-0.9 [facility] Comment on above: IG% - Immature Granu locytes (promyelocytes, myelocytes and metamyelocytes) > 1% indicates that a LEFT SHIFT is Present. Ironon 11-22-2024 Iron [Mass/Vol] 76 ug/dL Normal 50-170 [facility] Comment on above: Performed By: #### L 500.4100, L503.6150, L506.1001, L100.0100, L501.9985, L506.0400, L503.6550, L500.4050, L501.9520 ####[facility] [address] [place], [place], [phone] Iron measurement (mass/mass) Ordered By: Marika Raymond on 11-22-2024 Iron (Unsp spec) [Mass/Mass] 76 ug/dL 50-170 [facility] LDL calc ser/plasOrdered By: Marika Raymond on 11-22-2024 Cholesterol in LDL [Mass/Vol] 88 mg/dL [facility] Comment on above: Whcjgszgkw=886-529 m g/dL & Higher Gtbr=231 mg/dL or greaterFriedwald Equation for LDL-C Laboratory - Chemistry and C hemistry - challengeOrdered By: Marika Raymond on 11-22-2024 AST [Catalytic activity/Vol] 15 U/L <32 [facility] Comment on above: Previous reported re sult: 16 U/LEdited by: DAVIE on 11/22/24:1318 AMENDED REPORT 11/22/24 1318 AST previously reported as: 16 U/L Lipid Profileon 11-22-2024 CHOL:HDL 2.09 Normal [facility] Comment on above: Performed By: #### L 500.4100, L503.6150, L506.1001, L100.0100, L501.9985, L506.0400, L503.6550, L500.4050, L501.9520 ####[facility] [address], [address] Cholesterol [Mass/Vol] 204 mg/dL High <=200 [facility] Comment on above: Result Comment: Chol esterol level, Desirable <200 mg/dL Borderline high cholesterol 200-239 mg/dL High cholesterol >=240 mg/dL Recommendations of the NCEP Adult Treatment Panel for the following risk-cutoff thresholds for the [place] population. Performed By: #### L 500.4100, L503.6150, L506.1001, L100.0100, L501.9985, L506.0400, L503.6550, L500.4050, L501.9520 ####[facility] [address] [place], [address] Cholesterol in HDL [Mass/Vol] 98 mg/dL Normal [facility] Comment on above: Result Comment: Ruma onal Cholesterol Education Program (NCEP) guidelines: <40 mg/dL: Low HDL-cholesterol (major risk factor for CHD) >= 60 mg/dL: High HDL-cholesterol (negative risk factor for CHD) HDL-cholesterol is affected by a number of factors, e.g. smoking, exercise, hormones, sex and age. Performed By: #### L 500.4100, L503.6150, L506.1001, L100.0100, L501.9985, L506.0400, L503.6550, L500.4050, L501.9520 ####[facility] [address] [place], [address] Cholesterol in LDL [Mass/Vol] 88 mg/dL Normal [facility] Comment on above: Result Comment: Bord bavqpz=713-226 mg/dL Higher Qyzl=698 mg/dL or greater Friedwald Equation for LDL-C Performed By: #### L 500.4100, L503.6150, L506.1001, L100.0100, L501.9985, L506.0400, L503.6550, L500.4050, L501.9520 ####[facility] [address] [place], [address] Cholesterol in VLDL [Mass/Vol] 18 mg/dL Normal 5-40 [facility] Comment on above: Performed By: #### L 500.4100, L503.6150, L506.1001, L100.0100, L501.9985, L506.0400, L503.6550, L500.4050, L501.9520 ####[facility] [address] [place], [address] Triglyceride [Mass/Vol] 92 mg/dL Normal [facility] Comment on above: Result Comment: The drugs N-Acetylcysteine and Metamizole may falsely depress this assay. Normal range: <150 mg/dL Borderline High: 150-199 mg/dL High: 200-499 mg/dL Very High: >500 mg/dL Performed By: #### L 500.4100, L503.6150, L506.1001, L100.0100, L501.9985, L506.0400, L503.6550, L500.4050, L501.9520 ####[facility] [address] [place], [address] MCV (mean corpuscular volume ) determinationOrdered By: Marika Raymond on 11-22-2024 MCV (RBC) [Entitic vol] 92.0 fL 81-99 [facility] Mean corpuscular hemoglobin (MCH) determinationOrdered By: Marika Raymond on 11-22-2024 MCH (RBC) [Entitic mass] 31.2 pg 27.0-32.0 [facility] Mean corpuscular hemoglobin concentration (MCHC) determinationOrdered By: Marika Raymond on 11-22-2024 MCHC (RBC) [Mass/Vol] 33.9 g/dL 32-36 [facility] Mean platelet volume determi nationOrdered By: Marika Raymond on 11-22-2024 Platelet mean volume (Bld) [Entitic vol] 10.7 fL 6.2-12.0 [facility] Monocyte percentageOrdered B y: Marika Raymond on 11-22-2024 Monocytes/100 WBC (Bld) 3.8 % 0-10 [facility] Neutrophil percentageOrdered By: Marika Raymond on 11-22-2024 Neutrophils/100 WBC (Bld) 71.9 % High 47-70 [facility] Nucleated red blood cell per centageOrdered By: Marika Raymond on 11-22-2024 Nucleated RBC/100 WBC (Bld) [Ratio] 0 % 0-5 [facility] Platelet countOrdered By: Ra anabel Raymond on 11-22-2024 Platelets (Bld) [#/Vol] 173 10*3/uL 150-450 [facility] Potassium measurement (mass/ volume)Ordered By: Marika Raymond on 11-22-2024 Potassium (Unsp spec) [Mass/Vol] 3.8 mmol/L 3.3-5.1 [facility] Comment on above: Previous reported re sult: 3.7 mmol/LEdited by: AUTOINS on 11/22/24:1318 AMENDED REPORT 11/22/24 1318 K previously reported as: 3.7 mmol/L RBC Auto (Bld) [#/Vol]Ordere d By: Marika Raymond on 11-22-2024 RBC (Bld) [#/Vol] 4.75 10*6/uL 4.2-5.4 [facility] Screening total cholesterol/ high density lipoprotein (HDL) cholesterol ratioOrdered By: Marika Raymond on 09-15-2025 Cholesterol.total/Chol esterol in HDL [Mass ratio] 2.09 {ratio} [facility] Serum creatinine measurement (mass/volume)Ordered By: Marika Raymond on 11-22-2024 Creatinine [Mass/Vol] 1.05 mg/dL 0.70-1.20 [facility] Comment on above: Previous reported re sult: 1.07 mg/dLEdited by: DAVIE on 11/22/24:1318 AMENDED REPORT 11/22/24 1318 CREAT,SERUM previously reported as: 1.07 mg/dL Serum globulin measurementOr dered By: Marika Raymond on 11-22-2024 Globulin (S) [Mass/Vol] 2.4 g/dL 2.2-4.2 [facility] Comment on above: Previous reported re sult: 2.6 g/dLEdited by: DAVIE on 11/22/24:1318 AMENDED REPORT 11/22/24 1318 GLOB previously reported as: 2.6 g/dL Serum glucose measurement (m ass/volume)Ordered By: Marika Raymond on 11-22-2024 Glucose [Mass/Vol] 72 mg/dL 70-99 [facility] Comment on above: Previous reported re sult: 73 mg/dLEdited by: DAVIE on 11/22/24:1318 AMENDED REPORT 11/22/24 1318 GLU previously reported as: 73 mg/dL Serum or plasma alanine soto otransferase (ALT) measurementOrdered By: Marika Raymond on 11-22-2024 ALT [Catalytic activity/Vol] 21 U/L <35 [facility] Comment on above: Previous reported re sult: 23 U/LEdited by: DAVIE on 11/22/24:1318 AMENDED REPORT 11/22/24 1318 ALT previously reported as: 23 U/L Serum or plasma albumin nas urement (mass/volume)Ordered By: Marika Raymond on 11-22-2024 Albumin [Mass/Vol] 4.3 g/dL 3.4-4.8 [facility] Serum or plasma albumin/glob ulin mass ratioOrdered By: Marika Raymond on 11-22-2024 Albumin/Globulin [Mass ratio] 1.8 {ratio} 0.9-2.4 [facility] Comment on above: Previous reported re sult: 1.7 RATIOEdited by: AUTOINS on 11/22/24:1318 AMENDED REPORT 11/22/241317 A/G previously reported as: 1.7 RATIO Serum or plasma alkaline matias sphatase measurementOrdered By: Marika Raymond on 11-22-2024 ALP [Catalytic activity/Vol] 81 U/L 35-104 [facility] Comment on above: Previous reported re sult: 79 U/LEdited by: AUTOINS on 11/22/24:1318 AMENDED REPORT 11/22/241317 ALK P previously reported as: 79 U/L Serum or plasma calcium nas urement (mass/volume)Ordered By: Marika Raymond on 11-22-2024 Calcium [Mass/Vol] 9.7 mg/dL 7.6-11.0 [facility] Comment on above: Previous reported re sult: 9.6 mg/dLEdited by: AUTOINS on 11/22/24:1318 AMENDED REPORT 11/22/241317 CA previously reported as: 9.6 mg/dL Serum or plasma cholesterol in HDL measurement (mass/volume)Ordered By: Marika Raymond on 11-22-2024 Cholesterol in HDL [Mass/Vol] 98 mg/dL >40 [facility] Comment on above: National Cholesterol Education Program (NCEP) guidelines:<40 mg/dL: Low HDL-cholesterol (major risk factor for CHD)>= 60 mg/dL: High HDL-cholesterol (negative risk factor for CHD)HDL-cholesterol is affected by a number of factors, e.g. smoking, exercise, hormones, sex and age. Serum or plasma cholesterol measurement (mass/volume)Ordered By: Marika Raymond on 11-22-2024 Cholesterol [Mass/Vol] 204 mg/dL High <201 [facility] Comment on above: Cholesterol level, D esirable <200 mg/dLBorderline high cholesterol 200-239 mg/dLHigh cholesterol >=240 mg/dLRecommendations of the NCEP Adult Treatment Panel for the following risk-cutoff thresholds for the [place] population. Serum or plasma ferritin ricardo surement (mass/volume)Ordered By: Marika Raymond on 11-22-2024 Ferritin [Mass/Vol] 53 ng/mL 22-378 [facility] Serum or plasma urea nitroge n measurement (mass/volume)Ordered By: Marika Raymond on 11-22-2024 Urea nitrogen [Mass/Vol] 16 mg/dL 4-19 [facility] Sodium levelOrdered By: Lydia franklyn Segundo on 11-22-2024 Sodium [Moles/Vol] 140 mmol/L 133-145 [facility] T4 Free Directon 11-22-2024 T4 FREE DIRECT 1.30 ng/dL Normal 0.76-1.46 [facility] Comment on above: Result Comment: AMENDED REPORT 11/22/241317 Free T4 previously reported as: 1.40 ng/dL Performed By: #### L 500.4100, L503.6150, L506.1001, L100.0100, L501.9985, L506.0400, L503.6550, L500.4050, L501.9520 ####[facility] [id number] [place], [address] T4 freeOrdered By: Marika fonseca on 11-22-2024 Free T4 [Mass/Vol] 1.30 ng/dL 0.76-1.46 [facility] Comment on above: Previous reported re sult: 1.40 ng/dLEdited by: AUTOINS on 11/22/24:1318 AMENDED REPORT 11/22/241317 Free T4 previously reported as: 1.40 ng/dL TSH DL <= 0.005 mIU/L QnOrde red By: Marika Raymond on 11-22-2024 TSH Qn 1.310 uIU/mL 0.300-4.200 [facility] Comment on above: Previous reported re sult: 1.330 uIU/mLEdited by: AUTOINS on 11/22/24:1318 AMENDED REPORT 11/22/241317 TSH previously reported as: 1.330 uIU/mL Thyroid Stim Hormone (TSH)on 11-22-2024 TSH 1.310 uIU/mL Normal 0.300-4.200 [facility] Comment on above: Result Comment: AMENDED REPORT 11/22/241317 TSH previously reported as: 1.330 uIU/mL Performed By: #### L 500.4100, L503.6150, L506.1001, L100.0100, L501.9985, L506.0400, L503.6550, L500.4050, L501.9520 ####[facility] [id number] [place], [address] Total proteinOrdered By: Tawana Raymond on 11-22-2024 Protein [Mass/Vol] 6.7 g/dL 5.9-8.4 [facility] Comment on above: Previous reported re sult: 6.9 g/dLEdited by: DAVIE on 11/22/24:1318 AMENDED REPORT 11/22/241317 T PROT previously reported as: 6.9 g/dL Triglycerides measurementOrd ered By: Marika Raymond on 11-22-2024 Triglyceride [Mass/Vol] 92 mg/dL <199 [facility] Comment on above: The drugs N-Acetylcy steine and Metamizole may falsely depress this assay. Normal range: <150 mg/dLBorderline High: 150-199 mg/dLHigh: 200-499 mg/dLVery High: >500 mg/dL Vitamin D,25 Hydroxyon 11-22 Vitamin D 25-OH 33.1 ng/mL Normal 30-100 [facility] Comment on above: Result Comment: Carline min D Status Deficiency: <20 ng/mL (50nmol/L) Insufficiency: 20-30 ng/mL (50-75 nmol/L) Sufficiency: 30-100 ng/mL (75-250 nmol/L) Toxicity: >100 ng/mL (>250 nmol/L) AMENDED REPORT 11/22/241317 Vitamin D 25-OH previously reported as: 31.2 ng/mL Vitamin D Status Deficiency: <20 ng/mL (50nmol/L) Insufficiency: 20-30 ng/mL (50-75 nmol/L) Sufficiency: 30-100 ng/mL (75-250 nmol/L) Toxicity: >100 ng/mL (>250 nmol/L) Performed By: #### L 500.4100, L503.6150, L506.1001, L100.0100, L501.9985, L506.0400, L503.6550, L500.4050, L501.9520 ####[facility] [id number] [place], [address] White blood cell (WBC) count Ordered By: Marika Raymond on 11-22-2024 WBC (Bld) [#/Vol] 10.8 10*3/uL 4.4-11.0 [facility] Relevant diagnostic tests/la boratory data Narrativeon 11-17-2024 MEDS REVIEWD Medications reviewed without changes [employer] Work Phone: Relevant diagnostic tests/la boratory data Narrativeon 10-27-2024 Fall risk assessment no ANTHONY [employer] Work Phone: MEDS REVIEW Done [employer] Work Phone: MEDS REVIEWD Medications reviewed without changes [employer] Work Phone: Emergency Department Summary on 10-22-2024 Emergency Department Summary [facility] Medical Records Department [address] [place] [address] Emergency Department Summary 10/22/24 MR#: [id number] Acct: [id number] Name: MARISSA MILLER Rep #: [id number] : 1960 63 From: Darci Rachel MD PCP: Marika Raymond, HOME HEALTH ATTENDANT-C Status:REG ER Location: ED HPI History of Present Illness Chief Complaint: Back Detail of Chief Complaint: Exacerbation of chronic back pain. Informant: patient Onset/Context/Timing Onset: Yesterday Context: Sudden Onset Chronic pain exacerbated by: Nothing specific Timing: Continuous Quality: Dull Location: Lumbar Current Severity: Moderate Maximum Severity: Severe Worsened by: improves with Movement, Ambulation and Bending Relieved by: Nothing Associated Symptoms Associated Symptoms: Numbness (Chronic numbness right lower extremity.), Radiation to Right Leg, Radiation to Left Leg and - (Denies saddle anesthesia or paresthesia, denies foot drop. Denies buckling of her knees going up or down steps.); Negative for Fever, Abdominal Pain, Dysuria, Unable to Ambulate, Unable to Transfer, Urinary Retention, Urinary Incontinence, Constipation or Fecal Incontinence Narrative Narrative: Patient is a 63-year-old with history of chronic back pain multiple surgeries by Dr. Hector Hogue at [facility]. She is now seeing Dr. Juan Pablo Valderrama. She has not had an MRI in a month or 2. She complains of low back pain that radiates to both the right and left greater trochanteric region. She denies bowel bladder dysfunction. Denies saddle paresthesia or anesthesia. She denies pain going down the back of her leg. She denies recent dental procedure. She denies fever or chills. She has no history of endocarditis or IV drug use. There is no specific inciting event. She states she has chronic numbness in her right leg. She has had multiple discectomies and fusion. Patient prefer to sit over standing. There is no history of trauma. Prior similar symptoms: Yes Recent Illness/Hospitalization : No PFSH PFS Medical History Tobacco use disorder, continuous Encounter for screening for malignant neoplasm of lung Diarrhea Wears glasses Wears dentures Post-menopausal Depression Marijuana use Bladder disease Anemia High cholesterol Back pain History of hiatal hernia History of ulceration History of IBS Gastric reflux Smoker Shortness of breath on exertion Leg cramps History of pain when walking History of stress test Asthma COPD (chronic obstructive pulmonary disease) HTN (hypertension) Arthritis Thyroid disease Diabetes Home Medications ???Medication ???Instructions ???Recorded ???Last Taken ???Type atorvastatin 40 mg tablet 40 mg PO QHS 07/20/15 08/11/23 His tory duloxetine 60 mg capsule,delayed 60 mg PO BID 07/20/15 08/11/23 His tory release cyclobenzaprine 10 mg tablet 1 tab PO TID PRN PRN pain 09/01/21 08/11/23 History glimepiride 4 mg tablet 4 mg PO DAILY 09/01/21 08/11/23 Hi story levothyroxine 112 mcg tablet 112 mcg PO QDAY 07/04/23 08/12/23 History lisinopril 10 mg tablet 10 mg PO QDAY 07/04/23 08/12/23 Hi story albuterol sulfate 90 mcg/actuation 2 puff inhalation 4X/DAY PRN Unknown History aerosol inhaler shortness of breath or wheezing esomeprazole magnesium 40 mg 40 mg PO DAILY #30 caps 07/24/23 0 08/12/23 Rx capsule,delayed release pregabalin 150 mg capsule 150 mg PO TID 08/11/23 08/12/23 Hi story medical marjuana miscellaneous 03/23/24 Unknown His tory fluticasone fur. 200 mcg-umeclid 1 inh inhalation QDAY 03/30/24 Unk nown History 62.5 mcg-vilant 25 mcg inhalat.powder (Trelegy Ellipta) albuterol sulfate 0.63 mg/3 mL 0.63 mg inhalation Q4-6H PRN 09/21 Unknown History solution for nebulization albuterol sulfate 90 mcg/actuation 1 puff inhalation Q4-6H 09/21/24 Unknown History aerosol inhaler (Ventolin HFA) azithromycin 250 mg tablet See Rx Instructions PO .COMPLEX #6 09/21/24 Unknown Rx tabs buspirone 10 mg tablet 20 mg PO TID PRN anxiety 09/21/24 Unknown History celecoxib 200 mg capsule 200 mg PO DAILY 09/21/24 Unknown H istory guaifenesin 1,200 mg tablet, 1,200 mg PO .QD #90 tabs 09/21/24 Unknown Rx extended release 12 hr (Mucinex) omeprazole 40 mg capsule,delayed 40 mg PO QDAY 09/21/24 Unknown His tory release ondansetron HCl 4 mg tablet 4 mg PO BID PRN 09/21/24 Unknown H istory oxybutynin chloride 5 mg 5 mg PO QDAY 09/21/24 Unknown Hist ory tablet,extended release 24 hr prednisone 10 mg tablet 10 mg PO QDAY #27 tabs 09/21/24 Un known Rx semaglutide 0.5 mg/0.1 mL mg subcut 09/21/24 Unknown History subcutaneous syringe tramadol 50 mg tablet 50 mg PO QD-BID PRN pain 09/21/24 Unknown History hydrocodone-acetaminoph en 5-325mg 1 tab PO Q6H (more content not included)... Normal [facility] Relevant diagnostic tests/la boratory data Narrativeon 10-20-2024 MEDS REVIEWD Medications reviewed without changes [employer] Work Phone: Pulmonary Visit Reporton Pulmonary Visit Report [facility] [address] [place] [address] OFFICE VISIT Date of Service: 09/21/24 MR#: [id number] Acct: [id number] Name: MARISSA MILLER Rep #: [id number] : 1960 Provider: Zoran Jackson NP Age/Sex: 63/F [facility] [facility] Status: Signed with Addenda ADDENDUM by Zoran Jackson NP on 09/21/24 at 1130 Assessment and Plan Assessment and Plan (1) Asthma-COPD overlap syndrome: Status: Chronic Plan: The patient did have inspiratory and expiratory wheezing on today's exam along with scattered rhonchi throughout. (2) Smoking greater than 40 pack years: Status: Chronic Medications: New guaifenesin ER (Mucinex) 1,200 mg PO .QD 90 tabs 3RF azithromycin For 250 mg dose pack: take 500 mg today (day 1), then 250 mg for 4 days (days 2-5) PO 6 tabs 0RF prednisone take 4 tabs for three days, then 3 tabs for three days, then 2 tabs for three days 10 mg PO QDAY 27 tabs 0RF Plan Details Follow Up: 6 to 8 weeks (LMR) 09/21/24 7678 Date Zoran Jackson NP-C cc: * Signed Assessment and Plan Assessment and Plan (1) Asthma-COPD overlap syndrome: Status: Chronic Plan: Although the PFT is grossly normal there is a 10% change seen with use of beta agonist in FEV1. The patient does have seasonal allergy symptoms. She reports specifically grass is a trigger. There is significant bronchospasm on today's exam. There is emphysema identified on CT imaging. The patient is currently exacerbating and I recommend that she be treated with oral prednisone and a Z-Yuan. The patient reports that she has had Z-Yuan's in the past and has not had side effects despite the side effect of nausea reported with use of clarithromycin. I have asked for her to increase her frequency of albuterol nebulized. She does have a nebulizing device that has a flutter component to it. I have prescribed her with Mucinex as well. She reports that OTC Mucinex is beneficial but costly for her. She does not require supplemental oxygen based off of the recent 6-minute walk test. The patient does have a history of elevated eosinophils from her blood work in February 2024. Her eosinophilic count is 158.4. Nucala may be an option if she continues to have exacerbations. I recommend that she follow-up in 6 to 8 weeks to reassess. (2) Smoking greater than 40 pack years: Status: Chronic Plan: Encourage complete smoking cessation. The patient previously was able to quit smoking for 12 years, unfortunately started smoking a few years ago again. She is appropriate for LDCT, previously ordered and planned for March 2025. Medications: New guaifenesin ER (Mucinex) 1,200 mg PO .QD 90 tabs 3RF azithromycin For 250 mg dose pack: take 500 mg today (day 1), then 250 mg for 4 days (days 2-5) PO 6 tabs 0RF prednisone take 4 tabs for three days, then 3 tabs for three days, then 2 tabs for three days 10 mg PO QDAY 27 tabs 0RF Plan Details Follow Up: 6 to 8 weeks (LMR) HPI HPI Comments Details: Patient is a 63-year-old female who presents today for follow-up of recent testing. She is ambulatory and currently on room air. She has not recently been seen in the ED or urgent care for any respiratory illness. She has not required any antibiotics or prednisone for any breathing problems. The patient reports that she has a significant home smoking history. She smoked a pack a day for many years and continues to smoke 1/2 pack/day. She is using Trelegy 200, 1 puff daily. She has not had difficulty with sore throat or hoarseness. She has used her albuterol HFA 1-2 times daily. She has significant benefit with use of albuterol. She has not routinely used her nebulizer. She has had a wheeze present. She reports that she has exertional shortness of breath. She also indicates that she has had a little tightness in her chest. She also has a cough that is producing yellow sputum. She denies any specific hemoptysis. She denies chest pain and chest palpitations. She also denies any fever, chills or body aches. The patient is currently retired. 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 She has a back injury. Past medical family history significant for: Mother had stomach cancer, and COPD was a smoker. Father also had COPD. He had a pacer and stent placement. She has 1 sister with good health. She has a brother who has some breathing issues, she believes has COPD and is status post partial lobectomy to treat lung cancer. The patient has no biological children. Low-dose CT lung screening completed on March 23, 2024. 3.1 mm noncalcified nodule in the anterior peripheral aspect of the right upper lobe. Mild degree of emphysematous changes. Recommendat (more content not included)... Normal [facility] 6 Minute Walk Teston 025 6 Minute Walk Test y [facility] Pulmonary Services/Neurology [address] [place] [address] MR#: [id number] Acct: [id number] Name: MARISSA MILLER Rep #: [id number] : 1960 63 From: Papi Rai DO Referring Dr: Talia Dawkins NP HOME HEALTH ATTENDANT-C Status: REG CLI Location: PSN Date: Sex: F C PSN 6 Minute Walk Test 6 Minute Walk Test 6 Minute Walk Test: 6 Minute Walk Test PSN:6-Minute Walk Test Start: 08/12/24 08:36 Freq: Status: Active Protocol: RESP.6MINW Document 08/12/24 08:36 [facility] (Rec: 08/12/24 08:41 [facility] [id number]) 6 Minute Walk Test Date Performed 08/12/24 Time Performed 08:15 Height 5 ft 3.5 in Weight: 182 lb Weight in Pounds 182.[address]: Talia Dawkins NP Assistive device None used: Pre-test Oxygen Delivery Room Air Method Pulse Ox (%) 97 Pulse Rate (60-100 91 beats/min) Dyspnea Vani Scale ( 2 0-10) Exertion Vani Scale 7 (6-20) 1st minute Oxygen Delivery Room Air Method Pulse Ox (%) 95 Pulse Rate (60-100 94 beats/min) Dyspnea Vani Scale ( 2 0-10) Number of Rests 0 Taken 2nd minute Oxygen Delivery Room Air Method Pulse Ox (%) 95 Pulse Rate (60-100 100 beats/min) Dyspnea Vani Scale ( 2 0-10) Number of Rests 0 Taken 3rd minute Oxygen Delivery Room Air Method Pulse Ox (%) 97 Pulse Rate (60-100 102 H beats/min) Dyspnea Vani Scale ( 2 0-10) Number of Rests 0 Taken 4th minute Oxygen Delivery Room Air Method Pulse Ox (%) 94 Pulse Rate (60-100 102 H beats/min) Dyspnea Vani Scale ( 3 0-10) Number of Rests 0 Taken Reported Symptoms Increased Work of Breathing 5th minute Oxygen Delivery Room Air Method Pulse Ox (%) 96 Pulse Rate (60-100 103 H beats/min) Dyspnea Vani Scale ( 3 0-10) Number of Rests 0 Taken Reported Symptoms Increased Work of Breathing 6th minute Oxygen Delivery Room Air Method Pulse Ox (%) 95 Pulse Rate (60-100 104 H beats/min) Dyspnea Vani Scale ( 3 0-10) Exertion Vani Scale 7 (6-20) Number of Rests 0 Taken Reported Symptoms Increased Work of Breathing Post-test Oxygen Delivery Room Air Method Pulse Ox (%) 98 Pulse Rate (60-100 94 beats/min) Dyspnea Vani Scale ( 2 0-10) Full Laps Walked 16 Partial Lap, Number 37 of Tiles Walked Total Distance 981 Walked (ft) Interpretation Interpretation: The patient ambulated 981 feet over the course of 6 minutes beginning on room air without assistive devices. Pretesting oxygen saturation was noted to be 97% on room air. With ambulation, the lenny oxygen saturation was 94%. There was no significant exertional oxygen desaturation. Recommendations Recommendations: There is no indication for the use of supplemental oxygen at this time. 08/13/24 1308 Date Papi Rai DO CC: Date Dictated: 08/13/24 130 Date Transcribed: 08/13/241306 Wood Lather: Dr. Papi Rai, DO Signed Normal [facility] Magnetic resonance imaging r eportOrdered By: Rafael Syed on 07-20-[address] [facility] Imaging Services [address] [place] [address] Upper Ext Joint Only(Routine) MR#: [id number] Acct: [id number] Name: MARISSA MILLER Rep #: [id number] : 1960 F 63 From: Janeen Syed MD PCP: NIKOLAI Zuleta Status: REG CLI Study:Upper Ext Joint Only(Routine) Date of Exam: 07/19/24 Exam# [id number] Ordering Dr: Ra anabel Raymond PROCEDURE: UPPER EXT JOINT ONLY(ROUTINE) 07/19/2024 REASON FOR EXAM: RT ELBOW PAIN TECHNIQUE: MRI of the right elbow T1, T2, stir, multiplanar and multisequence images were obtained without IV contrast administration. COMPARISON: COMPARISON : July 05, 2024 FINDINGS: Bone Marrow: There is normal marrow signal seen in the distal humerus and in thevisualized radius and ulna with no evidence of bony contusion or occult injury. Effusion: There is no joint effusion. Soft Tissues: The biceps and triceps tendons are normal in appearance. There is a partial-thickness undersurface tear of the common extensor tendon origin. There is moderate thickening of the radial collateral ligament without full-thickness tear or laxity. The lateral ulnar collateral ligament shows mild thickening with attenuation of the proximal portion without tear. There is normal alignment of the radiocapitellar articulation. The common flexor tendon is normal in appearance. The brachialis tendon is normal in appearance. Neurovascular bundle and ulnar nerves are normal in appearance. MRI/Upper Ext Joint Only(Routine) IMPRESSION: There is a partial-thickness undersurface tear of the common extensor tendon origin. There is moderate thickening of the radial collateral ligament without full-thickness tear or laxity. The lateral ulnar collateral ligament shows mild thickening with attenuation of the proximal portion without tear. Findings are consistent with lateral epicondylitis. Reading Location: [facility] CC: NIKOLAI Raymond ~ Wood Lather: Signed [facility] Upper Ext Joint Only(Routine )on 07-19-2024 Upper Ext Joint Only(Routine) [facility] Imaging Services [address] [place] [address] Upper Ext Joint Only(Routine) MR#: [id number] Acct: [id number] Name: MARISSA MILLER Rep #: [id number] : 1960 F 63 From: Rafael Syed MD PCP: NIKOLAI Zuleta Status: REG CLI Study: Upper Ext Joint Only(Routine) Date of Exam: 0 07/19/24 Exam# [id number] Ordering Dr: Marika Raymond PROCEDURE: UPPER EXT JOINT ONLY(ROUTINE) 07/19/2024 REASON FOR EXAM: RT ELBOW PAIN TECHNIQUE: MRI of the right elbow T1, T2, stir, multiplanar and multisequence images were obtained without IV contrast administration. COMPARISON: COMPARISON : July 05, 2024 FINDINGS: Bone Marrow: There is normal marrow signal seen in the distal humerus and in the visualized radius and ulna with no evidence of bony contusion or occult injury. Effusion: There is no joint effusion. Soft Tissues: The biceps and triceps tendons are normal in appearance. There is a partial-thickness undersurface tear of the common extensor tendon origin. There is moderate thickening of the radial collateral ligament without full-thickness tear or laxity. The lateral ulnar collateral ligament shows mild thickening with attenuation of the proximal portion without tear. There is normal alignment of the radiocapitellar articulation. The common flexor tendon is normal in appearance. The brachialis tendon is normal in appearance. Neurovascular bundle and ulnar nerves are normal in appearance. MRI/Upper Ext Joint Only(Routine) IMPRESSION: There is a partial-thickness undersurface tear of the common extensor tendon origin. There is moderate thickening of the radial collateral ligament without full-thickness tear or laxity. The lateral ulnar collateral ligament shows mild thickening with attenuation of the proximal portion without tear. Findings are consistent with lateral epicondylitis. Reading Location: [facility] CC: HOME HEALTH ATTENDANTMercedes Raymond Wood Lather: Signed Normal [facility] Elbow min 3 Viewson 07-06-19 [address] [facility] Imaging Services [address] [place] [address] Elbow min 3 Views MR#: [id number] Acct: [id number] Name: MARISSA MILLER Rep #: [id number] : 1960 F 63 From: Landen Sanchez MD PCP: NIKOLAI Zuleta Status: REG CLI Study: Elbow min 3 Views Date of Exam: 07/05/24 Exam# [id number] Ordering Dr: Marika Raymond EXAM: Right elbow CLINICAL HISTORY: Elbow pain COMPARISON: None TECHNIQUE: Three views FINDINGS: No acute fracture or dislocation. Normal alignment the elbow joint. Normal soft tissues. RAD/Elbow min 3 Views IMPRESSION: Normal elbow. Reading Location: [id number] CC: HOME HEALTH ATTENDANT-C Marika Raymond Wood Lather: Signed Normal [facility] Stress Test Echo w/o Contras ton 05-05-2024 Stress Test Echo w/o Contrast [facility] Cardiovascular Services [address] [place] [address] Stress Test Echo w/o Contrast MR#: [id number] Acct: [id number] Name: MARISSA MILLER Rep #: [id number] : 1960 63 From: Lc Molina MD Primary Care: NIKOLAI Zuleta Status: R EG CLI Ordering Dr: Marika Raymond Sex: F C Reason For Study Reason For Study: Chest Pain; Palpitations; Dyspnea Stress Results Protocol: Rudi Protocol Maximum Predicted HR: 158 bpm Target HR: 134 bpm % Maximum Predicted HR: 82 % DurationHeart Rate Stage (mm:ss) (bpm) BP Comment Baseline 80 132/78Mild Chest Pressure Rudi Protocol Stage I 3:00 110 144/72Mod Chest Pressure; Mild Dyspnea Rudi Protocol Stage II 2:10 129 160/70Mod Chest Pressure; Mod Dyspnea; SPO2 95% Recovery 84 140/70Mild Chest Pressure Stress Duration: 5:10 mm:ss Maximum Stress HR: 129 bpm METS: 7 Baseline Echocardiogram Findings The estimated ejection fraction is 65 %. post exercise EF is 70%. Stress Echo Wall motion Data Resting WM Intermediate WM Stress WM Resting Wall Motion Wall Motion Stress No regional wall motion abnormalities No regional wall motion abnormalities noted. noted. EKG Data The baseline ECG displays normal sinus rhythm. No significant ischemic changes. Symptoms with Stress The patient experinced mild CP at rest that increased to moderate with exercise . Doppler Measurements Calculations TR max kilo: 264.9 cm/sec TR max P.1 mmHg ECHO/Stress Test Echo w/o Contrast Interpretation Summary The estimated ejection fraction is 65 %. The patient had mild CP at rest that increased to moderate with exercise. Inability to reach 85% of maximal age-predicted heart rate decreases the sensitivity of this test. Test is negative for exercise-induced EKG or echocardiographic changes of ischemia. Test is positive for exercise-induced chest pain as described above Ordering Physician: Marika Raymond Referring Physician: Marika Raymond Performed By: Isabella See RDCS 05/05/24 1601 Date Lc Molina MD CC: NIKOLAI Raymond Date Dictated: 05/05/24 1004 Date Transcribed: 05/05/24 1601 Wood Lather: Signed Normal [facility] Stress echocardiogram study reportOrdered By: Lc Molina on 05-05-2024 Stress cardiac echo study report [facility] Cardiovascular Services [address] [place] [address] Stress Test Echo w/o Contrast MR#: [id number] Acct: [id number] Name: MARISSA MILLER Rep #: [id number] : 1960 63 From: Lc barajas MD Primary Care: NIKOLAI Zuleta Status: REG CLI Ordering Dr: Marika Raymond Sex: F C Reason For Study Reason For Study: Chest Pain; Palpitations; Dyspnea Stress Results Protocol: Rudi Protocol Maximum Predicted HR: 158 bpm Target HR: 134 bpm % Maximum PredictedHR: 82 % DurationHeart Rate Stage (mm:ss) (bpm) BP Comment Baseline 80 132/78Mild Chest Pressure Rudi Protocol Stage I 3:00 110 144/72Mod Chest Pressure; Mild Dyspnea Rudi Protocol Stage II 2:10 129 160/70Mod Chest Pressure; Mod Dyspnea; SPO2 95% Recovery 84 140/70Mild Chest Pressure Stress Duration: 5:10 mm:ss Maximum Stress HR: 129 bpm METS:7 Baseline Echocardiogram Findings The estimated ejection fraction is 65 %. post exercise EF is 70%. Stress Echo Wall motion Data Resting WM Intermediate WM Stress WM Resting Wall Motion Wall Motion Stress No regional wall motion abnormalities No regional wall motion abnormalities noted. noted. EKG Data The baseline ECG displays normal sinus rhythm. No significant ischemic changes. Symptoms with Stress The patient experinced mild CP at rest that increased to moderate with exercise . Doppler Measurements & Calculations TR max kilo: 264.9 cm/sec TR max P.1 mmHg ECHO/Stress Test Echo w/o Contrast Interpretation Summary The estimated ejection fraction is 65 %. The patient had mild CP at rest that increased to moderate with exercise. Inability to reach 85% of maximal age-predicted heart rate decreases the sensitivity of this test. Test is negative for exercise-induced EKG or echocardiographic changes of ischemia. Test is positive for exercise-induced chest pain as described above Ordering Physician: Marika Raymond Referring Physician: Marika Raymond Performed By: Isabella See RDCS 05/05/24 1601 Date _ Lc Molina MD CC: NIKOLAI Marika Raymond ~ Date Dictated: 05/05/24 1004 Date Transcribed: 05/05/24 1601 [place]: Signed [facility] Work Phone: Pulmonary Visit Reporton Pulmonary Visit Report [facility] [address] [place] [address] OFFICE VISIT Date of Service: 03/30/24 MR#: [id number] Acct: [id number] Name: MARISSA MLILER Rep #: [id number] : 1960 Provider: NIKOLAI Dawkins Age/Sex: 63/F [place] [facility] [place] Status: Signed Assessment and Plan Assessment and Plan (1) Shortness of breath: Plan: Of unclear etiology. I do suspect some degree of COPD. The patient is agreeable to repeating a pulmonary function test. We will also obtain a 6-minute walk test to evaluate for exertional hypoxia. The patient is aware that if she is placed on supplemental oxygen during the walk test she will be ordered supplemental oxygen to use with ambulation. No change in medications until PFT is available for review. (2) Smoking greater than 40 pack years: Status: Chronic Plan: Encourage complete smoking cessation. The patient previously was able to quit smoking for 12 years, unfortunately started smoking a few years ago again. She is appropriate for LDCT, ordered accordingly. Test results will be discussed at her follow-up visit. (3) Cough: Status: Chronic Qualifiers: Cough type: chronic Qualified Code(s): R05.3 - Chronic cough Plan: Of unclear etiology. I suspect possible chronic bronchitis or even bronchiectasis. The patient has a daily productive cough. Once we have the patient optimized on medications we will consider additional interventions, such as Acapella or vest therapy. In the meantime, I have asked her to take 1200 mg of Mucinex twice daily, [id number] is fine. I have also asked her to participate in purposeful coughing daily to perform pulmonary toileting. The patient does have some medical knowledge and conveys understanding. NIOX procedure performed in the office today, returned within normal limits. This indicates that the patient does not require additional corticosteroids. She is benefiting from the Trelegy. Orders: Orders NIOX 03/30/24 R06.02 - Shortness of breath Low Dose CT Lung Screening 03/10/25 F17.200 - Nicotine dependence, unspecified, uncomplicated, F17.210 - Nicotine dependence, cigarettes, uncomplicated PFT Complete - DLCO, Spirometry b/a bronchodilators, lung volumes 04/12/24 R06.02 - Shortness of breath Simple Pulmonary Exercise Test 04/22/24 R06.02 - Shortness of breath Plan Details Follow Up: 6 Weeks (CSM or LMR) HPI Shortness of breath Chief Complaint: Shortness of breath HPI Comments Details: This patient presents to the office today for an initial consultation regarding shortness of breath. She is ambulatory and currently on room air. She has not recently been seen in the ED or urgent care for any respiratory illness. She has not required any antibiotics or prednisone for any breathing problems. The patient reports that she has a significant home smoking history. She smoked a pack a day for many years and continues to smoke 1/2 pack/day. She reports that approximately 6 months ago her primary care doctor started her on Trelegy. She is compliant with it 1 puff daily. She does report rinsing her mouth out after each use. She denies any medication side effect such sore throat or thrush. She also has a cough, cough is most days. It can be productive of dark brown-colored sputum. She denies any specific hemoptysis. She has occasional wheezing and chest tightness but denies any chest pain or palpitations. She also denies any fever, chills or body aches. The patient is currently retired. 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 She has a back injury. She has never seen a call center recruiter. She has never had any pulmonary function test completed. Past medical family history significant for: Mother had stomach cancer, and COPD was a smoker. Father also had COPD. He had a pacer and stent placement. She has 1 sister with good health. She has a brother who has some breathing issues, she believes has COPD and is status post partial lobectomy to treat lung cancer. The patient has no biological children. Test results personally reviewed with the patient: Chest x-ray completed on February 26, 2024. Impression is no acute cardiopulmonary abnormality. No interval change. Pulmonary function test completed on July 18, 2023. Impression is grossly normal. Low-dose CT lung screening completed on March 23, 2024. 3.1 mm noncalcified nodule in the anterior peripheral aspect of the right upper lobe. Mild degree of emphysematous changes. Recommendation is to repeat LDCT in 12 months. Intake Vital Signs 09/02/23 17:20 03/23/24 13:13 03/30/24 08:44 Height 5 ft 3.5 in 5 ft 3.5 in 5 ft 3.5 in Weight: 193 lb 4 oz 188 lb BMI 33.7 32.8 BP 92/67 119/74 Blood Pressure Location Lt brachial Lt brachia (more content not included)... Normal [facility] Low Dose CT Lung Screeningon 03-23-[address] Lung [address] [facility] Imaging Services [address] [place], [place] [address] Low Dose CT Lung Screening MR#: [id number] Acct: [id number] Name: MARISSA MILLER Rep #: [id number] : 1960 F 63 From: Dilip mayo MD PCP: NIKOLAI Zuleta Status: [facility] Study: Low Dose CT Lung Screening Date of Exam: 03/23 Exam# [id number] Ordering Dr: Soco Pretty NP HOME HEALTH ATTENDANT -C [id number] STUDY: LOW DOSE CT LUNG CANCER SCREENING REASON FOR EXAM: Female, 63 years old. Lung cancer screening -- and gt;20 p k yr hx;current smoker;asymptomatic RADIATION DOSAGE (If Supplied By Facility): CTDIvol = ( 3.18 ) mGy, DLP = ( 96.08 ) mGycm TECHNIQUE: No contrast was administered. Low dose technique was utilized (average mAS-38 and kVp 120). 1.25 mm axial source images with a slice interval of 1.25-mm were reconstructed in lung windows. 2.5 mm axial source images with a slice interval of 2.5-mm were reconstructed in lung windows. 5.0 mm axial source images with a slice interval of 5.0-mm were reconstructed in soft tissue windows. COMPARISON: None. NODULES: 3.1 mm noncalcified nodule in the anterior peripheral aspect of the right upper lobe as seen on axial image #72. Emphysema: Mild degree of emphysematous changes. Endobronchial lesion: None Aorta: Minimal atherosclerotic costophrenic plaques. CORONARY ARTERIES: Coronary artery calcification is seen. Heart: Unremarkable Pulmonary artery: Unremarkable Mediastinal nodes: Small mediastinal lymph nodes Other chest and abdominal findings: Healed right rib fractures. CT/Low Dose CT Lung Screening IMPRESSION: Lung-RADS category 2 - Continue annual screening with LDCT in 12 months. IMPORTANT NOTES FOR USE: ACR Lung-RADS Version 1.1 Assessment Categories Release Date: 2018 Category: Coded 0-4 bases on nodule(s) with highest degree of suspicion. Negative screen is defined as categories 1 and 2; a positive screen is defined as categories 3 and 4. Category 3 and 4A nodules that are unchanged on interval CT should be coded as category 2, and individuals returned to screening in 12 months. Category 4X: Category 3 or 4 nodules with additional imaging findings that increase the suspicion of lung cancer, such as spiculation, GGN that doubles in size in 1 year, enlarged lymph notes, etc. Category Modifiers: S (significant finding unrelated to lung cancer) Electronically Signed: Dilip Rodriguez MD at 14:14 EST Reading Location ID and State: [facility] / [place] , Service support , CC: NIKOLAI Raymond; NIKOLAI Pretty [place]: Signed Normal [facility] Oncology Visit Reporton 03-10 Oncology Visit Report [facility] [address] [place] [address] OFFICE VISIT Date of Service: 03/23/24 1305 MR#: [id number] Acct: [id number] Name: MARISSA MILLER Rep #: [id number] : 1960 From: Soco Long Age/Sex: 63/F [place] [facility] [place] Status: Signed HPI HPI Reviewed eligibility criteria: 63 year old F with a 32 pack year smoking history (32 years x 1 ppd) Smoking Status: Current every day smoker Decision Making Engaged in shared decision making visit utilizing a visual aid. Discussed the risks and benefits of lung cancer screening including the total radiation exposure, false positive rate, over diagnosis and potential need for follow-up diagnostic testing all associated with low-dose chest CT. Comorbidities Asthma, HTN, COPD, hyperlipidemia ROS Const Denies anorexia, Denies fatigue, Denies headache(s), Denies poor appetite and Denies weight loss ENT Denies headache(s) Card Denies chest pain, Reports dyspnea on exertion and Denies palpitations Resp Reports cough (sputum dark benitez daily ), Reports dyspnea on exertion, Denies hemoptysis and Reports wheezing (has albuterol ) GI Reports system reviewed and no additional complaints, except as documented Musc Reports system reviewed and no additional complaints, except as documented Skin/Breast Reports system reviewed and no additional complaints, except as documented Neuro Yes system reviewed and no additional complaints, except as documented and No headache(s) Psych Reports system reviewed and no additional complaints, except as documented Endo Reports system reviewed and no additional complaints, except as documented, Denies fatigue and Denies palpitations Sven/Lymph Reports system reviewed and no additional complaints, except as documented Aller/Immun Reports wheezing (has albuterol ) Exam Const General: well developed Orientation: alert and oriented x3 HENMT Head: normocephalic and atraumatic Neck Neck: no lymphadenopathy noted Resp Effort Inspection: normal respiratory effort and symmetric chest movement Auscultation: Bilateral: Clear to Auscultation Cardio Rate: regular rate Rhythm: regular rhythm Heart Sounds: S1 normal and S2 normal Psych Affect: normal affect Speech and Movement: speech and movement normal Results Results March 23, [address] Lung Screening COMPARISON: None. NODULES: 3.1 mm noncalcified nodule in the anterior peripheral aspect of the right upper lobe as seen on axial image #72. Emphysema: Mild degree of emphysematous changes. Endobronchial lesion: None Aorta: Minimal atherosclerotic costophrenic plaques. CORONARY ARTERIES: Coronary artery calcification is seen. Heart: Unremarkable Pulmonary artery: Unremarkable Mediastinal nodes: Small mediastinal lymph nodes Other chest and abdominal findings: Healed right rib fractures. IMPRESSION: Lung-RADS category 2 - Continue annual screening with LDCT in 12 months. Intake Vital Signs 09/02/23 17:20 03/23/24 13:13 Height 5 ft 3.5 in 5 ft 3.5 in Weight: 193 lb 4 oz BMI 33.7 BP 92/67 Blood Pressure Location Lt brachial Position Sitting Respiration 16 Pulse 91 Pulse Source Monitor Temp 98.5 F Temp Source Temporal Pulse Oximetry (%) 95 Oxygen Delivery Method room air Intake Visit Reasons: Lung Cancer Screening Is patient in pain?: No Allergies clarithromycin (From Biaxin) Adverse Reaction (Verified 03/23/24 13:12) Nausea hydromorphone (From Dilaudid) Adverse Reaction (Verified 03/23/24 13:12) Upset Stomach Medications ???Medication ???Instructions ???Recorded ???Confirmed ???Type atorvastatin 40 mg tablet 40 mg PO QHS 07/20/15 09/12/23 History duloxetine 60 mg capsule,delayed 60 mg PO BID 07/20/15 09/12/23 History release oxybutynin chloride 5 mg tablet 5 mg PO DAILY 11/07/15 09/12/23 History dapagliflozin propanediol 10 mg 10 mg PO DAILY 10/05/17 09/12/23 History tablet (Farxiga) celecoxib 200 mg capsule 200 mg PO DAILY 09/01/21 09/12/23 History cyclobenzaprine 10 mg tablet 1 tab PO TID PRN PRN pain 09/01/21 09/12/23 History glimepiride 4 mg tablet 4 mg PO DAILY 09/01/21 09/12/23 History levothyroxine 112 mcg tablet 112 mcg PO QDAY 07/04/23 09/12/23 History lisinopril 10 mg tablet 10 mg PO QDAY 07/04/23 09/12/23 History albuterol sulfate 90 mcg/actuation 2 puff inhalation 4X/DAY PRN 07/23/23 09/12/23 History aerosol inhaler shortness of breath or wheezing tiotropium bromide 2.5 2 puff inhalation DAILY 07/23/23 09/12/23 History mcg/actuation mist for inhalation (Spiriva Respimat) esomeprazole magnesium 40 mg 40 mg PO DAILY #30 caps 07/24/23 09/12/23 Rx capsule,delayed release pregabalin 150 mg capsule 150 mg PO TID 08/11/23 09/12/23 History (more content not included)... Normal [facility] Chest PA and Lateralon 02-25 Chest PA and Lateral [facility] Imaging Services [address] [place], [place] [address] Chest PA and Lateral MR#: [id number] Acct: [id number] Name: MARISSA MILLER Rep #: [id number] : 1960 F 63 From: Viraj Godoy MD PCP: Dr. Ananda Menezes DO Status: REG CLI Study: Chest PA and Lateral Date of Exam: 02/26/24 Exam# [id number] Ordering Dr: [place] [id number] EXAM: XR CHEST, 2 VIEWS CLINICAL INDICATION: COUGH COPD TECHNIQUE: Frontal and lateral views of the chest. COMPARISON: XR Chest dated 01/12/2024 FINDINGS: LUNGS AND PLEURAL SPACES: Normal. No consolidation or edema. No pneumothorax. No effusion. HEART: Normal heart size. MEDIASTINUM: No mediastinal or hilar mass. BONES/JOINTS: No acute abnormality. RAD/Chest PA and Lateral IMPRESSION: No acute cardiopulmonary abnormality. No interval change. Electronically Signed: Viraj Godoy MD at 15:54 EST , CC: Dr. Megan Miramontes MD; Dr. Ananda Menezes DO [place]: Signed Normal [facility] Vitamin B12on 02-26-2024 Cobalamin (Vitamin B12) [Mass/Vol] 560 pg/mL Normal 211-911 [facility] Comment on above: Performed By: #### L 503.6150, L500.4050, L100.0100, L503.6550, L503.0105, L506.1000 ####[facility] [id number] [place], [address] Vitamin D,25 Hydroxyon 02-25 Vitamin D 25-OH 23.5 ng/mL Normal [facility] Comment on above: Result Comment: Carline min D 25(OH) Status Range Deficiency <20 ng/mL (50nmol/L) Insufficiency 20 - 30 ng/mL (50 - 75 nmol/L) Sufficiency 30 - 100 ng/mL (75 - 250 nmol/L) Toxicity >100 ng/mL (>250 nmol/L) Performed By: #### L 503.6150, L500.4050, L100.0100, L503.6550, L503.0105, L506.1000 ####[facility] [id number] [place], [place], [address] [id number] DOrdered By: Kacey Menezes on 02-24-2024 Vitamin D 25-Hydroxy 23.5 ng/mL [facility] Comment on above: Vitamin D 25(OH) Sta tus Range Deficiency <20 ng/mL (50nmol/L) Insufficiency 20 - 30 ng/mL (50 - 75 nmol/L) Sufficiency 30 - 100 ng/mL (75 - 250 nmol/L) Toxicity >100 ng/mL (>250 nmol/L) Absolute neutrophil countOrd ered By: Ananda Menezes on 02-24-2024 Neutrophils (Bld) [#/Vol] 4.1 10*3/uL 2.0-7.7 [facility] Albumin to globulin ratioOrd ered By: Ananda Menezes on 02-24-2024 Albumin/Globulin [Mass ratio] 0.9 {ratio} 0.9-2.4 [facility] Basophil percentageOrdered B y: Ananda Menezes on 02-24-2024 Basophils/100 WBC (Bld) 0.8 % 0-1 [facility] Bilirubin, totalOrdered By: Ananda Menezes on 02-24-2024 Bilirubin [Mass/Vol] 0.50 mg/dL 0.20-1.00 [facility] Comment on above: For patients on eltr ombopag therapy, use of Dimension [place] TBIL is not recommended. Blood urea nitrogen (BUN)/cr eatinine ratioOrdered By: Ananda Menezes on 02-24-2024 Urea nitrogen/Creatinine [Mass ratio] 15.9 mg/mg 10-20 [facility] CBC W/Diff, Automatedon 02-07 Absolute Lymph 1.90 X10 3/uL Normal 0.83-4.51 [facility] Comment on above: Performed By: #### L 503.6150, L500.4050, L100.0100, L503.6550, L503.0105, L506.1000 #### [facility] Laboratory [address] [place], [address] Absolute Neut 4.1 X10 3/uL Normal 2.0-7.7 [facility] Comment on above: Performed By: #### L 503.6150, L500.4050, L100.0100, L503.6550, L503.0105, L506.1000 #### [facility] [address] [place], [address] Basophils/100 WBC (Bld) 0.8 % Normal 0-1 [facility] Comment on above: Performed By: #### L 503.6150, L500.4050, L100.0100, L503.6550, L503.0105, L506.1000 #### [facility] [address] [place], [address] Eosinophils/100 WBC (Bld) 2.4 % Normal 0-5 [facility] Comment on above: Performed By: #### L 503.6150, L500.4050, L100.0100, L503.6550, L503.0105, L506.1000 #### [facility] [address] [place], [address] Erythrocyte distribution width (RBC) [Ratio] 14.5 % Normal 11.6-14.6 [facility] Comment on above: Performed By: #### L 503.6150, L500.4050, L100.0100, L503.6550, L503.0105, L506.1000 #### [facility] [address] [place], [address] Hematocrit (Bld) [Volume fraction] 49.5 % High 37-47 [facility] Comment on above: Performed By: #### L 503.6150, L500.4050, L100.0100, L503.6550, L503.0105, L506.1000 #### [facility] [address] [place], [address] Hemoglobin (Bld) [Mass/Vol] 16.0 g/dL High 12.0-15.0 [facility] Comment on above: Performed By: #### L 503.6150, L500.4050, L100.0100, L503.6550, L503.0105, L506.1000 #### [facility] [address] [place], [address] IG% 0.600 Normal 0.0-0.9 [facility] Comment on above: Result Comment: IG% - Immature Granulocytes (promyelocytes, myelocytes and metamyelocytes) > 1% indicates that a LEFT SHIFT is Present. Performed By: #### L 503.6150, L500.4050, L100.0100, L503.6550, L503.0105, L506.1000 #### [facility] [address] [place], [address] Lymphocytes/100 WBC (Bld) 28.8 % Normal 19-41 [facility] Comment on above: Performed By: #### L 503.6150, L500.4050, L100.0100, L503.6550, L503.0105, L506.1000 #### [facility] Laboratory [address] [place], [address] MCH (RBC) [Entitic mass] 29.6 pg Normal 27.0-32.0 [facility] Comment on above: Performed By: #### L 503.6150, L500.4050, L100.0100, L503.6550, L503.0105, L506.1000 #### [facility] [address] [place], [address] MCHC (RBC) [Mass/Vol] 32.3 g/dL Normal 32-36 [facility] Comment on above: Performed By: #### L 503.6150, L500.4050, L100.0100, L503.6550, L503.0105, L506.1000 #### [facility] Laboratory [address] [place], [address] MCV (RBC) [Entitic vol] 91.5 fL Normal 81-99 [facility] Comment on above: Performed By: #### L 503.6150, L500.4050, L100.0100, L503.6550, L503.0105, L506.1000 #### [facility] Laboratory [address] [place], [address] Monocytes/100 WBC (Bld) 5.9 % Normal 0-10 [facility] Comment on above: Performed By: #### L 503.6150, L500.4050, L100.0100, L503.6550, L503.0105, L506.1000 #### [facility] [address] [place], [address] Neutrophils/100 WBC (Bld) 61.5 % Normal 47-70 [facility] Comment on above: Performed By: #### L 503.6150, L500.4050, L100.0100, L503.6550, L503.0105, L506.1000 #### [facility] [address] [place], [address] Nucleated RBC (Bld) [#/Vol] 0 10*3/uL Normal 0-5 [facility] Comment on above: Performed By: #### L 503.6150, L500.4050, L100.0100, L503.6550, L503.0105, L506.1000 #### [facility] [address] [place], [address] Platelet mean volume (Bld) [Entitic vol] 11.5 fL Normal 6.2-12.0 [facility] Comment on above: Performed By: #### L 503.6150, L500.4050, L100.0100, L503.6550, L503.0105, L506.1000 #### [facility] [address] [place], [address] Platelets (Bld) [#/Vol] 188 10*3/uL Normal 150-450 [facility] Comment on above: Performed By: #### L 503.6150, L500.4050, L100.0100, L503.6550, L503.0105, L506.1000 #### [facility] [address] [place], [address] RBC (Bld) [#/Vol] 5.41 10*6/uL High 4.2-5.4 [facility] Comment on above: Performed By: #### L 503.6150, L500.4050, L100.0100, L503.6550, L503.0105, L506.1000 #### [facility] [address] [place], [address] RDW SD 48.5 fl High 35.1-43.9 [facility] Comment on above: Performed By: #### L 503.6150, L500.4050, L100.0100, L503.6550, L503.0105, L506.1000 #### [facility] [address] [place], [address] WBC (Bld) [#/Vol] 6.6 10*3/uL Normal 4.4-11.0 [facility] Comment on above: Performed By: #### L 503.6150, L500.4050, L100.0100, L503.6550, L503.0105, L506.1000 #### [facility] [address] [place], [address] Carbon dioxide measurementOr dered By: Ananda Menezes on 02-24-2024 CO2 [Moles/Vol] 28.0 mmol/L 21.0-32.0 [facility] Chloride measurementOrdered By: Ananda Menezes on 02-24-2024 Chloride [Moles/Vol] 101 mmol/L 98-107 [facility] Comprehensive Metabolic Prof ilon 02-24-2024 Albumin [Mass/Vol] 3.7 g/dL Normal 3.2-5.0 [facility] Comment on above: Performed By: #### L 503.6150, L500.4050, L100.0100, L503.6550, L503.0105, L506.1000 #### [facility] Laboratory [address], [address] Albumin/Globulin [Mass ratio] 0.9 {ratio} Normal 0.9-2.4 [facility] Comment on above: Performed By: #### L 503.6150, L500.4050, L100.0100, L503.6550, L503.0105, L506.1000 #### [facility] Laboratory [address] [place], [address] ALK P 119 U/L High 45-117 [facility] Comment on above: Performed By: #### L 503.6150, L500.4050, L100.0100, L503.6550, L503.0105, L506.1000 #### [facility] Laboratory [address] [place], [address] ALT [Catalytic activity/Vol] 28 U/L Normal 13-56 [facility] Comment on above: Performed By: #### L 503.6150, L500.4050, L100.0100, L503.6550, L503.0105, L506.1000 #### [facility] Laboratory [address] [place], [address] AST [Catalytic activity/Vol] 12 U/L Low 15-37 [facility] Comment on above: Performed By: #### L 503.6150, L500.4050, L100.0100, L503.6550, L503.0105, L506.1000 #### [facility] Laboratory [address] [place], [address] Bilirubin [Mass/Vol] 0.50 mg/dL Normal 0.20-1.00 [facility] Comment on above: Result Comment: For patients on eltrombopag therapy, use of Dimension [place] TBIL is not recommended. Performed By: #### L 503.6150, L500.4050, L100.0100, L503.6550, L503.0105, L506.1000 #### [facility] Laboratory [address] [place], [address] BUN/CRE 15.9 RATIO Normal 10-20 [facility] Comment on above: Performed By: #### L 503.6150, L500.4050, L100.0100, L503.6550, L503.0105, L506.1000 #### [facility] Laboratory [address] [place], [address] CA,Total 9.4 mg/dL Normal 8.5-10.1 [facility] Comment on above: Performed By: #### L 503.6150, L500.4050, L100.0100, L503.6550, L503.0105, L506.1000 #### [facility] Laboratory [address] [place], [address] Chloride [Moles/Vol] 101 mmol/L Normal 98-107 [facility] Comment on above: Performed By: #### L 503.6150, L500.4050, L100.0100, L503.6550, L503.0105, L506.1000 #### [facility] Laboratory [address] [place], [address] CO2 [Moles/Vol] 28.0 mmol/L Normal 21.0-32.0 [facility] Comment on above: Performed By: #### L 503.6150, L500.4050, L100.0100, L503.6550, L503.0105, L506.1000 #### [facility] Laboratory [address] [place], [address] Creatinine [Mass/Vol] 0.94 mg/dL Normal 0.55-1.02 [facility] Comment on above: Result Comment: The validity of the calculated GFR GFRAA in patients over 70 years has not been determined. Clinical correlation is essential. Performed By: #### L 503.6150, L500.4050, L100.0100, L503.6550, L503.0105, L506.1000 #### [facility] Laboratory [address] [place], [address] EST GFR - AA 77 mL/min Normal >60 [facility] Comment on above: Result Comment: Afri can Wallisian GFR Calc Performed By: #### L 503.6150, L500.4050, L100.0100, L503.6550, L503.0105, L506.1000 #### [facility] Laboratory [address] [place], [address] GAP 6 Normal 5-15 [facility] Comment on above: Performed By: #### L 503.6150, L500.4050, L100.0100, L503.6550, L503.0105, L506.1000 #### [facility] Laboratory [address] [place], [address] GFR/1.73 sq M.predicted among non-blacks MDRD (S/P/Bld) [Vol rate/Area] 64 mL/min/{1.73_m2} Normal >60 [facility] Comment on above: Result Comment: Non- GFR Calc Performed By: #### L 503.6150, L500.4050, L100.0100, L503.6550, L503.0105, L506.1000 #### [facility] Laboratory [address] [place], [address] Globulin (S) [Mass/Vol] 3.9 g/dL Normal 2.2-4.2 [facility] Comment on above: Performed By: #### L 503.6150, L500.4050, L100.0100, L503.6550, L503.0105, L506.1000 #### [facility] Laboratory [address] [place], [address] Glucose [Mass/Vol] 168 mg/dL High 74-106 [facility] Comment on above: Result Comment: Fast ing Glucose result greater than or equal to 126 mg/dL suggests DIABETES MELLITUS per A.D.A. criteria. Performed By: #### L 503.6150, L500.4050, L100.0100, L503.6550, L503.0105, L506.1000 #### [facility] Laboratory [address] [place], [address] Potassium [Moles/Vol] 4.2 mmol/L Normal 3.5-5.1 [facility] Comment on above: Performed By: #### L 503.6150, L500.4050, L100.0100, L503.6550, L503.0105, L506.1000 #### [facility] Laboratory [address] [place], [address] Sodium [Moles/Vol] 136 mmol/L Normal 136-145 [facility] Comment on above: Performed By: #### L 503.6150, L500.4050, L100.0100, L503.6550, L503.0105, L506.1000 #### [facility] Laboratory [address] [place], [place], [id number] T PROT 7.6 g/dL Normal 6.4-8.2 [facility] Comment on above: Performed By: #### L 503.6150, L500.4050, L100.0100, L503.6550, L503.0105, L506.1000 #### [facility] Laboratory [address] [place], [place], [address] Urea nitrogen [Mass/Vol] 15 mg/dL Normal 7-18 [facility] Comment on above: Performed By: #### L 503.6150, L500.4050, L100.0100, L503.6550, L503.0105, L506.1000 #### [facility] Laboratory [address] [place], [place], [address] Eosinophil percentageOrdered By: Ananda Menezes on 02-24-2024 Eosinophils/100 WBC (Bld) 2.4 % 0-5 [facility] Erythrocyte distribution wid th ratioOrdered By: Ananda Menezes on 02-24-2024 Erythrocyte distribution width (RBC) [Ratio] 14.5 % 11.6-14.6 [facility] Erythrocyte distribution wid th standard deviationOrdered By: Ananda Menezes on 02-24-2024 Erythrocyte distribution width (RBC) [Entitic vol] 48.5 fL High 35.1-43.9 [facility] Estimated glomerular filtrat ion rate (GFR) AmericanOrdered By: Ananda Menezes on 02-24-2024 Estimated GFR (MDRD) Amer 77 mL/min >60 [facility] Comment on above: GFR Calc Ferritinon 02-24-2024 Ferritin [Mass/Vol] 30 ng/mL Normal 8-252 [facility] Comment on above: Performed By: #### L 503.6150, L500.4050, L100.0100, L503.6550, L503.0105, L506.1000 #### [facility] Laboratory [address] [place], [place], [address] Ferritin measurementOrdered By: Ananda Menezes on 02-24-2024 Ferritin [Mass/Vol] 30 ng/mL 8-252 [facility] Glomerular filtration rate ( GFR) estimationOrdered By: Ananda Menezes on 02-24-2024 Estimated GFR (MDRD) Non-Af Amer 64 mL/min >60 [facility] Comment on above: Non- GFR Calc Glucose measurementOrdered B y: Ananda Menezes on 02-24-2024 Glucose [Mass/Vol] 168 mg/dL High 74-106 [facility] Comment on above: Fasting Glucose resu lt greater than or equal to 126 mg/dL suggests DIABETES MELLITUS per A.D.A. criteria. Hematocrit Auto (Bld) [Volum e fraction]Ordered By: Ananda Menezes on 02-24-2024 Hematocrit (Bld) [Volume fraction] 49.5 % High 37-47 [facility] Hemoglobin measurementOrdere d By: Ananda Menezes on 02-24-2024 Hemoglobin (Bld) [Mass/Vol] 16.0 g/dL High 12.0-15.0 [facility] Immature granulocytes/100 WB C Auto (Bld)Ordered By: Ananda Menezes on 02-24-2024 Immature granulocytes/100 WBC (Bld) 0.600 % 0.0-0.9 [facility] Comment on above: IG% - Immature Granu locytes (promyelocytes, myelocytes and metamyelocytes) > 1% indicates that a LEFT SHIFT is Present. Ironon 02-24-2024 Iron [Mass/Vol] 58 ug/dL Normal 50-170 [facility] Comment on above: Performed By: #### L 503.6150, L500.4050, L100.0100, L503.6550, L503.0105, L506.1000 #### [facility] Laboratory [address] [place], [address] Iron (Unsp spec) [Mass/Mass] Ordered By: Ananda Menezes on 02-24-2024 Iron [Mass/Vol] 58 ug/dL 50-170 [facility] Laboratory - Chemistry and C hemistry - challengeOrdered By: Ananda Menezes on 02-24-2024 AST [Catalytic activity/Vol] 12 U/L Low 15-37 [facility] Lymphocytes Auto (Unsp spec) [#/Vol]Ordered By: Ananda Menezes on 02-24-2024 Lymphocytes (Bld) [#/Vol] 1.90 10*3/uL 0.83-4.51 [facility] Lymphocytes/100 WBC Auto (Un sp spec)Ordered By: Ananda Menezes on 02-24-2024 Lymphocytes/100 WBC (Bld) 28.8 % 19-41 [facility] MCV (mean corpuscular volume ) determinationOrdered By: Ananda Menezes on 02-24-2024 MCV (RBC) [Entitic vol] 91.5 fL 81-99 [facility] Mean corpuscular hemoglobin (MCH) determinationOrdered By: Ananda Menezes on 02-24-2024 MCH (RBC) [Entitic mass] 29.6 pg 27.0-32.0 [facility] Mean corpuscular hemoglobin concentration (MCHC) determinationOrdered By: Ananda Menezes on 02-24-2024 MCHC (RBC) [Mass/Vol] 32.3 g/dL 32-36 [facility] Mean platelet volume determi nationOrdered By: Ananda Menezes on 02-24-2024 Platelet mean volume (Bld) [Entitic vol] 11.5 fL 6.2-12.0 [facility] Monocyte percentageOrdered B y: Ananda Menezes on 02-24-2024 Monocytes/100 WBC (Bld) 5.9 % 0-10 [facility] Neutrophil percentageOrdered By: Ananda Menezes on 02-24-2024 Neutrophils/100 WBC (Bld) 61.5 % 47-70 [facility] Nucleated red blood cell per centageOrdered By: Ananda Menezes on 02-24-2024 Nucleated RBC/100 WBC (Bld) [Ratio] 0 % 0-5 [facility] Platelet countOrdered By: Tianna Menezes on 02-24-2024 Platelets (Bld) [#/Vol] 188 10*3/uL 150-450 [facility] Potassium measurementOrdered By: Ananda Menezes on 02-24-2024 Potassium [Moles/Vol] 4.2 mmol/L 3.5-5.1 [facility] RBC Auto (Bld) [#/Vol]Ordere d By: Ananda Menezes on 02-24-2024 RBC (Bld) [#/Vol] 5.41 10*6/uL High 4.2-5.4 [facility] Serum anion gap measurementO rdered By: Ananda Menezes on 02-24-2024 Anion gap [Moles/Vol] 6 mmol/L 5-15 [facility] Serum globulin measurementOr dered By: Ananda Menezes on 02-24-2024 Globulin (S) [Mass/Vol] 3.9 g/dL 2.2-4.2 [facility] Serum or plasma alanine soto otransferase (ALT) measurementOrdered By: Ananda Menezes on 02-24-2024 ALT [Catalytic activity/Vol] 28 U/L 13-56 [facility] Serum or plasma albumin nas urement (mass/volume)Ordered By: Ananda Menezes on 02-24-2024 Albumin [Mass/Vol] 3.7 g/dL 3.2-5.0 [facility] Serum or plasma alkaline matias sphatase measurementOrdered By: Ananda Menezes on 02-24-2024 ALP [Catalytic activity/Vol] 119 U/L High 45-117 [facility] Serum or plasma calcium nas urement (mass/volume)Ordered By: Ananda Menezes on 02-24-2024 Calcium [Mass/Vol] 9.4 mg/dL 8.5-10.1 [facility] Serum or plasma creatinine m easurement (mass/volume)Ordered By: Ananda Menezes on 02-24-2024 Creatinine [Mass/Vol] 0.94 mg/dL 0.55-1.02 [facility] Comment on above: The validity of the calculated GFR & GFRAA in patients over 70 years has not been determined. Clinical correlation is essential. Serum or plasma urea nitroge n measurement (mass/volume)Ordered By: Ananda Menezes on 02-24-2024 Urea nitrogen [Mass/Vol] 15 mg/dL 7-18 [facility] Sodium levelOrdered By: Ananda Menezes on 02-24-2024 Sodium [Moles/Vol] 136 mmol/L 136-145 [facility] Total proteinOrdered By: Salud yanique Riri on 02-24-2024 Protein [Mass/Vol] 7.6 g/dL 6.4-8.2 [facility] Vitamin B12 measurementOrder ed By: Ananda Menezes on 02-24-2024 Cobalamin (Vitamin B12) [Mass/Vol] 560 pg/mL 211-911 [facility] White blood cell (WBC) count Ordered By: Ananda Menezes on 02-24-2024 WBC (Bld) [#/Vol] 6.6 10*3/uL 4.4-11.0 [facility] Direct serum free thyroxine (FT4) measurementOrdered By: Marika Raymond on 02-10-2024 Free T4 [Mass/Vol] 1.17 ng/dL 0.76-1.46 [facility] T4 Free Directon 02-10-2024 T4 FREE DIRECT 1.17 ng/dL Normal 0.76-1.46 [facility] Comment on above: Performed By: #### L 501.9520, L506.0400 ####[facility] [address] [place], [place], [address] TSH QnOrdered By: Marika mcmillan on 02-10-2024 Thyroid Stimulating Hormone (TSH) 3.350 uIU/mL 0.358-3.740 [facility] Thyroid Stim Hormone (TSH)on 02-10-2024 TSH 3.350 uIU/mL Normal 0.358-3.740 [facility] Comment on above: Performed By: #### L 501.9520, L506.0400 ####[facility] [address] [place], [address] 36on 10-30-2023 36 Name of caller: Allan taylor Contact phone number: [phone] Relationship to Patient: [facility] Support Team and [facility] Provider: Bernabe [facility] Chief Complaint/Reason for Call: Cintia with [facility] stated Pt just had yearly Medication review and pt would like to have her medication home delivered through [facility]. Requesting 100 day supply. Cintia also has questions concerning pts Spiriva. Best time of day caller can be reached: N/A Patient advised that office/PCP has 24-48 business hours to return their call: N/A Normal [facility] US ABDOMEN COMPLETEon 2023 US ABDOMEN COMPLETE Patient Name: MARISSA BORJA : 1960 Exam Date/Time: 06/11/2023 08:33 Procedure: US ABDOMEN COMPLETE Ordering Provider: IKDD LESLIE Reason For Exam: k82.4 ULTRASOUND ABDOMEN COMPLETE EXAM DATE AND TIME: 06/11/2023 8:33 AM EDT INDICATION: 62 years Female with gallbladder polyp COMPARISON: 02/07/2015 TECHNIQUE: Complete ultrasound of abdomen FINDINGS: Pancreas: The visualized portions of the pancreatic head and body are unremarkable. The remainder of the pancreas is obscured by bowel gas Liver: Normal echogenicity, size and contours. No focal lesion identified. Gallbladder: The gallbladder is nondistended. No mural thickening or pericholecystic edema. No gallstones. There is a 10 mm polypoid lesion with a thick stalk, previously measuring 6 mm. Per the fish technologist, the sonographic Kidd's sign was negative. Bile ducts: No intrahepatic and extrahepatic biliary dilatation Common bile duct: 3 mm Right kidney: Normal size measuring 10.1 cm. Normal parenchymal echogenicity without solid mass or hydronephrosis. Left kidney: Normal size measuring 12.5 cm. Normal parenchymal echogenicity without solid mass or hydronephrosis. Spleen: Normal size measuring 10.7 x 4.6 x 6.1 cm. Normal echogenicity without a lesion. Aorta and Inferior vena cava: Visualized portions are normal Ascites: None IMPRESSION: 1. Gallbladder polyp measuring 10 mm, increased since 2014 when it measured 6 mm. Recommend either follow-up ultrasound in 6, 12, 24 and 36 months versus surgical consultation*. *Reference: Carlos Valencia et al: Management of Incidentally Detected Gallbladder Polyps: Society of Radiologists in Ultrasound Consensus Conference Recommendations. Radiology 305.2 (2022): 277-289. Report Dictated on Electronically Signed By: Phil Hidalgo MD Electronically Signed Date/Time: 06/12/2023 10:44 AM EDT [facility] US Abdomenon 06-12-2023 1. Gallbladder polyp measuring 10 mm, increased since 2014 when it measured 6 mm. Recommend either follow-up ultrasound in 6, 12, 24 and 36 months versus surgical consultation*. *Reference: Carlos Valencia et al: Management of Incidentally Detected Gallbladder Polyps: Society of Radiologists in Ultrasound Consensus Conference Recommendations. Radiology 305.2 (2021): 277-289. Report Dictated on Electronically Signed By: Phil Hidalgo MD Electronically Signed Date/Time: 06/12/2023 10:44 AM EDT [facility] [email or web address] [facility] 1960 [id number] Exam Date/Time: 06/11/2023 08:33 Procedure: US ABDOMEN COMPLETE Ordering Provider: KIDD LESLIE Reason For Exam: k82.4 ULTRASOUND ABDOMEN COMPLETE EXAM DATE AND TIME: 06/11/2023 8:33 AM EDT INDICATION: 62 years Female with gallbladder polyp COMPARISON: 02/07/2015 TECHNIQUE: Complete ultrasound of abdomen FINDINGS: Pancreas: The visualized portions of the pancreatic head and body are unremarkable. The remainder of the pancreas is obscured by bowel gas Liver: Normal echogenicity, size and contours. No focal lesion identified. Gallbladder: The gallbladder is nondistended. No mural thickening or pericholecystic edema. No gallstones. There is a 10 mm polypoid lesion with a thick stalk, previously measuring 6 mm. Per the fish technologist, the sonographic Kidd's sign was negative. Bile ducts: No intrahepatic and extrahepatic biliary dilatation Common bile duct: 3 mm Right kidney: Normal size measuring 10.1 cm. Normal parenchymal echogenicity without solid mass or hydronephrosis. Left kidney: Normal size measuring 12.5 cm. Normal parenchymal echogenicity without solid mass or hydronephrosis. Spleen: Normal size measuring 10.7 x 4.6 x 6.1 cm. Normal echogenicity without a lesion. Aorta and Inferior vena cava: Visualized portions are normal Ascites: None [facility] Phil Hidalgo MD - 06/12/2023 Patient Name: MARISSA MILLER : 1960 [facility]#: [id number] Exam Date/Time: 06/11/2023 08:33 Procedure: US ABDOMEN COMPLETE Ordering Provider: KIDD LESLIE Reason For Exam: k82.4 ULTRASOUND ABDOMEN COMPLETE EXAM DATE AND TIME: 06/11/2023 8:33 AM EDT INDICATION: 62 years Female with gallbladder polyp COMPARISON: 02/07/2015 TECHNIQUE: Complete ultrasound of abdomen FINDINGS: Pancreas: The visualized portions of the pancreatic head and body are unremarkable. The remainder of the pancreas is obscured by bowel gas Liver: Normal echogenicity, size and contours. No focal lesion identified. Gallbladder: The gallbladder is nondistended. No mural thickening or pericholecystic edema. No gallstones. There is a 10 mm polypoid lesion with a thick stalk, previously measuring 6 mm. Per the fish technologist, the sonographic Kidd's sign was negative. Bile ducts: No intrahepatic and extrahepatic biliary dilatation Common bile duct: 3 mm Right kidney: Normal size measuring 10.1 cm. Normal parenchymal echogenicity without solid mass or hydronephrosis. Left kidney: Normal size measuring 12.5 cm. Normal parenchymal echogenicity without solid mass or hydronephrosis. Spleen: Normal size measuring 10.7 x 4.6 x 6.1 cm. Normal echogenicity without a lesion. Aorta and Inferior vena cava: Visualized portions are normal Ascites: None IMPRESSION: 1. Gallbladder polyp measuring 10 mm, increased since 2015 when it measured 6 mm. Recommend either follow-up ultrasound in 6, 12, 24 and 36 months versus surgical consultation*. *Reference: Carlos Valencia et al: Management of Incidentally Detected Gallbladder Polyps: Society of Radiologists in Ultrasound Consensus Conference Recommendations. Radiology 305.2 (2021): 277-289. Report Dictated on Electronically Signed By: Phil Hidalgo MD Electronically Signed Date/Time: 06/12/2023 10:44 AM EDT [facility] US AbdomenOrdered By: Abi Hidalgo on 06-12-2023 [facility]por Work Phone: US Abdomenon 06-11-2023 Radiology Study observation (narrative) [facility] 36on 05-12-2023 36 S: Patient called th e clinical access center B: She cancelled her appointment for scheduled blood work A: She cancelled due to not feeling well. She is aware she has a scheduled follow up next week. R: She can be reached at [phone]. Appointment scheduled for today has been cancelled. Patient instructed to call back with worsening symptoms, concerns or questions. Documented in [place] Reason for Disposition Health Information question, no triage required and triager able to answer question Protocols used: Information Only Call - No [id number] Normal [facility] 36on 02-21-2023 36 S patient calling ongoing URI, worsening B Seen Friday ongoing 10 days A Patient calling, seen Friday by you. Was put on 5 days steroids. Thought she was getting better but today feels worse. SOB severe at times mainly with activity. Non productive cough with intermittent wheeze, is using albuterol with some improvement. Severe cough and unable to bring up secretions. Denies CP and fever. Is asking for cough medication. R Paged Dr Kidd. She advised to monitor overnight and be seen at After hours clinic tomorrow. Patient scheduled at 11 am at after hours clinic. Location and arrival instruction given. Thank you. Advised to monitor and ED with severe symptoms in the meantime. Reason for Disposition [1] MILD difficulty breathing (e.g., minimal/no SOB at rest, SOB with walking, pulse <100) AND [2] NEW-onset or WORSE than normal Protocols used: Breathing [id number] Normal [facility] Office Visiton 11-28-2022 Follow-up visit [id number] Andree Miller Y 1960 F Date Provider Department Center 11/28/2022 [facility] None Family History Problem Relation Age of Onset Cancer Mother 79.00 Comments: STOMACH Other Father Comments: PACEMAKER Family Status - Relation Status Age at Mother Father Alive Level of Service:43187 RI OFFICE/OUTPATIENT NEW LOW MDM 30-44 MINUTES Reason for Visit and Comments: New Patient [542] - Check throat Normal [facility] Progress Noteon 11-28-[address] [facility] [address] [facility] [address] Dept: [phone] Dept Loc: [phone] Assessment and Recommendations Marissa was seen today [...] Medical History: Diagnosis Date Anemia Asthma Cancer (CMS/HCC) (HCC) Cholesterolosis of gallbladder Chronic pain Degeneration of lumbar intervertebral disc Diabetes mellitus (HCC) GERD (gastroesophageal reflux disease) Hyperlipidemia Hypertension Hyperthyroidism Major depressive disorder Morbid obesity due to excess calories (HCC) Osteoarthritis Osteopenia Sleep apnea, obstructive Past Surgical History: Procedure Laterality Date LUMBAR FUSION 2013 2 titanium rods placed [facility] Family History Problem Relation Name Age of Onset Cancer Mother 79.00 STOMACH Other ([id number]) Father PACEMAKER Social History Tobacco Use Smoking [...] right nare to the nasopharynx. There were (more content not included)... Normal [facility] XR Lumbar spine 2 or 3 Views on 10-31-2022 No acute bony abnormality of the lumbar spine is identified. Degenerative and postoperative changes as above. Report Dictated on Electronically Signed By: Julio C Gross MD Electronically Signed Date/Time: 10/31/2022 3:37 PM EDT [facility] Patient Name: MARISSA BORJA : 1960 Exam Date/Time: 10/29/2022 11:22 Procedure: XR LUMBAR SPINE 2-3 VIEWS Ordering Provider: GARDINER MICHAEL Reason For Exam: BACK PAIN LUMBAR SPINE CLINICAL INDICATION: Back pain AP and lateral plain films of the lumbar spine were obtained. An additional coned down view of L5/S1 was also performed in the lateral projection. COMPARISON: None. FINDINGS: The alignment of the lumbar spine is normal. No fractures are seen. There is posterior fusion hardware at L3 and L4. Laminectomy defects extend from L3 through L5. There is bony fusion of L4/L5 and mature bony fusion masses within the lower lumbar spine from L4 through S1. Mild to moderate loss of intervertebral disc space height and degenerative endplate spurring is present from L1 through L4. No lytic or blastic lesions are seen. There are mild degenerative changes of the sacroiliac joints. Scattered surgical clips are noted within the lower abdomen and pelvis. [facility] Julio C Gross MD - 10/31/2022 Patient Name: MARISSA MILLER : 1960 Exam Date/Time: 10/29/2022 11:22 Procedure: XR LUMBAR SPINE 2-3 VIEWS Ordering Provider: GARDINER MICHAEL Reason For Exam: BACK PAIN LUMBAR SPINE CLINICAL INDICATION: Back pain AP and lateral plain films of the lumbar spine were obtained. An additional coned down view of L5/S1 was also performed in the lateral projection. COMPARISON: None. FINDINGS: The alignment of the lumbar spine is normal. No fractures are seen. There is posterior fusion hardware at L3 and L4. Laminectomy defects extend from L3 through L5. There is bony fusion of L4/L5 and mature bony fusion masses within the lower lumbar spine from L4 through S1. Mild to moderate loss of intervertebral disc space height and degenerative endplate spurring is present from L1 through L4. No lytic or blastic lesions are seen. There are mild degenerative changes of the sacroiliac joints. Scattered surgical clips are noted within the lower abdomen and pelvis. IMPRESSION: No acute bony abnormality of the lumbar spine is identified. Degenerative and postoperative changes as above. Report Dictated on Electronically Signed By: Julio C Gross MD Electronically Signed Date/Time: 10/31/2022 3:37 PM EDT [facility] XR Lumbar spine 2 or 3 Views Ordered By: Julio C Gross on 10-31-2022 Spor XR Lumbar spine 2 or 3 Views on 10-29-2022 Radiology Study observation (narrative) Spor CT ABD/PEL W IVCONon 023 CT ABD/PEL W IVCON * * *Final Report* * * DATE OF EXAM: Jul 16 2022 11:44AM [facility] 0530 - CT ABD/PEL W IVCON / PROCEDURE REASON: multiple diagnoses * * * * Physician Interpretation * * * * EXAMINATION: CT ABDOMEN AND PELVIS WITH IV CONTRAST CLINICAL HISTORY: Generalized abdominal pain/bloating TECHNIQUE: CT of the abdomen and pelvis was performed using standard technique, scanning from just above the dome of the diaphragm to the symphysis pubis. MQ: CTAP_3 Contrast: IV: 100 ml of Omnipaque 350 Oral: 50 ml of Omni 240 10-25ml diluted with water CT Radiation dose: Integrated Dose-length product (DLP) for this visit = 564 mGy*cm. CT Dose Reduction Employed: Automated exposure control(AEC) and iterative recon COMPARISON: None. RESULT: Liver: No mass. Biliary: No bile duct dilation. Gallbladder is unremarkable. Spleen: No mass. No splenomegaly. Pancreas: No mass or duct dilation. Adrenals: No mass. Kidneys: No hydronephrosis or renal calculus. 1 cm low-attenuation lesion within the midpole the left kidney, likely cyst. GI tract: No dilation or wall thickening. Lymph nodes: No abdominal or pelvic lymphadenopathy. Mesentery/Peritoneum: No ascites or mass. Retroperitoneum: No mass. Vasculature: - Abdominal aorta and iliac arteries: Atherosclerotic calcifications without aneurysm. - Celiac and SMA: Patent without stenosis. - Portal venous system (SMV, splenic vein, portal vein and branches): Patent. - Hepatic veins: Patent. Pelvis: No mass, ascites or fluid collection. Prior hysterectomy. Bones/Soft Tissues: Postsurgical changes of the lumbar spine. Multiple surgical clips from prior surgeries. Lower thorax: Unremarkable. Accounts Manager (topogram) images: No additional findings. IMPRESSION: No acute process within the abdomen or pelvis. Postsurgical changes noted. Wood Lather: PSCVenancio Transcribe Date/Time: Jul 17 2022 1:54P Dictated by : KAREN LEMUS MD This examination was interpreted and the report reviewed and electronically signed by: KAREN LEMUS MD on Jul 17 2022 1:58PM EST [id number] Normal [facility] CELIAC SCREENon 07-10-2022 GLIAD DEAMIDATED IGA QUAL Negative Normal Negative, Test not Indicated [facility] Comment on above: Order Comment: Specmukund matthews Type: BLOOD SPECIMENOrdering Facility: [facility] Address: [address] [place] [address] Result Comment: This is used as an aid in diagnosis of celiac disease. Clinical correlation is required. The following results were obtained with an [employer] QUANTA Lite Gliadin IgA MATEO Gliadin. Gliadin IgA values obtained with different manufacturers' assay methods may not be used interchangeably. The magnitude of the reported IgA levels cannot be correlated to an endpoint titer. Performed By: #### L [id number] ####[facility] LABCLIA [id number] [address] Gliadin peptide IgA Qn (S) 2 Units Normal <20 [facility] Comment on above: Order Comment: Deniz matthews Type: BLOOD SPECIMENOrdering Facility: [facility] Address: [address] [place] [address] Performed By: #### L [id number] ####[facility] LABCLIA [id number] [address] [id number], [place] [address] [place] INTERPRETATION No serological evide nce of celiac disease, however, if celiac disease is clinically suspected and patient is not on gluten-free diet, histological diagnosis may be considered. HLA testing may help with risk assessment. Normal [facility] Comment on above: Order Comment: Deniz matthews Type: BLOOD SPECIMENOrdering Facility: [facility] Address: [address] [place] [address] Performed By: #### L [id number] ####[facility] LABCLIA [id number] [address] TRANSGLUTAMINASE IGA QUAL Negative Normal Negative, Test not Indicated [facility] Comment on above: Order Comment: Deniz matthews Type: BLOOD SPECIMENOrdering Facility: [facility] Address: [address] [place] [address] Result Comment: The following results were obtained with the [employer] QUANTA Lite h-tTG IgA MATEO. h-tTG IgA values obtained with different manufacturers' assay methods may not be used interchangeably. The magnitude of the reported IgA levels cannot be correlated to an endpoint titer. This is used as an aid in diagnosis of celiac disease. Clinical correlation is required. Performed By: #### L [id number] ####[facility] LABIA [id number] [address] [place] tTG IgA Qn (S) 4 Units Normal <20 [facility] Comment on above: Order Comment: Deniz matthews Type: BLOOD SPECIMENOrdering Facility: [facility] Address: [address] [place] [address] Performed By: #### L [id number] ####[facility] LABCLIA [id number] [place] [address] [place] CREATININE BLDon 07-10-2022 Creatinine [Mass/Vol] 0.75 mg/dL Normal 0.58-0.96 [facility] Comment on above: Order Comment: Deniz [facility] Type: BLOOD SPECIMENOrdering Facility: [facility] Address: [address] [place] [address] Performed By: #### C RET1 ####[facility] [id number] [place] [address] [place] ESTIMATED GLOMERULAR FILTRATION RATE 91 mL/min/1.73m??? Normal >=60 [facility] Comment on above: Order Comment: Deniz matthews Type: BLOOD SPECIMENOrdering Facility: [facility] Address: [address] [place] [address] Result Comment: Yumiko mated Glomerular Filtration Rate (eGFR) is calculated using the 2020 CKD-EPI creatinine equation. This equation utilizes serum creatinine, sex, and age as parameters. The creatinine assay has traceable calibration to isotope dilution-mass spectrometry. Refer to KDIGO guidelines for clinical interpretation. In patients with unstable renal function, e.g. those with acute kidney injury, the eGFR may not accurately reflect actual GFR. Performed By: #### C RET1 ####[facility] [id number] [place] [address] [place] IgA SerPl-mCncon 07-10-2022 IgA [Mass/Vol] 170 mg/dL Normal 70-400 [facility] Comment on above: Order Comment: Deniz matthews Type: BLOOD SPECIMENOrdering Facility: [facility] Address: [address] [place] [address] Performed By: #### 2 [id number] ####[facility] LABCLIA [id number] [address] [place] CNOVon 07-09-2022 CNOV Office Visit (GSTNOR ) MARISSA MILLER ([id number]) 1960 F Date Time Provider Department 07/09/22 11:40 AM KEISHA CHEN GSTNOR During your visit today, we recorded the following information about you: Pulse Blood pressure Weight Height 83/minute 118/72 85.7 kg 1.626 m Keisha Chen PA-C 07/09/2022 12:21 PM Signed CHIEF COMPLAINT: Patient presents with: Procedure Follow [...] Not able to tolerate fiber powders. RUQ 03/2022 IMPRESSION: Unchanged size of a 9 [...] gastritis Cancer (HCC) Cholesterolosis of gallbladder Depression (more content not included)... Normal [facility] CNPNon 07-09-2022 CNPN Telephone (GSTNOR) MARISSA MILLER ([id number]) 1960 F Date Time Provider Department 07/09/22 KEISHA CHEN GSTDKR During your visit today, we recorded the following information about you: Pavel Joiner MA 07/09/2022 2:40 PM Signed Just an FYI for the future Patient called in to let us know that Dr. Miller is no longer taking gallbladder patients at this time. She was given the number to Dr. Maldonado instead. Keisha Chen PA-C 07/09/2022 3:49 PM Signed Reviewed. Keisha Chen PA-C Allergies As of Date: 07/09/2022 Noted Allergy Reaction CLARITHROMYCIN 07/05/2010 16 - Unknown AMOXICILLIN-POT CLAVULANATE 08/24/2018 8 - GI Upset HYDROMORPHONE 12/25/2021 14 - Other: See Comments PREGABALIN 08/24/2018 8 - GI Upset Date Reviewed: 07/09/2022 Reviewed by: Keisha Chen PA-C - Fully Assessed Reason for Visit: Patient Update [1234] Prescriptions as of 07/09/2022 - iv contrast (will be provided with radiology test) CT ABD/PEL -Inject, intravenously, once for 1 [...] in the CT contrast administration guidelines link. - enteric contrast (will be provided with radiology test) For CT ABD/PEL W IVCON Routine order Administer, As Directed One Time Only, via Oral, Rectal, both Oral and Rectal, Enteric Tube, Stoma or Indwelling Catheter, Enteric Contrast as designated per enteric contrast guidelines - colestipol (COLESTID) 1 gram tablet Take 1 tablet by mouth twice daily. - lamoTRIgine (LAMICTAL) 200 mg tablet Take 200 mg by mouth once daily. - pregabalin (LYRICA) 100 mg capsule Take 100 mg by mouth three times daily. - lisinopril (ZESTRIL) 10 mg tablet Take 10 mg by mouth once daily. - omeprazole (PRILOSEC) 40 mg capsule take 1 capsule by mouth once daily - celecoxib (CELEBREX) 200 mg capsule Take 200 mg by mouth. - glimepiride (AMARYL) 4 mg tablet Take 4 mg by mouth twice daily. - levothyroxine (SYNTHROID) 100 mcg tablet - oxybutynin XL (DITROPAN XL) 5 mg 24 hr tablet - VITAMIN B-12 1,000 mcg tab - promethazine (PHENERGAN) 25 mg tablet Take 12.5 mg by mouth. - FARXIGA 10 mg tab Take 10 mg by mouth once daily. - ARIPiprazole (ABILIFY) 15 mg tablet Take 1 tablet by mouth once daily. - DULoxetine (CYMBALTA) 60 mg capsule Take 2 capsules by mouth once daily. - HEALTHPRO TEST STRIPS test strip - EASY TOUCH TWIST LANCETS 30 gauge misc - atorvastatin (LIPITOR) 40 mg tablet - cyclobenzaprine (FLEXERIL) 10 mg tablet Facility-Administered Medications as of 07/09/2022 - lidocaine (PF) 10 mg/mL (1 %) 1-2 mg injection (XYLOCAINE) - lactated ringers iv infusion Problem List As Of Date: 07/09/2022 (None) Encounter Status:Closed by PAVEL JOINER on 07/09/22 [facility] Sammy 06-10-2022 DYANAN Telephone (GSTNOR) MARISSA MILLER ([id number]) 1960 F Date Time Provider Department 06/10/22 KEISHA CHEN During your visit today, we recorded the following information about you: Pavel Joiner MA 06/10/2022 3:21 PM Signed Returned patients call asking for results. EGD results given Allergies As of Date: 06/10/2022 Noted Allergy Reaction CLARITHROMYCIN 07/05/2010 16 - Unknown AMOXICILLIN-POT CLAVULANATE 08/24/2018 8 - GI Upset HYDROMORPHONE 12/25/2021 14 - Other: See Comments PREGABALIN 08/24/2018 8 - GI Upset Date Reviewed: 06/04/2022 Reviewed by: Donal Solomon RN - Fully Assessed Reason for Visit: Results [95] Prescriptions as of 06/10/2022 - lamoTRIgine (LAMICTAL) 200 mg tablet Take 200 mg by mouth once daily. - pregabalin (LYRICA) 100 mg capsule Take 100 mg by mouth three times daily. - lisinopril (ZESTRIL) 10 mg tablet Take 10 mg by mouth once daily. - sucralfate (CARAFATE) 1 gram tablet Take 1 tablet by mouth twice daily. Crush and mix with small tablespoon of applesauce. - omeprazole (PRILOSEC) 40 mg capsule take 1 capsule by mouth once daily - celecoxib (CELEBREX) 200 mg capsule Take 200 mg by mouth. - glimepiride (AMARYL) 4 mg tablet Take 4 mg by mouth twice daily. - levothyroxine (SYNTHROID) 100 mcg tablet - oxybutynin XL (DITROPAN XL) 5 mg 24 hr tablet - VITAMIN B-12 1,000 mcg tab - promethazine (PHENERGAN) 25 mg tablet Take 12.5 mg by mouth. - FARXIGA 10 mg tab Take 10 mg by mouth once daily. - ARIPiprazole (ABILIFY) 15 mg tablet Take 1 tablet by mouth once daily. - DULoxetine (CYMBALTA) 60 mg capsule Take 2 capsules by mouth once daily. - HEALTHPRO TEST STRIPS test strip - EASY TOUCH TWIST LANCETS 30 gauge misc - atorvastatin (LIPITOR) 40 mg tablet - cyclobenzaprine (FLEXERIL) 10 mg tablet Facility-Administered Medications as of 06/10/2022 - lidocaine (PF) 10 mg/mL (1 %) 1-2 mg injection (XYLOCAINE) - lactated ringers iv infusion Problem List As Of Date: 06/10/2022 (None) Encounter Status:Closed by PAVEL JOINER on 06/10/22 Normal [facility] SURGICAL PATHOLOGYOrdered By : Edita Dixon on 06-06-2022 Case Report Surgical Pathology Report Case: [id number] Authorizing Provider: Catia Trujillo MD Collected: 06/04/2022 10:41 AM Ordering Location: Ambulatory Surgery Received: 06/04/2022 08:50 PM Pathologist: Edita Dixon MD Specimen: ANTRUM (STOMACH) BIOPSY [facility] Work Phone: FINAL DIAGNOSIS [id number] NVx lqmKsIJMvqDIbD9IwmalgQT doYH1aTL5hqKkvwYAckBVxK AMzIeJlm8fpb107iAThq9zj KETHdnwjcVr9hVouJ51gs1F 3MzpoR36cmUPyCNC0PTUmRB TsnHQfZSHlRKE3QZVugDLcJ 3hsMGOsHL9opyspLUyuDQvc GDKbeIM8MXJvwPCgU7YtSTE tWWhqHGUmajq4EcYzTf4arJ VyeTcyMFxwYXJkXHBsYWluX TJqYoJwZB6eK9HqpXTypIff NV96opNjYBUpuC5de3r5MFI mmaVuNOeao8GprKMxAU06jy UyKJ29Q46uXNK7uGFnMH2tP LBjA51uQlrnDS33LULebBpy gE4mfWBaA4wswqhkLrvaAEV dXIXXllWhoeNrh8TfuwQmLQ 5zjXFhzZPglDSsb2LtyI8rl QmkrX1xvAJoWQYzJJZqD6Zm f0AtYKckDRUukTKuGfVbtNW yVKU1iS7loNPurYHfr1HhRD 2qg06vJieoTDCybDCgLKUYJ 39GMSDmUuGdRjCrQ7kqTBX3 [facility] Work Phone: Gross Description z3goiYNgTVBryIMBPIDz MDR eUK3efWksnHc0dDuqYHFknu H6pBLoASxbp1vlKYM2n3pyg iANClxkZWZmMVxwYXBlcncx MvV1FTtuOUPtubhvROs4YIy cUCKvrVC1IQZotRAcU7HyNQ DtVF3psvj9NRA2NHxfYUCyR sU3KKEbZvFbNimhDIw3FFNf ifY8Zfq1KMBlUWNdhKPnf1G 5LZdtedheOHYxoGQvS042NP fvy5QmgJZkSCysfWDqFXFPU kiwStvtpZpnl4GwhMPeGQeb QXTkPBMrORoqqbfeVFa5PDR bMHjktSHgZA2ocBwqKnoemM dbo7VviCHkEMhuXZSmBLUtF AjtWTVhCW0DVwKiEPV1GEC3 SVU1VnX3JSc1VGDEXbRmIeN sBwuwTAPzMZvpCRr5UKv3KK hNYnZlKWTpPxF2RFU7NAA4M Jw0LFBxKIFvHjMcKNMdWJPy RNpcLSsduKKzQE2uhPliuUG anrWMBqMXIoSPLU6aAKILS6 2VG3gcPQUVX7EANKmyNBMyX UsoPXNlC99xe6XLw8SrIL5A IUl4rsMoqlqntX7kBSJbwoE mWSvvcFCqC5oiFbTtJGJBRC DsqNWvIHHcbkQmk9JxBKsgz iBhcmUgbXVsdGlwbGUgcGll J7QvLY1oGRFgatyhv61zxIW 0aXNzdWUgYWdncmVnYXRpbm lhxA8uHn8yNAvxFB2nCPprA T3lNOPwCbVVy5FjuCv4DQP7 Tw0lhNLeQCUlagUcgzYfX8J bq1Y4gFAeSPkaTWBaTWbmtW FlPZ4QF4Jtz1YiDPqzjKyeM HWvi70xcFOgTa2izPJuRFQ3 IENsZXZlbGFuZCBDbGluaWM mDCo2TXUwYGPvpGqiIVL4NT 9sFUTlPQTitFFwVZlsE9ltC OLvXQDssGRtWT3DGFJutgXL GojRVBFiJoV1EgBeWvNvJRa yMCBBTVxwYXIgDQpcZXBpY0 2oh5HIr8JaXYKsh4bwoKwow 2VjdGVuZFxwYXJccGFyZFxz lV7mKuFbk8ynaPe9GFfggiP 7VAMtty9zhDuqrV5aJWalz1 bdQZY1RZZfoTShiKDvKLwxk OodeY6bHuRmNgd0UZwkGNEc D0IdO3LgswK7RHEqVZqyDZJ zMTYgDQp9 [facility] Work Phone: Performing Lab h3pczEJvBUJhqKCdQoIe MDA pFIRtd2rrMHLbdSHkIvPcZw NcZnRuYmpcdWMxXGRlZmYwe 5owo162dHYno5kcPZIqGfB5 pOHsSICosTCwA240BVTnAJv cp8tss1OoRALhcMQan6F8PY FOczkjjIy1xHkjH89jo4T7C avlX7lmBRTjTURsW0ZtRO8b XOEzBfk8MPS7ODG2GOKiERC sB0ElOR4rBVDaaFMaUTc9r3 spfMahOJGjJLV6t9xeYHsrg yPdKN6oph2hxFy6i0jkupPp SYMcOELouLRMOHZyK9BpoQp tFc5atLj3cOrxYxcoRMU2Ba l2KL8sbi67rjb7hHriZBQbd talLmN6SFhdPEOufayyJOi7 QTywWXZfjXN4SGKqeBBkI6D zHQdiIO0vkdj0ITL3IKvjHV DuHrR2OAQvuADfLIGkbKpiR Jvey546DDJ5IxVuTB7sX6Yg t5D4bM1yuEUbQBHztWOsLhJ nXZAtqp0jbAThTNutl8LnPK Z3baP2tTHkdQCiQAYsLG55H hmdy2CsPnmgh0UjF60tgXO9 BYlhd8ryOR9tChD0kxOiJLc yu4znaQ3bZhO1WHfiVW0lMQ 8oAOGxgF8xayozJPOlEmRlt lazZNZlfUahodOrDc8yiJiv BAO8XIxtF0qmjS3gEmZ1RGa xJ5jweN9kVEl1VUybnDX8JG ZvcQ0bCX0uytnab7nsGYgjK GlgYTGmyvS6snGbJMFjpVFz E4YusZ9mMCSvAB1uvgqqa6e xZMU7MLatVUIkWEP2DcSnLR Brm7Ydxkz4FdHbt7LojWGyZ RfsW89ft687MTPhkyMaJ0ox bGFpblxwbGFpblxmMFxmczI 0XHFsXHBsYWluXGYxXGZzMj JcbGFuZzEwMzNcaGljaFxmM FunIlPoAMLxTPohT8rvLfUq GjShBpFMbDFiev4fmUteJJr ozXFftQSjiMY0uT2aOTWzlt Zylh8aSAHjmYDVsNB9QQpgu nYnQ8uxgzlaWQT0NHJtOAH5 H8qsFUYXsnEuZUOnGYPhtVD fTADZMKO6IVB6MOAdWHKALR MtGAC2ISG9KNHrBAMgaCEoG HBhclxwYXJkXHBsYWluXGYw YKSaZiXblIltxF7yYtLqVeI zJxioAL7pZHXnY9gpgTOwTI ExJDVxG2bbFtIznN7xwDxcL VxjZjJcZnMyMlxsdHJjaCBM RQWwwpU1l5A1XBeluXBzkfy mMVxmczIyXGxhbmcxMDMzXG gzB0kdKxWnEVJmaLwyALjtc 3TuLBTpSEEzXsCfZUabXVP8 g4Z2RHdtiOFtdoPPPuCQZM4 tkKXdotxmJO4SRbfpZPT9 [facility] Work Phone: [facility] Work Phone: ANES POSTPROC EVALon 023 ANES POSTPROC EVAL HNO ID: [id number] Author: Saundra Solorzano APRN.SOFTWARE ENGINEER KERNEL Service: Anesthesiology Author Type: Nurse Marriage And Family Social Worker Type: Anesthesia Postprocedure Evaluation Filed: 06/04/2022 10:52 AM Note Text: POST ANESTHESIA EVALUATION NOTE : 1960 Procedure Summary Date: 06/04/22 Room / Location: Ambulatory Surgery Anesthesia Start: 1035 Anesthesia Stop: 1052 Procedure: EGD DIAGNOSTIC Diagnosis: Postprandial epigastric pain (Epigastric abdominal pain) Scheduled Providers: Catia Trujillo MD Responsible Provider: Saundra Solorzano APRN.SOFTWARE ENGINEER KERNEL Anesthesia Type: MAC ASA Status: 2 Anesthesia Type: MAC Last Vitals Vitals Value Taken Time BP 119/65 06/04/22 1050 Temp 36.7 ?C (98 ?F) 06/04/22 1050 Pulse 80 06/04/22 1050 Resp 16 06/04/22 1050 SpO2 94 % 06/04/22 1050 Post Anesthesia Patient Status Patient Evaluation: PACU. PACU/ICU Patient Condition: stable. Anticipated Disposition: phase 2 then home. Neurological Status: aware and responsive. Pulmonary Status: breathing comfortably on room air Airway Control: returned to baseline unsupported. Cardiovascular Status: stable. Pain Management: clinically adequate - multimodal analgesia pain management approach Postoperative Hydration: acceptable. Intraoperative Events: no significant anesthesia events Post Operative Nausea/Vomiting Status: no significant post operative nausea or vomiting Recommendation: continue current plan of care. Anesthesia Observations No Documentation SIGNATURE: Saundra Solorzano APRN.SOFTWARE ENGINEER KERNEL PATIENT NAME: Marissa Miller DATE: June 04, 2022 TIME: 10:52 AM CSN: [id number] Normal [facility] ANES PRE-OPon 06-04-2022 ANES PRE-OP HNO ID: [id number] Author: Saundra Solorzano APRN.SOFTWARE ENGINEER KERNEL Service: Anesthesiology Author Type: Nurse Marriage And Family Social Worker Type: Anesthesia Preprocedure Evaluation Filed: 06/04/2022 10:35 AM Note Text: ANESTHESIOLOGY DAY OF SURGERY NOTE : 1960 Procedure Information Date/Time: 06/04/22 1000 Scheduled providers: Catia Trujillo MD Procedure: EGD DIAGNOSTIC Location: Ambulatory Surgery Estimated body mass index is 33.64 kg/m? as calculated from the following: Height as of this encounter: 162.6 cm (5' 4). Weight as of this encounter: 88.9 kg (196 lb). Most recent hematocrit and potassium results: No results found for this basename: HCT,HEMATOCRIT,K,POTASS IUM Relevant Problems No relevant active problems I - PHYSICAL EVALUATION AIRWAY Patient intubated: No. Tracheostomy tube not present Mallampati: II. TM distance: >3 FB. Neck ROM: full ROM without neurological symptoms. Mouth opening: adequate. Short neck: no. Thick neck: no Vasquez present: no Lip Bite Test: I Microretrognathia/Micro nagthia/Recessed Chin: No DENTAL Dentures, upper: complete. Dentures, lower: complete. Additional exam findings: no II - ANESTHESIA PLAN ASA Score: 2 Anesthetic Plan: MAC The patient is not a current smoker. NPO Status: adequate Beta Ángel Monitoring Plan Monitoring plan: standard ASA. Post Procedure Analgesic Plan Postoperative analgesic plan: parenteral or oral opioids and multimodal analgesia. Informed Consent Anesthetic risks, benefits, alternatives, personnel and consent discussed: yes. Patient / Responsible Alliance Party agrees to proceed: yes Patient / Surrogate agrees to blood products: blood products not planned Significant changes in the patient condition since the History and Physical, not otherwise documented in primary service progress note: no. Potential Anesthesia issues that may suggest increased risk of complications or contraindication to planned procedure: none. Vitals Value Taken Time BP 125/54 06/04/22940 Pulse 82 06/04/22940 Resp 16 06/04/22940 Temp 37.1 ?C (98.8 ?F) 06/04/22940 SpO2 99 % 06/04/22940 Outpatient Medications as of 06/04/2022 Medication Sig - pregabalin (LYRICA) 100 mg capsule Take 100 mg by mouth three times daily. - lamoTRIgine (LAMICTAL) 200 mg tablet Take 200 mg by mouth once daily. - lisinopril (ZESTRIL) 10 mg tablet Take 10 mg by mouth once daily. - sucralfate (CARAFATE) 1 gram tablet Take 1 tablet by mouth twice daily. Crush and mix with small tablespoon of applesauce. - omeprazole (PRILOSEC) 40 mg capsule take 1 capsule by mouth once daily - celecoxib (CELEBREX) 200 mg capsule Take 200 mg by mouth. - glimepiride (AMARYL) 4 mg tablet Take 4 mg by mouth twice daily. - levothyroxine (SYNTHROID) 100 mcg tablet - oxybutynin XL (DITROPAN XL) 5 mg 24 hr tablet - VITAMIN B-12 1,000 mcg tab - promethazine (PHENERGAN) 25 mg tablet Take 12.5 mg by mouth. - FARXIGA 10 mg tab Take 10 mg by mouth once daily. - ARIPiprazole (ABILIFY) 15 mg tablet Take 1 tablet by mouth once daily. - DULoxetine (CYMBALTA) 60 mg capsule Take 2 capsules by mouth once daily. - HEALTHPRO TEST STRIPS test strip - EASY TOUCH TWIST LANCETS 30 gauge misc - atorvastatin (LIPITOR) 40 mg tablet - cyclobenzaprine (FLEXERIL) 10 mg tablet Facility-Administered Medications as of 06/04/2022 Medication Dose Route Frequency - lidocaine (PF) 10 mg/mL (1 %) 1-2 mg injection (XYLOCAINE) 0.1-0.2 mL INTRADERMAL PRN - lactated ringers iv infusion 30 mL/hr INTRAVENOUS CONTINUOUS I have interviewed and examined the patient. I have reviewed the medical record and/or the pre-anesthesia evaluation, pertinent labs, and test results. This contains updated information obtained within 48 hours of Surgery/Procedure. SIGNATURE: Saundra Solorzano APRN.CRNA PATIENT NAME: Marissa Milelr DATE: June 04, 2022 TIME: 10:29 AM CSN: [id number] Normal [facility] EGD Study observation Narrat iveon 06-04-2022 [facility] Patient Name: Marissa Miller Procedure Date: 06/04/2022 10:28 AM Date of : 1960 Admit Type: Outpatient Age: 61 Room: [place] [address] Gender: Female Note Status: Finalized Attending MD: Catia Trujillo MD Procedure: Upper GI endoscopy Indications: Epigastric abdominal pain Providers: Catia Trujillo MD Referring Physician: Keisha Chen (pa) (Referring MD) Medicines: Propofol per Anesthesia Complications: No immediate complications. Requesting Provider: Procedure: Pre-Anesthesia Assessment: - Prior to the procedure, a History and Physical was performed, and patient medications and allergies were reviewed. The patient's tolerance of previous anesthesia was also reviewed. The risks and benefits of the procedure and the sedation options and risks were discussed with the patient. All questions were answered, and informed consent was obtained. Prior Anticoagulants: The patient has taken no anticoagulant or antiplatelet agents. ASA Grade Assessment: II - A patient with mild systemic disease. After reviewing the risks and benefits, the patient was deemed in satisfactory condition to undergo the procedure. After obtaining informed consent, the endoscope was passed under direct vision. Throughout the procedure, the patient's blood pressure, pulse, and oxygen saturations were monitored continuously. The Endoscope was introduced through the mouth, and advanced to the second part of duodenum. I was present and participated during the entire procedure, including non-demarco portions, and during the administration and monitoring of Moderate Sedation. The upper GI endoscopy was accomplished without difficulty. The patient tolerated the procedure well. Moderate Sedation: MAC anesthesia was administered by the anesthesia team. Findings: LA Grade A (one or more mucosal breaks less than 5 mm, not extending between tops of 2 mucosal folds) esophagitis with no bleeding was found 35 cm from the incisors. A patulous lower esophageal sphincter was found. A 4 cm hiatal hernia was present. A widely patent Schatzki ring was found at the gastroesophageal junction. Localized moderately erythematous mucosa without bleeding was found in the gastric antrum. Biopsies were taken with a cold forceps for histology. The duodenal bulb and second portion of the duodenum were normal. Impression: - LA Grade A reflux esophagitis with no bleeding. - Patulous lower esophageal sphincter. - 4 cm hiatal hernia. - Widely patent Schatzki ring. - Erythematous mucosa in the antrum. Biopsied. - Normal duodenal bulb and second portion of the duodenum. - Bilious gastric fluid. Recommendation: - Resume previous diet. - Continue present medications. - Await pathology results. - The patient is not currently taking anticoagulant or antiplatelet agents. - Return to GI clinic as previously scheduled. - Patient has a contact number available for emergencies. The signs and symptoms of potential delayed complications were discussed with the patient. Return to normal activities tomorrow. Written discharge instructions were provided to the patient. Procedure Code(s): --- Professional --- 50971, Esophagogastroduodenosc opy, flexible, transoral; with biopsy, single or multiple CPT copyright 2020 [employer]. All rights reserved. The codes documented in this report are preliminary and upon treating plant supervisor review may be revised to meet current compliance requirements. Attending Participation: I personally performed the entire procedure. Scope In: (more content not included)... PROVATION [facility] Radiology Study observation (narrative) [facility] HISTORY PHYSICALon HISTORY PHYSICAL HNO ID: [id number] Author: Catia Trujillo MD Service: Gastroenterology Author Type: Physician Type: HANDP Filed: 06/04/2022 10:28 AM Note Text: HISTORY AND PHYSICAL Marissa Miller, 61 year old female here for EGD to evaluate post prandial epigastric abdominal pain and GERD Current history and physical on file: No Is a new History and Physical required for today's visit? Yes Indication for procedure: Abdominal pain and GERD PROCEDURE(S) SCHEDULED FOR: EGD (Esophagogastroduodenos copy) with or without biopsies, removal of polyps or lesions, dilation ( any means), treatment of bleeding ( any means), Barrx treatment of Marcial's Esophagus, image tube placement or cryo therapy treatment based on clinical findings. BASELINE BEHAVIOR: Calm BASELINE ORIENTATION: A AND O x3 All medications and allergies reviewed: Yes Skin Assessment: Warm dry muscus membranes pink Airway/Respiratory Assessment: Airway: visualization of the uvula- Yes Mouth: opening greater than 2 fingerbreadths- Yes Neck: full range of motion- Yes Breath sounds clear/equal- Yes Cardiac Assessment: Regular rate and rhythm without murmur Abdominal Assessment: Abdomen soft, non-tender, no masses or organomegaly. Sedation Plan: Deep Additional Comments: None Catia Trujillo MD [facility] SURGICAL PATHOLOGYon 023 CASE REPORT [facility] Comment on above: Order Comment: Speci men Type: TISSUE SPECIMENOrdering Facility: [facility] Address: [address] [place] [address] Result Comment: Surg [facility] Pathology Report Case: [id number] Authorizing Provider: Catia Trujillo MD Collected: 06/04/2022 10:41 AM Ordering Location: Ambulatory Surgery Received: 06/04/2022 08:50 PM Pathologist: Edita Dixon MD Specimen: ANTRUM (STOMACH) BIOPSY Performed By: #### S ####[facility] LABCLIA [id number] [place] [id number] FINAL DIAGNOSIS [facility] Comment on above: Order Comment: Speci men Type: TISSUE SPECIMENOrdering Facility: [facility] Address: [address] [place] [address] Result Comment: Abdirahman russo, antrum, biopsy: - Gastric antral mucosa with no significant pathologic change. - No intestinal metaplasia or morphologic evidence of Helicobacter pylori organisms. ES/MM 06/06/2022 Performed By: #### S ####[facility] LABCLIA [id number] [address] [place] FINAL PERFORMING LAB Normal [facility] Comment on above: Order Comment: Speci men Type: TISSUE SPECIMENOrdering Facility: [facility] Address: [address] [place] [address] Result Comment: Diag nostic interpretation performed at [facility], [address] [place] [address] CLIA# [id number] Tobacco Sorter: Frankie Bell M.D. Performed By: #### S ####[facility] LABCLIA [id number] [address] [place] GROSS DESCRIPTION Normal [facility] Comment on above: Order Comment: Speci men Type: TISSUE SPECIMENOrdering Facility: [facility] Address: [address] [place] [address] Result Comment: A. A NTRUM (STOMACH) BIOPSY Received in formalin are multiple pieces of benitez, soft tissue aggregating to 2.0 x 0.3 x 0.2 cm. Totally submitted in one cassette. Gross examination performed at [facility], [address] [place] [address] JT 06/05/2022 1:20 AM Performed By: #### S ####[facility] LABCLIA [id number] [address] [place] Upper GI endoscopy 023 [facility] Patient Name: Marissa Miller Procedure Date: 06/04/2022 10:28 AM Date of : 1960 Admit Type: Outpatient Age: 61 Room: [place] [address] Gender: Female Note Status: Finalized Attending MD: Catia Trujillo MD Procedure: Upper GI endoscopy Indications: Epigastric abdominal pain Providers: Catia Trujillo MD Referring Physician: Keisha Chen (pa) (Referring MD) Medicines: Propofol per Anesthesia Complications: No immediate complications. Requesting Provider: Procedure: Pre-Anesthesia Assessment: - Prior to the procedure, a History and Physical was performed, and patient medications and allergies were reviewed. The patient's tolerance of previous anesthesia was also reviewed. The risks and benefits of the procedure and the sedation options and risks were discussed with the patient. All questions were answered, and informed consent was obtained. Prior Anticoagulants: The patient has taken no anticoagulant or antiplatelet agents. ASA Grade Assessment: II - A patient with mild systemic disease. After reviewing the risks and benefits, the patient was deemed in satisfactory condition to undergo the procedure. After obtaining informed consent, the endoscope was passed under direct vision. Throughout the procedure, the patient's blood pressure, pulse, and oxygen saturations were monitored continuously. The Endoscope was introduced through the mouth, and advanced to the second part of duodenum. I was present and participated during the entire procedure, including non-demarco portions, and during the administration and monitoring of Moderate Sedation. The upper GI endoscopy was accomplished without difficulty. The patient tolerated the procedure well. Moderate Sedation: MAC anesthesia was administered by the anesthesia team. Findings: LA Grade A (one or more mucosal breaks less than 5 mm, not extending between tops of 2 mucosal folds) esophagitis with no bleeding was found 35 cm from the incisors. A patulous lower esophageal sphincter was found. A 4 cm hiatal hernia was present. A widely patent Schatzki ring was found at the gastroesophageal junction. Localized moderately erythematous mucosa without bleeding was found in the gastric antrum. Biopsies were taken with a cold forceps for histology. The duodenal bulb and second portion of the duodenum were normal. Impression: - LA Grade A reflux esophagitis with no bleeding. - Patulous lower esophageal sphincter. - 4 cm hiatal hernia. - Widely patent Schatzki ring. - Erythematous mucosa in the antrum. Biopsied. - Normal duodenal bulb and second portion of the duodenum. - Bilious gastric fluid. Recommendation: - Resume previous diet. - Continue present medications. - Await pathology results. - The patient is not currently taking anticoagulant or antiplatelet agents. - Return to GI clinic as previously scheduled. - Patient has a contact number available for emergencies. The signs and symptoms of potential delayed complications were discussed with the patient. Return to normal activities tomorrow. Written discharge instructions were provided to the patient. Procedure Code(s): --- Professional --- 00134, Esophagogastroduodenosc opy, flexible, transoral; with biopsy, single or multiple CPT copyright 2021 [employer]. All rights reserved. The codes documented in this report are preliminary and upon treating plant supervisor review may be revised to meet current compliance requirements. Attending Participation: I personally performed the entire procedure. Scope In: 10:39:48 AM Scope Out: 10:42:49 AM MD Catia Ocampo MD 06/04/2022 10:49:05 AM This report has been signed electronically by Catia Trujillo MD Number of Addenda: 0 Note Initiated On: 06/04/2022 10:28 AM Estimated Blood Loss: Estimated blood loss: none. Normal [facility] CNCOon 05-30-2022 CNCO Letter Text Normal [facility] CNOVon 05-30-2022 CNOV Office Visit ([facility] ) MARISSA MILLER ([id number]) 1960 F Date Time Provider Department 05/30/22 11:40 AM KEISHA CHEN [facility] During your visit today, we recorded the following information about you: Pulse Blood pressure Weight Height 76/minute 136/80 88.9 kg 1.626 m Keisha Chen PA-C 05/30/2022 12:26 PM Signed CHIEF COMPLAINT: Patient presents with: Recheck: Gallbladder [...] Not able to tolerate fiber powders. RUQ 03/2022 IMPRESSION: Unchanged size of a 9 [...] N/A 10/13/2019 fair prep, hyperplastic polyps x3, div (more content not included)... [facility] US ABD RIGHT UPPER QUADRANTo n 04-04-2022 US ABD RIGHT UPPER QUADRANT * * *Final Report* * * DATE OF EXAM: Apr 04 2022 10:52AM WRU 1032 - US ABD RIGHT UPPER QUADRANT / PROCEDURE REASON: Gallbladder polyp * * * * Physician Interpretation * * * * EXAMINATION: RIGHT UPPER QUADRANT ULTRASOUND CLINICAL HISTORY: Gallbladder polyp TECHNIQUE: Sonography of the right upper quadrant was performed. Images were obtained and stored in a permanent archive. MQ: URUQ_2 COMPARISON: Abdominal ultrasound 01/03/2022 RESULT: Pancreas: Normal sonographic appearance. Portions obscured: tail Liver: Echotexture: Normal, homogeneous. Echogenicity: Normal Surface contour: Smooth Lesions: None. Biliary: No intrahepatic biliary duct dilation. CBD: 0.3 cm at the hilum. Gallbladder: Normal caliber -Contents: Unchanged size of a 9 mm echogenic lesion along the proximal gallbladder wall. -Wall: Normal -Other: No pericholecystic fluid. Right Kidney: No hydronephrosis. Ascites: None. IMPRESSION: Unchanged size of a 9 mm gallbladder polyp. A follow-up study could BE obtained in 6 months to assess for any change in size. Wood Lather: DARVIN Transcribe Date/Time: Apr 05 2022 1:07P Dictated by : NNAMDI MAKI MD This examination was interpreted and the report reviewed and electronically signed by: NNAMDI MAKI MD on Apr 05 2022 1:14PM EST [id number] Normal [facility] ABD RT UPPER QUADRANTon 0 04-04-2022 [facility] CNPNon 01-04-2022 CNPN Telephone ([facility]) MARISSA MILLER ([id number]) 1960 F Date Time Provider Department 01/04/22 JULES GRAY [facility] During your visit today, we recorded the following information about you: Jules Gray MD 01/04/2022 9:56 AM Signed Ultrasound of the liver showed a polyp in the gallbladder but does not look like cancer. Please repeat ultrasound after 3 months. If it grows, will refer to surgery since it could potentially become a cancer Pavel Joiner MA 01/04/2022 10:38 AM Signed Patient notified of results and recommendations. Allergies As of Date: 01/04/2022 Noted Allergy Reaction CLARITHROMYCIN 07/05/2010 16 - Unknown AMOXICILLIN-POT CLAVULANATE 08/24/2018 8 - GI Upset HYDROMORPHONE 12/25/2021 14 - Other: See Comments PREGABALIN 08/24/2018 8 - GI Upset Date Reviewed: 12/31/2021 Reviewed by: Pavel Joiner MA - Fully Assessed Reason for Visit: Results [95] Primary Visit Diagnosis:Gallbladder polyp [K82.4] Order(s):US ABD RT UPPER QUADRANT [[id number]] Order #: [id number] FUTURE Prescriptions as of 01/04/2022 - cholestyramine low-calorie (CHOLESTYRAMINE LIGHT) 4 gram packet Take 1 Packet by mouth twice daily with meals. - celecoxib (CELEBREX) 200 mg capsule Take 200 mg by mouth. - glimepiride (AMARYL) 4 mg tablet Take 4 mg by mouth twice daily. - levothyroxine (SYNTHROID) 100 mcg tablet - oxybutynin XL (DITROPAN XL) 5 mg 24 hr tablet - omeprazole (PRILOSEC) 40 mg capsule Take 1 capsule by mouth once daily. - VITAMIN B-12 1,000 mcg tab - promethazine (PHENERGAN) 25 mg tablet Take 12.5 mg by mouth. - FARXIGA 10 mg tab Take 10 mg by mouth once daily. - lisinopril (ZESTRIL, PRINIVIL) 5 mg tablet Take 5 mg by mouth once daily. - ARIPiprazole (ABILIFY) 15 mg tablet Take 1 tablet by mouth once daily. - DULoxetine (CYMBALTA) 60 mg capsule Take 2 capsules by mouth once daily. - zolpidem (AMBIEN) 10 mg tab Take 1 tablet by mouth daily at bedtime. - HEALTHPRO TEST STRIPS test strip - EASY TOUCH TWIST LANCETS 30 gauge misc - atorvastatin (LIPITOR) 40 mg tablet - cyclobenzaprine (FLEXERIL) 10 mg tablet - gabapentin (NEURONTIN) 800 mg tablet Problem List As Of Date: 01/04/2022 (None) Encounter Status:Closed by JULES GRAY on 01/04/22 [facility] US ABD RIGHT UPPER QUADRANTo n 01-03-2022 US ABD RIGHT UPPER QUADRANT * * *Final Report* * * DATE OF EXAM: Jan 03 2022 2:48PM WRU 1032 - US ABD RIGHT UPPER QUADRANT / PROCEDURE REASON: Gallbladder polyp * * * * Physician Interpretation * * * * EXAM TITLE: US ABD RIGHT UPPER QUADRANT, US ABD SPLEEN -NB HISTORY: Gallbladder polyp. TECHNIQUE: Sonography of the right upper quadrant and spleen was performed. Images were obtained and stored in a permanent archive. MQ: URUQ_1 COMPARISON: None. RESULT: Pancreas: Normal sonographic appearance in the visualized portions. Portions obscured: tail Liver: Echotexture: Homogeneous Echogenicity: Normal Surface contour: Smooth Lesions: None. Biliary: No intrahepatic biliary duct dilation. CBD: 3 mm in diameter. Gallbladder: Normal caliber -Contents: No cholelithiasis. There is a 9 mm echogenic lesion along the gallbladder wall. -Wall: 3 mm in thickness -Other: No pericholecystic fluid. Kidneys: Within normal limits, measuring 9.2 cm in length of the right kidney and 12.4 cm in length of the left kidney. Spleen: The spleen is normal in size, measuring 10.2 x 4.4 x 10.8 cm. No mass lesion identified. IMPRESSION: 9 mm echogenic lesion along the gallbladder wall, likely representing gallbladder polyp/cholesterol polyp. ACTIONABLE RESULT: FOLLOW-UP Acuity: Actionable Findings: Pancreas/Biliary Routing Code: PB_1 Recommendation: US ABD RT UPPER QUADRANT Time Frame: 3-6 months COMMUNICATION: Results will be communicated with the ordering provider via [employer] staff message or phone message by [employer] within 2 business days of report finalization. Algorithms for management of incidental imaging findings can be found on the [facility] Intranet Sharepoint site at: [email or web address] Managing%20Incidental%2 0Findi ngs%20at%20Imaging/Form s/AllItems.aspx Wood Lather: DARVIN Transcribe Date/Time: Jan 03 2022 5:16P Dictated by : LISET ROSE MD This examination was interpreted and the report reviewed and electronically signed by: LISET ROSE MD on Jan 03 2022 5:22PM EST [id number] ACTIONABLE Invalid Interpretation Code [facility] US ABD SPLEEN -NBon 01-04-20 US ABD SPLEEN -NB * * *Final Report* * * DATE OF EXAM: Jan 03 2022 2:48PM WRU 1232 - US ABD SPLEEN -NB / PROCEDURE REASON: Gallbladder polyp * * * * Physician Interpretation * * * * EXAM TITLE: US ABD RIGHT UPPER QUADRANT, US ABD SPLEEN -NB HISTORY: Gallbladder polyp. TECHNIQUE: Sonography of the right upper quadrant and spleen was performed. Images were obtained and stored in a permanent archive. MQ: URUQ_1 COMPARISON: None. RESULT: Pancreas: Normal sonographic appearance in the visualized portions. Portions obscured: tail Liver: Echotexture: Homogeneous Echogenicity: Normal Surface contour: Smooth Lesions: None. Biliary: No intrahepatic biliary duct dilation. CBD: 3 mm in diameter. Gallbladder: Normal caliber -Contents: No cholelithiasis. There is a 9 mm echogenic lesion along the gallbladder wall. -Wall: 3 mm in thickness -Other: No pericholecystic fluid. Kidneys: Within normal limits, measuring 9.2 cm in length of the right kidney and 12.4 cm in length of the left kidney. Spleen: The spleen is normal in size, measuring 10.2 x 4.4 x 10.8 cm. No mass lesion identified. IMPRESSION: 9 mm echogenic lesion along the gallbladder wall, likely representing gallbladder polyp/cholesterol polyp. ACTIONABLE RESULT: FOLLOW-UP Acuity: Actionable Findings: Pancreas/Biliary Routing Code: PB_1 Recommendation: US ABD RT UPPER QUADRANT Time Frame: 3-6 months COMMUNICATION: Results will be communicated with the ordering provider via [employer] staff message or phone message by [facility] within 2 business days of report finalization. Algorithms for management of incidental imaging findings can be found on the [facility] Intranet Sharepoint site at: [email or web address] Managing%20Incidental%2 0Findi ngs%20at%20Imaging/Form s/AllItems.aspx Wood Lather: DARVIN Transcribe Date/Time: Jan 03 2022 5:16P Dictated by : LISET ROSE MD This examination was interpreted and the report reviewed and electronically signed by: LISET ROSE MD on Jan 03 2022 5:22PM EST [id number] ACTIONABLE Invalid Interpretation Code [facility] CNOVon 12-31-2021 CNOV Office Visit ([facility] ) MARISSA MILLER ([id number]) 1960 F Date Time Provider Department 12/31/21 11:45 AM JULES GRAY [facility] During your visit today, we recorded the following information about you: Pulse Blood pressure Weight Height 80/minute 138/80 80.3 kg 1.626 m Jules Gray MD 12/31/2021 12:27 PM Signed CHIEF COMPLAINT: Patient presents with: Abdominal Pain: [...] joint swelling or effusion. Extremities: No cyanosis, clubb (more content not included)... Normal [facility] MG Breast Tomosynthesis Scr Blon 12-26-2021 MG Breast Tomosynthesis Scr Bl Patient Name: MARISSA MILLER Mammography ACCESSION EXAM DATE/TIME PROCEDURE ORDERING PROVIDER [id number] 12/26/2021 14:14 EDT MG Breast Tomosynthesis MD BERNABE, GAURI ARCE BI Scr CPT code 15828 98269 Reason For Exam (MG Breast Tomosynthesis BI Scr) screening Report TIME SINCE LAST MAMMOGRAM: Last mammogram was performed 1 year ago. REASON FOR EXAM: screening, asymptomatic. PROCEDURE: MG BREAST TOMOSYNTHESIS BL SCR: DECEMBER 26, 2021 - 2D/3D Procedure 3D Bilateral CC and MLO view(s) were taken. 2D Bilateral CC and MLO view(s) were taken. Prior study comparison: December 12, 2020, bilateral MG breast tomosynthesis bl scr performed at [facility]. November 03, 2019, bilateral MG breast tomosynthesis bl scr performed at [facility]. July 15, 2018, bilateral MG breast tomosynthesis bl scr performed at [facility]. TISSUE DENSITY: BIRADS C - The breast tissue is heterogeneously dense, which could obscure underlying abnormalities. . FINDINGS: No suspicious masses, architectural distortions or suspiciously clustered microcalcifications are identified. There is no evidence of skin thickening or nipple retraction. There are no significant changes when compared with prior studies. No mammographic evidence of malignancy. Markings on images: BB's = Nipples; skin lesions [place] = Palpable Line = Scar 2D digital mammography and tomosynthesis imaging were performed and reviewed with CAD. ASSESSMENT: Category 1 Negative Mammography Report RECOMMENDATION: Routine screening mammogram of both breasts in 1 year. . Report Dictated on Final Signed Date and Time: 12/26/2021 3:45 pm Signed by: MD MIKE, ZORAN [facility] Inderjit Digital Screen [place] 12-26-2021 Patient Name: MARISSA BORJA Mammography ACCESSION EXAM DATE/TIME PROCEDURE ORDERING PROVIDER [id number] 12/26/2021 14:14 EDT MG Breast Tomosynthesis MD BERNABE, GAURI ARCE BI Scr CPT code 24093 10539 Reason For Exam (MG Breast Tomosynthesis BI Scr) screening Report TIME SINCE LAST MAMMOGRAM: Last mammogram was performed 1 year ago. REASON FOR EXAM: screening, asymptomatic. PROCEDURE: MG BREAST TOMOSYNTHESIS BL SCR: DECEMBER 26, 2021 - 2D/3D Procedure 3D Bilateral CC and MLO view(s) were taken. 2D Bilateral CC and MLO view(s) were taken. Prior study comparison: December 12, 2020, bilateral MG breast tomosynthesis bl scr performed at [facility]. November 03, 2019, bilateral MG breast tomosynthesis bl scr performed at [facility]. July 15, 2018, bilateral MG breast tomosynthesis bl scr performed at [facility]. TISSUE DENSITY: BIRADS C - The breast tissue is heterogeneously dense, which could obscure underlying abnormalities. . FINDINGS: No suspicious masses, architectural distortions or suspiciously clustered microcalcifications are identified. There is no evidence of skin thickening or nipple retraction. There are no significant changes when compared with prior studies. No mammographic evidence of malignancy. Markings on images: BB's = Nipples; skin lesions [place] reservation = Palpable Line = Scar 2D digital mammography and tomosynthesis imaging were performed and reviewed with CAD. ASSESSMENT: Category 1 Negative Mammography Report RECOMMENDATION: Routine screening mammogram of both breasts in 1 year. . Report Dictated on --- Final --- Signed Date and Time: 12/26/2021 3:45 pm Signed by: MD MIKE, ZORAN Craft [facility] Zoran Green MD - 12/26/2021 Patient Name: MARISSA MILLER Mammography ACCESSION EXAM DATE/TIME PROCEDURE ORDERING PROVIDER [id number] 12/26/2021 14:14 EDT MG Breast Tomosynthesis MD BERNABE, GAURI ARCE BI Scr CPT code 46309 67662 Reason For Exam (MG Breast Tomosynthesis BI Scr) screening Report TIME SINCE LAST MAMMOGRAM: Last mammogram was performed 1 year ago. REASON FOR EXAM: screening, asymptomatic. PROCEDURE: MG BREAST TOMOSYNTHESIS BL SCR: DECEMBER 26, 2021 - 2D/3D Procedure 3D Bilateral CC and MLO view(s) were taken. 2D Bilateral CC and MLO view(s) were taken. Prior study comparison: December 12, 2020, bilateral MG breast tomosynthesis bl scr performed at [facility]. November 03, 2019, bilateral MG breast tomosynthesis bl scr performed at [facility]. July 15, 2018, bilateral MG breast tomosynthesis bl scr performed at [facility]. TISSUE DENSITY: BIRADS C - The breast tissue is heterogeneously dense, which could obscure underlying abnormalities. . FINDINGS: No suspicious masses, architectural distortions or suspiciously clustered microcalcifications are identified. There is no evidence of skin thickening or nipple retraction. There are no significant changes when compared with prior studies. No mammographic evidence of malignancy. Markings on images: BB's = Nipples; skin lesions [place] = [place] Line = Scar 2D digital mammography and tomosynthesis imaging were performed and reviewed with CAD. ASSESSMENT: Category 1 Negative Mammography Report RECOMMENDATION: Routine screening mammogram of both breasts in 1 year. . Report Dictated on --- Final --- Signed Date and Time: 12/26/2021 3:45 pm Signed by: MD MIKE, ZORAN Craft [facility] Work Phone: Radiology Study observation (narrative) [facility] Work Phone: Pancho Inderjit Digital Screen Bila teralOrdered By: Zoran Green on 12-26-2021 [facility] Work Phone: Absolute lymphocyte counton 09-01-2021 Lymphocytes Auto (Unsp spec) [#/Vol] 1.18 10*3/uL 0.83-4.51 [facility] Work Phone: Basophil percentageon 2021 Basophils/100 WBC (Bld) 0.3 % 0-1 [facility] Work Phone: Bilirubin [Mass/Vol] 0.40 mg/dL 0.20-1.00 [facility] Work Phone: [phone] Comment on above: For patients on eltr ombopag therapy, use of Dimension Herriman TBIL is not recommended. Chloride [Moles/Vol] 103 mmol/L 98-107 [facility] Work Phone: Eosinophils/100 WBC (Bld) 0.1 % 0-5 [facility] Work Phone: [phone] Glucose [Mass/Vol] 160 mg/dL 74-106 [facility] Work Phone: Comment on above: Fasting Glucose resu lt greater than or equal to 126 mg/dL suggests DIABETES MELLITUS per A.D.A. criteria. Neutrophils (Bld) [#/Vol] 8.3 10*3/uL 2.0-7.7 [facility] Work Phone: [phone] Neutrophils/100 WBC (Bld) 82.3 % 47-70 [facility] Work Phone: [phone] Potassium [Moles/Vol] 4.1 mmol/L 3.5-5.1 [facility] Work Phone: Protein [Mass/Vol] 6.9 g/dL 6.4-8.2 [facility] Work Phone: Sodium [Moles/Vol] 137 mmol/L 136-145 [facility] Work Phone: WBC (Bld) [#/Vol] 10.0 10*3/uL 4.4-11.0 [facility] Work Phone: Blood erythrocytes count (nu mber/volume)on 09-01-2021 RBC (Bld) [#/Vol] 4.67 10*6/uL 4.2-5.4 [facility] Work Phone: Blood hemoglobin measurement (mass/volume)on 09-01-2021 Hemoglobin (Bld) [Mass/Vol] 13.7 g/dL 12.0-15.0 [facility] Work Phone: [phone] Blood lymphocytes/100 leukoc yteson 09-01-2021 Lymphocytes/100 WBC (Bld) 11.8 % 19-41 [facility] Work Phone: Blood monocytes/100 leukocyt eson 09-01-2021 Monocytes/100 WBC (Bld) 4.8 % 0-10 [facility] Work Phone: Blood platelet mean volumeon 09-01-2021 Platelet mean volume (Bld) [Entitic vol] 10.0 fL 6.2-12.0 [facility] Work Phone: Determination of erythrocyte mean corpuscular volume (MCV)on 09-01-2021 MCV (RBC) [Entitic vol] 89.7 fL 81-99 [facility] Work Phone: Hematocrit Auto (Bld) [Volum e fraction]on 09-01-2021 Hematocrit (Bld) [Volume fraction] 41.9 % 37-47 [facility] Work Phone: Laboratory - Chemistry and C hemistry - challengeon 09-01-2021 ALP [Catalytic activity/Vol] 84 U/L 45-117 [facility] Work Phone: ALT [Catalytic activity/Vol] 31 U/L 13-56 [facility] Work Phone: CO2 [Moles/Vol] 29.0 mmol/L 21.0-32.0 [facility] Work Phone: Globulin (S) [Mass/Vol] 3.1 g/dL 2.2-4.2 [facility] Work Phone: Urea nitrogen/Creatinine [Mass ratio] 14.3 mg/mg 10-20 [facility] Work Phone: Laboratory - Hematology and Cell countson 09-01-2021 Erythrocyte distribution width (RBC) [Entitic vol] 46.4 fL 35.1-43.9 [facility] Work Phone: Erythrocyte distribution width (RBC) [Ratio] 14.1 % 11.6-14.6 [facility] Work Phone: Immature granulocytes/100 WBC (Bld) 0.700 % 0.0-0.9 [facility] Work Phone: [phone] Comment on above: IG% - Immature Granu locytes (promyelocytes, myelocytes and metamyelocytes) > 1% indicates that a LEFT SHIFT is Present. MCH (RBC) [Entitic mass] 29.3 pg 27.0-32.0 [facility] Work Phone: Nucleated RBC/100 WBC (Bld) [Ratio] 0 % 0-5 [facility] Work Phone: MCHC Auto (RBC) [Mass/Vol]on 09-01-2021 MCHC (RBC) [Mass/Vol] 32.7 g/dL 32-36 [facility] Work Phone: [phone] No Panel Informationon 09-01 Troponin I High Sensitivity 3 pg/mL 3.0-54.0 [facility] Work Phone: Comment on above: Please Note: New Bridgett t Units and Gender Specific Reference Ranges. For more information see Policy Stat Procedure Herriman High Sensitivity Troponin (TNIH) and attachments. Estimated Creatinine Clearance Calc 43.96 ml/min [facility] Work Phone: Estimated GFR (MDRD) Amer 60 mL/min >60 [facility] Work Phone: Comment on above: GFR Calc Estimated GFR (MDRD) Non-Af Amer 49 mL/min >60 [facility] Work Phone: Comment on above: Non- GFR Calc Platelets bldon 09-01-2021 Platelets (Bld) [#/Vol] 202 10*3/uL 150-450 [facility] Work Phone: Serum or plasma albumin nas urement (mass/volume)on 09-01-2021 Albumin [Mass/Vol] 3.8 g/dL 3.2-5.0 [facility] Work Phone: Serum or plasma albumin/glob ulin mass ratioon 09-01-2021 Albumin/Globulin [Mass ratio] 1.2 {ratio} 0.9-2.4 [facility] Work Phone: Serum or plasma calcium nas urement (mass/volume)on 09-01-2021 Calcium [Mass/Vol] 9.2 mg/dL 8.5-10.1 [facility] Work Phone: Serum or plasma creatinine m easurement (mass/volume)on 09-01-2021 Creatinine [Mass/Vol] 1.19 mg/dL 0.55-1.02 [facility] Work Phone: Comment on above: The validity of the calculated GFR & GFRAA in patients over 70 years has not been determined. Clinical correlation is essential. Serum or plasma urea nitroge n measurement (mass/volume)on 09-01-2021 Urea nitrogen [Mass/Vol] 17 mg/dL 7-18 [facility] Work Phone: Thin prep Papanicolaou smear with manual screeningon 09-01-2021 Thin prep Papanicolaou smear with manual screening 18 U/L 15-37 [facility] Work Phone: Thin prep Papanicolaou smear with manual screening 5 5-15 [facility] Work Phone: Clinical Summary: Jorge garibay 05-01-2021 MC75 OP Visit Invalid Interpretation Code [facility] Work Phone: Office Visit: Postop - 1st v isit, Rm: 30on 05-01-2021 NEGATED: Highlighted rowCT scan history of the back on 03[facility]07[facility] Invalid Interpretation Code [facility] Work Phone: MRI Spine Cervical w/o Contr elen 01-08-2021 MRI Spine Cervical w/o Contrast Patient Name: MARISSA MILLER Magnetic Resonance Imaging ACCESSION EXAM DATE/TIME PROCEDURE ORDERING PROVIDER [id number] 01/08/2021 10:16 EDT MRI Spine Cervical w/o MD ZULEYKA, KEATON BLACK CPT code 64380 Reason For Exam (MRI Spine Cervical w/o Contrast) radiculopathy cervical region Report EXAM TYPE: MRI Spine Cervical w/o Contrast EXAM DATE AND TIME: 01/08/2021 10:16 AM EDT INDICATION: Neck pain with right-sided radiculopathy COMPARISON: None available. TECHNIQUE: MR imaging of the cervical spine was performed without contrast. FINDINGS: Surgical changes of anterior fusion from C5 to C6 with mature osseous fusion of the disc spaces. There is focal reversal of the cervical lordosis centered at C6. No subluxation. Vertebral body heights are maintained. Degenerative endplate changes are present at C4-C5 and C7-T1. Multilevel disc desiccation throughout the cervical spine.. No prevertebral soft tissue swelling. The cervical spinal cord is normal in size and signal characteristics. Visualized portion of the posterior fossa is unremarkable. C2-C3: No disc herniation. Mild bilateral facet hypertrophy. No spinal canal or foraminal narrowing. C3-C4: Mild disc osteophyte complex. Bilateral uncovertebral and facet hypertrophy. Mild ligamentum flavum infolding. Moderate spinal canal narrowing. Mild bilateral foraminal narrowing. C4-C5: Moderate disc osteophyte complex that abuts the ventral cord. Bilateral uncovertebral and facet hypertrophy. Moderate to severe bilateral foraminal narrowing. Moderate to severe spinal canal narrowing. C5-C6: Anterior fusion. No spinal canal or foraminal narrowing. C6-C7: Anterior fusion. No spinal canal or foraminal narrowing. C7-T1: Mild disc osteophyte complex. Small central disc protrusion. Mild bilateral uncovertebral and facet hypertrophy. Mild bilateral foraminal narrowing. Limited flavum infolding. Mild spinal canal narrowing. IMPRESSION: Magnetic Resonance Imaging Report 1. Surgical changes of anterior fusion from C5 to C7. 2. Moderate to severe spinal canal and bilateral foraminal narrowing at C4-C5. 3. Otherwise, multilevel degenerative changes of the cervical spine as described. Report Dictated on Final Dictating Physician: MD RICE NEIL Signed Date and Time: 01/09/2021 9:31 am Signed by: MD RICE NEIL Transcribed Date and Time: 01/09/2021 9:32 [facility] Creatinine, Serumon 04-27-19 21 Creatinine [Mass/Vol] 0.75 mg/dL 0.52 - 1.25 mg/dL [facility] Work Phone: EGFR IF NonAfrican [place]ian 87.6 mL/min >60 [facility] Work Phone: Comment on above: KDIGO guidelines pro vide the following GFR categories: Stage GFR(ml/min/1.73 m2) Terms G1 >=90 Normal or high G2 60-89 Mildly decreased* G3a 45-59 Mildly to moderately decreased G3b 30-44 Moderately to severely decreased G4 15-29 Severely decreased G5 <15 Kidney failure *Relative to young adult level. In the absence of evidence of kidney damage, neither GFR category G1 nor G2 fulfill the criteria for CKD. The CKD-EPI equation is validated in individuals 18 years of age and older. Currently the best equation for estimating glomerular filtration rate (GFR) from serum creatinine in children is the Bedside Peters equation. It is less accurate in patients with extremes of muscle mass, restriction of dietary protein, ingestion of creatine, extra-renal metabolism of creatinine, or treatment with medications that affect renal tubular creatinine secretion. GFR/1.73 sq M predicted among blacks MDRD (S/P/Bld) [Vol rate/Area] mL/min/{1.73_m2} >60 mL/min [facility] Work Phone: Test Performed by [facility], [address] , [place] [address] [employer] Work Phone: PANCHO INDERJIT DIGITAL SCREEN BILGlory TERALon 11-03-2019 Patient Name: MARISSA BORJA ---Mammography--- Exam Date/Time 11/03/2019 10:26:52 EDT Exam MG Breast Tomosynthesis BI Scr Ordering Physician MD KIDD LESLIE ANN Accession Number [id number] CPT4 Codes 28454 (MG Breast Tomosynthesis Scr Bl), 60911 (MG MAMMO 2D SCREENING) Reason For Exam SCREENING Report TIME SINCE LAST MAMMOGRAM: Last mammogram was performed 1 year and 4 months ago. REASON FOR EXAM: screening, asymptomatic. PROCEDURE: MG BREAST TOMOSYNTHESIS BL SCR: NOVEMBER 03, 2019 - 2D/3D Procedure 3D Bilateral CC and MLO view(s) were taken. 2D Bilateral CC and MLO view(s) were taken. Prior study comparison: July 15, 2018, bilateral MG breast tomosynthesis bl scr performed at [facility]. December 30, 2016, bilateral MG breast tomosynthesis bl scr performed at [facility]. November 29, 2015, bilateral screening mammogram performed at [facility]. TISSUE DENSITY: BIRADS C - The breast tissue is heterogeneously dense, which could obscure underlying abnormalities. . FINDINGS: No suspicious masses, architectural distortions or suspiciously clustered microcalcifications are identified. There is no evidence of skin thickening or nipple retraction. There are no significant changes when compared with prior studies. Markings on images: BB's = Nipples; skin lesions [place] = Palpable Line = Scar 2D digital mammography and tomosynthesis imaging were performed and reviewed with CAD. ASSESSMENT: Category 1 Negative RECOMMENDATION: Routine screening mammogram of both breasts in 1 year. . Report Dictated on Cancer Risk Assessment: This risk assessment is based on patient provided information collected in a risk survey taken at the time of this examination. Lifetime breast cancer risk: 10.27% - If greater than or equal to 20%, consider annual mammogram and annual screening Breast MRI or follow up in high risk clinic. Is the patient at elevated risk based on the HBOC criteria? No (Hereditary Breast and Ovarian Cancer) - If yes, consider genetic counseling and testing with high risk follow up. HNPCC mutation risk (Magaña Syndrome): 8.8% - if greater than or equal to 5%, consider genetic counseling, testing and screening colonoscopy. --- Final --- Signed Date and Time: 11/03/2019 2:54 pm Signed by: MD MIKE, ZORAN Craft [facility] Incoming [facility] - 11/03/2019 2:57 PM EDT Patient Name: MARISSA MILLER ---Mammography--- Exam Date/Time 11/03/2019 10:26:52 EDT Exam MG Breast Tomosynthesis BI Scr Ordering Physician MD KIDD LESLIE ANN Accession Number [id number] CPT4 Codes 58904 (MG Breast Tomosynthesis Scr Bl), 97625 (MG MAMMO 2D SCREENING) Reason For Exam SCREENING Report TIME SINCE LAST MAMMOGRAM: Last mammogram was performed 1 year and 4 months ago. REASON FOR EXAM: screening, asymptomatic. PROCEDURE: MG BREAST TOMOSYNTHESIS BL SCR: NOVEMBER 03, 2019 - 2D/3D Procedure 3D Bilateral CC and MLO view(s) were taken. 2D Bilateral CC and MLO view(s) were taken. Prior study comparison: July 15, 2018, bilateral MG breast tomosynthesis bl scr performed at [facility]. December 30, 2016, bilateral MG breast tomosynthesis bl scr performed at [facility]. November 29, 2015, bilateral screening mammogram performed at [facility]. TISSUE DENSITY: BIRADS C - The breast tissue is heterogeneously dense, which could obscure underlying abnormalities. . FINDINGS: No suspicious masses, architectural distortions or suspiciously clustered microcalcifications are identified. There is no evidence of skin thickening or nipple retraction. There are no significant changes when compared with prior studies. Markings on images: BB's = Nipples; skin lesions [place] = Palpable Line = Scar 2D digital mammography and tomosynthesis imaging were performed and reviewed with CAD. ASSESSMENT: Category 1 Negative RECOMMENDATION: Routine screening mammogram of both breasts in 1 year. . Report Dictated on Cancer Risk Assessment: This risk assessment is based on patient provided information collected in a risk survey taken at the time of this examination. Lifetime breast cancer risk: 10.27% - If greater than or equal to 20%, consider annual mammogram and annual screening Breast MRI or follow up in high risk clinic. Is the patient at elevated risk based on the HBOC criteria? No (Hereditary Breast and Ovarian Cancer) - If yes, consider genetic counseling and testing with high risk follow up. HNPCC mutation risk (Magaña Syndrome): 8.8% - if greater than or equal to 5%, consider genetic counseling, testing and screening colonoscopy. --- Final --- Signed Date and Time: 11/03/2019 2:54 pm Signed by: MD MIKE, ZORAN Craft [place], [place] MRI LOWER EXTREMITY LEFT W [place] DIAZon 11-20-2018 Patient Name: MARISSA BORJA ---MRI--- Exam Date/Time 11/20/2018 11:43:16 EDT Exam MRI Low Ext Joint w/o Contrast Left Ordering Physician KEATON NIEVES Accession Number [id number] CPT4 Codes 85728 () Reason For Exam mmt left knee Report Exam Type: MRI Low Ext Joint w/o Contrast Left Exam Date and Time: 11/20/2018 11:43 AM EDT Demographics: Gender: Female; Age: 57 years Indication: Pain; Comparison: None available TECHNIQUE: MRI of the left knee was performed on using a standard non-contrast protocol in three planes (axial, sagittal, and coronal). FINDINGS: JOINT SPACE: There is no joint effusion. No Pablo's cyst. No intra-articular bodies. MEDIAL COMPARTMENT: The medial meniscus has normal morphology and signal intensity. No full-thickness, focal cartilage defects. LATERAL COMPARTMENT: The lateral meniscus has normal morphology and signal intensity. No full-thickness, focal cartilage defects. PATELLOFEMORAL COMPARTMENT: No full-thickness, focal cartilage defects. There is no lateral patellar tilt or translation. There is normal patellar and trochlear morphology. No patella rosie. No edema in superolateral Hoffa's fat pad. EXTENSOR MECHANISM: The quadriceps tendon is intact. The patella tendon is intact. CRUCIATE LIGAMENTS: The anterior cruciate ligament is intact. The posterior cruciate ligament is intact. COLLATERAL LIGAMENTS AND POSTEROLATERAL CORNER: The medial collateral ligament (MCL) is intact. The lateral collateral ligament (LCL) is intact. The posterior lateral corner structures are intact. OSSEOUS STRUCTURES: The alignment of the osseous structures is anatomic. No acute fracture or bone marrow edema. No suspicious osseous lesions or other bone marrow signal alteration. SOFT TISSUES: No subcutaneous edema or soft tissue mass. IMPRESSION: No evidence of internal derangement. Report Dictated on --- Final --- Dictating Physician: MD LAU JASON Signed Date and Time: 11/20/2018 8:23 pm Signed by: MD LAU JASON Transcribed Date and Time: 11/20/2018 8:24 [facility], [facility] Incoming Radiology Results From [facility] - 11/20/2018 8:25 PM EDT Patient Name: MARISSA MILLER ---MRI--- Exam Date/Time 11/20/2018 11:43:16 EDT Exam MRI Low Ext Joint w/o Contrast Left Ordering Physician KEATON NIEVES Accession Number [id number] CPT4 Codes 74856 () Reason For Exam mmt left knee Report Exam Type: MRI Low Ext Joint w/o Contrast Left Exam Date and Time: 11/20/2018 11:43 AM EDT Demographics: Gender: Female; Age: 57 years Indication: Pain; Comparison: None available TECHNIQUE: MRI of the left knee was performed on using a standard non-contrast protocol in three planes (axial, sagittal, and coronal). FINDINGS: JOINT SPACE: There is no joint effusion. No Pablo's cyst. No intra-articular bodies. MEDIAL COMPARTMENT: The medial meniscus has normal morphology and signal intensity. No full-thickness, focal cartilage defects. LATERAL COMPARTMENT: The lateral meniscus has normal morphology and signal intensity. No full-thickness, focal cartilage defects. PATELLOFEMORAL COMPARTMENT: No full-thickness, focal cartilage defects. There is no lateral patellar tilt or translation. There is normal patellar and trochlear morphology. No patella rosie. No edema in superolateral Hoffa's fat pad. EXTENSOR MECHANISM: The quadriceps tendon is intact. The patella tendon is intact. CRUCIATE LIGAMENTS: The anterior cruciate ligament is intact. The posterior cruciate ligament is intact. COLLATERAL LIGAMENTS AND POSTEROLATERAL CORNER: The medial collateral ligament (MCL) is intact. The lateral collateral ligament (LCL) is intact. The posterior lateral corner structures are intact. OSSEOUS STRUCTURES: The alignment of the osseous structures is anatomic. No acute fracture or bone marrow edema. No suspicious osseous lesions or other bone marrow signal alteration. SOFT TISSUES: No subcutaneous edema or soft tissue mass. IMPRESSION: No evidence of internal derangement. Report Dictated on --- Final --- Dictating Physician: MD LAU JASON Signed Date and Time: 11/20/2018 8:23 pm Signed by: MD LAU JASON Transcribed Date and Time: 11/20/2018 8:24 [facility] 12-11-2016 HOSP Psych-Refill (AGPSYACC) MARISSA WOODWARD ([id number]) 1960 [facility] Time Provider Fggutsverx19/4/17 LENNY OVALLES IIIPSYFRANCOISE During your visit today, we recorded the following information about you:Nancy Jazzygatito 12/11/2016 2:38 PM SignedPatient called requesting the following refill.Pending Prescriptions Disp Refills ALPRAZOLAM 1 MG TABLET 120 tablet 5 Sig: Take 1 tablet by mouth four times daily as needed for Anxiety. BISHOP Class: C-IV SHIRLEY: No ARIPIPRAZOLE 15 MG TABLET 30 tablet 5 Sig: Take 1 tablet by mouth once daily. SHIRLEY: No DULOXETINE 60 MG CAPSULE,DELAYED RELEASE 60 capsule 5 Sig: Take 2 capsules by mouth once daily. SHIRLEY: No ZOLPIDEM 10 MG TABLET 30 tablet 5 Sig: Take 1 tablet by mouth daily at bedtime. BISHOP Class: C-IV SHIRLEY: NoPatient last appointment: Visit date not foundPatient Phone numbers: [phone] (home)Request is for script(s) to be escript to pharmacycalled in to pharmacy.Nancy Ovalles MD 12/11/2016 3:42 PM SignedscriptsLindsay Isaac 12/12/2016 9:50 AM SignedAlprazolam and Zolpidem need called [place] As of Date: 12/11/2016 Noted Allergy ReactionCLARITHROMYCIN 07/05/2010 16 - UnknownDate Reviewed: 06/20/2016Reviewed by: Lenny Ovalles III - Fully AssessedReason for Visit: Refill Request [94]Order(s):ALPRAZolam (XANAX) 1 mg tabletTake 1 tablet by mouth four times daily as needed for Anxiety.Disp: 120 tabletRfl: 5 ARIPiprazole (ABILIFY) 15 mg tabletTake 1 tablet by mouth once daily.Disp: 30 tabletRfl: 5 DULoxetine (CYMBALTA) 60 mg capsuleTake 2 capsules by mouth once daily.Disp: 60 capsuleRfl: 5 zolpidem (AMBIEN) 10 mg tabTake 1 tablet by mouth daily at bedtime.Disp: 30 tabletRfl: 5Prescriptions as of 12/11/2016 Sig: ALPRAZOLAM 1 MG TABLET Take 1 tablet by mouth four t* ARIPIPRAZOLE 15 MG TABLET Take 1 tablet by mouth once d* DULOXETINE 60 MG CAPSULE,ERASMO* Take 2 capsules by mouth once* ZOLPIDEM 10 MG TABLET Take 1 tablet by mouth daily * [facility] TEST STRIPS EASY TOUCH TWIST LANCETS 30 G* NYAMYC 100,000 UNIT/GRAM TOPI* OXYBUTYNIN CHLORIDE ER 5 MG T* ATORVASTATIN 40 MG TABLET CYCLOBENZAPRINE 10 MG TABLET DEXILANT 60 MG CAPSULE, DELAY* ESTRADIOL 1 MG TABLET ETODOLAC 300 MG CAPSULE GABAPENTIN 800 MG TABLET LEVOTHYROXINE 137 MCG TABLET LEVOTHYROXINE 125 MCG TABLET METFORMIN ER 500 MG TABLET,EX* MORPHINE ER 15 MG TABLET,EXTE* OXYBUTYNIN CHLORIDE 5 MG TABL* OXYCODONE-ACETAMINOPHEN 7.5 M* SUCRALFATE 1 GRAM TABLETProblem List As Of Date: 12/11/2016(None)Prescri ptions ordered this encounter Disp Refills Start End ALPRAZOLAM 1 MG TABLET 120 * 5 12/11/2016 Class: Call Rx Route: ORAL Sig: Take 1 tablet by mouth four times daily as needed for Anxiety. ARIPIPRAZOLE 15 MG TABLET 30 t* 5 12/11/2016 Route: ORAL Sig: Take 1 tablet by mouth once daily. DULOXETINE 60 MG CAPSULE,DELAYED REL* 60 c* 5 12/11/2016 Route: ORAL Sig: Take 2 capsules by mouth once daily. ZOLPIDEM 10 MG TABLET 30 t* 5 12/11/2016 Class: Call Rx Route: ORAL Sig: Take 1 tablet by mouth daily at bedtime.Medications Discontinued During This Encounter ALPRAZolam (XANAX) 1 mg tablet 120 * 5 06/28/2016 12/11/2016 Class: Call Rx Route: ORAL Sig: Take 1 tablet by mouth four times daily as needed for Anxiety. Disc: Reason for discontinue is not on file. ARIPiprazole (ABILIFY) 15 mg tablet 30 t* 5 06/13/2016 12/11/2016 Route: ORAL Sig: Take 1 tablet by mouth once daily. Disc: Reason for discontinue is not on file. DULoxetine (CYMBALTA) 60 mg capsule 60 c* 4 07/15/2016 12/11/2016 Route: ORAL Sig: Take 2 capsules by mouth once daily. Disc: Reason for discontinue is not on file. zolpidem (AMBIEN) 10 mg tab 30 t* 5 06/28/2016 12/11/2016 Class: Call Rx Route: ORAL Sig: Take 1 tablet by mouth daily at bedtime. Disc: Reason for discontinue is not on file. 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, discussed ways of coping,offered support, helped process feelings, probable full response to meds,but advised to have at least one day in week not taking xanax or ambien,risks with joint terminal attack controller use, she understood and agreesPast/Fam/Soc HxNo past medical history on file.No family history on file.Social History Marital status: Spouse name: Years of education: Number of children:Social History Main TopicsGeneral ObservationsAppearance: Neatly groomedDemeanor:Coopera tiveActivity:NormalEye Contact:GoodSpeechRate: NormalVolume:NormalArti culation:ClearCoherent: YesSpontaneous:YesLangu ageNaming:IntactRepetit ion:IntactMood AND AffectDepression:NoneAn xiety:NoneAnger:NoneAnh edonia;NoneEuphoria:Non eAffect:Full and appropriate to topicAssociations:Logic alProcess:NormalKnowled ge: GoodDelusion: No0 .Hallucination: NoSuicidal Ideation:No suicidal ideation, intent or plan.Homicidal Ideation:No homicidal ideation, intent or plan.Judgement::Critica lInsight:TrueOrientatio n:Person, Place, Time and SituationGait and Station:SteadyMuscle Strength AND Tone:Muscle:NormalStren gth:NormalTone: StrongSee AIMS form3 or > Vital Signs: There were no vitals taken for this visit.Memory:IntactAtte ntion:GoodConcentration :GoodReview Of SystemsNeurological: Sleep: wnlHeadache: NoWeakness:NoStiffness: NoTremor:NoGastrointest inal:Appetite:GoodNause a: NoBowel movements:wnlSkin rash: NoOther :wnlDiagnosis:AXIS I: f33.42AXIS II : noneAXIS III: Ongoing issuesAXIS IV: as describedAXIS V: GAF 70Condition: UnchangedMedication:Jose quinn Outpatient Prescriptions:DULoxetin e (CYMBALTA) 60 mg capsule Take 2 capsules by mouth once daily.ALPRAZolam (XANAX) 1 mg tablet Take 1 tablet by mouth four times daily asneeded for Anxiety.zolpidem (AMBIEN) 10 mg tab Take 1 tablet by mouth daily at bedtime.ARIPiprazole (ABILIFY) 15 mg tablet Take 1 tablet by mouth once daily.[facility] TEST STRIPS test stripEASY TOUCH TWIST LANCETS 30 gauge miscNYAMYC powderoxybutynin XL (DITROPAN XL) 5 mg 24 hr tabletatorvastatin (LIPITOR) 40 mg tabletcyclobenzaprine (FLEXERIL) 10 mg tabletDEXILANT 60 mg CpDMestradiol (ESTRACE) 1 mg tabletetodolac (LODINE) 300 mg capsulegabapentin (NEURONTIN) 800 mg tabletlevothyroxine (SYNTHROID) 137 mcg tabletlevothyroxine (SYNTHROID) 125 mcg tabletmetFORMIN ER (GLUCOPHAGE XR) 500 mg 24 hr tabletmorphine SR (MS CONTIN, ORAMORPH SR) 15 mg 12 hr tabletoxybutynin (DITROPAN) 5 mg tabletoxyCODONE-acetami nophen (PERCOCET) 7.5-325 mg tabletsucralfate (CARAFATE) 1 gram tabletNo current facility-administered medications for this visit.Therapy/ Treatment Plan:No change with meds, see again 3mosPlan discussed including risks, benefits, and side effects of medications(ongoing discussion) and patient agreeable to plan,No Follow-up on file.Lenny Ovalles MDTime Out:: Normal [facility] Vital Signs Date Time Vital Sign Value Performing Clinician Facility 01-12-2025 15:44-0500 Body height 160 cm Juan Pablo Holguin MD Work Phone: [facility] 01-12-2025 15:44-0500 Body height 160.02 cm Juan Pablo Holguin MD Work Phone: [facility] 01-12-2025 15:44-0500 Body mass index (BMI) [Ratio] 33.78 kg/m2 Juan Pablo Holguin MD Work Phone: [facility] 01-12-2025 15:44-0500 Body weight 86 kg Juan Pablo Holguin MD Work Phone: [facility] 01-12-2025 15:44-0500 Body weight 86.18 kg Juan Pablo Holguin MD Work Phone: [facility] 01-12-2025 15:44-0500 Diastolic blood pressure 78 mm[Hg] Juan Pablo Holguin MD Work Phone: [facility] 01-12-2025 15:44-0500 Heart rate 98 /min Juan Pablo Holguin MD Work Phone: [facility] 01-12-2025 15:44-0500 HGHTCHNVIS Juan Pablo Holguin MD Work Phone: [facility] 01-12-2025 15:44-0500 Systolic blood pressure 114 mm[Hg] Juan Pablo Holguin MD Work Phone: [facility] 01-12-2025 15:44-0500 VITALSDONE Juan Pablo Holguin MD Work Phone: [facility] 01-04-2025 12:52-0400 Body height 160 cm Awa Gonzales HIDES AND SKINS COLORER-MICROSTRATEGY ARCHITECT Work Phone: [facility] 01-04-2025 12:52-0400 Body height 160.02 cm Awa Gonzales HIDES AND SKINS COLORER-MICROSTRATEGY ARCHITECT Work Phone: [facility] 01-04-2025 12:52-0400 Body mass index (BMI) [Ratio] 33.78 kg/m2 Awa Gonzales HIDES AND SKINS COLORER-MICROSTRATEGY ARCHITECT Work Phone: [facility] 01-04-2025 12:52-0400 Body weight 86 kg Awa Janet HIDES AND SKINS COLORER-MICROSTRATEGY ARCHITECT Work Phone: [facility] 01-04-2025 12:52-0400 Body weight 86.18 kg Awa Gonzales HIDES AND SKINS COLORER-MICROSTRATEGY ARCHITECT Work Phone: [facility] 01-04-2025 12:52-0400 BP SITE #1 Awa Janet HIDES AND SKINS COLORER-MICROSTRATEGY ARCHITECT Work Phone: [facility] 01-04-2025 12:52-0400 Diastolic blood pressure 80 mm[Hg] Awa Webstergar HIDES AND SKINS COLORER-MICROSTRATEGY ARCHITECT Work Phone: [facility] 01-04-2025 12:52-0400 Heart rate 97 /min Awa Gonzales HIDES AND SKINS COLORER-MICROSTRATEGY ARCHITECT Work Phone: [facility] 01-04-2025 12:52-0400 HGHTCHNVIS Awa Eleanorgar HIDES AND SKINS COLORER-MICROSTRATEGY ARCHITECT Work Phone: [facility] 01-04-2025 12:52-0400 Systolic blood pressure 127 mm[Hg] Awa Gonzales HIDES AND SKINS COLORER-MICROSTRATEGY ARCHITECT Work Phone: [facility] 01-04-2025 12:52-0400 VITALSDONE Awa Gonzales HIDES AND SKINS COLORER-MICROSTRATEGY ARCHITECT Work Phone: [facility] 12-17-2024 21:16-0400 Body temperature 98.1 [degF] Marika Baumangar HOME HEALTH ATTENDANT-C Work Phone: [facility] 12-17-2024 21:16-0400 Diastolic blood pressure 59 mm[Hg] Marika Segundo HOME HEALTH ATTENDANT-C Work Phone: [facility] 12-17-2024 21:16-0400 Heart rate 74 /min Marika Raymond HOME HEALTH ATTENDANT-C Work Phone: [facility] 12-17-2024 21:16-0400 Respiratory rate 18 /min Marika Segundo HOME HEALTH ATTENDANT-C Work Phone: [facility] 12-17-2024 21:16-0400 SaO2% (BldA) [Mass fraction] 100 % Marika Segundo HOME HEALTH ATTENDANT-C Work Phone: [facility] 12-17-2024 21:16-0400 Systolic blood pressure 118 mm[Hg] Marika Segundo HOME HEALTH ATTENDANT-C Work Phone: [facility] 12-17-2024 16:53-0400 Body height 160.02 cm Marika Segundo HOME HEALTH ATTENDANT-C Work Phone: [facility] 12-17-2024 16:53-0400 Body mass index (BMI) [Ratio] 34.9 kg/m2 Marika Segundo HOME HEALTH ATTENDANT-C Work Phone: [facility] 12-17-2024 16:53-0400 Body weight 89.38 kg Marika Segundo HOME HEALTH ATTENDANT-C Work Phone: [facility] 12-08-2024 06:35-0400 Body mass index (BMI) [Ratio] 34.2 kg/m2 Marika Segundo HOME HEALTH ATTENDANT-C Work Phone: [facility] 12-08-2024 06:35-0400 Body temperature 97.5 [degF] Marika Segundo HOME HEALTH ATTENDANT-C Work Phone: [facility] 12-08-2024 06:35-0400 Body weight 88.9 kg Marika Segundo HOME HEALTH ATTENDANT-C Work Phone: [facility] 12-08-2024 06:35-0400 Diastolic blood pressure 73 mm[Hg] Marika Segundo HOME HEALTH ATTENDANT-C Work Phone: [facility] 12-08-2024 06:35-0400 Heart rate 89 /min Marika Segundo HOME HEALTH ATTENDANT-C Work Phone: [facility] 12-08-2024 06:35-0400 Respiratory rate 20 /min Marika Segundo HOME HEALTH ATTENDANT-C Work Phone: [facility] 12-08-2024 06:35-0400 SaO2% (BldA) [Mass fraction] 95 % Marika Raymond HOME HEALTH ATTENDANT-C Work Phone: [facility] 12-08-2024 06:35-0400 Systolic blood pressure 119 mm[Hg] Marika Raymond HOME HEALTH ATTENDANT-C Work Phone: [facility] 11-23-2024 11:17-0400 Body height 161 cm Awa Janet HIDES AND SKINS COLORER-MICROSTRATEGY ARCHITECT Work Phone: [facility] 11-23-2024 11:17-0400 Body height 161.29 cm Awa Dulgar HIDES AND SKINS COLORER-MICROSTRATEGY ARCHITECT Work Phone: [facility] 11-23-2024 11:17-0400 Body mass index (BMI) [Ratio] 33.25 kg/m2 Awa Dulgar HIDES AND SKINS COLORER-MICROSTRATEGY ARCHITECT Work Phone: [facility] 11-23-2024 11:17-0400 Body weight 86 kg Awa Dulgar HIDES AND SKINS COLORER-MICROSTRATEGY ARCHITECT Work Phone: [facility] 11-23-2024 11:17-0400 Body weight 86.18 kg Awa Dulgar HIDES AND SKINS COLORER-MICROSTRATEGY ARCHITECT Work Phone: [facility] 11-23-2024 11:17-0400 BP SITE #1 Awa Dulgar HIDES AND SKINS COLORER-MICROSTRATEGY ARCHITECT Work Phone: [facility] 11-23-2024 11:17-0400 Diastolic blood pressure 74 mm[Hg] Awa Dulgar HIDES AND SKINS COLORER-MICROSTRATEGY ARCHITECT Work Phone: [facility] 11-23-2024 11:17-0400 Heart rate 75 /min Awa Webstergar HIDES AND SKINS COLORER-MICROSTRATEGY ARCHITECT Work Phone: [facility] 11-23-2024 11:17-0400 HGHTCHNVIS Awa Dulgar HIDES AND SKINS COLORER-MICROSTRATEGY ARCHITECT Work Phone: [facility] [place] 11-23-2024 11:17-0400 Systolic blood pressure 119 mm[Hg] Awa Janet HIDES AND SKINS COLORER-MICROSTRATEGY ARCHITECT Work Phone: [facility] [place] 11-23-2024 11:17-0400 VITALSDONE Awa Janet HIDES AND SKINS COLORER-MICROSTRATEGY ARCHITECT Work Phone: [facility] [place] 11-22-2024 09:43-0400 Body height 161.29 cm Marika Raymond HOME HEALTH ATTENDANT-C Work Phone: [facility] 10-27-2024 08:27-0400 Body height 161 cm Juan Pablo Holguin MD Work Phone: [facility] 10-27-2024 08:27-0400 Body height 161.29 cm Juan Pablo Holguin MD Work Phone: [facility] 10-27-2024 08:27-0400 Body mass index (BMI) [Ratio] 34.3 kg/m2 Juan Pablo Holguin MD Work Phone: [facility] 10-27-2024 08:27-0400 Body weight 89 kg Juan Pablo Holguin MD Work Phone: [facility] 10-27-2024 08:27-0400 Body weight 88.91 kg Juan Pablo Holguin MD Work Phone: [facility] 10-27-2024 08:27-0400 Diastolic blood pressure 86 mm[Hg] Juan Pablo Holguin MD Work Phone: [facility] 10-27-2024 08:27-0400 Heart rate 74 /min Juan Pablo Holguin MD Work Phone: [facility] 10-27-2024 08:27-0400 HGHTCHNVIS Juan Pablo Holguin MD Work Phone: [facility] 10-27-2024 08:27-0400 Systolic blood pressure 147 mm[Hg] Juan Pablo Holguin MD Work Phone: [facility] 10-27-2024 08:27-0400 VITALSDONE Juan Pablo Holguin MD Work Phone: [facility] 10-22-2024 15:52-0400 Body temperature 97.2 [degF] Marika Segundo HOME HEALTH ATTENDANT-C Work Phone: [facility] 10-22-2024 15:52-0400 Diastolic blood pressure 85 mm[Hg] Marika Segundo HOME HEALTH ATTENDANT-C Work Phone: [facility] 10-22-2024 15:52-0400 Heart rate 70 /min Marika Segundo HOME HEALTH ATTENDANT-C Work Phone: [facility] 10-22-2024 15:52-0400 Respiratory rate 18 /min Marika Segundo HOME HEALTH ATTENDANT-C Work Phone: [facility] 10-22-2024 15:52-0400 SaO2% (BldA) [Mass fraction] 100 % Marika Segundo HOME HEALTH ATTENDANT-C Work Phone: [facility] 10-22-2024 15:52-0400 Systolic blood pressure 135 mm[Hg] Marika Segundo HOME HEALTH ATTENDANT-C Work Phone: [facility] 10-22-2024 12:40-0400 Body mass index (BMI) [Ratio] 34.7 kg/m2 Marika Segundo HOME HEALTH ATTENDANT-C Work Phone: [facility] 10-22-2024 12:40-0400 Body weight 89 kg Marika Segundo HOME HEALTH ATTENDANT-C Work Phone: [facility] 10-22-2024 12:37-0400 Body height 160.02 cm Marika Segundo HOME HEALTH ATTENDANT-C Work Phone: [facility] 09-21-2024 07:56-0400 Body mass index (BMI) [Ratio] 32.8 kg/m2 Marika Segundo HOME HEALTH ATTENDANT-C Work Phone: [facility] 09-21-2024 07:56-0400 Body temperature 97.1 [degF] Marika Segundo HOME HEALTH ATTENDANT-C Work Phone: [facility] 09-21-2024 07:56-0400 Body weight 85.27 kg Marika Segundo HOME HEALTH ATTENDANT-C Work Phone: [facility] 09-21-2024 07:56-0400 Diastolic blood pressure 88 mm[Hg] Marika Segundo HOME HEALTH ATTENDANT-C Work Phone: [facility] 09-21-2024 07:56-0400 Heart rate 85 /min Marika Segundo HOME HEALTH ATTENDANT-C Work Phone: [facility] 09-21-2024 07:56-0400 Respiratory rate 16 /min Marika Segundo HOME HEALTH ATTENDANT-C Work Phone: [facility] 09-21-2024 07:56-0400 SaO2% (BldA) [Mass fraction] 95 % Marika Segundo HOME HEALTH ATTENDANT-C Work Phone: [facility] 09-21-2024 07:56-0400 Systolic blood pressure 140 mm[Hg] Marika Segundo HOME HEALTH ATTENDANT-C Work Phone: [facility] 08-12-2024 08:36-0400 Body height 161.29 cm Marika Segundo HOME HEALTH ATTENDANT-C Work Phone: [facility] 08-12-2024 08:36-0400 Body weight 82.55 kg Marika Segundo HOME HEALTH ATTENDANT-C Work Phone: [facility] 08-12-2024 08:36-0400 Heart rate 91 /min Marika Segundo HOME HEALTH ATTENDANT-C Work Phone: [facility] 08-12-2024 08:36-0400 SaO2% (BldA) [Mass fraction] 97 % Marika Segundo HOME HEALTH ATTENDANT-C Work Phone: [facility] 03-30-2024 08:44-0500 Body height 161.[address] Ananda Menezes DO Work Phone: [facility] 03-30-2024 08:44-0500 Body mass index (BMI) [Ratio] 32.8 kg/m2 Dr. Ananda Menezes DO Work Phone: [facility] 03-30-2024 08:44-0500 Body temperature 97.3 [degF] Dr. Ananda Menezes DO Work Phone: [facility] 03-30-2024 08:44-0500 Body weight 85.[address] Ananda Menezes DO Work Phone: [facility] 03-30-2024 08:44-0500 Diastolic blood pressure 74 mm[Hg] Dr. Ananda Menezes DO Work Phone: [facility] 03-30-2024 08:44-0500 Heart rate 88 /min Dr. Ananda Menezes DO Work Phone: [facility] 03-30-2024 08:44-0500 Respiratory rate 20 /min Dr. Ananda Menezes DO Work Phone: [facility] 03-30-2024 08:44-0500 SaO2% (BldA) [Mass fraction] 95 % Dr. Ananda Menezes DO Work Phone: [facility] 03-30-2024 08:44-0500 Systolic blood pressure 119 mm[Hg] Dr. Ananda Menezes DO Work Phone: [facility] 03-23-2024 13:13-0500 Body mass index (BMI) [Ratio] 33.7 kg/m2 Dr. Ananda Menezes DO Work Phone: [facility] 03-23-2024 13:13-0500 Body temperature 98.5 [degF] Dr. Ananda Menezes DO Work Phone: [facility] 03-23-2024 13:13-0500 Body weight 87.[address] Ananda Menezes DO Work Phone: [facility] 03-23-2024 13:13-0500 Diastolic blood pressure 67 mm[Hg] Dr. Ananda Menezes DO Work Phone: [facility] 03-23-2024 13:13-0500 Heart rate 91 /min Dr. Ananda Menezes DO Work Phone: [facility] 03-23-2024 13:13-0500 Respiratory rate 16 /min Dr. Ananda Menezes DO Work Phone: [facility] 03-23-2024 13:13-0500 SaO2% (BldA) [Mass fraction] 95 % Dr. Ananda Menezes DO Work Phone: [facility] 03-23-2024 13:13-0500 Systolic blood pressure 92 mm[Hg] Dr. Ananda Menezes DO Work Phone: [facility] 07-04-2023 09:48-0400 Body height 162.[address] Gauri Kidd Work Phone: [facility] 07-04-2023 09:48-0400 Body mass index (BMI) [Ratio] 32.8 kg/m2 Dr. Gauri Kidd Work Phone: [facility] 07-04-2023 09:48-0400 Body temperature 97 [degF] Dr. Gauri Kidd Work Phone: [facility] 07-04-2023 09:48-0400 Body weight 86.[address] Gauri Kidd Work Phone: [facility] 07-04-2023 09:48-0400 Diastolic blood pressure 67 mm[Hg] Dr. Gauri Kidd Work Phone: [facility] 07-04-2023 09:48-0400 Heart rate 88 /min Dr. Gauri Kidd Work Phone: [facility] 07-04-2023 09:48-0400 Respiratory rate 17 /min Dr. Gauri Kidd Work Phone: [facility] 07-04-2023 09:48-0400 SaO2% (BldA) [Mass fraction] 97 % Dr. Gauri Kidd Work Phone: [facility] 07-04-2023 09:48-0400 Systolic blood pressure 105 mm[Hg] Dr. Gauri Kidd Work Phone: [facility] 11-28-2022 11:07-0400 Body weight 87.54 kg Gilson Haq DO Work Phone: [facility] 07-09-2022 11:31-0400 Body height 162.6 cm Keisha Kalka PA-C Work Phone: [facility] 07-09-2022 11:31-0400 Body weight 85.73 kg Keisha Kalka PA-C Work Phone: [facility] 07-09-2022 11:31-0400 Diastolic blood pressure 72 mm[Hg] Keisha Kalka PA-C Work Phone: [facility] 07-09-2022 11:31-0400 Heart rate 83 /min Keisha Kalka PA-C Work Phone: [facility] 07-09-2022 11:31-0400 Systolic blood pressure 118 mm[Hg] Keisha Kalka PA-C Work Phone: [facility] 06-04-2022 11:05-0400 Diastolic blood pressure 73 mm[Hg] Catia Trujillo MD Work Phone: [facility] 06-04-2022 11:05-0400 Heart rate 80 /min Catia Trujillo MD Work Phone: [facility] 06-04-2022 11:05-0400 Respiratory rate 16 /min Catia Trujillo MD Work Phone: [facility] 06-04-2022 11:05-0400 SaO2% (BldA) [Mass fraction] 100 % Catia Trujillo MD Work Phone: [facility] 06-04-2022 11:05-0400 Systolic blood pressure 139 mm[Hg] Catia Trujillo MD Work Phone: [facility] 06-04-2022 10:50-0400 Body temperature 98.01 [degF] Catia Trujillo MD Work Phone: [facility] 06-04-2022 09:41-0400 Body height 162.6 cm Catia Trujillo MD Work Phone: [facility] 06-04-2022 09:41-0400 Body mass index (BMI) [Ratio] 33.64 kg/m2 Catia Trujillo MD Work Phone: [facility] 06-04-2022 09:41-0400 Body weight 88.91 kg Catia Trujillo MD Work Phone: [facility] 05-30-2022 11:47-0400 Body height 162.6 cm Keisha Kalka PA-C Work Phone: [facility] 05-30-2022 11:47-0400 Body weight 88.91 kg Keisha Kalka PA-C Work Phone: [facility] 05-30-2022 11:47-0400 Diastolic blood pressure 80 mm[Hg] Keisha Kalka PA-C Work Phone: [facility] 05-30-2022 11:47-0400 Heart rate 76 /min Keisha Kalka PA-C Work Phone: [facility] 05-30-2022 11:47-0400 Systolic blood pressure 136 mm[Hg] Keisha Kalka PA-C Work Phone: [facility] 12-31-2021 11:51-0400 Body height 162.6 cm Jules Gray MD Work Phone: [facility] 12-31-2021 11:51-0400 Body weight 80.29 kg Jules Gray MD Work Phone: [facility] 12-31-2021 11:51-0400 Diastolic blood pressure 80 mm[Hg] Jules Gray MD Work Phone: [facility] 12-31-2021 11:51-0400 Heart rate 80 /min Jules Gray MD Work Phone: [facility] 12-31-2021 11:51-0400 Systolic blood pressure 138 mm[Hg] Jules Gray MD Work Phone: [facility] 09-01-2021 20:21-0400 Diastolic blood pressure 56 mm[Hg] [facility] Work Phone: 09-01-2021 20:21-0400 Heart rate 69 /min [facility] Work Phone: 09-01-2021 20:21-0400 Respiratory rate 13 /min [facility] Work Phone: 09-01-2021 20:21-0400 SaO2% (BldA) [Mass fraction] 99 % [facility] Work Phone: 09-01-2021 20:21-0400 Systolic blood pressure 115 mm[Hg] [facility] Work Phone: 09-01-2021 15:36-0400 Body height 162.56 cm [facility] Work Phone: 09-01-2021 15:36-0400 Body mass index (BMI) [Ratio] 29.2 kg/m2 [facility] Work Phone: 09-01-2021 15:36-0400 Body temperature 98.2 [degF] [facility] Work Phone: 09-01-2021 15:36-0400 Body weight 77.11 kg [facility] Work Phone: NEGATED: Highlighted [id number] 12:55-0500 Body height 162.56 cm Grace Villalta AT [facility] Work Phone: NEGATED: Highlighted [id number] 12:55-0500 Body height 163 cm Grace Villalta AT [facility] Work Phone: NEGATED: Highlighted [id number] 12:55-0500 Body mass index (BMI) [Ratio] 32.39 kg/m2 Grace Villalta AT [facility] Work Phone: NEGATED: Highlighted [id number] 12:55-0500 Body temperature 98 [degF] Grace Villalta AT [facility] Work Phone: NEGATED: Highlighted [id number] 12:55-0500 Body temperature 98.06 [degF] Grace Villalta AT [facility] Work Phone: NEGATED: Highlighted [id number] 12:55-0500 Body weight 85.28 kg Grace Villalta AT [facility] Work Phone: NEGATED: Highlighted [id number] 12:55-0500 Body weight 85 kg Grace Villalta AT [facility] Work Phone: Encounters Encounter Date Encounter Type Care Provider Facility Start: 02-01-2025 [facility] Facility:[facility] Start: 01-12-2025 Visit out of hours Juan Pablo arce MD Work Phone: [employer] Work Phone: Start: 01-12-2025 In-person encounter Juan Pablo crowder MD Work Phone: [facility] Work Phone: Start: 01-04-2025 Visit out of hours Awa BELTRAN Work Phone: [employer] Work Phone: Start: 01-04-2025 In-person encounter Awa Gonzales HIDES AND SKINS COLORER-MICROSTRATEGY ARCHITECT Work Phone: [facility] Work Phone: Start: 12-17-2024 End: 12-17-2024 Emergency department patient visit Dr. Juan Pablo Denney DO -Emergency Department Work Phone: Start: 12-13-2024 ambulatory Marikaseun Raymond Facility:[facility] Start: 12-08-2024 End: 12-08-2024 Patient encounter procedure HOME HEALTH ATTENDANT Zoran Jackson -[facility] Work Phone: Start: 12-08-2024 End: 12-08-2024 ambulatory Marika Raymond HOME HEALTH ATTENDANT-C Work Phone: -[facility] Start: 11-23-2024 In-person encounter Awa Eleanorraymundo HIDES AND SKINS COLORER-MICROSTRATEGY ARCHITECT Work Phone: [facility] Work Phone: Start: 11-23-2024 Visit out of hours Awa Eleanorraymundo HIDES AND SKINS COLORER-MICROSTRATEGY ARCHITECT Work Phone: [employer] Work Phone: Start: 11-22-2024 End: 11-22-2024 ambulatory Marika Raymond HOME HEALTH ATTENDANT-C Work Phone: -Laboratory [facility] Sanders[facility] Start: 11-22-2024 End: 11-22-2024 Patient encounter procedure Marika Raymond HOME HEALTH ATTENDANT-C -Laboratory [facility] Start: 11-22-2024 End: 11-22-2024 ambulatory Marika Raymond Facility:[facility] Start: 10-27-2024 In-person encounter Juan Pablo crowder MD Work Phone: [facility] Work Phone: Start: 10-27-2024 Visit out of hours Juan Pablo arce MD Work Phone: [employer] [facility] [employer] Work Phone: Start: 10-22-2024 End: 10-22-2024 Emergency department patient visit Marika Raymond HOME HEALTH ATTENDANT-C Work Phone: -Emergency Department Work Phone: Start: 09-21-2024 End: 09-21-2024 Patient encounter procedure HOME HEALTH ATTENDANT Zoran Jackson -[facility] Work Phone: Start: 09-21-2024 End: 09-21-2024 ambulatory Marika Raymond HOME HEALTH ATTENDANT-C Work Phone: -[facility] Start: 09-06-2024 End: 09-06-2024 ambulatory Marika Raymond HOME HEALTH ATTENDANT-C Work Phone: -Pulmonary Services/Neurology Start: 09-06-2024 End: 09-06-2024 Patient encounter procedure Talia Dawkins NP-C -Pulmonary Services/Neurology Work Phone: Start: 09-06-2024 End: 09-06-2024 ambulatory Papi Rai Facility:[facility] Start: 08-13-2024 ambulatory Papi Rai Facility:[facility] Start: 08-13-2024 Non-patient / Non-visit Dr. Papi olvera DO -[facility] Start: 08-12-2024 End: 08-12-2024 ambulatory Marika Raymond HOME HEALTH ATTENDANT-C Work Phone: [facility] Work Phone: Start: 08-12-2024 End: 08-12-2024 Patient encounter procedure Talia Dawkins NP-C -Pulmonary Services/Neurology Work Phone: Start: 08-12-2024 End: 08-12-2024 ambulatory Marika Raymond Facility:[facility] Start: 07-19-2024 End: 07-19-2024 ambulatory Marika Raymond HOME HEALTH ATTENDANT-C Work Phone: [facility] Work Phone: Start: 07-19-2024 End: 07-19-2024 Patient encounter procedure Marika Raymond HOME HEALTH ATTENDANT-C -[facility] Work Phone: Start: 07-19-2024 End: 07-19-2024 ambulatory [facility] Facility:[facility] Start: 07-05-2024 End: 07-05-2024 Patient encounter procedure Marika Raymond HOME HEALTH ATTENDANT-C -Radiology [facility] Work Phone: Start: 07-05-2024 End: 07-05-2024 ambulatory [facility] Facility:[facility] Start: 05-05-2024 Non-patient / Non-visit Dr. Shannon Molina MD -[facility] Start: 05-05-2024 End: 05-05-[address] Ananda Menezes DO Work Phone: [facility] Work Phone: Start: 05-05-2024 End: 05-05-2024 Patient encounter procedure Marika Raymond HOME HEALTH ATTENDANT-C -Cardiovascular Services Work Phone: Start: 05-05-2024 End: 05-05-2024 ambulatory [facility] Facility:[facility] Start: 04-12-2024 ambulatory [facility] Facility:[facility] Start: 03-30-2024 End: 03-30-2024 Patient encounter procedure aTlia Dawkins HOME HEALTH ATTENDANT-C -[facility] Work Phone: Start: 03-30-2024 End: 03-30-2024 ambulatory [facility] Facility:[facility] Start: 03-23-2024 End: 03-23-2024 Patient encounter procedure Soco Pretty HOME HEALTH ATTENDANT-C -[facility] Work Phone: Start: 03-23-2024 End: 03-23-2024 ambulatory [facility] Facility:[facility] Start: 03-23-2024 End: 03-23-2024 ambulatory [facility] Facility:[facility] Start: 02-26-2024 End: 02-26-[address] Megan Miramontes MD -Radiology, [facility] Work Phone: Start: 02-26-2024 End: 02-26-2024 ambulatory Megan Miramontes Facility:[facility] Start: 02-24-2024 End: 02-24-[address] Ananda Menezes DO -Laboratory, [facility] Start: 02-24-2024 End: 02-24-2024 ambulatory Ananda Menezes Facility:[facility] Start: 02-10-2024 End: 02-10-2024 Patient encounter procedure Marika Raymond HOME HEALTH ATTENDANT-C -Laboratory Work Phone: Start: 02-10-2024 End: 02-10-2024 ambulatory Marika Raymond Facility:[facility] Start: 10-30-2023 End: 10-30-2023 Telephone encounter Gauri Kidd MD Work Phone: [facility] Clinical Communication Comment on above: Other Start: 07-18-2023 Refill Keisha Chen PA-C Work Phone: [facility] [place] Comment on above: Refill Request Start: 07-09-2023 End: 07-09-[address] Gauri Kidd Work Phone: [facility] Work Phone: Start: 07-09-2023 End: 07-09-[address] Gauri Kidd Work Phone: [facility]-Outpatient Bone Densitometry Work Phone: Start: 07-04-2023 End: 07-04-[address] Gauri Kidd Work Phone: [facility] Work Phone: Start: 06-11-2023 End: 06-11-2023 Subsequent hospital visit by physician Gauri Kidd MD Work Phone: [facility] US Imaging Comment on above: Cholesterolosis of g allbladder Start: 06-11-2023 End: 06-11-2023 ambulatory GAURI KIDD [facility] Start: 06-05-2023 End: 09-04-2023 Transcribe Orders Gauri Kidd MD Work Phone: [facility] Central Scheduling Comment on above: Cholesterolosis of g allbladder (Primary Dx) Start: 05-21-2023 End: 05-21-2023 ambulatory [facility] Work Phone: Start: 05-21-2023 End: 05-21-2023 Patient encounter procedure [facility]-Laboratory Work Phone: Start: 05-12-2023 ambulatory Lia Srinivasan RN [facility] Start: 05-12-2023 Patient encounter procedure Lia Srinivasan RN [facility] Start: 02-21-2023 ambulatory Karoline Mann RN [facility] Start: 02-21-2023 Patient encounter procedure [facility] Start: 11-28-2022 End: 11-28-2022 Office outpatient new 30 minutes Gilson Haq DO Work Phone: [facility] Comment on above: Cervical radiculopat hy (Primary Dx) Start: 11-28-2022 End: 11-28-2022 ambulatory GAURI KIDD [facility] Start: 10-29-2022 End: 10-29-2022 Subsequent hospital visit by physician [facility] Ed Xr Exam Room 1 [facility] Radiology Comment on above: Postlaminectomy synd brody, not elsewhere classified Postlaminectomy synd brody, not elsewhere classified (Primary Dx) Start: 08-04-2022 Refill Keisha Chen PA-C Work Phone: [facility] Comment on above: Refill Request Start: 07-16-2022 End: 07-16-2022 ambulatory GAURI KIDD Facility:[facility] Start: 07-16-2022 End: 07-16-2022 Subsequent hospital visit by physician Ct Prep [facility] Wstr Cat Scan Comment on above: Generalized abdomina l pain [R10.84] Start: 07-10-2022 End: 07-11-2022 ambulatory KEISHA CHEN Facility:[facility] Start: 07-09-2022 Telephone encounter Keisha menjivar PA-C Work Phone: [facility] Comment on above: Patient Update Start: 07-09-2022 End: 07-09-2022 ambulatory KEISHA CHEN Facility:[facility] Start: 07-09-2022 End: 07-09-2022 Patient encounter procedure Keisha Chen PA-C Work Phone: [facility] Comment on above: Generalized abdomina l pain (Primary Dx); Gallbladder polyp; Hiatal hernia with GERD and esophagitis; Lower esophageal ring (Schatzki); Loose stools; Bloating; Abnormal weight loss; Abdominal distension (gaseous); Nausea Start: 06-04-2022 End: 06-04-2022 ambulatory CATIA TRUJILLO Facility:[facility] Start: 06-04-2022 End: 06-04-2022 Subsequent hospital visit by physician Catia Trujillo MD Work Phone: Ambulatory Surgery Comment on above: Postprandial epigast charisse pain [R10.13] Start: 05-31-2022 Refill Keisha Chen PA-C Work Phone: [facility] Comment on above: Med Change Request Start: 05-30-2022 End: 05-30-2022 ambulatory GAURI KIDD Facility:[facility] Start: 05-30-2022 End: 05-30-2022 Patient encounter procedure Keisha Chen PA-C Work Phone: [facility] Comment on above: Postprandial epigast charisse pain (Primary Dx); Altered bowel habits; Gallbladder polyp Start: 04-04-2022 End: 04-04-2022 ambulatory GAURI KIDD Facility:[facility] Start: 04-04-2022 End: 04-04-2022 Subsequent hospital visit by physician [facility] Work Phone: Radiology Comment on above: Gallbladder polyp [K 82.4] Start: 03-18-2022 Refill Catia Trujillo MD Work Phone: [facility] Comment on above: Refill Request Start: 01-04-2022 Telephone encounter Jules gomez MD Work Phone: [facility] Comment on above: Results Start: 01-03-2022 End: 01-03-2022 ambulatory GAURI KIDD Facility:[facility] Start: 12-31-2021 End: 12-31-2021 ambulatory JULES GRAY Facility:[facility] Start: 12-31-2021 End: 12-31-2021 Patient encounter procedure Jules Gray MD Work Phone: [facility] [place] Comment on above: Gallbladder polyp (P rimary Dx); Altered bowel habits; Loose stools; Bloating; Stool color abnormal; Abdominal distention; Generalized abdominal pain; Family history of stomach cancer Start: [facility]21 [facility] Start: 12-26-2021 End: 12-26-2021 Subsequent hospital visit by physician Gauri Kidd MD Work Phone: [facility] Comment on above: Arrived Start: 09-01-2021 End: 09-01-2021 Emergency department patient visit [facility]-Emergency Department Start: 05-01-2021 End: 05-01-2021 Pt evaluation Samantha Marino HIDES AND SKINS COLORER-MICROSTRATEGY ARCHITECT Work Phone: [facility] Work Phone: Start: 01-08-2021 [facility] Gauri Arce [facility] Start: 01-08-2021 End: 01-08-2021 Subsequent hospital visit by physician Keaton Gardiner Work Phone: [facility] Comment on above: Arrived Start: 12-12-2020 End: 12-12-2020 Subsequent hospital visit by physician Gauri Kidd MD Work Phone: [facility] Comment on above: Arrived Start: 04-27-2020 End: 04-27-2020 Subsequent hospital visit by physician Lolis Randhawa Work Phone: [facility] Start: 11-03-2019 End: 11-03-2019 Subsequent hospital visit by physician Gauri Kidd Work Phone: [facility] Comment on above: Arrived Start: 05-04-2019 End: 05-04-2019 Subsequent hospital visit by physician Alexey Chung Work Phone: [facility] Start: 11-23-2018 End: 11-23-2018 Subsequent hospital visit by physician Gauri Kidd Work Phone: [facility] Comment on above: Arrived Start: 11-20-2018 End: 11-20-2018 Subsequent hospital visit by physician Keaton Nieves Work Phone: [facility] Comment on above: Arrived Start: 11-05-2018 End: 11-05-2018 Subsequent hospital visit by physician Gauri Kidd Work Phone: [facility] Start: 02-20-2017 Ambulatory LENNY OVALLES [facility]il ity:[facility] Start: 11-28-2016 End: 11-28-2016 Ambulatory LENNY OVALLES III [facility] Procedures Date Procedure Procedure Detail Performing Clinician Start: 01-12-2025 Blood pressure withi n normal parameters - no follow-up required Juan Pablo Holguin MD Work Phone: Start: 01-12-2025 BMI documented as ab ove normal parameters - follow-up documented Juan Pablo Holguin MD Work Phone: Start: 01-12-2025 Current tobacco non- user cad cap copd pv dm Juan Pablo Holguin MD Work Phone: Start: 01-12-2025 Documentation of cur rent medications Juan Pablo Holguin MD Work Phone: Start: 01-12-2025 Pain assessment docu mented as positive - no follow-up/reason not given Juan Pablo Holguin MD Work Phone: Start: 01-04-2025 Blood pressure withi n normal parameters - no follow-up required Awa Gonzales HIDES AND SKINS COLORER-MICROSTRATEGY ARCHITECT Work Phone: Start: 01-04-2025 BMI outside of seble l parameters - no follow-up plan/reason not given Awa Gonzales HIDES AND SKINS COLORER-MICROSTRATEGY ARCHITECT Work Phone: Start: 01-04-2025 Current tobacco non- user cad cap copd pv dm Awa Gonzales HIDES AND SKINS COLORER-MICROSTRATEGY ARCHITECT Work Phone: Start: 01-04-2025 Documentation of cur rent medications Awa Gonzales APRN-MICROSTRATEGY ARCHITECT Work Phone: Start: 01-04-2025 Pain assessment docu mented as positive - no follow-up/reason not given Awa Gonzales APRN-MICROSTRATEGY ARCHITECT Work Phone: Start: 12-17-2024 Radiologic exam chest 2 views Marika Raymond HOME HEALTH ATTENDANT-C Work Phone: Start: 12-17-2024 Estimated creatinine clearance Marika Raymond HOME HEALTH ATTENDANT-C Work Phone: Start: 12-17-2024 SARS-CoV-2, Influenz a & RSV (PCR) Marika Raymond HOME HEALTH ATTENDANT-C Work Phone: Start: 11-23-2024 Blood pressure withi n normal parameters - no follow-up required Awa Gonzales APRN-MICROSTRATEGY ARCHITECT Work Phone: Start: 11-23-2024 BMI outside of seble l parameters - no follow-up plan/reason not given Awa Gonzales HIDES AND SKINS COLORER-MICROSTRATEGY ARCHITECT Work Phone: Start: 11-23-2024 Current tobacco non- user cad cap copd pv dm Awa Gonzales HIDES AND SKINS COLORER-MICROSTRATEGY ARCHITECT Work Phone: Start: 11-23-2024 Documentation of cur rent medications Awa Gonzales HIDES AND SKINS COLORER-MICROSTRATEGY ARCHITECT Work Phone: Start: 11-23-2024 Pain assessment docu mented as positive - no follow-up/reason not given Awa Gonzales HIDES AND SKINS COLORER-MICROSTRATEGY ARCHITECT Work Phone: Start: 11-23-2024 Physical therapy management Awa Gonzales APRN-MICROSTRATEGY ARCHITECT Work Phone: Start: 11-22-2024 Vitamin D, 25-hydrox y measurement Marika Raymond HOME HEALTH ATTENDANT-C Work Phone: Comment on above: Vitamin D StatusDefi ciency: <20 ng/mL (50nmol/L)Insufficiency: 20-30 ng/mL (50-75 nmol/L)Sufficiency: 30-100 ng/mL (75-250 nmol/L)Toxicity: >100 ng/mL (>250 nmol/L)Previous reported result: 31.2 ng/mLEdited by: DAVIE on 11/22/24:1318 AMENDED REPORT 11/22/24 1318 Vitamin D 25-OH previously reported as: 31.2 ng/mL Vitamin D StatusDeficiency: <20 ng/mL (50nmol/L)Insufficiency: 20-30 ng/mL (50-75 nmol/L)Sufficiency: 30-100 ng/mL (75-250 nmol/L)Toxicity: >100 ng/mL (>250 nmol/L) Start: 10-27-2024 BMI documented as ab ove normal parameters - follow-up documented Juan Pablo Holguin MD Work Phone: Start: 10-27-2024 Current tobacco non- user cad cap copd pv dm Juan Pablo Holguin MD Work Phone: Start: 10-27-2024 Documentation of cur rent medications Juan Pablo Holguin MD Work Phone: Start: 10-27-2024 Pain assessment docu mented as positive - no follow-up/reason not given Juan Pablo Holguin MD Work Phone: Start: 07-19-2024 MRI of joint of lower extremity Marika Raymond HOME HEALTH ATTENDANT-C Work Phone: Start: 07-05-2024 Plain x-ray of elbow Ra anabel Raymond HOME HEALTH ATTENDANT-C Work Phone: Start: 06-17-2024 Lumbar spinal fusion Lumbar fusion Maria C Holguin MD Work Phone: Start: 03-23-[address] Ananda Menezes DO Work Phone: Start: 02-26-2024 X-ray of chest, PA a nd lateral views Dr. Ananda Menezes DO Work Phone: Start: 07-09-2023 Dual energy X-ray absorptiometry Dr. Gauri Kidd Work Phone: Start: 05-21-2023 Plain chest X-ray Start: 07-16-2022 Ct abdomen & pelvis w/contrast material Keisha Chen PA-C Work Phone: Start: 06-04-2022 Level iv surg pathol ogy gross&microscopic exam Catia Trujillo MD Work Phone: Start: 06-04-2022 Esophagogastroduoden oscopy transoral diagnostic Keisha BUSTOS-C Work Phone: Start: 04-04-2022 Us abdominal real ti me w/image limited Jules Gray MD Work Phone: Start: 12-26-2021 End: 12-26-2021 Screening digital breast tomosynthesis bi Gauri Kidd MD Work Phone: Start: 09-01-2021 Radiography of ankle Start: 05-01-2021 End: 05-01-2021 BP scrn no perf at interval Samantha Marino APRN-MICROSTRATEGY ARCHITECT Work Phone: Start: 05-01-2021 End: 05-01-2021 Calc BMI out nrm magali nof/u Samantha Marino HIDES AND SKINS COLORER-MICROSTRATEGY ARCHITECT Work Phone: Start: 05-01-2021 End: 05-01-2021 Current tobacco non-user cad cap copd pv dm Samantha Marino HIDES AND SKINS COLORER-MICROSTRATEGY ARCHITECT Work Phone: Start: 05-01-2021 End: 05-01-2021 Docrev cur meds by [facility] Samantha Marino HIDES AND SKINS COLORER-MICROSTRATEGY ARCHITECT Work Phone: Start: 05-01-2021 End: 05-01-2021 Pain doc pos and plan Samantha Marino HIDES AND SKINS COLORER-MICROSTRATEGY ARCHITECT Work Phone: Start: 05-01-2021 End: 05-01-2021 Patient encounter procedure Samantha Marino HIDES AND SKINS COLORER-MICROSTRATEGY ARCHITECT Work Phone: Start: 04-27-2020 Creatinine blood Lolis Randhawa Work Phone: Start: 11-03-2019 Screening digital br east tomosynthesis bi Gauri Kidd Work Phone: Start: 10-13-2019 Colonoscopy Jules gomez MD Work Phone: Start: 11-20-2018 Mri any jt lower ext rem w/o contrast matrl Keaton R Magoline Work Phone: History of cholecystectomy S/P cholecyste ctomy Dr. Ananda Menezes DO Work Phone: Comment on above: Laparoscopic NEGATED: Highlighted rowStart: 05-01-2021 End: 05-01-2021 Documentation of current medications Grace Villalta AT Plan of Treatment Date Care Activity Detail Author Start: 02-02-2025 End: 02-02-2025 [facility] Work Phone: Start: 01-26-2025 End: 01-26-2025 [facility] Work Phone: Start: 01-19-2025 End: 01-19-2025 [facility] Work Phone: Start: 01-12-2025 End: 01-12-2025 [facility] Work Phone: Start: 01-12-2025 Ct lumbar spine w/o contrast material [facility] Work Phone: Start: 01-12-2025 Ct thoracic spine w/o contrast material [facility] Work Phone: Start: 01-05-2025 End: 01-05-2025 [facility] Work Phone: Start: 01-04-2025 End: 01-04-2025 [facility] Work Phone: Start: 12-20-2024 End: 12-20-2024 [facility] Work Phone: Start: 12-17-2024 [facility] Start: 12-10-2024 End: 12-10-2024 [employer] [facility] Work Phone: Start: 12-07-2024 End: 12-07-2024 [employer] [facility] [employer] Work Phone: Start: 12-02-2024 End: 12-02-2024 [employer] [facility] [employer] Work Phone: Start: 11-24-2024 End: 11-24-2024 [employer] [facility] [employer] Work Phone: Start: 11-23-2024 End: 11-23-2024 [employer] [facility] [employer] Work Phone: Start: 11-23-2024 Mri spinal canal lumbar w/o & w/contr matrl [employer] [facility] Work Phone: Start: 11-23-2024 [facility] [employer] Work Phone: Start: 11-23-2024 Njx dx/ther sbst intrlmnr lmbr/sac w/img gdn [employer] [employer] Work Phone: Start: 11-23-2024 Radex spine thoracic 2 views [employer] Work Phone: Start: 11-23-2024 XR Lumbar spine Views [employer] Work Phone: Start: 10-22-2024 [facility] Start: 11-09-2023 Covid-19 Vaccine ( season) Covid-19 Vaccine ( season) [facility] Start: 11-09-2023 Influenza vaccination [facility] Start: 10-14-2023 End: 10-14-2023 Patient encounter procedure 10/14/2023 8:25 AM EDT Office Visit Gastroenterology Malik [address] [facility] [place] [address] Keisha Chen PA-C [address] [facility] [place] [address] abd pain, unusual bowel movements, gallbladder polyp (testing in Epic) [facility] Comment on above: abd pain, unusual bowel movements, gallb ladder polyp (testing in Epic) Start: 03-10-2023 Behavioral Health Screening Behavioral Health Screening [facility] Start: 03-10-2023 Medicare Advantage Annual Wellness Visit Medicare Advantage Annual Wellness Visit [facility] Start: 12-26-2022 Mammography Mammogram Screening [facility] Start: 12-26-2022 Screening for malignant neoplasm of breast [facility] Start: 12-12-2022 Screening for malignant neoplasm of breast Breast cancer screen [facility] Start: 11-08-2022 Covid-19 Vaccine () Covid-19 Vaccine () [facility] Start: 11-08-2022 Influenza vaccination Influenza Vaccine (#1) [facility] Start: 09-29-2022 End: 06-29-2023 US ABD RT UPPER QUADRANT US ABD RT UPPER QUADRANT Radiology Routine Gallbladder polyp Expected: 09/29/2022, Expires: 06/29/2023 [facility] Work Phone: Comment on above: Expected: 09/29/2022, Expires: 4 Start: 07-09-2022 End: 09-08-2022 CELIAC SCREEN WITH REFLEX CELIAC SCREEN WITH REFLEX Lab Routine Generalized abdominal pain Expected: 07/09/2022, Expires: 09/08/2022 [facility] Work Phone: Comment on above: Expected: 07/09/2022, Expires: 3 Start: 07-09-2022 End: 09-08-2022 CREATININE BLD CREATININE BLD Lab Routine Generalized abdominal pain Bloating Abnormal weight loss Abdominal distension (gaseous) Nausea Expected: 07/09/2022, Expires: 09/08/2022 [facility] Work Phone: Comment on above: Expected: 07/09/2022, Expires: 3 Start: 03-10-2022 DEPRESSION ASSESSMENT DEPRESSION ASSESSMENT [facility] Start: 2021 RSV Immunization aged 60 or older (1 - 1-dose 60+ series) RSV Immunization aged 60 or older (1 - 1-dose 60+ series) [facility] Start: 2021 RSV Vaccine (1 - 1-dose 60+ series) RSV Vaccine (1 - 1-dose 60+ series) [facility] Start: 2021 RSV Vaccine (1 - Risk 60-74 years 1-dose series) RSV Vaccine (1 - Risk 60-74 years 1-dose series) [facility] Start: 2021 Shingles vaccine (2 of 2) Shingles vaccine (2 of 2) [facility] Start: 2021 Shingrix Vaccine (2 of 2) Shingrix Vaccine (2 of 2) [facility] Start: 11-26-2021 COVID-19 Vaccine (4 - Booster for Pfizer series) COVID-19 Vaccine (4 - Booster for Pfizer series) [facility] Start: 11-26-2021 COVID-19 VACCINE (5 - Booster for Pfizer series) COVID-19 VACCINE (5 - Booster for Pfizer series) [facility] Start: 11-02-2021 Screening for malignant neoplasm of breast Breast cancer screen [facility] Work Phone: Start: 10-08-2021 Influenza vaccination Flu vaccine (#1) [facility] Start: 08-28-2021 Diabetes Screening Diabetes Screening [facility] Start: 08-25-2021 DIABETES SCREEN DIABETES SCREEN [facility] Start: 08-25-2021 Diabetes Screening Diabetes Screening [facility] Start: 05-01-2021 End: 05-01-2021 Patient encounter procedure Appointment [facility] Work Phone: Start: 05-01-2021 End: 05-01-2021 Radex spine lumbosacral minimum 4 views XR LUMBAR 4VWS FLEX/EX [facility] Work Phone: Start: 04-27-2021 Creatinine measurement Creatinine monitoring [facility] Work Phone: Start: 03-10-2021 DEPRESSION ASSESSMENT DEPRESSION ASSESSMENT [facility] Start: 12-22-2020 COVID-19 Vaccine (3 - Pfizer booster) COVID-19 Vaccine (3 - Pfizer booster) [facility] Work Phone: Start: 11-08-2020 Influenza vaccination Flu vaccine (#1) [facility] Work Phone: Start: 10-12-2020 Colonoscopy COLONOSCOPY [facility] Start: 10-12-2020 COLORECTAL CANCER SCREENING COLORECTAL CANCER SCREENING [facility] Start: 10-12-2020 Screening for malignant neoplasm of colon [facility] Start: 07-15-2020 Breast cancer screen Breast cancer screen [place], [place] Start: 07-15-2020 Screening for malignant neoplasm of breast Breast cancer screen [place] Start: 11-21-2019 A1C test (Diabetic or Prediabetic) A1C test (Diabetic or Prediabetic) [place] Start: 11-21-2019 HbA1c (Bld) [Mass fraction] A1C test (Diabetic or Prediabetic) [place] Start: 11-21-2019 Hemoglobin A1c measurement A1C test (Diabetic or Prediabetic) [facility] Start: 11-21-2019 Lipid panel [facility] Start: 11-21-2019 Lipid screen Lipid screen [place] Start: 11-09-2019 Influenza vaccination Flu vaccine (#1) [place] Start: 10-06-2019 A1C test (Diabetic or Prediabetic) A1C test (Diabetic or Prediabetic) [place] Start: 10-06-2019 Thyroid stimulating hormone measurement TSH testing [facility] Work Phone: Start: 10-06-2019 TSH Qn TSH testing [place] Start: 10-06-2019 TSH testing [place] testing [place] Start: 08-29-2019 Creatinine measurement Creatinine monitoring [place] Start: 08-29-2019 Creatinine monitoring Creatinine monitoring [place], [place] Start: 08-29-2019 Potassium monitoring Potassium monitoring [place] Start: 12-10-2018 End: 12-10-2018 Office Visit 12/10/2018 Office Visit Endocrinology Nayan Chaney MD [address] [facility] [place] [address] [phone] [facility] Start: 11-23-2018 Hospital Encounter 11/23/2018 Hospital Encounter Radiology Gauri Kidd MD [address] [address] [phone] Start: 11-08-2018 Influenza vaccination Flu vaccine (#1) [place] Start: 08-25-2018 Annual Wellness Visit (AWV) Annual Wellness Visit (AWV) [facility] Start: 12-20-2011 Colon cancer screen colonoscopy Colon cancer screen colonoscopy [place] Start: 12-20-2011 Screening for malignant neoplasm of colon Colon cancer screen colon[place] Start: 12-20-2011 Shingles Vaccine (1 of 2) Shingles Vaccine (1 of 2) [place] Start: 12-20-2011 SHINGRIX VACCINE (1 of 2) SHINGRIX VACCINE (1 of 2) [facility] Start: 2006 COLOGUARD (FIT-DNA) COLOGUARD (FIT-DNA) [facility] Start: [address] COLONOGRAPHY [facility] Start: 2006 FECAL OCCULT BLOOD FECAL OCCULT BLOOD [facility] Start: 2006 Lipid 1996 panel - Serum or Plasma Lipid Screening [facility] Start: 2006 Lipid panel Lipid Screening [facility] Start: 2006 LIPID SCREEN LIPID SCREEN [facility] Start: 2006 Screening for malignant neoplasm of colon [facility] Start: 2006 SIGMOIDOSCOPY SIGMOIDOSCOPY [facility] Start: 2001 Lipid screen Lipid screen [place] Start: 2001 Mammography MAMMOGRAM [facility] Start: 12-20-1991 HPV TESTING HPV TESTING [facility] Start: 12-20-1991 Screening for malignant neoplasm of cervix [facility] Start: 1982 Cervical cancer screen Cervical cancer screen [place] Start: 1982 PAP TESTING PAP TESTING [facility] Start: 1982 Screening for malignant neoplasm of cervix [facility] Start: 1980 DTaP/Tdap/Td vaccine (1 - Tdap) DTaP/Tdap/Td vaccine (1 - Tdap) [facility] Start: 1980 DTaP/Tdap/Td Vaccines (1 - Tdap) DTaP/Tdap/Td Vaccines (1 - Tdap) [facility] Start: 1980 Urine microalbumin profile [facility] Start: 12-20-1979 Anxiety Screening Anxiety Screening [facility] Start: 12-20-1979 Depression Screening Depression Screening [facility] Start: 12-20-1979 Hepatitis C screening [facility] Start: 12-20-1979 HEPATITIS C SCREENING HEPATITIS C SCREENING [facility] Start: 12-20-1979 HIV SCREENING HIV SCREENING [facility] Start: 12-20-1979 HIV screening HIV Screening [facility] Start: 1976 HIV screen HIV screen [place] Start: 1976 HIV screening HIV screen [facility] Start: 1973 Depression Screen Depression Screen [facility] Start: 1973 Depression Screening Depression Screening [facility] Start: 1972 DTaP/Tdap/Td vaccine (1 - Tdap) DTaP/Tdap/Td vaccine (1 - Tdap) [place] Start: 12-20-1967 Pneumococcal Vaccine: Pediatrics (0 to 5 Years) and At-Risk Patients (6 to 64 Years) (1 - PCV) Pneumococcal Vaccine: Pediatrics (0 to 5 Years) and At-Risk Patients (6 to 64 Years) (1 - PCV) [facility] Start: 12-20-1967 Pneumococcal Vaccine: Pediatrics (0 to 5 Years) and At-Risk Patients (6 to 64 Years) (1 of 2 - PCV) Pneumococcal Vaccine: Pediatrics (0 to 5 Years) and At-Risk Patients (6 to 64 Years) (1 of 2 - PCV) [facility] Start: 1962 MMR Vaccines (1 of 1 - Standard series) MMR Vaccines (1 of 1 - Standard series) [facility] Start: 1961 Hepatitis C screen Hepatitis C screen [place], [place] Start: 1961 Hepatitis C screening Hepatitis C screen [place] Start: 1961 HIV screening HIV Screening [facility] Start: 1961 Medicare Annual Wellness (AWV) Medicare Annual Wellness (AWV) [facility] Start: 1961 Screening for malignant neoplasm of colon [facility] Start: 1961 Thyroid stimulating hormone measurement TSH Level [facility] Bacteria identified in Sputum by Culture [facility] Colonoscopy [facility] End: 08-08-2023 Ct abdomen & pelvis w/contrast material CT ABD/PEL W IVCON Radiology Routine Generalized abdominal pain Bloating Abnormal weight loss Abdominal distension (gaseous) Nausea 1 Occurrences starting 07/09/2022 until 08/08/2023 [facility] Work Phone: Comment on above: 1 Occurrences starting 07/09/2022 until 08/08/2023 CT Chest [facility] End: 11-23-2018 CT CHEST W CONTRAST CT CHEST W CONTRAST Imaging Routine Once for 1 Occurrences starting 11/23/2018 until 11/23/[address] [facility] Comment on above: Once for 1 Occurrences starting 11/24/19 19 until 11/23/2018 CT CHEST W CONTRAST CT CHEST W C ONTRAST Imaging Routine 11/23/2018 9:[address] [facility] [place] End: 05-31-2023 EGD DIAGNOSTIC EGD DIAGNOSTIC Endoscopy Routine Postprandial epigastric pain 1 Occurrences starting 05/30/2022 until 05/31/2023 [facility] Work Phone: Comment on above: 1 Occurrences starting 05/30/2022 until 05/31/2023 Measurement of respiratory function [facility] End: 01-08-2021 MRI CERVICAL SPINE WO CONTRAST MRI CERVICAL SPINE WO CONTRAST Imaging Routine Once for 1 Occurrences starting 01/08/2021 until 01/08/2021 [employer] Work Phone: Comment on above: Once for 1 Occurrences starting 01/09/20 21 until 01/08/2021 MRI CERVICAL SPINE W O CONTRAST MRI CERVICAL SPINE WO CONTRAST Imaging Routine 01/08/2021 9:50 AM EDT [employer] Work Phone: OUTSIDE PROCEDURE SCAN OUTSIDE PROCEDURE SCAN Procedures Ordered: 10/29/2022 [facility] Comment on above: Ordered: 10/29/2022 Patient Education [facility] Work Phone: Patient referral [facility] Work Phone: End: 12-12-2020 Screening digital breast tomosynthesis bi [facility] Inderjit Digital Screen Bilateral Imaging Routine Once for 1 Occurrences starting 12/12/2020 until 12/12/2020 [facility] Work Phone: Comment on above: Once for 1 Occurrences starting 12/13/19 21 until 12/12/2020 Screening digital breast tomosynthesis bi [facility] Inderjit Digital Screen Bilateral Imaging Routine 12/12/2020 12:58 PM EDT [employer] Work Phone: End: 06-11-2023 US Abdomen [employer] Work Phone: Comment on above: Once for 1 Occurrences starting 06/11/19 until 06/11/2023 End: 01-30-2023 Us abdominal real time w/image limited US ABD RT UPPER QUADRANT Radiology Routine Gallbladder polyp 1 Occurrences starting 12/31/2021 until 01/30/2023 [facility] Work Phone: Comment on above: 1 Occurrences starting 12/31/2021 until 01/30/2023 End: 02-03-2023 Us abdominal real time w/image limited US ABD RT UPPER QUADRANT Radiology Routine Gallbladder polyp 1 Occurrences starting 01/04/2022 until 02/03/2023 [facility] Work Phone: Comment on above: 1 Occurrences starting 01/04/2022 until 02/03/2023 Walking distance 6 minutes [facility] End: 05-04-2019 XR CERVICAL SPINE (4-5 VIEWS) XR CERVICAL SPINE (4-5 VIEWS) Imaging Routine Once for 1 Occurrences starting 05/04/2019 until 05/04/[address] [facility] Comment on above: Once for 1 Occurrences starting 05/04/19 until 05/04/2019 XR CERVICAL SPINE (4-5 VIEWS) XR CERVICAL SPINE (4-5 VIEWS) Imaging Routine 05/04/2019 11:00 AM EST [facility] End: 11-05-2018 XR Knee Bilateral Standard Extended VW XR Knee Bilateral Standard Extended VW Imaging Routine Once for 1 Occurrences starting 11/05/2018 until 11/05/[address] [facility] Comment on above: Once for 1 Occurrences starting 11/06/19 19 until 11/05/2018 XR Knee Bilateral Standard Extended VW XR Knee Bilateral Standard Extended VW Imaging Routine 11/05/2018 2:[address] [facility] End: 10-29-2022 XR Lumbar spine 2 or 3 [facility] Work Phone: Comment on above: Once for 1 Occurrences starting 10/30/19 23 until 10/29/2022 [facility] Immunizations Immunization Date Immunization Notes Care Provider Margarita zarate 12-28-2021 influenza virus vacc ine, unspecified formulation [facility] 1 [facility] 06-22-2020 Pfizer SARS-CoV-2 Vaccination [facility] 1 [facility] 06-02-2020 Pfizer SARS-CoV-[address] Payers Date Payer Category Payer Self-pay [id number] 2023 Unknown [id number] 2014 Medicaid MEDICAID [facility] xxxxxxxxxxxx 2014-Present [phone] [address] [place] [address] xxxxxxxxxxxx [id number] 2014 Medicaid [id number] .[id number] 2014 Medicare MEDICARE MEDICAR E PART A AND B xxxxxxxxxxx 2014-Present [phone] [address] [address] [place] [address] xxxxxxxxxxx [id number] .[id number] 1997 Medicare 1997 Medicare [id number] .[id number] 1961 Unknown [id number]8 1961 Unknown [id number] 2.16.840.1.449468.3.579.2.668 Medicaid Medicare [id number] Unknown [id number] 2.16.840.1.641897.3.579.2.462 Unknown [id number] 2.16.840.1.778779.3.579.2.462 Unknown [id number] 2.16.840.1.975309.3.579.2.462 Unknown [id number] 2.16.840.1.307909.3.579.2.462 Unknown [id number] 2..840.1.635924.3.579.2.462 Unknown [id number] 2..840.1.424364.3.579.2.462 Unknown [id number] 2.840.1.897211.3.579.2.462 Unknown [id number] 2.840.1.311619.3.579.2.462 Unknown [id number] 2.840.1.351237.3.579.2.462 Unknown [id number] 2.840.1.455766.3.579.2.462 Unknown [id number] 2.840.1.728908.3.579.2.462 Unknown [id number] 2..840.1.962854.3.579.2.462 Unknown [id number] 2.840.1.162166.3.579.2.462 Unknown [id number] 2.840.1.361896.3.579.2.462 Unknown [id number] 2..840.1.606971.3.579.2.462 Unknown [id number] 2.840.1.763878.3.579.2.462 Unknown [id number] 2.840.1.963338.3.579.2.462 Unknown [id number] 2.840.1.414693.3.579.2.462 Unknown [id number] 2.840.1.905976.3.579.2.462 Unknown [id number] 2.16.840.1.915726.3.579.2.462 Unknown [id number] 2.16.840.1.333253.3.579.2.462 Unknown [id number] 2.16.840.1.181600.3.579.2.462 Social History Date Type Detail Facility Start: 09-03-2018 End: 12-10-2018 Tobacco smoking status NHIS Never smoker [facility] Work Phone: Start: 09-03-2018 End: 01-12-2025 Alcohol intake No [facility] Start: 1960 Sex Assigned At Not on file [place] Start: 12-10-2018 End: 06-04-2022 Alcohol intake Current non-drinker of alcohol (finding) [place] Start: 12-10-2018 End: 05-30-2022 Tobacco use and exposure Never used [place] Start: 09-01-2021 End: 07-04-2023 Assertion Unknown if ever smoked [facility] Work Phone: Start: 1960 Sex Assigned At Female W [facility] Start: 01-06-2018 End: 05-30-2022 Tobacco smoking status NHIS Ex-smoker [facility] History of tobacco use Current smoker [facility] Start: 01-06-2018 Alcohol Comment quit [facility] Start: 12-21-2021 End: 10-29-2022 Exposure to SARS-CoV-2 (event) Not sure [facility] Start: 04-01-2022 End: 07-09-2022 History of Social function [facility] National Score (1-10 0), lower number is lower risk 99 [facility] Start: 03-23-2024 End: 12-17-2024 Tobacco smoking status NHIS Smokes tobacco daily (finding) [facility] Start: 05-18-2024 Sex Female (finding) [facility] Medical Equipment Procedure Code Equipment Code Equipment Origin al Text Equipment Identifier Dates Total cholecystectomy with exploration of common bile duct CLIP,HEMOLOCK MED WECK FDA Start: 08-12-2023 Total cholecystectomy with exploration of common bile duct CLIP,HEMJENYDONOVAN MARIE TORO FDA Start: 08-12-2023 Total cholecystectomy with exploration of common bile duct Plant polysaccharide haemostatic agent, bioabsorbable [id number] FDA Start: 08-12-2023 Total cholecystectomy with exploration of common bile duct CLIP,HERLINDASHAILESH ENGEL FDA Start: 08-12-2023 Total cholecystectomy with exploration of common bile duct CLIP,HERLINDASHAILESH FRANK TORO FDA Start: 08-12-2023 Total cholecystectomy with exploration of common bile duct CLIP,HEMSHAILESH ENGEL FDA Start: 08-12-2023 Total cholecystectomy with exploration of common bile duct CLIP,HERLINDASHAILESH ENGEL FDA Start: 08-12-2023 Total cholecystectomy with exploration of common bile duct CLIP,HERLINDASHAILESH ENGEL FDA Start: 08-12-2023 Total cholecystectomy with exploration of common bile duct CLIP,MARJORIE ENGEL FDA Start: 08-12-2023 Total cholecystectomy with exploration of common bile duct CLIP,JANEYDONOVAN FRANK TORO FDA Start: 08-12-2023 Total cholecystectomy with exploration of common bile duct CLIP,HERLINDASHAILESH ENGEL FDA Start: 08-12-2023 Total cholecystectomy with exploration of common bile duct CLIP,HERLINDASHAILESH ENGEL FDA Start: 08-12-2023 Total cholecystectomy with exploration of common bile duct CLIP,AJNEYDONOVAN FRANK TORO FDA Start: 08-12-2023 Total cholecystectomy with exploration of common bile duct CLIP,MARJORIE ENGEL FDA Start: 08-12-2023 Total cholecystectomy with exploration of common bile duct CLIP,JANEYDONOVAN FRANK TORO FDA Start: 08-12-2023 Total cholecystectomy with exploration of common bile duct CLIP,HEMSHAILESH FRANK TORO FDA Start: 08-12-2023 Total cholecystectomy with exploration of common bile duct CLIP,HERLINDASHAILESH ENGEL FDA Start: 08-12-2023 Total cholecystectomy with exploration of common bile duct CLIP,JANEYDONOVAN FRANK TORO FDA Start: 08-12-2023 Total cholecystectomy with exploration of common bile duct CLIP,HERLINDASHAILESH FRANK TORO FDA Start: 08-12-2023 [id number] Start: 2015 Functional Status Date Assessment Result Facility 01-04-2025 Functional Status with [facility] Work Phone: 01-04-2025 dependent [facility] Work Phone: 11-23-2024 Functional Status with [facility] Work Phone: 11-23-2024 dependent [facility] Work Phone: Clinical Notes 12-31-2021 to 12-17-2024 Note Date & Type Note Facility 12-17-2024 Discharge summary [facility] 12-17-2024 Radiology Diagnostic study note [facility] Imaging Services [address] [place] [address] Chest PA and Lateral MR#: [id number] Acct: [id number] Name: MARISSA MILLER Rep #: [id number] : 1960 [id number] 63 From: Lenard Dee MD PCP: NIKOLAI Zuleta Status: REG ER Study:Chest PA and Lateral Date of Exam: 12/17/24 Exam# [id number] Ordering Dr: Juan Pablo Denney DO PROCEDURE: CHEST PA AND LATERAL 12/17/2024 REASON FOR EXAM: COUGH TECHNIQUE: Procedure Code: RADCXR Modality: DX Procedure: CHEST PA AND LATERAL FINDINGS: The heart is normal in size. Hilar prominence suggestive of vascular congestion.. No acute osseous abnormalities. RAD/Chest PA and Lateral IMPRESSION: Possible vascular congestion. Reading Location: [id number] CC: HOME HEALTH ATTENDANT-Michael Raymond; Dr. Juan Pablo Denney, ~ Wood Lather: Signed [facility] 12-17-2024 Discharge summary Note Date/Time December 17, 2024 9:17pm [facility] Medical Records Department [address] [place] [address] Emergency Department Summary 12/17/24 MR#: [id number] Acct: [id number] Name: MARISSA MILLER Rep #:[id number] : [id number] From: Juan Pablo Warren PCP: NIKOLAI Zuleta Status:DEP ER Location: ED HPI History of Present Illness Chief Complaint: Shortness of Breath Informant: patient Onset/Context/Timing Onset: Weeks (2) Context: gradual Timing: Continuous Quality: Positive for Dyspnea on exertion Worsened by: Exertion Relieved by: Rest Associated Symptoms cough, post nasal drip and green sputum; Negative for rhinorrhea, ear pain, fever, sore throat, chills, sweats, clear sputum, white sputum or yellow sputum Chest Pain: Positive for Sharp, Aching and - (Right lower chest) Narrative Narrative: Patient presents with shortness of breath and cough that has been getting worse over the past 2 weeks. Patient states it came on gradually. Patient states herbreathing is worse with any exertion. Patient states it is better with rest. Patient states she is coughing up some green or brown sputum. Patient also admits to some postnasal drainage. Patient states she has pain over the right side of her lower chest. Patient describes it as sharp and aching. Patient denies any fevers or chills. Patient admits to some nausea but denies any vomiting. PE Risk Factors: Negative for Cancer, Prior DVT or PE, Recent immobilization, Recent surgery or Recent travel [facility] Medical History Tobacco use disorder, continuous Encounter for screening for malignant neoplasm of lung Diarrhea Wears glasses Wears dentures Post-menopausal Depression Marijuana use Bladder disease Anemia High cholesterol Back pain History of hiatal hernia History of ulceration History of IBS Gastric reflux Smoker Shortness of breath on exertion Leg cramps History of pain when walking History of stress test Asthma COPD (chronic obstructive pulmonary disease) HTN (hypertension) Arthritis Thyroid disease Diabetes Home Medications ?Medication ?Instructions ?Recorded ?Last Taken ?Type atorvastatin 40 mg tablet 40 mg PO QHS 07/20/15 History duloxetine 60 mg capsule,delayed 60 mg PO BID 07/20/15 08/11/23 History release cyclobenzaprine 10 mg tablet 1 tab PO TID PRN PRN pain 09/01/21 08/11/23 History glimepiride 4 mg tablet 4 mg PO DAILY 09/01/2108/10 History levothyroxine 112 mcg tablet 112 mcg PO QDAY 07/04/23 08/12/23 History lisinopril 10 mg tablet 10 mg PO QDAY 07/04/2308/11 History esomeprazole magnesium 40 mg 40 mg PO DAILY #30 caps 0 07/24/23 08/12/23 Rx capsule,delayed release pregabalin 150 mg capsule 150 mg PO TID 08/11/2308/11 History medical marjuana miscellaneous 03/23/24 Unkno wn History buspirone 10 mg tablet 20 mg PO TID PRN anxiety Unknown History celecoxib 200 mg capsule 200 mg PO DAILY 09/21/24 Unk nown History guaifenesin 1,200 mg tablet, 1,200 mg PO .QD #90 tabs 09/21/24 Unknown Rx extended release 12 hr (Mucinex) omeprazole 40 mg capsule,delayed 40 mg PO QDAY 5 Unknown History release ondansetron HCl 4 mg tablet 4 mg PO BID PRN nausea Unknown History oxybutynin chloride 5 mg 5 mg PO QDAY 09/21/24 Unknow n History tablet,extended release 24 hr tramadol 50 mg tablet 50 mg PO QD-BID PRN pain Unknown History hydrocodone-acetaminophen 5-325mg 1 tab PO Q6H PRN PRN Pain 3 days 10/22/24 Unknown Rx 5mg-325mg #10 TABLETS amoxicillin 875 mg-potassium 1 tab PO BID #14 tabs 04/03 Unknown Rx clavulanate 125 mg tablet budesonide 160 mcg-glycopyr 9 2 inh inhalation BID #10 .7 grams 12/08/24 Unknown Rx mcg-formot 4.8 mcg/actuation HFA inhaler (Breztri Aerosphere) levalbuterol HCl 0.63 mg/3 mL 0.63 mg (3 mL) inhalatio n ONCE #75 12/08/24 Unknown Rx solution for nebulization mL levalbuterol tartrate 45 2 puff inhalation Q4-6H PRN 12/08/24 Unknown Rx mcg/actuation aerosol inhaler shortness of breath or w heezing #15 grams nicotine (polacrilex) 2 mg buccal 2 mg buccal Q8H PRN nicotine 12/08/24 Unknown Rx lozenge cravings #72 ea nicotine See Rx Instructions transder mal 12/08/24 Unknown Rx 21mg/24hr-14mg/24hr-7mg/24hr daily .COMPLEX #56 patche s transderm patches,sequentl tirzepatide 7.5 mg/0.5 mL mg subcut 12/08/24 Unknown H istory subcutaneous pen injector (Bkunradha) Allergy/AdvReac Type Severity Reaction Status Date / Time clarithromycin (From Biaxin) AdvReac Nausea Verified 12/17/24 16:54 hydromorphone (From Dilaudid) AdvReac Upset Verified 12/17/24 16:54 Stomach Family History Father Heart disease Hypertension Mother Heart disease Thyroid disorder Surgical History S/P cholecystectomy Hx of esophagogastroduodenoscopy Hx of colonoscopy History of hysteroscopy Hx of hysterectomy, total History of lumbar discectomy History of lumbar fusion Cervical vertebral fusion Social History household members: none housing: house current occupational status: retired Smoking Status: Current every day smoker tobacco type: cigarettes Tobacco: How many years used: 30 how long ago did patient quit smoking: Pt. had stopped smoking for about 13 years and restarted last year. alcohol intake: never additional social history: medical marijuana ROS ROS ED Constitutional Constitutional ED: Denies chills or fever(s) Eyes Eyes: Denies blurry vision or change in vision ENT ENT ED: Denies rhinorrhea or sore throat Cardiovascular Cardiovascular: Reports chest pain; Denies palpitations Respiratory/Chest Respiratory/Chest: Reports cough and dyspnea Gastrointestinal Gastrointestinal: Reports nausea; Denies vomiting Genitourinary Genitourinary ED: Denies dysuria or hematuria Musculoskeletal Musculoskeletal: Reports back pain and neck pain Integumentary Denies abscess or rash Neurologic Neurologic: Denies headache(s) or weakness Allergic/Immunologic Allergic/Immunologic ED: Denies mouth swelling or urticaria EXAM Physical Exam Const Vital Signs: 12/17/24 16:53 12/17/24 17:13 12/17/24 17:13 Temperature 98 F 98.1 F Temperature Source Oral Oral Pulse Rate 115 H 78 Respiratory Rate 16 16 Respiratory Effort Normal Respiratory Depth Normal Respiratory Pattern Normal Blood Pressure 109/69 117/58 L Blood Pressure Mean 82 77 Pulse Ox 98 96 Oxygen Delivery Method Room Air Room Air Room Air 12/17/24 18:17 12/17/24 18:18 12/17/24 18:55 Temperature 98.0 F 98.1 F Temperature Source Oral Oral Pulse Rate 69 71 74 Respiratory Rate 11 L 13 18 Respiratory Effort Respiratory Depth Respiratory Pattern Blood Pressure 119/59 L 118/52 L Blood Pressure Mean 79 74 Pulse Ox 98 96 Oxygen Delivery Method Room Air 12/17/24 20:00 Temperature 98.1 F Temperature Source Oral Pulse Rate 75 Respiratory Rate 18 Respiratory Effort Respiratory Depth Respiratory Pattern Blood Pressure 118/57 L Blood Pressure Mean 77 Pulse Ox 100 Oxygen Delivery Method Room Air Positive well nourished and well developed Constitutional Narrative: BMI is 34.9. General Appearance ED: well developed and NAD HEENT Reports moist mucous membranes Neck supple, no meningeal signs and no JVD Resp normal respiratory effort Auscultation: rhonchi throughout Cardio regular rate and regular rhythm GI non-tender and non-distended Palpation: soft Neuro oriented x3, CN's II-XII intact bilaterally and no sensory deficits noted Hoa Coma Scale: document GCS findings Spontaneous Obeys Commands Oriented 15 Sensorium / Orientation: alert Speech: speech normal Motor Exam: strength 5/5 throughout Psych mental status grossly normal MDM MDM MDM Narrative Medical decision making narrative: Differential diagnosis includes pneumonia, bronchitis, viral illness, dehydration, asthma exacerbation, and electrolyte abnormality. Chest x-ray willbe obtained to assess for pneumonia and bronchitis. CBC will be obtained to assess for leukocytosis and anemia. Basic metabolic profile will be obtained toassess for electrolyte abnormality and renal function. Lab Data Attestation: I reviewed the patient's lab results. Lab results narrative: CBC was reviewed and was within normal limits. Basic metabolic profile was reviewed. Glucose was slightly low at 64. The remainder is within normal limits. COVID-19 PCR was reviewed and was negative. Influenza PCR was reviewedand was negative for influenza A and influenza B. RSV PCR was reviewed and was negative. Labs: Laboratory Results - last 24 hr 12/17/24 18:15 WBC 5.6 RBC 4.16 L Hgb 13.1 Hct 37.5 MCV 90.1 MCH 31.5 MCHC 34.9 RDW Std Deviation 46.9 H RDW Coeff of Shawn 14.1 Plt Count 145 L MPV 10.8 Immature Gran % (Auto) 0.400 Neut % (Auto) 55.8 Lymph % (Auto) 36.5 [place] % (Auto) 6.8 Eos % (Auto) 0.0 Baso % (Auto) 0.5 Absolute Neuts (auto) 3.1 Absolute Lymphs (auto) 2.05 Nucleated RBC % 0 Sodium 137 Potassium 3.8 Chloride 103 Carbon Dioxide 26.1 Anion Gap 8 BUN 9 Creatinine 0.96 Estim Creat Clear Calc 64.45 Est GFR (MDRD) Non-Af 67 BUN/Creatinine Ratio 9.2 L Glucose 64 L Calcium 9.0 Radiography Chest X-Ray - ED: 2 View, Read by ED Physician, Read by Radiologist and No AcuteDisease Diagnostic Testing: Clinical Impression(s) from Imaging Studies Chest X-Ray 12/17/24 18:30 IMPRESSION: Possible vascular congestion. Reading Location: [address] [place] and lateral chest x-ray was obtained. There are 2 views. On my independent interpretation, lung gunn show possible mild vascular congestion. There is noacute infiltrate noted. There is normal cardiac silhouette. Bony thorax is normal. There is no acute process noted. Radiologist also interpreted the x-ray and agrees. Treatment and Re-Evaluation :: Patient was given a DuoNeb aerosol. Patient is feeling somewhat better on reevaluation. Patient was advised of her findings. Patient was instructed to continue her inhalers as prescribed. Patient was instructed to take Tylenol or ibuprofen as needed for any fevers or bodyaches. Patient was instructed to follow-up with her primary care physician in 5 to 7 days. Patient and spouse understood and was agreeable with plan. All questions were answered. Discharge Plan Triage Chief Complaint: Shortness of Breath ED Provider: Juan Pablo Denney Dx/Rx/DC Orders Clinical Impression: Acute viral bronchitis, Asthma-COPD overlap syndrome Instructions: ED Bronchitis, No Antibiotic (Adult) Prescriptions: No Action lisinopril 10 mg tablet 10 mg PO QDAY levothyroxine 112 mcg tablet 112 mcg PO QDAY medical [facility] miscellaneous tramadol 50 mg tablet 50 mg PO QD-BID PRN (Reason: pain) omeprazole 40 mg capsule,delayed release(DR/EC) 40 mg PO QDAY ondansetron HCl 4 mg tablet 4 mg PO BID PRN (Reason: nausea) buspirone 10 mg tablet 20 mg PO TID PRN (Reason: anxiety) oxybutynin chloride 5 mg tablet extended release 24hr 5 mg PO QDAY guaifenesin [Mucinex] 1,200 mg tablet extended release 12hr 1,200 mg PO .QD Qty: 90 3RF Mounjaro 7.5 mg/0.5 mL pen injector subcut Patient Comments: [NO ORIGINAL SIG] levalbuterol HCl 0.63 mg/3 mL solution for nebulization 0.63 mg inhalation ONCE Qty: 75 11RF Breztri Aerosphere 160-9-4.8 mcg/actuation HFA aerosol inhaler 2 inh inhalation BID Qty: 10.7 11RF levalbuterol tartrate 45 mcg/actuation HFA aerosol inhaler 2 puff inhalation Q4-6H PRN (Reason: shortness of breath or wheezing) Qty: 1511RF nicotine 21-14-7 mg/24 hr patch, TD daily, sequential See Rx Instructions transdermal .COMPLEX Qty: 56 0RF Rx Instructions: apply 1-21 mg NICOTINE PATCH daily for 28 days; follow with 1-14 mg PATCH daily for 14 days, then 1-7mg PATCH daily for 14 days transdermal nicotine (polacrilex) 2 mg lozenge 2 mg buccal Q8H PRN (Reason: nicotine cravings) Qty: 72 2RF amoxicillin-pot clavulanate 875-125 mg tablet 1 tab PO BID Qty: 14 0RF atorvastatin 40 MG tablet 40 mg PO QHS duloxetine 60 MG capsule 60 mg PO BID cyclobenzaprine 10 mg tablet 1 tab PO TID PRN PRN (Reason: pain) glimepiride 4 mg Tablet 4 mg PO DAILY celecoxib 200 mg capsule 200 mg PO DAILY esomeprazole magnesium 40 mg capsule,delayed release(DR/EC) 40 mg PO DAILY Qty: 30 5RF pregabalin 150 mg capsule 150 mg PO TID hydrocodone-acetaminophen 5-325 mg tablet 1 tab PO Q6H PRN PRN (Reason: Pain) 3 Days Qty: 10 0RF Primary Care Provider: Marika Raymond Referrals: Marika Raymond, HOME HEALTH ATTENDANT-C [Primary Care Provider, Family Practice] - 5-7 Days Print Language: Pakistani Disposition Disposition: Home, Self Care What to do if you have Problems For any increased pain, shortness of breath, bleeding, nausea or vomiting, chestpain, or any unexpected problems, contact your Primary Care Provider. Call [facility] ([phone]) or report to the closest Emergency Room. Call 911 if necessary. 12/18/24 0007 <Electronically signed by Juan Pablo Denney DO> Cosigner Signature (if applicable): CC: NIKOLAI Raymond ~ Signed [facility] Work Phone: [phone] 251-442010-01-2025 [facility] Pulmonary Medicine [address] [place] [address] OFFICE VISIT Date of Service: 12/08/24 MR#: [id number] Acct: [id number] Name: MARISSA MILLER Rep #: [id number] : 1960 Provider: Zoran barry NP Age/Sex: 63/F [place] [facility] [place] Status: Signed Assessment and Plan Assessment and Plan (1) Asthma-COPD overlap syndrome: Status: Chronic Plan: Although the PFT is grossly normal there is a 10% change seen with use of beta agonist in FEV1. Thepatient does have seasonal allergy symptoms. She reports specifically grass is a trigger. There is significant bronchospasm on today's exam. There is emphysema identified on CT imaging. Today she is experiencing another exacerbation and I have recommended that she utilize Augmentin atthis time due to recent use of Z-Yuan and the recent episodeof worsening symptoms after eating. I have asked for her to complete a sputum culture prior to beginning this antibiotic. The patient's NIOXis not elevated so I do not plan to use oral prednisone especially in the context of the patientreporting that she is experience side effects in the past and poor respiratory response. She does have a nebulizing device that has a flutter component to it. Continue with Mucinex as well. Due to the side effects that she is experiencing with albuterol I have recommended changing from albuterol to lev albuterol and have ordered this accordingly today. She will be provided lev albuterol in both HFA and nebulized form. This has provided her with significant benefit in the past. I do believe that she is suboptimally controlled today because she is not on a daily maintenance therapy at this time. She has difficulty tolerating the dry powdered inhaler and have recommended that she transition from Trelegy to Breztri and have ordered this accordingly. The patient understands the proper oral hygiene involved with triple therapy. Samples have been provided to her. She understands theimportance of a daily maintenance therapy to be utilized prior to escalating therapy. I plan to reassess on follow-up in short interval,8 weeks and will consider an escalation in therapy if she has continued to exacerbate. The patient does have a history of elevated eosinophils from her blood work in February 2024. Her eosinophilic count is 158.4. Nucala may be an option if shecontinues to have exacerbations. (2) Smoking greater than 40 pack years: Status: Chronic Plan: Encourage complete smoking cessation. The patient previously was able to quit smoking for 12 years,unfortunately started smoking a few years ago again. She is appropriate for LDCT, previously ordered and planned for March 2025. (3) Encounter for tobacco use cessation counseling: Status: Acute Plan: The patient is educated about the benefits of smoking cessation. Medical nicotine replacement therapy was offered to the patient. Discussed habits, quitdate, coping mechanisms. All questions were answered. Orders: Orders Culture, Sputum Today J44.89 - Other specified chronic obstructive pulmonary disease NIOX Today J44.89 - Other specified chronic obstructive pulmonary disease Medications: New riqskoioow-mqkijjgr-gjwoyoyrgd 160-9-4.8 mcg/actuation (Breztri Aerosphere) 2 inhalations inhalation BID 10.7 grams 11RF levalbuterol HCl 0.63 mg (3 mL) inhalation ONCE 75 mL 11RF levalbuterol tartrate 45 mcg/actuation 2 puffs inhalation Q4-6H PRN 15 grams 11RF shortness of breath or wheezing nicotine apply 1-21 mg NICOTINE PATCH daily for 28 days; follow with 1-14 mg PATCH daily for 14 days, then 1-7mg PATCH daily for 14 days transdermal 56 patches 0RF nicotine (polacrilex) 2 mg buccal Q8H PRN 72 ea 2RF nicotine cravings amoxicillin-pot clavulanate 875-125 mg 1 TAB PO BID 14 tabs 0RF J44.89 - Other specified chronic obstructive pulmonary disease Discontinued ghcvysnnyvz-ekqisdflz-svriddsp 200-62.5-25 mcg (Trelegy Ellipta) Discontinued Reason: Order Changed 1 inh inhalation QDAY R06.02 - Shortness of breath albuterol sulfate 90 mcg/actuation (Ventolin HFA) Discontinued Reason: Order Changed 1 puff inhalation Q4-6H albuterol sulfate Discontinued Reason: Order Changed 0.63 mg inhalation Q4-6H PRN Plan Details Follow Up: 8 Weeks (LMR) HPI HPI Comments Details: Patient is a 63-year-old female who presents today for follow-up. She is ambulatory and currently on room air. She has not recently been seen in the ED or urgent care for any respiratory illness. She has not required any antibiotics or prednisone for any breathing problems since last visit when she was treated for an exacerbation with oral prednisone and a Z-Yuan. She is uncertain if the oral prednisone benefited her at that time. She reports that oral prednisone gives her severe hypersomnolenceand when she was recently prescribed it for her back she did discontinue it due to the side effects. She does feel like the Z-Yuan was helpful. The patient reports that she has a significant home smoking history. She smokeda pack a day for many years and continues to smoke 1/2 pack/day. She is using Trelegy 200, 1 puff. She reports that when she initially received this inhaler she wasusing it in a consistent daily basis. She felt like this inhaler did not work for her and had difficulty tolerating the dry powder. Mostrecently she does endorse using the inhaler 4 times per week. She has difficulty using her albuterol nebulized therapy as she reports a feeling of shakiness and panic attacks. She does also experience this at times with albuterol HFA. She has had worsening symptoms of shortness of breath with exertion and even when resting. She reports that it cough is present that is productive with green sputum. She reports that wheezes present all the time . She is smoking1 pack/day and would like help to stop smoking. She reports that her symptoms did worsen over the weekend and on Friday she had an attack where she was not able to breathe after eating and did have to use her rescue inhaler at that time. She reports that it is difficult to get in a deep breath and that a deep breath causes her to cough. She denies chills and bodyaches. The patient is currently retired. Low-dose CT lung screening completed on March 23, 2024. 3.1 mm noncalcified nodule in the anterior peripheral aspect of the right upper lobe. Mild degree of emphysematous changes. Recommendation isto repeat LDCT in 12 months. Pulmonary function test from September 06, 2024 is grossly normal. 6-minute walk test from August 12, 2024 shows no significant exertional oxygen desaturation. There is no indication for the use of supplemental oxygen at thistime. Intake Vital Signs 11/16/24 05:37 12/08/24 06:35 Height 5 ft 3 in 5 ft 3.5 in Weight: 196 lb BMI 34.2 BP 119/73 Blood Pressure Location Rt brachial Position Sitting Respiration 20 H Pulse 89 Pulse Source Monitor Temp 97.5 F L Temperature Source Temporal Artery Pulse Oximetry (%) 95 Oxygen Delivery Method room air Intake Visit Reasons: 8 wk fu Chief Complaint: cholecystectomy f/u Accompanied by: Self Allergies clarithromycin (From Biaxin) Adverse Reaction (Verified 10/22/24 12:40) Nausea hydromorphone (From Dilaudid) Adverse Reaction (Verified 10/22/24 12:40) Upset Stomach Medications ?Medication ?Instructions ?Recorded ?Confirmed ?Type atorvastatin 40 mg tablet 40 mg PO QHS 07/20/15 History duloxetine 60 mg capsule,delayed 60 mg PO BID 07/20/15 12/08/24 History release cyclobenzaprine 10 mg tablet 1 tab PO TID PRN PRN pain 09/01/21 12/08/24 History glimepiride 4 mg tablet 4 mg PO DAILY 09/01/2112/08 History levothyroxine 112 mcg tablet 112 mcg PO QDAY 07/04/23 12/08/24 History lisinopril 10 mg tablet 10 mg PO QDAY 07/04/2312/08 History esomeprazole magnesium 40 mg 40 mg PO DAILY #30 caps 0 07/24/23 12/08/24 Rx capsule,delayed release pregabalin 150 mg capsule 150 mg PO TID 08/11/2312/08 History medical marjuana miscellaneous 03/23/2412/08 History buspirone 10 mg tablet 20 mg PO TID PRN anxiety 12/08/24 History celecoxib 200 mg capsule 200 mg PO DAILY 09/21/2404/03 History guaifenesin 1,200 mg tablet, 1,200 mg PO .QD #90 tabs 09/21/24 12/08/24 Rx extended release 12 hr (Mucinex) omeprazole 40 mg capsule,delayed 40 mg PO QDAY 5 12/08/24 History release ondansetron HCl 4 mg tablet 4 mg PO BID PRN 09/21/24 1 History oxybutynin chloride 5 mg 5 mg PO QDAY 09/21/24 History tablet,extended release 24 hr tramadol 50 mg tablet 50 mg PO QD-BID PRN pain 12/08/24 History hydrocodone-acetaminophen 5-325mg 1 tab PO Q6H PRN PRN Pain 3 days 10/22/24 12/08/24 Rx 5mg-325mg #10 TABLETS amoxicillin 875 mg-potassium 1 tab PO BID #14 tabs 04/0312/08/24 Rx clavulanate 125 mg tablet budesonide 160 mcg-glycopyr 9 2 inh inhalation BID #10 .7 grams 12/08/24 12/08/24 Rx mcg-formot 4.8 mcg/actuation HFA inhaler (Breztri Aerosphere) levalbuterol HCl 0.63 mg/3 mL 0.63 mg (3 mL) inhalatio n ONCE #75 12/08/24 12/08/24 Rx solution for nebulization mL levalbuterol tartrate 45 2 puff inhalation Q4-6H PRN 12/08/24 12/08/24 Rx mcg/actuation aerosol inhaler shortness of breath or w heezing #15 grams nicotine (polacrilex) 2 mg buccal 2 mg buccal Q8H PRN nicotine 12/08/24 12/08/24 Rx lozenge cravings #72 ea nicotine See Rx Instructions transder mal 12/08/24 12/08/24 Rx 21mg/24hr-14mg/24hr-7mg/24hr daily .COMPLEX #56 patche s transderm patches,sequentl tirzepatide 7.5 mg/0.5 mL mg subcut 12/08/24 12/08/24 History subcutaneous pen injector (Mounjaro) [facility] Medical History Tobacco use disorder, continuous Encounter for screening for malignant neoplasm of lung Diarrhea Wears glasses Wears dentures Post-menopausal Depression Marijuana use Bladder disease Anemia High cholesterol Back pain History of hiatal hernia History of ulceration History of IBS Gastric reflux Smoker Shortness of breath on exertion Leg cramps History of pain when walking History of stress test Asthma COPD (chronic obstructive pulmonary disease) HTN (hypertension) Arthritis Thyroid disease Diabetes Surgical History S/P cholecystectomy Hx of esophagogastroduodenoscopy Hx of colonoscopy History of hysteroscopy Hx of hysterectomy, total History of lumbar discectomy History of lumbar fusion Cervical vertebral fusion Family History Father Heart disease Hypertension Mother Heart disease Thyroid disorder Social History household members: none housing: house current occupational status: retired Smoking Status: Current every day smoker tobacco type: cigarettes Tobacco: How many years used: 30 how long ago did patient quit smoking: Pt. had stopped smoking for about 13 years and restarted last year. alcohol intake: never additional social history: medical marijuana Review of Systems Resp Respiratory: Yes as per HPI Exam Const Constitutional: Positive conversant, cooperative, in no acute respiratory distress, healthy appearing, well developed, well nourished, good hygiene and obese Head Head: Yes normocephalic, Yes atraumatic and No cyanosis of lips/distal nose Eyes Eye: Positive clear conjunctiva; Negative nystagmus or scleral abnormality Ears Ear: Positive hearing normal and external ears normal Nose Nose: Yes external nose normal Mouth Mouth: Positive oral mucosae normal and dentures Neck Neck: Positive normal visual inspection, full ROM and trachea midline Chest Wall Chest: Positive normal inspection of the chest and symmetric chest movement Resp lung sounds: Positive diminished lung sounds, wheezes (Inspiratory and expiratory), rhonchi, prolonged expiratory time and normal chronic state of increased work of breathing; Negative rales Cardio Cardiac: Positive regular rate, regular rhythm, S1 normal and S2 normal; Negative murmur GI GI: Positive normal to inspection and obese; Negative distended Genitourinary: Positive deferred Musc Musculoskeletal: Positive steady gait and ROM normal; Negative kyphosis or scoliosis Skin Pulmonary Skin Exam: Positive intact; Negative lesion, rash or ulcers Pulses Pulse: Yes radial pulses present Extremities Extremities: Yes capillary refill normal, No clubbing and No cyanosis Neuro Neurologic: Yes no focal neuro deficits, Yes conversant, Yes cooperative, Yes normal cognition, Yesnormal coordination, Yes normal concentration and Yes understands questions Psych Appearance: Positive grossly normal, eye contact and well kempt Mental Status: Positive mental status grossly normal Mood: Positive congruent mood Affect: Positive normal affect Office Procedures Niox Air Inflam Monitor NIOX Result NIOX: 5 Coding Level of Care Code Off vis,est,level 4 Diagnoses Asthma-COPD overlap syndrome J44.89 Smoking greater than 40 pack years F17.210 Encounter for tobacco use cessation counseling Z71.6 CPT Codes Time Spent - greater than 10 minutes: Yes (99432) Smoking Cessation Smoking Cessation 11 minutes [id number] discussion of smoking cessation Time Spent greater than 10 minutes: Yes 12/08/24 1039 smooth HOME HEALTH ATTENDANT-C> Date _ Zoran Jackson HOME HEALTH ATTENDANT-C Rosina Signature: Date (if applicable) CC: ~ [facility]08-15-2025 Discharge summary [facility] Medical Records Department [address] [place] [address] Emergency Department Summary 10/22/24 MR#: [id number] Acct: [id number] Name: MARISSA MILLER Rep #:[id number] : 1960 63 From: Darci Rachel MD PCP: NIKOLAI Zuleta Status:REG ER Location: ED HPI History of Present Illness Chief Complaint: Back Detail of Chief Complaint: Exacerbation of chronic back pain. Informant: patient Onset/Context/Timing Onset: Yesterday Context: Sudden Onset Chronic pain exacerbated by: Nothing specific Timing: Continuous Quality: Dull Location: Lumbar Current Severity: Moderate Maximum Severity: Severe Worsened by: improves with Movement, Ambulation and Bending Relieved by: Nothing Associated Symptoms Associated Symptoms: Numbness (Chronic numbness right lower extremity.), Radiation to Right Leg, Radiation to Left Leg and - (Denies saddle anesthesia orparesthesia, denies foot drop. Denies bucklingof her knees going up or down steps.); Negative for Fever, Abdominal Pain, Dysuria, Unable to Ambulate, Unableto Transfer, Urinary Retention, Urinary Incontinence, Constipation or Fecal Incontinence Narrative Narrative: Patient is a 63-year-old with history of chronic back pain multiple surgeries byDr. Hector Hogue [facility]. She is now seeing Dr. Juan Pablo Valderrama. She hasnot had an MRI in a month or 2. She complains of low back pain that radiates toboth the right and left greater trochanteric region. She denies bowel bladder dysfunction. Denies saddle paresthesia or anesthesia. She denies pain going down theback of her leg. She denies recent dental procedure. She denies feveror chills. She has no history of endocarditis or IV drug use. There is no specific inciting event. She states she has chronic numbness in her right leg. She has had multiple discectomies and fusion. Patient prefer to sit over standing. There is no history of trauma. Prior similar symptoms: Yes Recent Illness/Hospitalization: No PFSH PFS Medical History Tobacco use disorder, continuous Encounter for screening for malignant neoplasm of lung Diarrhea Wears glasses Wears dentures Post-menopausal Depression Marijuana use Bladder disease Anemia High cholesterol Back pain History of hiatal hernia History of ulceration History of IBS Gastric reflux Smoker Shortness of breath on exertion Leg cramps History of pain when walking History of stress test Asthma COPD (chronic obstructive pulmonary disease) HTN (hypertension) Arthritis Thyroid disease Diabetes Home Medications ?Medication ?Instructions ?Recorded ?Last Taken ?Type atorvastatin 40 mg tablet 40 mg PO QHS 07/20/15 History duloxetine 60 mg capsule,delayed 60 mg PO BID 07/20/15 08/11/23 History release cyclobenzaprine 10 mg tablet 1 tab PO TID PRN PRN pain 09/01/21 08/11/23 History glimepiride 4 mg tablet 4 mg PO DAILY 09/01/2108/10 History levothyroxine 112 mcg tablet 112 mcg PO QDAY 07/04/23 08/12/23 History lisinopril 10 mg tablet 10 mg PO QDAY 07/04/2308/11 History albuterol sulfate 90 mcg/actuation 2 puff inhalation 4 X/DAY PRN 07/23/23 Unknown History aerosol inhaler shortness of breath or wheez ing esomeprazole magnesium 40 mg 40 mg PO DAILY #30 caps 0 07/24/23 08/12/23 Rx capsule,delayed release pregabalin 150 mg capsule 150 mg PO TID 08/11/2308/11 History medical marjuana miscellaneous 03/23/24 Unkno wn History fluticasone fur. 200 mcg-umeclid 1 inh inhalation QDAY 03/30/24 Unknown History 62.5 mcg-vilant 25 mcg inhalat.powder (Trelegy Ellipta) albuterol sulfate 0.63 mg/3 mL 0.63 mg inhalation Q4-6 H PRN 09/21/24 Unknown History solution for nebulization albuterol sulfate 90 mcg/actuation 1 puff inhalation Q 4-6H 09/21/24 Unknown History aerosol inhaler (Ventolin HFA) azithromycin 250 mg tablet See Rx Instructions PO .COM PLEX #6 09/21/24 Unknown Rx tabs buspirone 10 mg tablet 20 mg PO TID PRN anxiety Unknown History celecoxib 200 mg capsule 200 mg PO DAILY 09/21/24 Unk nown History guaifenesin 1,200 mg tablet, 1,200 mg PO .QD #90 tabs 09/21/24 Unknown Rx extended release 12 hr (Mucinex) omeprazole 40 mg capsule,delayed 40 mg PO QDAY 5 Unknown History release ondansetron HCl 4 mg tablet 4 mg PO BID PRN 09/21/24 U nknown History oxybutynin chloride 5 mg 5 mg PO QDAY 09/21/24 Unknow n History tablet,extended release 24 hr prednisone 10 mg tablet 10 mg PO QDAY #27 tabs 09/21 Unknown Rx semaglutide 0.5 mg/0.1 mL mg subcut 09/21/24 Unknown H istory subcutaneous syringe tramadol 50 mg tablet 50 mg PO QD-BID PRN pain Unknown History hydrocodone-acetaminophen 5-325mg 1 tab PO Q6H PRN PRN Pain 3 days 10/22/24 Unknown Rx 5mg-325mg #10 TABLETS Allergy/AdvReac Type Severity Reaction Status Date / Time clarithromycin (From Biaxin) AdvReac Nausea Verified 10/22/24 12:40 hydromorphone (From Dilaudid) AdvReac Upset Verified 10/22/24 12:40 Stomach Family History Father Heart disease Hypertension Mother Heart disease Thyroid disorder Surgical History S/P cholecystectomy Hx of esophagogastroduodenoscopy Hx of colonoscopy History of hysteroscopy Hx of hysterectomy, total History of lumbar discectomy History of lumbar fusion Cervical vertebral fusion Social History household members: none housing: house current occupational status: retired Smoking Status: Current every day smoker tobacco type: cigarettes Tobacco: How many years used: 30 how long ago did patient quit smoking: Pt. had stopped smoking for about 13 years and restarted last year. alcohol intake: never additional social history: medical marijuana ROS ROS ED Constitutional Constitutional ED: Denies chills, fever(s), subjective or sweats Gastrointestinal Gastrointestinal: Reports other Details: Further detailed HPI narrative ; Denies abdominal pain, constipation, diarrhea, melena, nausea or vomiting Genitourinary Genitourinary ED: Reports other Details: Further detailed HPI narrative ; Denies dysuria, hematuria or urinary frequency Musculoskeletal Musculoskeletal: Reports back pain Integumentary Denies Abrasions or rash Neurologic Neurologic: Reports paresthesias and other Details: Paresthesia chronic right lower extremity ; Denies weakness Psychiatric Psychiatric: Reports depression; Denies anxiety Hematologic/Lymphatic Hematologic/Lymphatic: Denies easy bleeding or easy bruising EXAM Physical Exam Const Vital Signs: 10/22/24 12:37 10/22/24 14:36 Temperature 98.0 F Temperature Source Oral Pulse Rate 59 L 98 Respiratory Rate 16 16 Blood Pressure 162/75 H 143/68 H Blood Pressure Mean 104 93 Pulse Ox 97 96 Oxygen Delivery Method Room Air Room Air Positive well nourished and well developed Constitutional Narrative: BMI is 34.8. General Appearance ED: well developed; Negative for pallor HEENT Reports moist mucous membranes HEENT Narrative: Head is atraumatic, cephalic. Ears normal. Eyes PERRL and EOMs intact bilaterally General Eye ED: Negative for pale conjunctiva or scleral icterus Neck no lymphadenopathy, supple and no JVD Resp normal respiratory effort and clear to auscultation bilaterally Cardio regular rate, regular rhythm, S1 normal heart sound, S2 normal heart sound and no murmurs GI normal to inspection, nondistended, normoactive bowel sounds, soft to palpation,non-tender, non-distended and no masses GI Narrative: There is no palpable mass or pulsatile mass. Back/Spine normal to inspection Back/Spine Narrative: Well-healed scars back. There is tenderness of the lumbar region and paralumbarregion bilaterally. Patella and ankle reflex are 1+. There is no clonus at theankles. There is no Babinski sign noted. EHL is intact. Sensation is abnormalL5. Gait was observed. She has no foot drop. She is able to walk on heels andtoes. She able to perform 1 legged squat right and left. General Back: scar(s) Lumbar Spine / Lower Back: ROM limited and straight leg raise negative bilaterally Extremity normal to inspection and no clubbing, cyanosis or edema Neuro oriented x3 and no sensory deficits noted Sensorium / Orientation: alert Deep Tendon Reflexes: Rt Patellar (L4): 1+, Lt Patellar (L4): 1+, Rt Ankle (S1):1+ and Lt Ankle (S1): 1+ Deep Tendon Reflexes Back: Rt Patellar (L4): 1+, Lt Patellar (L4): 1+, Rt Ankle (S1): 1+ and Lt Ankle (S1): 1+ Plantar Reflex: Downgoing: bilateral (There is no clonus at the ankles.) Psych mental status grossly normal Skin no rashes or lesions noted and no wounds General Skin Exam: Negative for jaundice or pallor Trauma: Negative for abrasion MDM MDM MDM Narrative Medical decision making narrative: Patient with acute exacerbation of chronic back pain. This is probably the cause of her elevated blood pressure. Patient has no objective new neurologic findings. She was medicated with Toradol and morphine. Her most recent BMP revealed no kidney dysfunction. In my opinion imaging is not indicated at this time. She does not require emergent MRI either. She is scheduled to see Dr. Juan Pablo Valderrama at the [facility]. He is a spine surgeon. Patient was reassessed at 1531. Her pain is improved markedly. She was discharged to home with painmedicine. History & Record Review Additional record(s) reviewed:: Prior inpatient record (Cholecystectomy due to cholesterol stones of the gallbladder. This was performed by Dr. May) and Prior outpatient record (Outpatient records for pulmonary visit, oncology visit were reviewed. This was for her COPD asthma and screen) Discharge Plan Triage Chief Complaint: Back ED Provider: Darci Rachel Dx/Rx/DC Orders Clinical Impression: Acute exacerbation of chronic low back pain, GERD (gastroesophageal reflux disease), Tobacco use disorder, continuous, Asthma-COPD overlap syndrome Instructions: ED Back Pain (Acute or Chronic) Prescriptions: New hydrocodone-acetaminophen 5-325 mg tablet 1 tab PO Q6H PRN PRN (Reason: Pain) 3 Days Qty: 10 0RF No Action lisinopril 10 mg tablet 10 mg PO QDAY levothyroxine 112 mcg tablet 112 mcg PO QDAY [facility] miscellaneous Trelegy Ellipta 200-62.5-25 mcg blister with device 1 inh inhalation QDAY semaglutide 0.5 mg/0.1 mL syringe subcut tramadol 50 mg tablet 50 mg PO QD-BID PRN (Reason: pain) omeprazole 40 mg capsule,delayed release(DR/EC) 40 mg PO QDAY ondansetron HCl 4 mg tablet 4 mg PO BID PRN buspirone 10 mg tablet 20 mg PO TID PRN (Reason: anxiety) oxybutynin chloride 5 mg tablet extended release 24hr 5 mg PO QDAY albuterol sulfate [Ventolin HFA] 90 mcg/actuation HFA aerosol inhaler 1 puff inhalation Q4-6H albuterol sulfate 0.63 mg/3 mL solution for nebulization 0.63 mg inhalation Q4-6H PRN guaifenesin [Mucinex] 1,200 mg tablet extended release 12hr 1,200 mg PO .QD Qty: 90 3RF azithromycin 250 mg tablet See Rx Instructions PO .COMPLEX Qty: 6 0RF Rx Instructions: For 250 mg dose pack: take 500 mg today (day 1), then 250 mg for 4 days (days 2- 5) PO prednisone 10 mg tablet 10 mg PO QDAY Qty: 27 0RF Rx Instructions: take 4 tabs for three days, then 3 tabs for three days, then 2 tabs for three days atorvastatin 40 MG tablet 40 mg PO QHS duloxetine 60 MG capsule 60 mg PO BID cyclobenzaprine 10 mg tablet 1 tab PO TID PRN PRN (Reason: pain) glimepiride 4 mg Tablet 4 mg PO DAILY celecoxib 200 mg capsule 200 mg PO DAILY albuterol sulfate 90 mcg/actuation HFA aerosol inhaler 2 puff INHALATION 4X/DAY PRN (Reason: shortness of breath or wheezing) esomeprazole magnesium 40 mg capsule,delayed release(DR/EC) 40 mg PO DAILY Qty: 30 5RF pregabalin 150 mg capsule 150 mg PO TID Primary Care Provider: Marika Raymond Referrals: Marika Raymond, NIKOLAI [Primary Care Provider] - 3-5 Days if not improving Activity Restrictions/Additional Instructions: Return if you are unable to urinate, loss of bowel control, decrease sensation in your vaginal buttocks area or dragging your right leg. Print Language: Pakistani Disposition Disposition: Home, Self Care What to do if you have Problems For any increased pain, shortness of breath, bleeding, nausea or vomiting, chestpain, or any unexpected problems, contact your Primary Care Provider. Call [facility] ([phone]) or report tothe closest Emergency Room. Call 911 if necessary. 10/22/24 3128 Cosigner Signature (if applicable): CC: NIKOLAI Raymond ~ Signed [facility]08-15-2025 Discharge summary Author Darci Rachel [facility] Note Date/Time October 22, 2024 3: 45pm [facility] Medical Records Department [address] [place] [address] Emergency Department Summary 10/22/24 MR#: [id number] Acct: [id number] Name: MARISSA MILLER Rep #:[id number] : 1960 63 From: Darci Rachel MD PCP: NIKOLAI Zuleta Status:REG ER Location: ED HPI History of Present Illness Chief Complaint: Back Detail of Chief Complaint: Exacerbation of chronic back pain. Informant: patient Onset/Context/Timing Onset: Yesterday Context: Sudden Onset Chronic pain exacerbated by: Nothing specific Timing: Continuous Quality: Dull Location: Lumbar Current Severity: Moderate Maximum Severity: Severe Worsened by: improves with Movement, Ambulation and Bending Relieved by: Nothing Associated Symptoms Associated Symptoms: Numbness (Chronic numbness right lower extremity.), Radiation to Right Leg, Radiation to Left Leg and - (Denies saddle anesthesia orparesthesia, denies foot drop. Denies buckling of her knees going up or down steps.); Negative for Fever, Abdominal Pain, Dysuria, Unable to Ambulate, Unableto Transfer, Urinary Retention, Urinary Incontinence, Constipation or Fecal Incontinence Narrative Narrative: Patient is a 63-year-old with history of chronic back pain multiple surgeries byDr. Hector Hogue [facility]. She is now seeing Dr. Juan Pablo Valderrama. She hasnot had an MRI in a month or 2. She complains of low back pain that radiates toboth the right and left greater trochanteric region. She denies bowel bladder dysfunction. Denies saddle paresthesia or anesthesia. She denies pain going down the back of her leg. She denies recent dental procedure. She denies feveror chills. She has no history of endocarditis or IV drug use. There is no specific inciting event. She states she has chronic numbness in her right leg. She has had multiple discectomies and fusion. Patient prefer to sit over standing. There is no history of trauma. Prior similar symptoms: Yes Recent Illness/Hospitalization: No PFSH PFS Medical History Tobacco use disorder, continuous Encounter for screening for malignant neoplasm of lung Diarrhea Wears glasses Wears dentures Post-menopausal Depression Marijuana use Bladder disease Anemia High cholesterol Back pain History of hiatal hernia History of ulceration History of IBS Gastric reflux Smoker Shortness of breath on exertion Leg cramps History of pain when walking History of stress test Asthma COPD (chronic obstructive pulmonary disease) HTN (hypertension) Arthritis Thyroid disease Diabetes Home Medications ?Medication ?Instructions ?Recorded ?Last Taken ?Type atorvastatin 40 mg tablet 40 mg PO QHS 07/20/15 History duloxetine 60 mg capsule,delayed 60 mg PO BID 07/20/15 08/11/23 History release cyclobenzaprine 10 mg tablet 1 tab PO TID PRN PRN pain 09/01/21 08/11/23 History glimepiride 4 mg tablet 4 mg PO DAILY 09/01/2108/10 History levothyroxine 112 mcg tablet 112 mcg PO QDAY 07/04/23 08/12/23 History lisinopril 10 mg tablet 10 mg PO QDAY 07/04/2308/11 History albuterol sulfate 90 mcg/actuation 2 puff inhalation 4 X/DAY PRN 07/23/23 Unknown History aerosol inhaler shortness of breath or wheez ing esomeprazole magnesium 40 mg 40 mg PO DAILY #30 caps 0 07/24/23 08/12/23 Rx capsule,delayed release pregabalin 150 mg capsule 150 mg PO TID 08/11/2308/11 History medical marjuana miscellaneous 03/23/24 Unkno wn History fluticasone fur. 200 mcg-umeclid 1 inh inhalation QDAY 03/30/24 Unknown History 62.5 mcg-vilant 25 mcg inhalat.powder (Trelegy Ellipta) albuterol sulfate 0.63 mg/3 mL 0.63 mg inhalation Q4-6 H PRN 09/21/24 Unknown History solution for nebulization albuterol sulfate 90 mcg/actuation 1 puff inhalation Q 4-6H 09/21/24 Unknown History aerosol inhaler (Ventolin HFA) azithromycin 250 mg tablet See Rx Instructions PO .COM PLEX #6 09/21/24 Unknown Rx tabs buspirone 10 mg tablet 20 mg PO TID PRN anxiety Unknown History celecoxib 200 mg capsule 200 mg PO DAILY 09/21/24 Unk nown History guaifenesin 1,200 mg tablet, 1,200 mg PO .QD #90 tabs 09/21/24 Unknown Rx extended release 12 hr (Mucinex) omeprazole 40 mg capsule,delayed 40 mg PO QDAY 5 Unknown History release ondansetron HCl 4 mg tablet 4 mg PO BID PRN 09/21/24 U nknown History oxybutynin chloride 5 mg 5 mg PO QDAY 09/21/24 Unknow n History tablet,extended release 24 hr prednisone 10 mg tablet 10 mg PO QDAY #27 tabs 09/21 Unknown Rx semaglutide 0.5 mg/0.1 mL mg subcut 09/21/24 Unknown H istory subcutaneous syringe tramadol 50 mg tablet 50 mg PO QD-BID PRN pain Unknown History hydrocodone-acetaminophen 5-325mg 1 tab PO Q6H PRN PRN Pain 3 days 10/22/24 Unknown Rx 5mg-325mg #10 TABLETS Allergy/AdvReac Type Severity Reaction Status Date / Time clarithromycin (From Biaxin) AdvReac Nausea Verified 10/22/24 12:40 hydromorphone (From Dilaudid) AdvReac Upset Verified 10/22/24 12:40 Stomach Family History Father Heart disease Hypertension Mother Heart disease Thyroid disorder Surgical History S/P cholecystectomy Hx of esophagogastroduodenoscopy Hx of colonoscopy History of hysteroscopy Hx of hysterectomy, total History of lumbar discectomy History of lumbar fusion Cervical vertebral fusion Social History household members: none housing: house current occupational status: retired Smoking Status: Current every day smoker tobacco type: cigarettes Tobacco: How many years used: 30 how long ago did patient quit smoking: Pt. had stopped smoking for about 13 years and restarted last year. alcohol intake: never additional social history: medical marijuana ROS ROS ED Constitutional Constitutional ED: Denies chills, fever(s), subjective or sweats Gastrointestinal Gastrointestinal: Reports other Details: Further detailed HPI narrative ; Denies abdominal pain, constipation, diarrhea, melena, nausea or vomiting Genitourinary Genitourinary ED: Reports other Details: Further detailed HPI narrative ; Denies dysuria, hematuria or urinary frequency Musculoskeletal Musculoskeletal: Reports back pain Integumentary Denies Abrasions or rash Neurologic Neurologic: Reports paresthesias and other Details: Paresthesia chronic right lower extremity ; Denies weakness Psychiatric Psychiatric: Reports depression; Denies anxiety Hematologic/Lymphatic Hematologic/Lymphatic: Denies easy bleeding or easy bruising EXAM Physical Exam Const Vital Signs: 10/22/24 12:37 10/22/24 14:36 Temperature 98.0 F Temperature Source Oral Pulse Rate 59 L 98 Respiratory Rate 16 16 Blood Pressure 162/75 H 143/68 H Blood Pressure Mean 104 93 Pulse Ox 97 96 Oxygen Delivery Method Room Air Room Air Positive well nourished and well developed Constitutional Narrative: BMI is 34.8. General Appearance ED: well developed; Negative for pallor HEENT Reports moist mucous membranes HEENT Narrative: Head is atraumatic, cephalic. Ears normal. Eyes PERRL and EOMs intact bilaterally General Eye ED: Negative for pale conjunctiva or scleral icterus Neck no lymphadenopathy, supple and no JVD Resp normal respiratory effort and clear to auscultation bilaterally Cardio regular rate, regular rhythm, S1 normal heart sound, S2 normal heart sound and no murmurs GI normal to inspection, nondistended, normoactive bowel sounds, soft to palpation,non-tender, non-distended and no masses GI Narrative: There is no palpable mass or pulsatile mass. Back/Spine normal to inspection Back/Spine Narrative: Well-healed scars back. There is tenderness of the lumbar region and paralumbarregion bilaterally. Patella and ankle reflex are 1+. There is no clonus at theankles. There is no Babinski sign noted. EHL is intact. Sensation is abnormalL5. Gait was observed. She has no foot drop. She is able to walk on heels andtoes. She able to perform 1 legged squat right and left. General Back: scar(s) Lumbar Spine / Lower Back: ROM limited and straight leg raise negative bilaterally Extremity normal to inspection and no clubbing, cyanosis or edema Neuro oriented x3 and no sensory deficits noted Sensorium / Orientation: alert Deep Tendon Reflexes: Rt Patellar (L4): 1+, Lt Patellar (L4): 1+, Rt Ankle (S1):1+ and Lt Ankle (S1): 1+ Deep Tendon Reflexes Back: Rt Patellar (L4): 1+, Lt Patellar (L4): 1+, Rt Ankle (S1): 1+ and Lt Ankle (S1): 1+ Plantar Reflex: Downgoing: bilateral (There is no clonus at the ankles.) Psych mental status grossly normal Skin no rashes or lesions noted and no wounds General Skin Exam: Negative for jaundice or pallor Trauma: Negative for abrasion MDM MDM MDM Narrative Medical decision making narrative: Patient with acute exacerbation of chronic back pain. This is probably the cause of her elevated blood pressure. Patient has no objective new neurologic findings. She was medicated with Toradol and morphine. Her most recent BMP revealed no kidney dysfunction. In my opinion imaging is not indicated at this time. She does not require emergent MRI either. She is scheduled to see Dr. Juan Pablo Valderrama at the [facility]. He is a spine surgeon. Patient was reassessed at 1531. Her pain is improved markedly. She was discharged to home with pain medicine. History & Record Review Additional record(s) reviewed:: Prior inpatient record (Cholecystectomy due to cholesterol stones of the gallbladder. This was performed by Dr. May) and Prior outpatient record (Outpatient records for pulmonary visit, oncology visit were reviewed. This was for her COPD asthma and screen) Discharge Plan Triage Chief Complaint: Back ED Provider: Darci Rachel Dx/Rx/DC Orders Clinical Impression: Acute exacerbation of chronic low back pain, GERD (gastroesophageal reflux disease), Tobacco use disorder, continuous, Asthma-COPD overlap syndrome Instructions: ED Back Pain (Acute or Chronic) Prescriptions: New hydrocodone-acetaminophen 5-325 mg tablet 1 tab PO Q6H PRN PRN (Reason: Pain) 3 Days Qty: 10 0RF No Action lisinopril 10 mg tablet 10 mg PO QDAY levothyroxine 112 mcg tablet 112 mcg PO QDAY [facility] miscellaneous Trelegy Ellipta 200-62.5-25 mcg blister with device 1 inh inhalation QDAY semaglutide 0.5 mg/0.1 mL syringe subcut tramadol 50 mg tablet 50 mg PO QD-BID PRN (Reason: pain) omeprazole 40 mg capsule,delayed release(DR/EC) 40 mg PO QDAY ondansetron HCl 4 mg tablet 4 mg PO BID PRN buspirone 10 mg tablet 20 mg PO TID PRN (Reason: anxiety) oxybutynin chloride 5 mg tablet extended release 24hr 5 mg PO QDAY albuterol sulfate [Ventolin HFA] 90 mcg/actuation HFA aerosol inhaler 1 puff inhalation Q4-6H albuterol sulfate 0.63 mg/3 mL solution for nebulization 0.63 mg inhalation Q4-6H PRN guaifenesin [Mucinex] 1,200 mg tablet extended release 12hr 1,200 mg PO .QD Qty: 90 3RF azithromycin 250 mg tablet See Rx Instructions PO .COMPLEX Qty: 6 0RF Rx Instructions: For 250 mg dose pack: take 500 mg today (day 1), then 250 mg for 4 days (days 2- 5) PO prednisone 10 mg tablet 10 mg PO QDAY Qty: 27 0RF Rx Instructions: take 4 tabs for three days, then 3 tabs for three days, then 2 tabs for three days atorvastatin 40 MG tablet 40 mg PO QHS duloxetine 60 MG capsule 60 mg PO BID cyclobenzaprine 10 mg tablet 1 tab PO TID PRN PRN (Reason: pain) glimepiride 4 mg Tablet 4 mg PO DAILY celecoxib 200 mg capsule 200 mg PO DAILY albuterol sulfate 90 mcg/actuation HFA aerosol inhaler 2 puff INHALATION 4X/DAY PRN (Reason: shortness of breath or wheezing) esomeprazole magnesium 40 mg capsule,delayed release(DR/EC) 40 mg PO DAILY Qty: 30 5RF pregabalin 150 mg capsule 150 mg PO TID Primary Care Provider: Marika Raymond Referrals: Marika Raymond, NIKOLAI [Primary Care Provider] - 3-5 Days if not improving Activity Restrictions/Additional Instructions: Return if you are unable to urinate, loss of bowel control, decrease sensation in your vaginal buttocks area or dragging your right leg. Print Language: Pakistani Disposition Disposition: Home, Self Care What to do if you have Problems For any increased pain, shortness of breath, bleeding, nausea or vomiting, chestpain, or any unexpected problems, contact your Primary Care Provider. Call [facility] ([phone]) or report to the closest Emergency Room. Call 911 if necessary. 10/22/24 4176 <Electronically signed by Darci Rachel MD> Cosigner Signature (if applicable): CC: NIKOLAI Raymond ~ Signed [facility] Work Phone: [phone] [id number] Evaluation note* Diagnosis Onset Date Resolution Status Admit Date Asthma-COPD overlap syndrome chronic September 21, 2024 9:33am Smoking greater than 40 pack years chronic September 21, 2024 9:33am [facility] Work Phone: 1(295) 194-100007-15-2025 Evaluation note* Diagnosis Onset Date Resolution Status Admit Date Asthma-COPD overlap syndrome chronic September 21, 2024 9:33am Smoking greater than 40 pack years chronic September 21, 2024 9:33am Encounter for tobacco use cessation counseling acute December 8:51am Asthma-COPD overlap syndrome chronic December 08, 2024 8:51am Smoking greater than 40 pack years chronic December 08 8:51am [facility] Work Phone: 1(502) 461-425506-06-2025 Procedure notey [facility]monary Services/Neurology [address] [place] [address] MR#: [id number] Acct: [id number] Name: MARISSA MILLER Rep #:[id number] : 1960 63 From: Papi Rai DO Referring Dr: Talia Dawkins HOME HEALTH ATTENDANT HOME HEALTH ATTENDANT-C Status: REG CLI Location: PSN Date: Sex: F C PSN 6 Minute Walk Test 6 Minute Walk Test 6 Minute Walk Test: 6 Minute Walk Test PSN:6-Minute Walk Test Start: 08/12/24 08:36 Freq: Status: Active Protocol: RESP.6MINW Document 08/12/24 08:36 [facility] (Rec: 08/12/24 08:41 [facility] [id number]) 6 Minute Walk Test Date Performed 08/12/24 Time Performed 08:15 Height 5 ft 3.5 in Weight: 182 lb Weight in Pounds 182.[address]: Talia Dawkins HOME HEALTH ATTENDANT Assistive device None used: Pre-test Oxygen Delivery Room Air Method Pulse Ox (%) 97 Pulse Rate (60-100 91 beats/min) Dyspnea Vani Scale ( 2 0-10) Exertion Vani Scale 7 (6-20) 1st minute Oxygen Delivery Room Air Method Pulse Ox (%) 95 Pulse Rate (60-100 94 beats/min) Dyspnea Vani Scale ( 2 0-10) Number of Rests 0 Taken 2nd minute Oxygen Delivery Room Air Method Pulse Ox (%) 95 Pulse Rate (60-100 100 beats/min) Dyspnea Vani Scale ( 2 0-10) Number of Rests 0 Taken 3rd minute Oxygen Delivery Room Air Method Pulse Ox (%) 97 Pulse Rate (60-100 102 H beats/min) Dyspnea Vani Scale ( 2 0-10) Number of Rests 0 Taken 4th minute Oxygen Delivery Room Air Method Pulse Ox (%) 94 Pulse Rate (60-100 102 H beats/min) Dyspnea Vani Scale ( 3 0-10) Number of Rests 0 Taken Reported Symptoms Increased Work of Breathing 5th minute Oxygen Delivery Room Air Method Pulse Ox (%) 96 Pulse Rate (60-100 103 H beats/min) Dyspnea Vani Scale ( 3 0-10) Number of Rests 0 Taken Reported Symptoms Increased Work of Breathing 6th minute Oxygen Delivery Room Air Method Pulse Ox (%) 95 Pulse Rate (60-100 104 H beats/min) Dyspnea Vani Scale ( 3 0-10) Exertion Vani Scale 7 (6-20) Number of Rests 0 Taken Reported Symptoms Increased Work of Breathing Post-test Oxygen Delivery Room Air Method Pulse Ox (%) 98 Pulse Rate (60-100 94 beats/min) Dyspnea Vani Scale ( 2 0-10) Full Laps Walked 16 Partial Lap, Number 37 of Tiles Walked Total Distance 981 Walked (ft) Interpretation Interpretation: The patient ambulated 981 feet over the course of 6 minutes beginning on room air without assistivedevices. Pretesting oxygen saturation was noted to be 97%on room air. With ambulation, the lenny oxygen saturation was 94%. There was no significant exertional oxygen desaturation. Recommendations Recommendations: There is no indication for the use of supplemental oxygen at this time. 08/13/24 1308 O> Date _ Papi Rai DO CC: ~ Date Dictated: 08/13/24 1307 Date Transcribed: 08/13/241306 Wood Lather: Dr. Papi Rai, DO Signed [facility]01-21-2025 Evaluation note* Diagnosis Onset Date Resolution Status Admit Date Cough chronic March 30, 2024 2:11pm Smoking greater than 40 pack years chronic March 30 2:11pm Shortness of breath noneactive 2024 2:11pm [facility] Work Phone: 1(405) 753-441901-14-2025 Evaluation note* Diagnosis Onset Date Resolution Status Admit Date Encounter for screening for malignant neoplasm of lung acute 2024 1:02pm Tobacco use disorder, continuous acute March 23 1:02pm Cough chronic March 30, 2024 2:11pm Smoking greater than 40 pack years chronic March 30 2:11pm Shortness of breath noneactive Beatrice ry 2024 2:11pm [facility] Work Phone: 1(427) 828-504508-22-2024 Telephone encounter Note* Telephone Encounter - Lucero H Phyllis - 10/30/2023 4:34 PM EDT Name of caller: Cintia Contact phone number: [phone] Relationship to Patient: [facility] Support Team and [facility] Provider: Bernabe Practice: [facility] Chief Complaint/Reason for Call: Cintia with [facility] stated Pt just had yearly Medication review and pt would like to have her medication home delivered through [facility]. Requesting 100 day supply. Cintia also has questions concerning pts Spiriva. Best time of day caller can be reached: N/A Patient advised that office/PCP has 24-48 business hours to return their call: N/A [facility]ams[facility]-9007 Miscellaneous Notes* Telephone Encounter - Lucero Ferguson - 10/30/2023 4:34 PM EDT Name of caller: Cintia Contact phone number: [phone] Relationship to Patient: [facility] and [facility] Provider: Bernabe Practice: [facility] Chief Complaint/Reason for Call: Cintia with [facility] stated Pt just had yearly Medication review and pt would like to have her medication home delivered through [facility]. Requesting 100 day supply. Cintia also has questions concerning pts Spiriva. Best time of day caller can be reached: N/A Patient advised that office/PCP has 24-48 business hours to return their call: N/A documented in this encounterSFostoria City [id number] Telephone encounter Note* Telephone Encounter - Pavel Joiner MA - 07/18/2023 10:11 AM EDT Patient phones requesting refills as follows: Appt 10/14/23 Requested Prescriptions Pending Prescriptions Disp Refills omeprazole (PRILOSEC) 40 mg capsule [Pharmacy Med Name: OMEPRAZOLE DR 40 MG CAPSULE] 30 capsule 3 Sig: take 1 capsule by mouth IN THE AFTERNOON Please review and advise. Pavel Joiner MA [facility]05-10-2024 Miscellaneous Notes* Telephone Encounter - Pavel Joiner MA - 07/18/2023 10:11 AM EDT Patient phones requesting refills as follows: Appt 10/14/23 Requested Prescriptions Pending Prescriptions Disp Refills omeprazole (PRILOSEC) 40 mg capsule [Pharmacy Med Name: OMEPRAZOLE DR 40 MG CAPSULE] 30 capsule 3 Sig: take 1 capsule by mouth IN THE AFTERNOON Please review and advise. Pavel Joiner MA documented in this encounterSouthwest [facility] Center03-04-2024 Telephone encounter Note * Telephone Encounter - Lia Srinivasan RN - 05/12/2023 7:19 AM EST S: Patient called the clinical access center B: She cancelled her appointment for scheduled blood work A: She cancelled due to not feeling well. She is aware she has a scheduled follow up next week. R: She can be reached at [phone]. Appointment scheduled for today has been cancelled. Patient instructed to call back with worsening symptoms, concerns or questions. Documented in [place] Reason for Disposition Health Information question, no triage required and triager able to answer question Protocols used: Information Only Call - No [id number] [facility] [id number] Miscellaneous Notes* Telephone Encounter - Lia Srinivasan RN - 05/12/2023 7:19 AM EST S: Patient called the clinical access center B: She cancelled her appointment for scheduled blood work A: She cancelled due to not feeling well. She is aware she has a scheduled follow up next week. R: She can be reached at [phone]. Appointment scheduled for today has been cancelled. Patient instructed to call back with worsening symptoms, concerns or questions. Documented in [place] Reason for Disposition Health Information question, no triage required and triager able to answer question Protocols used: Information Only Call - No [id number] documented in this [facility]12-15-2023 Telephone encounter Note* Telephone Encounter - Karoline Mann RN - 02/21/2023 2:03 PM EST S patient calling with ongoing URI, worsening B Seen Friday ongoing 10 days A Patient calling, seen Friday by you. Was put on 5 days steroids. Thought she was getting better but today feels worse. SOB severe at times mainly with activity. Non productive cough with intermittent wheeze, is using albuterol with some improvement. Severe cough and unable to bring up secretions.Denies CP and fever. Is asking for cough medication. R Pageanastacia Kidd. She advised to monitor overnight and be seen at After hours clinic tomorrow. Patient scheduled at 11 am at after hours clinic. Location and arrival instruction given. Thank you. Advised to monitor and ED with severe symptoms in the meantime. Reason for Disposition [1] MILD difficulty breathing (e.g., minimal/no SOB at rest, SOB with walking, pulse <100) AND [2] NEW-onset or WORSE than normal Protocols used: Breathing [id number] [facility] [id number] Miscellaneous Notes* Telephone Encounter - Karoline Mann RN - 02/21/2023 2:03 PM EST S patient calling with ongoing URI, worsening B Seen Friday ongoing 10 days A Patient calling, seen Friday by you. Was put on 5 days steroids. Thought she was getting better but today feels worse. SOB severe at times mainly with activity. Non productive cough with intermittent wheeze, is using albuterol with some improvement. Severe cough and unable to bring up secretions.Denies CP and fever. Is asking for cough medication. Anil Kidd. She advised to monitor overnight and be seen at After hours clinic tomorrow. Patient scheduled at 11 am at after hours clinic. Location and arrival instruction given. Thank you. Advised to monitor and ED with severe symptoms in the meantime. Reason for Disposition [1] MILD difficulty breathing (e.g., minimal/no SOB at rest, SOB with walking, pulse <100) AND [2] NEW-onset or WORSE than normal Protocols used: Breathing [id number] documented in this [facility]09-21-2023 History of Present illness Narrative* Gilson Haq, DO - 11/28/2022 11:[address] [facility] [address] [facility] [address] Dept: [phone] Dept Loc: [phone] Assessment and Recommendations Marissa was seen today [...] Medical History: Diagnosis Date Anemia Asthma Cancer (CMS/HCC) (HCC) Cholesterolosis of gallbladder Chronic pain Degeneration of lumbar intervertebral disc Diabetes mellitus (HCC) GERD (gastroesophageal reflux disease) Hyperlipidemia Hypertension Hyperthyroidism Major depressive disorder Morbid obesity due to excess calories ([facility]) Osteoarthritis Osteopenia Sleep apnea, obstructive Past Surgical History: Procedure Laterality Date LUMBAR FUSION 2013 2 titanium rods placed [facility] Family History Problem Relation Name Age of Onset Cancer Mother 79.00 STOMACH Other ([id number]) Father PACEMAKER Social History Tobacco Use Smoking [...] alternatives were discussed with the patient. The patientwas given an opportunity to ask questions and after they were answered he verbally consented to theprocedure. Description: The fiberoptic scope was advanced down the patients right nare to the nasopharynx. There were no signs of pus, polyps, or synechia. The nasopharynx was clear or any masses or lesions. The scope was then flexed and advanced downwards to the vocal folds. The cords were inspected and work properly; no lesions, masses, paresis or paralysis noted. The patient's piriform spaces, vallecula,epiglottis, aryepiglottic folds and base of tongue were inspected and found to be normal without masses, lesions or ulcerations. The scope was removed and the patient tolerated the procedure well. Nocomplications noted. Significant findings: Normal bilateral vocal cord motion documented in this [facility]05-09-2023 NoteHNO ID: [id number] Author: RT Sade(R) Service: ? Author Type: Property Management Supervisor Type: Progress Notes Filed: 07/16/2022 1:30 PM [...] Miller DATE: July 16, 2022 TIME: 1:30 [facility]05-09-2023 History of Present illness Narrative* Ellie Angelo RT(R) - 07/16/2022 11:20 AM EDT Radiology Service Progress Note DATE OF SERVICE: [...] creatinine assay has traceable calibration to isotope dilution- mass spectrometry. Refer to KDIGO guidelines for clinical interpretation. In patients with unstable renal function, e.g. those with acute kidney injury, the eGFRmay not accurately reflect actual GFR. P.O.C.T. RESULTS: POC done: Yes, See Lab Tab July 16, 2022 TREATMENT: N/A PERIPHERAL IV DATA: Ambulatory: A peripheral IV was started in the Left antecubital site with a Angio cath: 22 gauge. RADIOLOGY DEPARTMENT: CT; Exam(s) Completed: Abdomen/Pelvis SIGNATURE: RT Alphonso(R) PATIENT NAME: Marissa Miller DATE: July 16, 2022 TIME: 1:30 PM documented in this encounterSouthwest [facility]05-02-2023 Miscellaneous Notes* Telephone Encounter - Keisha Chen PA-C - 07/09/2022 3:49 PM EDT Reviewed. Keisha Chen PA-C * Telephone Encounter - Pavel Joiner MA - 07/09/2022 2:37 PM EDT Just an FYI for the future Patient called in to let us know that Dr. Miller is no longer taking gallbladder patients at this time. She was given the number to Dr. Maldonado instead. documented in this encounterSouthwest [facility] Center05-02-2023 NoteHNO ID: [id number] Author: Keisha Chen PA-C Service: ? Author Type: Physician Canopy Inspector Type: Progress Notes Filed: 07/09/2022 12:21 PM [...] gastric, acute PAST SURG (more content not included)...[facility]05-02-2023 History of Present illness Narrative* Keisha Chen PA-C - 07/09/2022 11:31 AM EDT CHIEF COMPLAINT: Patient presents with: Procedure Follow [...] 118/72 Pulse 83 Ht 162.6 cm (5' 4) Wt 85.7 kg (189 lb) BMI 32.44 kg/m Physical Exam Constitutional: General: She is not in acute distress. Appearance: Normal appearance. She is obese. She is not ill-appearing, toxic- appearing or diaphoretic. HENT: Head: Normocephalic and atraumatic. [...] generalized TTP). There is no right CVA tenderness,left CVA tenderness, guarding or rebound. Hernia: No [...] test); CT ABD/PEL -Inject, intravenously, once for 1dose.No IV access, insert saline lock prior to [...] designated per enteric contrast guidelines Dispense: 1 Each;Refill: 0 - CREATININE BLD; Future - Check [...] which included preparing to see the patient, [id number] patient care, completing clinical documentation, obtaining and/or reviewing separately obtained history, performing a medically appropriate examination, counseling and educating the pat ient/family/caregiver, ordering medications, tests, or procedures, communicating with other HCPs (not separately reported), independently interpreting results (not separately reported), communicatingresults to the patient/family/caregiver, and care coordination (not separately reported). Keisha Chen PA-C July 09, 2022 11:53 AM documented in this encounterSouthwest General Health Center03-28-2023 NoteHNO ID: [id number] Author: Donal Solomon RN Service: Gastroenterology Author Type: Registered Nurse Type: Nursing Progress Note Filed: 06/04/2022 11:31 AM Note Text: MD at the bedside.[facility]03-28-2023 NoteHNO ID: [id number] Author: Donal Solomon, RN Service: Gastroenterology Author Type: Registered Nurse Type: Nursing Progress Note Filed: 06/04/2022 11:31 AM Note Text: Discharge instructions given, pt verbalized understanding.[facility]03-28-2023 Nurse Note* Donal Solomon - 06/04/2022 11:31 AM EDT MD at the bedside. [facility]03-28-2023 Nurse Note* Donal Solomon - 06/04/2022 11:31 AM EDT MD at the bedside. * Donal Solomon - 06/04/2022 11:20 AM EDT Discharge instructions given, pt verbalized understanding. documented in this encounterSouthwest General Health Center03-28-2023 Nurse Note* Donal Solomon - 06/04/2022 11:20 AM EDT Discharge instructions given, pt verbalized understanding. [facility]03-28-2023 History and physical note* Catia Trujillo MD - 06/04/2022 10:00 AM EDT HISTORY AND PHYSICAL Marissa Miller, 61 year old female here for EGD to evaluate post prandial epigastric abdominal pain and GERD Current history and physical on file: No Is a new History and Physical required for today's visit? Yes Indication for procedure: Abdominal pain and GERD PROCEDURE(S) SCHEDULED FOR: EGD (Esophagogastroduodenoscopy) with or without biopsies, removal of polyps or lesions, dilation (any means), treatment of bleeding ( any means), Barrx treatment of Marcial's Esophagus, image tube placement or cryo therapy treatment based on clinical findings. BASELINE BEHAVIOR: Calm BASELINE ORIENTATION: A & O x3 All medications and allergies reviewed: Yes Skin Assessment: Warm dry muscus membranes pink Airway/Respiratory Assessment: Airway: visualization of the uvula- Yes Mouth: opening greater than 2 fingerbreadths- Yes Neck: full range of motion- Yes Breath sounds clear/equal- Yes Cardiac Assessment: Regular rate and rhythm without murmur Abdominal Assessment: Abdomen soft, non-tender, no masses or organomegaly. Sedation Plan: Deep Additional Comments: None Catia Trujillo MD [facility] Work Phone: 1(114) 638-988703-28-2023 History and physical note* Catia Trujillo MD - 06/04/2022 10:00 AM EDT HISTORY AND PHYSICAL Marissa Miller, 61 year old female here for EGD to evaluate post prandial epigastric abdominal pain and GERD Current history and physical on file: No Is a new History and Physical required for today's visit? Yes Indication for procedure: Abdominal pain and GERD PROCEDURE(S) SCHEDULED FOR: EGD (Esophagogastroduodenoscopy) with or without biopsies, removal of polyps or lesions, dilation (any means), treatment of bleeding ( any means), Barrx treatment of Marcial's Esophagus, image tube placement or cryo therapy treatment based on clinical findings. BASELINE BEHAVIOR: Calm BASELINE ORIENTATION: A & O x3 All medications and allergies reviewed: Yes Skin Assessment: Warm dry muscus membranes pink Airway/Respiratory Assessment: Airway: visualization of the uvula- Yes Mouth: opening greater than 2 fingerbreadths- Yes Neck: full range of motion- Yes Breath sounds clear/equal- Yes Cardiac Assessment: Regular rate and rhythm without murmur Abdominal Assessment: Abdomen soft, non-tender, no masses or organomegaly. Sedation Plan: Deep Additional Comments: None Catia Trujillo MD documented in this encounterSouthwest General Health Center03-23-2023 NoteHNO ID: [id number] Author: Keisha Chen PA-C Service: ? Author Type: Physician Canopy Inspector Type: Progress Notes Filed: 05/30/2022 12:26 PM [...] HISTORY Problem Relation Ag (more content not included)...[facility] 05-30-2022 History of Present illness Narrative* Keisha Chen PA-C - 05/30/2022 11:46 AM EDT CHIEF COMPLAINT: Patient presents with: Recheck: Gallbladder [...] today for Abdominal Pain (Abdominal bloating and stoolis a different color. ) Abd cramping Intermittent [...] mouth twice daily. Crush and mix with smalltablespoon of applesauce. Dispense: 60 tablet; Refill: 0 [...] which included preparing to see the patient, [id number] patient care, completing clinical documentation, obtaining and/or reviewing separately obtained history, performing a medically appropriate examination, counseling and educating the pat ient/family/caregiver, ordering medications, tests, or procedures, communicating with other HCPs (not separately reported), independently interpreting results (not separately reported), communicatingresults to the patient/family/caregiver, and care coordination (not separately reported). Keisha Chen PA-C May 30, 2022 12:04 PM documented in this encounterSouthwest General Health Center01-26-2023 NoteHNO ID: [id number] Author: Nova Vallejo RDMS Service: ? Author Type: Property Management Supervisor Type: Progress Notes Filed: 04/04/2022 10:54 AM [...] Nova Vallejo RDMS April 04, 2022 10:54 [facility]01-26-2023 History of Present illness Narrative* Nova Vallejo RDMS - 04/04/2022 10:00 AM EST Radiology Service Progress Note PATIENT NAME: Marissa Miller DATE OF SERVICE: April 04, 2022 TIME: 10:54 AM PATIENT IDENTITY VERIFICATION COMPLETED USING TWO (2) IDENTIFIERS: Name and Date of confirmedby patient verbally. FALL SCREENING: Has the patient [...] 04, 2022 10:54 AM documented in this encounterSouthwest General Health Center01-09-2023 Miscellaneous Notes* Telephone Encounter - Pavel Joiner MA - 03/18/2022 10:13 AM EST Patient phones requesting refills as follows: Requested Prescriptions Pending Prescriptions Disp Refills omeprazole (PRILOSEC) 40 mg capsule [Pharmacy Med Name: OMEPRAZOLE DR 40 MG CAPSULE] 90 capsule 3 Sig: take 1 capsule by mouth once daily Please review and advise. Pavel Joiner MA documented in this encounterSouthwest General Health Center10-28-2022 Miscellaneous Notes* Telephone Encounter - Pavel Joiner MA - 01/04/2022 10:38 AM EDT Patient notified of results and recommendations. * Telephone Encounter - Jules Gray MD - 01/04/2022 9:54 AM EDT Ultrasound of the liver showed a polyp in the gallbladder but does not look like cancer. Please repeat ultrasound after 3 months. If it grows, will refer to surgery since it could potentially become a cancer documented in this encounterSouthwest General Health Center10-27-2022 NoteHNO ID: [id number] Author: RT Caleb(R) Service: Radiology Author Type: [...] Marlin Alicea Rdms January 03, 2022 2:48 [facility]10-24-2022 NoteHNO ID: [id number] Author: Jules Gray MD Service: ? Author Type: Physician [...] abnormal Abdominal distention Gen (more content not included)...[facility]10-24-2022 History of Present illness Narrative* Jules Gray MD - 12/31/2021 11:50 AM EDT CHIEF COMPLAINT: Patient presents with: Abdominal Pain: Abdominal bloating and stool is a different color. HPI Marissa Miller is a 61 year old female here today for Abdominal Pain (Abdominal bloating and stoolis a different color. ) Abd cramping Intermittent [...] This office note has been created using [employer], a speech recognition software program, and may contain errors including punctuation, grammar, spelling, gender, and inappropriate words or phrases that pertain to the sytem. Jules Gray MD Office Visit on 12/31/21 US ABD RT UPPER QUADRANT No follow-ups on file. Jules Gray MD DATE: 12/31/21 TIME: 11:54 AM documented in this encounterSouthwest General Health CenterEvaluation noteThere may be information available, but it has not been provided by the sender.[facility] Work Phone: Evaluation noteNo assessment information available [facility] Work Phone: Evaluation note* Diagnosis Gallbladder polyp- Primary Cholesterolosis of gallbladder Altered bowel habits Other symptoms involving digestive system Loose stools Abnormal feces Bloating Flatulence, eructation, and gas pain Stool color abnormal Nonspecific abnormal finding in stool contents Abdominal distention Flatulence, eructation, and gas pain Generalized abdominal pain Abdominal pain, generalized Family history of stomach cancer Family history of malignant neoplasm of gastrointestinal tract documented in this encounter [facility]* Diagnosis Gallbladder polyp- Primary Cholesterolosis of gallbladder documented in this encounter [facility]* Diagnosis Epigastric abdominal tenderness without rebound tenderness Bloating Flatulence, eructation, and gas pain documented in this encounter [facility]* Diagnosis Postprandial epigastric pain- Primary Abdominal pain, epigastric Altered bowel habits Other symptoms involving digestive system Gallbladder polyp Cholesterolosis of gallbladder documented in this encounter [facility] note* Diagnosis Postprandial epigastric pain Abdominal pain, epigastric documented in this encounter [facility] note* Diagnosis Generalized abdominal pain- Primary Abdominal pain, generalized Gallbladder polyp Cholesterolosis of gallbladder Hiatal hernia with GERD and esophagitis Lower esophageal ring (Schatzki) Loose stools Abnormal feces Bloating Flatulence, eructation, and gas pain Abnormal weight loss Loss of weight Abdominal distension (gaseous) Flatulence, eructation, and gas pain Nausea Nausea alone documented in this encounter [facility] note* Diagnosis Postlaminectomy syndrome, not elsewhere classified documented in this encounter [facility] note* Diagnosis Cervical radiculopathy- Primary Brachial neuritis or radiculitis nos documented in this encounter [facility] note* Diagnosis Gallbladder polyp Cholesterolosis of gallbladder documented in this encounter [facility] note* Diagnosis Generalized abdominal pain Abdominal pain, generalized Bloating Flatulence, eructation, and gas pain Abnormal weight loss Loss of weight Abdominal distension (gaseous) Flatulence, eructation, and gas pain Nausea Nausea alone documented in this encounter [facility] note* Diagnosis Postlaminectomy syndrome, not elsewhere classified- Primary Postlaminectomy syndrome, not elsewhere classified documented in this encounter [facility] note* Diagnosis Cholesterolosis of gallbladder documented in this encounter [facility] note* Diagnosis Onset Date Resolution Status Gallbladder polyp acute GERD (gastroesophageal reflux disease) acute Hx of colonic polyps acute [facility] Work Phone: Evaluation note* Diagnosis Epigastric abdominal tenderness without rebound tenderness Bloating Flatulence, eructation, and gas pain documented in this encounter [facility] note* Diagnosis Cholesterolosis of gallbladder- Primary Cholesterolosis of gallbladder documented in this encounter [facility] note* Diagnosis Postprandial epigastric pain Abdominal pain, epigastric documented in this encounter [facility] note* Diagnosis Onset Date Resolution Status Admit Date Cough chronic September 21 9:33am Smoking greater than 40 pack years chronic September 21, 2024 9:33am Shortness of breath noneactive September 21, 2024 9:33am [facility] Work Phone: Hospital Discharge instructionsAdditional Instructions Return if you are unable to urinate, loss of bowel control, decrease sensation in your vaginal buttocks area or dragging your right leg.[facility] Work Phone: Instructions* Instruction Description Start Date Completed [facility] Work Phone: Progress note Author KERRY Jackson [facility] Note Date/Time December 08, 2024 9: 45am [facility] [address] [place] [address] OFFICE VISIT Date of Service: 12/08/24 MR#: [id number] Acct: [id number] Name: MARISSA MILLER Rep #: [id number] : 1960 Provider: Zoran barry NP Age/Sex: 63/F [place] [facility] [place] Status: Signed Assessment and Plan Assessment and Plan (1) Asthma-COPD overlap syndrome: Status: Chronic Plan: Although the PFT is grossly normal there is a 10% change seen with use of beta agonist in FEV1. The patient does have seasonal allergy symptoms. She reports specifically grass is a trigger. There is significant bronchospasm on today's exam. There is emphysema identified on CT imaging. Today she is experiencing another exacerbation and I have recommended that she utilize Augmentin at this time due to recent use of Z-Yuan and the recent episodeof worsening symptoms after eating. I have asked for her to complete a sputum culture prior to beginning this antibiotic. The patient's NIOX is not elevated so I do not plan to use oral prednisone especially in the context of the patientreporting that she is experience side effects in the past and poor respiratory response. She does have a nebulizing device that has a flutter component to it. Continue with Mucinex as well. Due to the side effects that she is experiencing with albuterol I have recommended changing from albuterol to lev albuterol and have ordered this accordingly today. She will be provided lev albuterol in both HFA and nebulized form. This has provided her with significant benefit in the past. I do believe that she is suboptimally controlled today because she is not on a daily maintenance therapy at this time. She has difficulty tolerating the dry powdered inhaler and have recommended that she transition from Trelegy to Breztri and have ordered this accordingly. The patient understands the proper oral hygiene involved with triple therapy. Samples have been provided to her. She understands the importance of a daily maintenance therapy to be utilized prior to escalating therapy. I plan to reassess on follow-up in short interval,8 weeks and will consider an escalation in therapy if she has continued to exacerbate. The patient does have a history of elevated eosinophils from her blood work in February 2024. Her eosinophilic count is 158.4. Nucala may be an option if shecontinues to have exacerbations. (2) Smoking greater than 40 pack years: Status: Chronic Plan: Encourage complete smoking cessation. The patient previously was able to quit smoking for 12 years, unfortunately started smoking a few years ago again. She is appropriate for LDCT, previously ordered and planned for March 2025. (3) Encounter for tobacco use cessation counseling: Status: Acute Plan: The patient is educated about the benefits of smoking cessation. Medical nicotine replacement therapy was offered to the patient. Discussed habits, quitdate, coping mechanisms. All questions were answered. Orders: Orders Culture, Sputum Today J44.89 - Other specified chronic obstructive pulmonary disease NIOX Today J44.89 - Other specified chronic obstructive pulmonary disease Medications: New dousrolurp-udyherxt-mwncymhmcb 160-9-4.8 mcg/actuation (Breztri Aerosphere) 2 inhalations inhalation BID 10.7 grams 11RF levalbuterol HCl 0.63 mg (3 mL) inhalation ONCE 75 mL 11RF levalbuterol tartrate 45 mcg/actuation 2 puffs inhalation Q4-6H PRN 15 grams 11RF shortness of breath or wheezing nicotine apply 1-21 mg NICOTINE PATCH daily for 28 days; follow with 1-14 mg PATCH daily for 14 days, then 1-7mg PATCH daily for 14 days transdermal 56 patches 0RF nicotine (polacrilex) 2 mg buccal Q8H PRN 72 ea 2RF nicotine cravings amoxicillin-pot clavulanate 875-125 mg 1 TAB PO BID 14 tabs 0RF J44.89 - Other specified chronic obstructive pulmonary disease Discontinued ochxhctcamq-nhumuhwbq-bvtklpwe 200-62.5-25 mcg (Trelegy Ellipta) Discontinued Reason: Order Changed 1 inh inhalation QDAY R06.02 - Shortness of breath albuterol sulfate 90 mcg/actuation (Ventolin HFA) Discontinued Reason: Order Changed 1 puff inhalation Q4-6H albuterol sulfate Discontinued Reason: Order Changed 0.63 mg inhalation Q4-6H PRN Plan Details Follow Up: 8 Weeks (LMR) HPI HPI Comments Details: Patient is a 63-year-old female who presents today for follow-up. She is ambulatory and currently on room air. She has not recently been seen in the ED or urgent care for any respiratory illness. She has not required any antibiotics or prednisone for any breathing problems since last visit when she was treated for an exacerbation with oral prednisone and a Z-Yuan. She is uncertain if the oral prednisone benefited her at that time. She reports that oral prednisone gives her severe hypersomnolenceand when she was recently prescribed it for her back she did discontinue it due to the side effects. She does feel like the Z-Yuan was helpful. The patient reports that she has a significant home smoking history. She smokeda pack a day for many years and continues to smoke 1/2 pack/day. She is using Trelegy 200, 1 puff. She reports that when she initially received this inhaler she was using it in a consistent daily basis. She felt like this inhaler did not work for her and had difficulty tolerating the dry powder. Mostrecently she does endorse using the inhaler 4 times per week. She has difficulty using her albuterol nebulized therapy as she reports a feeling of shakiness and panic attacks. She does also experience this at times with albuterol HFA. She has had worsening symptoms of shortness of breath with exertion and even when resting. She reports that it cough is present that is productive with green sputum. She reports that wheezes present all the time . She is smoking1 pack/day and would like help to stop smoking. She reports that her symptoms did worsen over the weekend and on Friday she had an attack where she was not able to breathe after eating and did have to use her rescue inhaler at that time. She reports that it is difficult to get in a deep breath and that a deep breath causes her to cough. She denies chills and bodyaches. The patient is currently retired. Low-dose CT lung screening completed on March 23, 2024. 3.1 mm noncalcified nodule in the anterior peripheral aspect of the right upper lobe. Mild degree of emphysematous changes. Recommendation is to repeat LDCT in 12 months. Pulmonary function test from September 06, 2024 is grossly normal. 6-minute walk test from August 12, 2024 shows no significant exertional oxygen desaturation. There is no indication for the use of supplemental oxygen at thistime. Intake Vital Signs 11/16/24 05:37 12/08/24 06:35 Height 5 ft 3 in 5 ft 3.5 in Weight: 196 lb BMI 34.2 BP 119/73 Blood Pressure Location Rt brachial Position Sitting Respiration 20 H Pulse 89 Pulse Source Monitor Temp 97.5 F L Temperature Source Temporal Artery Pulse Oximetry (%) 95 Oxygen Delivery Method room air Intake Visit Reasons: 8 wk fu Chief Complaint: cholecystectomy f/u Accompanied by: Self Allergies clarithromycin (From Biaxin) Adverse Reaction (Verified 10/22/24 12:40) Nausea hydromorphone (From Dilaudid) Adverse Reaction (Verified 10/22/24 12:40) Upset Stomach Medications ?Medication ?Instructions ?Recorded ?Confirmed ?Type atorvastatin 40 mg tablet 40 mg PO QHS 07/20/15 History duloxetine 60 mg capsule,delayed 60 mg PO BID 07/20/15 12/08/24 History release cyclobenzaprine 10 mg tablet 1 tab PO TID PRN PRN pain 09/01/21 12/08/24 History glimepiride 4 mg tablet 4 mg PO DAILY 09/01/2112/08 History levothyroxine 112 mcg tablet 112 mcg PO QDAY 07/04/23 12/08/24 History lisinopril 10 mg tablet 10 mg PO QDAY 07/04/2312/08 History esomeprazole magnesium 40 mg 40 mg PO DAILY #30 caps 0 07/24/23 12/08/24 Rx capsule,delayed release pregabalin 150 mg capsule 150 mg PO TID 08/11/2312/08 History medical marjuana miscellaneous 03/23/2412/08 History buspirone 10 mg tablet 20 mg PO TID PRN anxiety 12/08/24 History celecoxib 200 mg capsule 200 mg PO DAILY 09/21/2404/03 History guaifenesin 1,200 mg tablet, 1,200 mg PO .QD #90 tabs 09/21/24 12/08/24 Rx extended release 12 hr (Mucinex) omeprazole 40 mg capsule,delayed 40 mg PO QDAY 5 12/08/24 History release ondansetron HCl 4 mg tablet 4 mg PO BID PRN 09/21/24 1 History oxybutynin chloride 5 mg 5 mg PO QDAY 09/21/24 History tablet,extended release 24 hr tramadol 50 mg tablet 50 mg PO QD-BID PRN pain 12/08/24 History hydrocodone-acetaminophen 5-325mg 1 tab PO Q6H PRN PRN Pain 3 days 10/22/24 12/08/24 Rx 5mg-325mg #10 TABLETS amoxicillin 875 mg-potassium 1 tab PO BID #14 tabs 04/0312/08/24 Rx clavulanate 125 mg tablet budesonide 160 mcg-glycopyr 9 2 inh inhalation BID #10 .7 grams 12/08/24 12/08/24 Rx mcg-formot 4.8 mcg/actuation HFA inhaler (Breztri Aerosphere) levalbuterol HCl 0.63 mg/3 mL 0.63 mg (3 mL) inhalatio n ONCE #75 12/08/24 12/08/24 Rx solution for nebulization mL levalbuterol tartrate 45 2 puff inhalation Q4-6H PRN 12/08/24 12/08/24 Rx mcg/actuation aerosol inhaler shortness of breath or w heezing #15 grams nicotine (polacrilex) 2 mg buccal 2 mg buccal Q8H PRN nicotine 12/08/24 12/08/24 Rx lozenge cravings #72 ea nicotine See Rx Instructions transder mal 12/08/24 12/08/24 Rx 21mg/24hr-14mg/24hr-7mg/24hr daily .COMPLEX #56 patche s transderm patches,sequentl tirzepatide 7.5 mg/0.5 mL mg subcut 12/08/24 12/08/24 History subcutaneous pen injector (Ata) [facility] Medical History Tobacco use disorder, continuous Encounter for screening for malignant neoplasm of lung Diarrhea Wears glasses Wears dentures Post-menopausal Depression Marijuana use Bladder disease Anemia High cholesterol Back pain History of hiatal hernia History of ulceration History of IBS Gastric reflux Smoker Shortness of breath on exertion Leg cramps History of pain when walking History of stress test Asthma COPD (chronic obstructive pulmonary disease) HTN (hypertension) Arthritis Thyroid disease Diabetes Surgical History S/P cholecystectomy Hx of esophagogastroduodenoscopy Hx of colonoscopy History of hysteroscopy Hx of hysterectomy, total History of lumbar discectomy History of lumbar fusion Cervical vertebral fusion Family History Father Heart disease Hypertension Mother Heart disease Thyroid disorder Social History household members: none housing: house current occupational status: retired Smoking Status: Current every day smoker tobacco type: cigarettes Tobacco: How many years used: 30 how long ago did patient quit smoking: Pt. had stopped smoking for about 13 years and restarted last year. alcohol intake: never additional social history: medical marijuana Review of Systems Resp Respiratory: Yes as per HPI Exam Const Constitutional: Positive conversant, cooperative, in no acute respiratory distress, healthy appearing, well developed, well nourished, good hygiene and obese Head Head: Yes normocephalic, Yes atraumatic and No cyanosis of lips/distal nose Eyes Eye: Positive clear conjunctiva; Negative nystagmus or scleral abnormality Ears Ear: Positive hearing normal and external ears normal Nose Nose: Yes external nose normal Mouth Mouth: Positive oral mucosae normal and dentures Neck Neck: Positive normal visual inspection, full ROM and trachea midline Chest Wall Chest: Positive normal inspection of the chest and symmetric chest movement Resp lung sounds: Positive diminished lung sounds, wheezes (Inspiratory and expiratory), rhonchi, prolonged expiratory time and normal chronic state of increased work of breathing; Negative rales Cardio Cardiac: Positive regular rate, regular rhythm, S1 normal and S2 normal; Negative murmur GI GI: Positive normal to inspection and obese; Negative distended Genitourinary: Positive deferred Musc Musculoskeletal: Positive steady gait and ROM normal; Negative kyphosis or scoliosis Skin Pulmonary Skin Exam: Positive intact; Negative lesion, rash or ulcers Pulses Pulse: Yes radial pulses present Extremities Extremities: Yes capillary refill normal, No clubbing and No cyanosis Neuro Neurologic: Yes no focal neuro deficits, Yes conversant, Yes cooperative, Yes normal cognition, Yes normal coordination, Yes normal concentration and Yes understands questions Psych Appearance: Positive grossly normal, eye contact and well kempt Mental Status: Positive mental status grossly normal Mood: Positive congruent mood Affect: Positive normal affect Office Procedures Niox Air Inflam Monitor NIOX Result NIOX: 5 Coding Level of Care Code Off vis,est,level 4 Diagnoses Asthma-COPD overlap syndrome J44.89 Smoking greater than 40 pack years F17.210 Encounter for tobacco use cessation counseling Z71.6 CPT Codes Time Spent - greater than 10 minutes: Yes (15457) Smoking Cessation Smoking Cessation 11 minutes [id number] discussion of smoking cessation Time Spent greater than 10 minutes: Yes 12/08/24 1039 <Electronically signed by Zoran rebollar NP-C> Date _ Zoran Jackson HOME HEALTH ATTENDANT-C Cosigner Signature: Date (if applicable) CC: ~ [facility] Work Phone: [facility] for referral (narrative)* Diagnostic Procedure Only (Routine) - Authorized Specialty Diagnoses / Procedures Referred By Thierno t Referred To Contact US IMAGING Diagnoses Gallbladder polyp Procedures US ABD RT UPPER QUADRANT US ABDOMINAL REAL TIME W/IMAGE LIMITED Jules Gray MD [address] [facility] [place] [place] [address] Us Imaging Referral ID Status Reason Start Date Expiration Date Visits Requested Visits Authorized [id number] Authorized Auto-Generat ed Referral 2 01/30/2023 1 1 [facility] Diagnostic Procedure Only (Routine) - Pending Review Specialty Diagnoses / Procedures Referred By Contac t Referred To Contact US IMAGING Diagnoses Gallbladder polyp Procedures US ABD RT UPPER QUADRANT US ABDOMINAL REAL TIME W/IMAGE LIMITED Jules Gray MD [address] [place] [address] Us Imaging Referral ID Status Reason Start Date Expiration Date Visits Requested Visits Authorized [id number] Pending Review Auto-Generat ed Referral 02/03/2023 1 1 [facility] for referral (narrative)* Outpatient Procedure (Routine) - Authorized Specialty Diagnoses / Procedures Referred By Contac t Referred To Contact [facility] Diagnoses Postprandial epigastric pain Procedures EGD DIAGNOSTIC ESOPHAGOGASTRODUODENOS COPY TRANSORAL DIAGNOSTIC Keisha Chen PA-C [address] [place] [address] [facility] [address] [place] [address] Referral ID Status Reason Start Date Expiration Date Visits Requested Visits Authorized [id number] Authorized Auto-Generat ed Referral 05/30/2022 05/31/2023 1 1 * Diagnostic Procedure Only (Routine) - Pending Review Specialty Diagnoses / Procedures Referred By Contac t Referred To Contact US IMAGING Diagnoses Gallbladder polyp Procedures US ABD RT UPPER QUADRANT US ABDOMINAL REAL TIME W/IMAGE LIMITED Keisha Chen PA-C [address] [place] [address] Us Imaging Referral ID Status Reason Start Date Expiration Date Visits Requested Visits Authorized [id number] Pending Review Auto-Generat ed Referral 09/29/2022 06/29/2023 1 1 [facility] for referral (narrative)* Diagnostic Procedure Only (Routine) - Closed Specialty Diagnoses / Procedures Referred By Contac t Referred To Contact US IMAGING Diagnoses Gallbladder polyp Procedures US ABD RT UPPER QUADRANT US ABDOMINAL REAL TIME W/IMAGE LIMITED Jules Gray MD [address] [facility] [place] [address] Us Imaging [facility] Referral ID Status Reason Start Date Expiration Date V isits Requested Visits Authorized [id number] Closed Auto-Generate d Referral 01/04/2022 02/03/2023 1 1 [facility] for referral (narrative)* Outpatient Procedure (Routine) - Closed Specialty Diagnoses / Procedures Referred By Thierno t Referred To Contact [facility] Diagnoses Postprandial epigastric pain Procedures EGD DIAGNOSTIC ESOPHAGOGASTRODUODENOS COPY TRANSORAL DIAGNOSTIC Keisha Chen PA-C [address] [facility] [place] [address] [facility] Disease [address] [place] [id number] Referral ID Status Reason Start Date Expiration Date V isits Requested Visits Authorized [id number] Closed Auto-Generate d Referral 05/30/2022 05/31/2023 1 1 [facility] for referral (narrative)No reason for referral information [facility] Work Phone: Reason for visit Narrative* Outpatient Procedure (Routine) - Closed Specialty Diagnoses / Procedures Referred By Thierno abdullahi Referred To Contact [facility] Diagnoses Postprandial epigastric pain Procedures EGD DIAGNOSTIC ESOPHAGOGASTRODUODENOS COPY TRANSORAL DIAGNOSTIC Keisha Chen PA-C [address] [facility] [place] [address] [facility] Disease [place] [address] [place] [address] Referral ID Status Reason Start Date Expiration Date V isits Requested Visits Authorized [id number] Closed Auto-Generate d Referral 05/30/2022 05/31/2023 1 1 [facility] Summary Purpose Family History No Family History Records Found Relationship Condition Age at Onset Recorded Date/T [place] father Cardiac disease Unknown Hypertension Unknown mother Cardiac disease Unknown Disorder of thyroid Unknown Family Member Condition Father Alive Mother Father No Medical History Family Member Condition Father Alive Mother Father No Medical History Family Member Condition Father Alive Mother Father No Medical History Family Member Condition Father Alive Mother Father No Medical History Advance Directives No Advanced Directives Records FoundDocuments on File Type Date Recorded Patient Pre Press Manager Expl anation Advance Directives and Living Will Power of Manager User Interface Latest Code Status on File Code Status Date Activated Date Inactivated Comments Full Code 08/25/2018 12:25 AM 08/28/2018 3:47 PM Documents on File Type Date Recorded Patient Pre Press Manager Expl anation ACP-Advance Directive ACP-Power of Manager User Interface Advance Directive Response Recorded Date/ Time Living Will No September 01, 2021 5:40pm Power of Manager User Interface No September 01 5:40pm Advance Directive Response Recorded Date/ Time Do you have a Healthcare Power of Manager User Interface? Yes October 22, 2024 2:07pm Name of Medical Power of Manager User Interface john marcus October 22, 2024 2:07pm Advance Directive Response Recorded Date/ Time Do you have a Healthcare Power of Manager User Interface? Yes October 22, 2024 2:07pm Name of Medical Power of Manager User Interface john marcus October 22, 2024 2:07pm Do you have a Healthcare Power of Manager User Interface? No December 17, 2024 5:13pm Chief Complaint Chief Complaint Description Start Date lower back post Lumbar fusio n L4-L5 L5-S1 on 04/09/2021 Preliminary chief co mplaint data, not yet signed by the author as of Chief Complaint and Reason for Visit Chief Complaint FALL Chief Complaint GALLBLADDER POLYP POSTMENOPAUSAL Reason for Visit Gallbladder polyp GERD (gastroesophageal reflux disease) Hx of colonic polyps Chief Complaint Admit Date Lung Cancer Screening March 23, 2024 1:02pm Nicotine dependence March 23, 2024 1 :43pm Shortness of breath March 30, 2024 2 :11pm PALPITATIONS, CP, FAMILY HX April 9:38am Reason for Visit Admit Date Encounter for screening for malignant ne oplasm of lung March 23, 2024 1:02pm Tobacco use disorder, continuous March 23, 2024 1:02pm Cough March 30, 2024 2 :11pm Smoking greater than 40 pack years 2024 2:11pm Shortness of breath March 30, 2024 2 :11pm Chief Complaint Admit Date Shortness of breath March 30, 2024 2 :11pm PALPITATIONS, CP, FAMILY HX April 9:38am ASSESS SOFT TISSUE TEAR. RT ELBOW July 192024 1:22pm Reason for Visit Admit Date Cough March 30, 2024 2 :11pm Smoking greater than 40 pack years 2024 2:11pm Shortness of breath March 30, 2024 2 :11pm Chief Complaint Admit Date PALPITATIONS, CP, FAMILY HX April 9:38am ASSESS SOFT TISSUE TEAR. RT ELBOW July 192024 1:22pm R06.02 - Shortness of breath August 12, 2 025 8:11am R06.02 - Shortness of breath August 13 025 1:07pm Chief Complaint Admit Date ASSESS SOFT TISSUE TEAR. RT ELBOW July 192024 1:22pm R06.02 - Shortness of breath August 12, 2 025 8:11am R06.02 - Shortness of breath August 13 2 025 1:07pm SOB September 06, 2024 8:18 am Chief Complaint Admit Date ASSESS SOFT TISSUE TEAR. RT ELBOW July 192024 1:22pm R06.02 - Shortness of breath August 12, 2 025 8:11am R06.02 - Shortness of breath August 13, 2 025 1:07pm SOB September 06, 2024 8:18 am 6 wk FU September 21, 2024 9:33 am Reason for Visit Admit Date Cough September 21, 2024 9:33 am Smoking greater than 40 pack years September 21, 2024 9:33am Shortness of breath September 21, 2024 9:33 am Chief Complaint Admit Date ASSESS SOFT TISSUE TEAR. RT ELBOW July 192024 1:22pm R06.02 - Shortness of breath August 12, 2 025 8:11am R06.02 - Shortness of breath August 13 2 025 1:07pm SOB September 06, 2024 8:18 am 6 wk FU September 21, 2024 9:33 am BACK PAIN October 22, 2024 12 :36pm Reason for Visit Admit Date Asthma-COPD overlap syndrome September 21, 2024 9:33am Smoking greater than 40 pack years September 21, 2024 9:33am Chief Complaint Admit Date R06.02 - Shortness of breath August 12 025 8:11am R06.02 - Shortness of breath August 13 025 1:07pm SOB September 06, 2024 8:18 am 6 wk FU September 21, 2024 9:33 am BACK PAIN October 22, 2024 12 :36pm Chief Complaint Admit Date R06.02 - Shortness of breath August 12 8:11am R06.02 - Shortness of breath August 13 025 1:07pm SOB September 06, 2024 8:18 am 6 wk FU September 21, 2024 9:33 am BACK PAIN October 22, 2024 12 :36pm 8 wk fu December 08, 2024 8: 51am Reason for Visit Admit Date Asthma-COPD overlap syndrome September 21, 2024 9:33am Smoking greater than 40 pack years September 21, 2024 9:33am Encounter for tobacco use cessation coun seling December 08, 2024 8:51am Asthma-COPD overlap syndrome December 8:51am Smoking greater than 40 pack years Octob 2024 8:51am Chief Complaint Admit Date SOB September 06, 2024 8:18 am 6 wk FU September 21, 2024 9:33 am BACK PAIN October 22, 2024 12 :36pm 8 wk fu December 08, 2024 8: 51am sob December 17, 2024 4 :52pm Reason for Referral Specialty Diagnoses / Procedures Referred By Thierno abdullahi Referred To Contact CT IMAGING Diagnoses Generalized abdominal pain Bloating Abnormal weight loss Abdominal distension (gaseous) Nausea Procedures CT ABD/PEL W IVCON CT ABD & PELVIS W/CONTRAST Keisha Chen PA-C [address] [place] [address] Ct Imaging Referral ID Status Reason Start Date Expiration Date Visits Requested Visits Authorized [id number] Authorized Auto-Generat ed Referral 07/09/2022 08/08/2023 1 1 Specialty Diagnoses / Procedures Referred By Thierno abdullahi Referred To Contact General Surgery Diagnoses Gallbladder polyp Generalized abdominal pain Procedures CONSULT TO GENERAL SURGERY Keisha Chen PA-C [address] [facility] [place] [address] Vasquez Miller MD [address] [facility] [address] [place] [address] Referral ID Status Reason Start Date Expiration Date Visits Requested Visits Authorized [id number] Ref Not Required PCP Requested Referral 07/09/2022 07/09/2023 1 1 Specialty Diagnoses / Procedures Referred By Contac t Referred To Contact CT IMAGING Diagnoses Generalized abdominal pain Bloating Abnormal weight loss Abdominal distension (gaseous) Nausea Procedures CT ABD/PEL W IVCON CT ABD & PELVIS W/CONTRAST Keisha Chen PA-C [address] [place] [address] Ct Imaging [facility] Referral ID Status Reason Start Date Expiration Date V isits Requested Visits Authorized [id number] Closed Auto-Generate d Referral 07/09/2022 08/08/2023 1 1 Additional Source Comments INFORMATION SOURCE (unrecogn ized section and content) DATE CREATED AUTHOR 09/02/2017 [facility] DATE CREATED AUTHOR AUTHOR'S ORGANIZ ATION 09/03/2017 [facility] DATE CREATED AUTHOR AUTHOR'S ORGANIZ ATION 12/29/2021 [facility] [employer] DATE CREATED AUTHOR AUTHOR'S ORGANIZ ATION 08/20/2022 [facility] DATE CREATED AUTHOR AUTHOR'S ORGANIZ ATION 11/01/2023 [facility] [facility] DATE CREATED AUTHOR AUTHOR'S ORGANIZ ATION 01/16/2025 [facility] Reason for Visit (unrecogniz ed section and content) Reason Comments Radiology CT Specialty Diagnoses / Procedures Referred By Contac t Referred To Contact CT IMAGING Diagnoses Generalized abdominal pain Bloating Abnormal weight loss Abdominal distension (gaseous) Nausea Procedures CT ABD/PEL W IVCON CT ABD & PELVIS W/CONTRAST Keisha Chen PA-C [address] [place] [address] [place] [address] Referral ID Status Reason Start Date Expiration Date V isits Requested Visits Authorized [id number] Closed Auto-Generate d Referral 07/09/2022 08/08/2023 1 [...] US Specialty Diagnoses / Procedures Referred By Contac t Referred To Contact US IMAGING Diagnoses Gallbladder polyp Procedures US ABD RT UPPER QUADRANT US ABDOMINAL REAL TIME W/IMAGE LIMITED Jules Gray MD [address] [place] [address] [place] [address] Referral ID Status Reason Start Date Expiration Date V isits Requested Visits Authorized [id number] Closed Auto-Generate d Referral 01/04/2022 02/03/2023 1 1 Reason Onset Date Comments Cancelled Appointment 05/12/2023 Reason Onset Date Comments Cough 02/21/2023 Shortness of Breath 02/21/2023 Reason Onset Date Comments Other 10/30/2023 Goals (unrecognized section and content) Goals may be documented in a n alternate sectionGoals may be documented in an alternate sectionGoals may be documented in an alternate sectionGoals may be documented in an alternate sectionGoals may be documented in an alternate sectionGoals may be documented in an alternate sectionGoals may be documented in an alternate sectionGoals may be documented in an alternate sectionGoals may be documented in an alternate section No Information Available No Information AvailableGoals may be documented in an alternate sectionGoals may be documented in an alternate sectionGoals may be documented in an alternate section No Information Available No Information Available Care Teams (unrecognized sec tion and content) Access Developer Relationship Specialty Start Date End Date Kidd, Gauri A, MD PCP - General 11/22/15 Access Developer Relationship Specialty Start Date End Date Gauri Kidd MD [address] [address] PCP - General Family Medicine 10/27/17 Access Developer Relationship Specialty Start Date End Date Gauri Kidd MD [address] [address] PCP - General Family Medicine 10/27/17 Access Developer Relationship Specialty Start Date End Date Gauri Kidd MD [address] [address] PCP - General Family Medicine 10/27/17 Access Developer Relationship Specialty Start Date End Date Gauri Kidd MD [address] [address] PCP - General Family Medicine 10/27/17 Access Developer Relationship Specialty Start Date End Date Gauri Kidd MD [address] [address] PCP - General Family Medicine 10/27/17 Access Developer Relationship Specialty Start Date End Date Gauri Kidd MD [address] [address] PCP - General Family Medicine 10/27/17 Access Developer Relationship Specialty Start Date End Date Gauri Kidd MD [address] [address] PCP - General Family Medicine 10/27/17 Access Developer Relationship Specialty Start Date End Date Gauri Kidd MD [address] [address] PCP - General Family Medicine 10/27/17 Access Developer Relationship Specialty Start Date End Date Gauri Kidd MD [address] [place] [address] PCP - General 11/22/15 Access Developer Relationship Specialty Start Date End Date Gauir Kidd MD [address] [place] [phone] PCP - General 11/22/15 Access Developer Relationship Specialty Start Date End Date Gauri Kidd MD [facility] [place] [address] PCP - General Family Medicine 10/27/17 Access Developer Relationship Specialty Start Date End Date Gauri Kidd MD [facility] [place] [address] PCP - General Family Medicine 10/27/17 Access Developer Relationship Specialty Start Date End Date Gauri Kidd MD [address] [place] [address] PCP - General Family Medicine 10/27/17 Access Developer Relationship Specialty Start Date End Date Gauri Kidd MD [address] [place] [phone] PCP - General 11/22/15 Team Status: Active Member Role Status Dates Dr. Gauri Kidd MD Family Provider Active Dr. Gauri Kidd MD Primary Care Provider Active Team Status: Inactive Member Role Status Dates Dr. Gauri Kidd MD Primary Care Prov ider, Attending Provider, Referring Provider Active Access Developer Relationship Specialty Start Date End Date Gauri Kidd MD [address] [place] [id number] PCP - General 11/22/15 Team Status: Inactive Member Role Status Dates Dr. Gauri Kidd MD Primary Care Provider, Referrin g Provider Active Dr. Chhaya May MD Attending Provider Active Access Developer Relationship Specialty Start Date End Date Gauri Kidd MD [address] [place] [address] PCP - General Family Medicine 10/27/17 Access Developer Relationship Specialty Start Date End Date Gauri Kidd MD [address] [place] [phone] PCP - General 11/22/15 Access Developer Relationship Specialty Start Date End Date Gauri Kidd MD [address] [place] [address] PCP - General Family Medicine 10/27/17 Team Status: Active Member Role Status Dates NIKOLAI Zuleta Primary Care Provider Active Team Status: Inactive Member Role Status Dates Dr. Ananda Menezes DO Primary Care Provider Active Start: February 10, 2024 End: February 10, 2024 NIKOLAI Zuleta Attending Provider Active St art: February 10, 2024 End: February 10, 2024 NIKOLAI Zuleta Referring Provider Active St art: February 10, 2024 End: February 10, 2024 Team Status: Inactive Member Role Status Dates Dr. Ananda Menezes DO Primary Care Provider Active Start: February 24, 2024 End: February 24, 2024 Dr. Ananda Menezes DO Attending Provider Active Start: February 24, 2024 End: February 24, 2024 Dr. Ananda Menezes DO Referring Provider Active Start: February 24, 2024 End: February 24, 2024 Team Status: Inactive Member Role Status Dates Dr. Ananda Menezes DO Primary Care Provider Active Start: February 26, 2024 End: February 26, 2024 Dr. Megan Miramontes MD Attending Provider Active Start: February 26, 2024 End: February 26, 2024 Dr. Megan Miramontes MD Referring Provider Active Start: February 26, 2024 End: February 26, 2024 Team Status: Inactive Member Role Status Dates Soco Pretty HOME HEALTH ATTENDANT, HOME HEALTH ATTENDANT-C Attending Provider Active Start: March 23, 2024 End: March 23, 2024 Soco Pretty HOME HEALTH ATTENDANT, HOME HEALTH ATTENDANT-C Referring Provider Active Start: March 23, 2024 End: March 23, 2024 Marika Raymond HOME HEALTH ATTENDANT-C Primary Care Provider Active Start: March 23, 2024 End: March 23, 2024 Team Status: Inactive Member Role Status Dates Marika Raymond HOME HEALTH ATTENDANT-C Primary Care Provider Active Start: March 30, 2024 End: March 30, 2024 Marika Raymond HOME HEALTH ATTENDANT-C Referring Provider Active St art: March 30, 2024 End: March 30, 2024 Talia Dawkins HOME HEALTH ATTENDANT, HOME HEALTH ATTENDANT-C Attending Provider Active Start: March 30, 2024 End: March 30, 2024 Team Status: Inactive Member Role Status Dates Marika Raymond HOME HEALTH ATTENDANT-C Primary Care Provider Active Start: May 05, 2024 End: May 05, 2024 Marika Raymond HOME HEALTH ATTENDANT-C Attending Provider Active St art: May 05, 2024 End: May 05, 2024 Marika Raymond HOME HEALTH ATTENDANT-C Referring Provider Active St art: May 05, 2024 End: May 05, 2024 Team Status: Active Member Role Status Dates Marika Raymond HOME HEALTH ATTENDANT-C Primary Care Provider Active Start: May 05, 2024 Dr. Lc Molina MD Attending Provider Activ e Start: May 05, 2024 Team Status: Inactive Member Role Status Dates Marika Raymond HOME HEALTH ATTENDANT-C Primary Care Provider Active Start: July 05, 2024 End: July 05, 2024 Marika Raymond HOME HEALTH ATTENDANT-C Attending Provider Active St art: July 05, 2024 End: July 05, 2024 Marika Raymond HOME HEALTH ATTENDANT-C Referring Provider Active St art: July 05, 2024 End: July 05, 2024 Team Status: Inactive Member Role Status Dates Marika Raymond , HOME HEALTH ATTENDANT-C Primary Care Provider Active Start: July 19, 2024 End: July 19, 2024 Marika Raymond , HOME HEALTH ATTENDANT-C Attending Provider Active St art: July 19, 2024 End: July 19, 2024 Marika Raymond , HOME HEALTH ATTENDANT-C Referring Provider Active St art: July 19, 2024 End: July 19, 2024 Team Status: Inactive Member Role Status Dates Marika Raymond , HOME HEALTH ATTENDANT-C Primary Care Provider Active Start: August 12, 2024 End: August 12, 2024 Talia Dawkins HOME HEALTH ATTENDANT, HOME HEALTH ATTENDANT-C Attending Provider Active Start: August 12, 2024 End: August 12, 2024 Talia Dawkins HOME HEALTH ATTENDANT, HOME HEALTH ATTENDANT-C Referring Provider Active Start: August 12, 2024 End: August 12, 2024 Team Status: Active Member Role Status Dates Marika Raymond , HOME HEALTH ATTENDANT-C Primary Care Provider Active Start: August 13, 2024 Talia Dawkins HOME HEALTH ATTENDANT, HOME HEALTH ATTENDANT-C Referring Provider Active Start: August 13, 2024 Talia Dawkins HOME HEALTH ATTENDANT, HOME HEALTH ATTENDANT-C Other Provider Active Start: August 13, 2024 Dr. Papi Rai , DO Attending Provider Active S tart: August 13, 2024 Team Status: Active Member Role/Relationship Status Dates Marika Raymond , HOME HEALTH ATTENDANT-C Primary Care Provider Active Team Status: Inactive Member Role/Relationship Status Dates Marikaseun Raymond , HOME HEALTH ATTENDANT-C Primary Care Provider Active Start: July 05, 2024 End: July 05, 2024 Marika Raymond , HOME HEALTH ATTENDANT-C Attending Provider Active St art: July 05, 2024 End: July 05, 2024 Marika Raymond , HOME HEALTH ATTENDANT-C Referring Provider Active St art: July 05, 2024 End: July 05, 2024 Team Status: Inactive Member Role/Relationship Status Dates Marikaseun Raymond , HOME HEALTH ATTENDANT-C Primary Care Provider Active Start: July 19, 2024 End: July 19, 2024 Marika Raymond , HOME HEALTH ATTENDANT-C Attending Provider Active St art: July 19, 2024 End: July 19, 2024 Marika Raymond , HOME HEALTH ATTENDANT-C Referring Provider Active St art: July 19, 2024 End: July 19, 2024 Team Status: Inactive Member Role/Relationship Status Dates Marikaseun Raymond , HOME HEALTH ATTENDANT-C Primary Care Provider Active Start: August 12, 2024 End: August 12, 2024 Talia Dawkins HOME HEALTH ATTENDANT, HOME HEALTH ATTENDANT-C Attending Provider Active Start: August 12, 2024 End: August 12, 2024 Talia Dawkins HOME HEALTH ATTENDANT, HOME HEALTH ATTENDANT-C Referring Provider Active Start: August 12, 2024 End: August 12, 2024 Team Status: Active Member Role/Relationship Status Dates Marika Raymond HOME HEALTH ATTENDANT-C Primary Care Provider Active Start: August 13, 2024 Talia Dawkins HOME HEALTH ATTENDANT, HOME HEALTH ATTENDANT-C Referring Provider Active Start: August 13, 2024 Talia Dawkins HOME HEALTH ATTENDANT, HOME HEALTH ATTENDANT-C Other Provider Active Start: August 13, 2024 Dr. Papi Rai DO Attending Provider Active S tart: August 13, 2024 Team Status: Inactive Member Role/Relationship Status Dates Marika Raymond HOME HEALTH ATTENDANT-C Primary Care Provider Active Start: September 06, 2024 End: September 06, 2024 Talia Dawkins HOME HEALTH ATTENDANT, HOME HEALTH ATTENDANT-C Attending Provider Active Start: September 06, 2024 End: September 06, 2024 Talia Dawkins HOME HEALTH ATTENDANT, HOME HEALTH ATTENDANT-C Referring Provider Active Start: September 06, 2024 End: September 06, 2024 Team Status: Inactive Member Role/Relationship Status Dates Marika Raymond , HOME HEALTH ATTENDANT-C Primary Care Provider Active Start: September 21, 2024 End: September 21, 2024 Marika Raymond , HOME HEALTH ATTENDANT-C Referring Provider Active St art: September 21, 2024 End: September 21, 2024 Zoran Jackson NP-C Attending Provider Active Start: September 21, 2024 End: September 21, 2024 Team Status: Inactive Member Role/Relationship Status Dates Amrikaseun Raymond , HOME HEALTH ATTENDANT-C Primary Care Provider Active Start: October 22, 2024 End: October 22, 2024 Dr. Darci Rachel MD Emergency Provider Active Sta rt: October 22, 2024 End: October 22, 2024 Team Status: Active Member Role/Relationship Status Dates Marika Raymond HOME HEALTH ATTENDANT-C Primary care physician Active Team Status: Inactive Member Role/Relationship Status Dates Marika Raymond HOME HEALTH ATTENDANT-C Primary care physician Active Start: August 12, 2024 End: August 12, 2024 Talia Dawkins HOME HEALTH ATTENDANT, HOME HEALTH ATTENDANT-C Attending physician Active Start: August 12, 2024 End: August 12, 2024 Talia Dawkins HOME HEALTH ATTENDANT, HOME HEALTH ATTENDANT-C Referring Provider Active Start: August 12, 2024 End: August 12, 2024 Team Status: Active Member Role/Relationship Status Dates Marika Raymond , HOME HEALTH ATTENDANT-C Primary care physician Active Start: August 13, 2024 Talia Dawkins HOME HEALTH ATTENDANT, HOME HEALTH ATTENDANT-C Referring Provider Active Start: August 13, 2024 Talia Dawkins HOME HEALTH ATTENDANT, HOME HEALTH ATTENDANT-C Nurse Practitioner Active Start: August 13, 2024 Dr. Papi Rai DO Attending physician Active Start: August 13, 2024 Team Status: Inactive Member Role/Relationship Status Dates Marika Raymond HOME HEALTH ATTENDANT-C Primary care physician Active Start: September 06, 2024 End: September 06, 2024 Talia Dawkins HOME HEALTH ATTENDANT, HOME HEALTH ATTENDANT-C Attending physician Active Start: September 06, 2024 End: September 06, 2024 Talia Dawkins HOME HEALTH ATTENDANT, HOME HEALTH ATTENDANT-C Referring Provider Active Start: September 06, 2024 End: September 06, 2024 Team Status: Inactive Member Role/Relationship Status Dates Marika Raymond HOME HEALTH ATTENDANT-C Primary care physician Active Start: September 21, 2024 End: September 21, 2024 Marika Raymond HOME HEALTH ATTENDANT-C Referring Provider Active St art: September 21, 2024 End: September 21, 2024 NIKOLAI Monge Attending physician Active Start: September 21, 2024 End: September 21, 2024 Team Status: Inactive Member Role/Relationship Status Dates Marika Raymond HOME HEALTH ATTENDANT-C Primary care physician Active Start: October 22, 2024 End: October 22, 2024 Dr. Darci Rachel MD Attending physician Active St art: October 22, 2024 End: October 22, 2024 Dr. Darci Rachel MD Emergency Department Physician Acti ve Start: October 22, 2024 End: October 22, 2024 Team Status: Inactive Member Role/Relationship Status Dates Marika Raymond HOME HEALTH ATTENDANT-C Primary care physician Active Start: November 22, 2024 End: November 22, 2024 Marika Raymond HOME HEALTH ATTENDANT-C Attending physician Active S tart: November 22, 2024 End: November 22, 2024 Team Status: Inactive Member Role/Relationship Status Dates Marika Raymond HOME HEALTH ATTENDANT-C Primary care physician Active Start: December 08, 2024 End: December 08, 2024 Marika Raymond HOME HEALTH ATTENDANT-C Referring Provider Active St art: December 08, 2024 End: December 08, 2024 NIKOLAI Monge Attending physician Active Start: December 08, 2024 End: December 08, 2024 Team Status: Inactive Member Role/Relationship Status Dates Marika Raymond HOME HEALTH ATTENDANT-C Primary care physician Active Start: September 06, 2024 End: September 06, 2024 Talia Dawkins HOME HEALTH ATTENDANT, HOME HEALTH ATTENDANT-C Attending physician Active Start: September 06, 2024 End: September 06, 2024 Talia Dawkins HOME HEALTH ATTENDANT, HOME HEALTH ATTENDANT-C Referring Provider Active Start: September 06, 2024 End: September 06, 2024 Team Status: Inactive Member Role/Relationship Status Dates Marika Raymond HOME HEALTH ATTENDANT-C Primary care physician Active Start: September 21, 2024 End: September 21, 2024 Marika Raymond , HOME HEALTH ATTENDANT-C Referring Provider Active St art: September 21, 2024 End: September 21, 2024 NIKOLAI Monge Attending physician Active Start: September 21, 2024 End: September 21, 2024 Team Status: Inactive Member Role/Relationship Status Dates Marika Raymond , HOME HEALTH ATTENDANT-C Primary care physician Active Start: October 22, 2024 End: October 22, 2024 Dr. Darci Rachel MD Attending physician Active St art: October 22, 2024 End: October 22, 2024 Dr. Darci Rachel MD Emergency Department Physician Acti ve Start: October 22, 2024 End: October 22, 2024 Team Status: Inactive Member Role/Relationship Status Dates Marika Raymond , HOME HEALTH ATTENDANT-C Primary care physician Active Start: November 22, 2024 End: November 22, 2024 Marika Raymond , HOME HEALTH ATTENDANT-C Attending physician Active S tart: November 22, 2024 End: November 22, 2024 Team Status: Inactive Member Role/Relationship Status Dates Marika Raymond , HOME HEALTH ATTENDANT-C Primary care physician Active Start: December 08, 2024 End: December 08, 2024 Marika Raymond , HOME HEALTH ATTENDANT-C Referring Provider Active St art: December 08, 2024 End: December 08, 2024 NIKOLAI Monge Attending physician Active Start: December 08, 2024 End: December 08, 2024 Team Status: Inactive Member Role/Relationship Status Dates Marika Raymond , HOME HEALTH ATTENDANT-C Primary care physician Active Start: December 17, 2024 End: December 17, 2024 Dr. Juan Pablo Denney DO Attending physician Active Start: December 17, 2024 End: December 17, 2024 Dr. Juan Pablo Denney , DO Emergency Depart ent Physician Active Start: December 17, 2024 End: December 17, 2024 Source Comments (unrecognize d section and content) In the event this informatio n is protected by the Federal Confidentiality of Alcohol and Drug Abuse Patient Records regulations: The Federal rules restrict any use of the information to criminally investigate or prosecute any alcohol or drug abuse patient.[facility] Center[facility] the event this information is protected by the Federal Confidentiality of Alcohol and Drug Abuse Patient Records regulations: The Federal rules restrict any use of the information to criminally investigate or prosecute any alcohol or drug abuse patient.[facility] CenterIn the event this information is protected by the Federal Confidentiality of Alcohol and Drug Abuse Patient Records regulations: The Federal rules restrict any use of the information to criminally investigate or prosecute any alcohol or drug abuse patient.[facility] CenterIn the event this information is protected by the Federal Confidentiality of Alcohol and Drug Abuse Patient Records regulations: The Federal rules restrict any use of the information to criminally investigate or prosecute any alcohol or drug abuse patient.[facility] CenterIn the event this information is protected by the Federal Confidentiality of Alcohol and Drug Abuse Patient Records regulations: The Federal rules restrict any use of the information to criminally investigate or prosecute any alcohol or drug abuse patient.[facility] CenterIn the event this information is protected by the Federal Confidentiality of Alcohol and Drug Abuse Patient Records regulations: The Federal rules restrict any use of the information to criminally investigate or prosecute any alcohol or drug abuse patient.[facility] CenterIn the event this information is protected by the Federal Confidentiality of Alcohol and Drug Abuse Patient Records regulations: The Federal rules restrict any use of the information to criminally investigate or prosecute any alcohol or drug abuse patient.[facility] Center[facility] the event this information is protected by the Federal Confidentiality of Alcohol and Drug Abuse Patient Records regulations: The Federal rules restrict any use of the information to criminally investigate or prosecute any alcohol or drug abuse patient.[facility] CenterIn the event this information is protected by the Federal Confidentiality of Alcohol and Drug Abuse Patient Records regulations: The Federal rules restrict any use of the information to criminally investigate or prosecute any alcohol or drug abuse patient.[facility] CenterIn the event this information is protected by the Federal Confidentiality of Alcohol and Drug Abuse Patient Records regulations: The Federal rules restrict any use of the information to criminally investigate or prosecute any alcohol or drug abuse patient.[facility] CenterIn the event this information is protected by the Federal Confidentiality of Alcohol and Drug Abuse Patient Records regulations: The Federal rules restrict any use of the information to criminally investigate or prosecute any alcohol or drug abuse patient.[facility] Center[facility] the event this information is protected by the Federal Confidentiality of Alcohol and Drug Abuse Patient Records regulations: The Federal rules restrict any use of the information to criminally investigate or prosecute any alcohol or drug abuse patient.[facility] Center[facility] the event this information is protected by the Federal Confidentiality of Alcohol and Drug Abuse Patient Records regulations: The Federal rules restrict any use of the information to criminally investigate or prosecute any alcohol or drug abuse patient.[facility] FOR RECORDS PERTAINING TO PATIENTS WHO ARE [...] BE BASED ON THE PRIMARY CLINICAL RECORDS. [facility]. provides no warranty or guarantee of the accuracy or completeness of information in this document.
== END | disposition home or self-care (01) ==
LOC: CT 06:41
PROVIDERS: PCP Nurse Practitioner Family; Referring Provider Orthopaedic Surgery Orthopaedic Surgery of the Spine; Visit Provider Orthopaedic Surgery Orthopaedic Surgery of the Spine
DX: M51.14 Intervertebral disc disorders with radiculopathy, thoracic region (principal); M96.1 Postlaminectomy syndrome, not elsewhere classified; Z98.1 Arthrodesis status
CPT/HCPCS: 72128; 72131

== ENCOUNTER 2025-02-28 11:34 | Emergency (ER) | payer MEDICARE, SELFPAY ==
[2025-02-28] VITALS (16 sets, daily range): BP systolic 112–169; BP diastolic 56–99; PULSE 74–107; RESP 16–18; TEMP 36.4–36.6; O2SAT 96–100
[2025-02-28 13:50] LABS: Hematocrit 52.9 % (37-47); Immature Granulocytes Count 0.050 X10^3/uL (0.0-0.0); Mean Corp Hgb Conc 35.0 g/dL (32-36); Mean Corpuscular Volume 87.3 fL (81-99); Mean Platelet Vol. 10.4 fl (6.2-12.0); NRBC Flagged by Analyzer 0 % (0-5); Platelet Count 222 K/mm3 (150-450); RBC Distribution Width CV 13.5 % (11.6-14.6); RBC Distribution Width SD 42.7 fl (35.1-43.9); Red Blood Count 6.06 M/mm3 (4.2-5.4); White Blood Count 9.5 K/mm3 (4.4-11.0)
[2025-02-28 14:19] LABS: Hemoglobin 18.5 g/dL (12.0-15.0)
[2025-02-28 14:30] LABS: AST(SGOT) 22 U/L (<=31); Alanine Aminotransfer ALT/SGPT 23 U/L (<=34); Albumin, Serum 5.3 g/dL (3.4-4.8); Alkaline Phosphatase 100 U/L (35-104); Anion Gap 19 (7-18); BUN 16 mg/dL (4-19); BUN/Creat Ratio 18.0 RATIO (10-20); Calcium,Total 11.2 mg/dL (7.6-11.0); Carbon Dioxide 21.8 mmol/L (20.0-29.0); Chloride 98 mmol/L (96-106); Globulin 3.7 g/dL (2.2-4.2); Glucose 92 mg/dL (70-99); Lipase 24 U/L (13-75); Potassium 4.0 mmol/L (3.5-5.1)
--- NOTE | 2025-02-28 14:53 | EX.ED.DYSGE1 ---
HPI History of Present Illness Chief Complaint: General Illness [facility] Medical History Tobacco use disorder, continuous Encounter for screening for malignant neoplasm of lung Diarrhea Wears glasses Wears dentures Post-menopausal Depression Marijuana use Bladder disease Anemia High cholesterol Back pain History of hiatal hernia History of ulceration History of IBS Gastric reflux Smoker Shortness of breath on exertion Leg cramps History of pain when walking History of stress test Asthma COPD (chronic obstructive pulmonary disease) HTN (hypertension) Arthritis Thyroid disease Diabetes Home Medications ?Medication ?Instructions ?Recorded ?Last Taken ?Type atorvastatin 40 mg tablet 40 mg PO QHS 07/20/15 02/27/25 History duloxetine 60 mg capsule,delayed 60 mg PO BID 07/20/15 02/27/25 History release cyclobenzaprine 10 mg tablet 1 tab PO TID PRN PRN pain 09/01/21 02/27/25 History glimepiride 4 mg tablet 4 mg PO DAILY 09/01/21 08/11/23 History levothyroxine 112 mcg tablet 112 mcg PO QDAY 07/04/23 08/12/23 History lisinopril 10 mg tablet 10 mg PO QDAY 07/04/23 08/12/23 History esomeprazole magnesium 40 mg 40 mg PO DAILY #30 caps 07/24/23 08/12/23 Rx capsule,delayed release pregabalin 150 mg capsule 150 mg PO TID 08/11/23 08/12/23 History medical marjuana miscellaneous 03/23/24 Unknown History buspirone 10 mg tablet 20 mg PO TID PRN anxiety 09/21/24 Unknown History celecoxib 200 mg capsule 200 mg PO DAILY 09/21/24 02/27/25 History omeprazole 40 mg capsule,delayed 40 mg PO QDAY 09/21/24 Unknown History release ondansetron HCl 4 mg tablet 4 mg PO BID PRN nausea 09/21/24 Unknown History oxybutynin chloride 5 mg 5 mg PO QDAY 09/21/24 Unknown History tablet,extended release 24 hr tramadol 50 mg tablet 50 mg PO TID PRN pain 09/21/24 Unknown History budesonide 160 mcg-glycopyr 9 2 inh inhalation BID #10.7 grams 12/08/24 Unknown Rx mcg-formot 4.8 mcg/actuation HFA inhaler (Breztri Aerosphere) levalbuterol HCl 0.63 mg/3 mL 0.63 mg (3 mL) inhalation ONCE #75 12/08/24 Unknown Rx solution for nebulization mL levalbuterol tartrate 45 2 puff inhalation Q4-6H PRN 12/08/24 Unknown Rx mcg/actuation aerosol inhaler shortness of breath or wheezing #15 grams nicotine (polacrilex) 2 mg buccal 2 mg buccal Q8H PRN nicotine 12/08/24 Unknown Rx lozenge cravings #72 ea nicotine See Rx Instructions transdermal 12/08/24 Unknown Rx 21mg/24hr-14mg/24hr-7mg/24hr daily .COMPLEX #56 patches transderm patches,sequentl tirzepatide 7.5 mg/0.5 mL 10 mg subcut 12/08/24 02/23/25 History subcutaneous pen injector (Ata) ondansetron 4 mg disintegrating 4 mg PO Q8H PRN PRN Nausea #10 tabs 02/28/25 Unknown Rx tablet pregabalin 150 mg capsule (Lyrica) 150 mg PO TID 02/28/25 Unknown History Allergy/AdvReac Type Severity Reaction Status Date / Time clarithromycin (From Biaxin) AdvReac Nausea Verified 02/28/25 11:49 hydromorphone (From Dilaudid) AdvReac Upset Verified 02/28/25 11:49 Stomach Family History Father Heart disease Hypertension Mother Heart disease Thyroid disorder Surgical History S/P cholecystectomy Hx of esophagogastroduodenoscopy Hx of colonoscopy History of hysteroscopy Hx of hysterectomy, total History of lumbar discectomy History of lumbar fusion Cervical vertebral fusion Social History household members: none housing: house current occupational status: retired Smoking Status: Current every day smoker tobacco type: cigarettes Tobacco: How many years used: 30 how long ago did patient quit smoking: Pt. had stopped smoking for about 13 years and restarted last year. alcohol intake: never additional social history: medical marijuana EXAM Physical Exam Const Vital Signs: 02/28/25 11:46 02/28/25 14:10 02/28/25 14:15 Temperature 97.8 F 97.6 F L Temperature Source Oral Oral Pulse Rate 107 H 88 Respiratory Rate 16 18 Respiratory Effort Normal Non-Labored Respiratory Pattern Normal Blood Pressure 147/99 H 165/86 H Blood Pressure Mean 115 112 Pulse Ox 99 100 Oxygen Delivery Method Room Air Room Air 02/28/25 15:37 02/28/25 15:45 02/28/25 15:52 Temperature Temperature Source Pulse Rate Respiratory Rate Respiratory Effort Respiratory Pattern Blood Pressure 169/82 H Blood Pressure Mean 115 Pulse Ox 98 100 Oxygen Delivery Method 02/28/25 16:00 02/28/25 16:01 02/28/25 16:15 Temperature Temperature Source Pulse Rate Respiratory Rate Respiratory Effort Respiratory Pattern Blood Pressure 112/56 L Blood Pressure Mean 70 Pulse Ox 99 99 100 Oxygen Delivery Method 02/28/25 16:30 02/28/25 16:45 02/28/25 17:00 Temperature Temperature Source Pulse Rate Respiratory Rate Respiratory Effort Respiratory Pattern Blood Pressure Blood Pressure Mean Pulse Ox 100 98 99 Oxygen Delivery Method 02/28/25 17:16 02/28/25 17:30 02/28/25 17:45 Temperature Temperature Source Pulse Rate Respiratory Rate Respiratory Effort Respiratory Pattern Blood Pressure Blood Pressure Mean Pulse Ox 96 98 97 Oxygen Delivery Method 02/28/25 18:00 02/28/25 18:00 Temperature Temperature Source Pulse Rate 78 Respiratory Rate 16 Respiratory Effort Respiratory Pattern Blood Pressure 143/60 H Blood Pressure Mean 87 Pulse Ox 99 98 Oxygen Delivery Method Room Air [facility] MDM MDM Narrative Medical decision making narrative: HISTORY OF PRESENT ILLNESS: Chief complaint: Nausea and vomit 64-year-old female history of asthma, COPD, smoking, hypertension, hypothyroidism, GERD presents with nausea and vomiting for the last few days. States she cannot keep any of her medicines she further states she has had no sick contacts. No hematemesis, melena or hematochezia. She does note diffuse abdominal pain. Denies diarrhea. Denies recent travel, antibiotics. Denies chest pain or shortness of breath. Denies trouble urinating or flank pain REVIEW OF SYSTEMS: Pertinent positives: As per HPI Pertinent negatives: As per HPI PHYSICAL EXAM: Nursing triage notes reviewed, Vital signs reviewed Constitutional: please see mdm HENT: MMM Eyes: Pupils equal round and reactive to light, Extraocular muscles intact Neck: No stridor, no JVD, full neck ROM Lungs: Clear to auscultation, No wheezing or rales. No increased work of breathing, no conversational dyspnea, no accessory muscle use, no nasal flaring. No respiratory distress noted Heart: Regular rate and rhythm, No murmurs, No rubs and No gallops, 2+ distal pulses (radial, femoral, posterior tibial) in all extremities Abdomen: Soft, diffuse TTP but no rigidity, rebound or guarding, no obvious peritoneal signs, no palpable pulsatile abdominal masses, no auscultated abdominal bruit : No CVAT Extremities: No edema Neuro: No new focal neurological deficits, cranial nerves II through XII intact, 5/5 strength in all present extremities. Intact sensation to light touch in all present extremities, 2+ reflexes bilateral patella tendons. Skin: No rash or lesions noted MEDICAL DECISION MAKING: Chief Complaint: please see HPI External records reviewed: Reviewed prior medications, prior imaging Factors affecting care: As per [facility] Social determinants of health: Former smoker History obtained from others: Family friend Consults: none [facility] Narrative: The patient was initially evaluated approximate 3 hours after their initial arrival secondary to poor department condition including high-volume high acuity. The patient was initially hemodynamically stable, afebrile and nontoxic-appearing. Abdominal exam with diffuse tenderness but no obvious peritoneal signs I considered the following differential diagnosis: Abdominal pain I obtained a broad lab and imaging work to further determine if the patient was suffering from a life-threatening etiology. Initially treat the patient 1 L normal saline, 4 mg IV Zofran, 4 mg IV morphine for initial resuscitation, pain control nausea control ALL IMAGES (IF OBTAINED) HAVE BEEN PERSONALLY REVIEWED AND INTERPRETED BY MYSELF. CT scan abdomen pelvis is negative for signs of intra-abdominal pathology CBC without leukocytosis, severe anemia, no thrombocytopenia. CMP without evidence of acute kidney injury, significant electrolyte abnormality, anion gap to suggest end organ hypo-perfusion, no evidence of metabolic acidosis with a normal bicarbonate, no evidence of hepatobiliary obstructive pathology. Lipase is wnl indicating no pancreatic inflammation. Repeat abdominal exam remained benign. Patient able tolerate p.o. No clear life-limiting etiology identified. The patient is appropriate for discharge home. The patient and/or family, caregivers express understanding. The patient and/or family, caregivers agrees with the plan. Shared decision making: I will have a discussion with the patient and or visitors regarding risk/benefits of further testing or admission. They will be made aware of of the risk/benefits inherent in this decision they will be given the opportunity to voice understanding. Total critical care time today provided was at least 0 [] minutes. This excludes separately billable procedures. Critical care time (if documented) is secondary to the patient having high probability of clinically significant/life threatening deterioration in the patient's condition which required my urgent intervention. Impression: 1. Nausea and vomiting 2. Acute abdominal pain 3. Dehydration Dispo: Discharge home This note was generated with [employer] dictation software. It may contain incorrect words, spelling, and punctuation that were not noted in review of the chart prior to signing. Lab Data Labs: Laboratory Results - last 24 hr 02/28/25 02/28/25 13:39 15:19 WBC 9.5 8.8 RBC 6.06 H 5.24 Hgb 18.5 H* 16.2 H Hct 52.9 H 45.1 MCV 87.3 86.1 MCH 30.5 30.9 MCHC 35.0 35.9 RDW Std Deviation 42.7 42.0 RDW Coeff of Shawn 13.5 13.4 Plt Count 222 184 MPV 10.4 10.5 Immature Gran % (Auto) 0.500 0.600 Neut % (Auto) 77.1 H 74.2 H Lymph % (Auto) 14.7 L 18.4 L Bradley % (Auto) 6.0 6.3 Eos % (Auto) 1.2 0.0 Baso % (Auto) 0.5 0.5 Absolute Neuts (auto) 7.3 6.6 Absolute Lymphs (auto) 1.39 1.63 Nucleated RBC % 0 0 Sodium 139 139 Potassium 4.0 3.6 Chloride 98 101 Carbon Dioxide 21.8 19.8 L Anion Gap 19 H 18 BUN 16 17 Creatinine 0.90 0.93 Est GFR (MDRD) Non-Af 72 69 BUN/Creatinine Ratio 18.0 17.8 Glucose 92 80 Calcium 11.2 H 10.2 Total Bilirubin 1.16 0.96 AST 22 19 ALT 23 17 Alkaline Phosphatase 100 80 Total Protein 9.0 H 7.3 Albumin 5.3 H 4.4 Globulin 3.7 3.0 Albumin/Globulin Ratio 1.4 1.5 Lipase 24 24 Radiography Diagnostic Testing: Clinical Impression(s) from Imaging Studies Abdomen/Pelvis CT 02/28/25 16:50 IMPRESSION: NO ACUTE FINDINGS AT THE ABDOMEN OR PELVIS ON CONTRAST-ENHANCED CT. Reading Location: [facility] Discharge Plan Triage Chief Complaint: General Illness ED Provider: Sanju Vitale Dx/Rx/DC Orders Instructions: ED Vomiting (Adult) Prescriptions: New ondansetron 4 mg tablet,disintegrating 4 mg PO Q8H PRN PRN (Reason: Nausea) Qty: 10 0RF No Action lisinopril 10 mg tablet 10 mg PO QDAY levothyroxine 112 mcg tablet 112 mcg PO QDAY medical [facility] miscellaneous tramadol 50 mg tablet 50 mg PO TID PRN (Reason: pain) omeprazole 40 mg capsule,delayed release(DR/EC) 40 mg PO QDAY ondansetron HCl 4 mg tablet 4 mg PO BID PRN (Reason: nausea) buspirone 10 mg tablet 20 mg PO TID PRN (Reason: anxiety) oxybutynin chloride 5 mg tablet extended release 24hr 5 mg PO QDAY Mounjaro 7.5 mg/0.5 mL pen injector 10 mg subcut Patient Comments: [NO ORIGINAL SIG] levalbuterol HCl 0.63 mg/3 mL solution for nebulization 0.63 mg inhalation ONCE Qty: 75 11RF Breztri Aerosphere 160-9-4.8 mcg/actuation HFA aerosol inhaler 2 inh inhalation BID Qty: 10.7 11RF levalbuterol tartrate 45 mcg/actuation HFA aerosol inhaler 2 puff inhalation Q4-6H PRN (Reason: shortness of breath or wheezing) Qty: 15 11RF nicotine 21-14-7 mg/24 hr patch, TD daily, sequential See Rx Instructions transdermal .COMPLEX Qty: 56 0RF Rx Instructions: apply 1-21 mg NICOTINE PATCH daily for 28 days; follow with 1-14 mg PATCH daily for 14 days, then 1-7mg PATCH daily for 14 days transdermal nicotine (polacrilex) 2 mg lozenge 2 mg buccal Q8H PRN (Reason: nicotine cravings) Qty: 72 2RF atorvastatin 40 MG tablet 40 mg PO QHS duloxetine 60 MG capsule 60 mg PO BID cyclobenzaprine 10 mg tablet 1 tab PO TID PRN PRN (Reason: pain) glimepiride 4 mg Tablet 4 mg PO DAILY celecoxib 200 mg capsule 200 mg PO DAILY pregabalin [Lyrica] 150 mg capsule 150 mg PO TID esomeprazole magnesium 40 mg capsule,delayed release(DR/EC) 40 mg PO DAILY Qty: 30 5RF pregabalin 150 mg capsule 150 mg PO TID Primary Care Provider: Marika Raymond Referrals: Marika Raymond, [employer] [Primary Care Provider, Family Practice] Activity Restrictions/Additional Instructions: Thank you for trusting us with your care today! Your labs images are reassuring. Specifically there is no sign of a life-threatening issue in your abdomen or pelvis explain your symptoms. You likely suffered from a viral gastroenteritis. Please take Zofran as needed for nausea vomiting control at home. Please take Tylenol (2 pills, 650 mg), ibuprofen (2 pills, 400 mg) every 6 hours as needed for pain and fever control. Please return to the emergency department if your symptoms change or worsen. Please follow with your primary care physician for further outpatient evaluation and management. Print Language: Frisian Disposition Disposition: Home, Self Care
--- NOTE | 2025-02-28 15:06 | EKG12_ITS ---
Test Reason : Blood Pressure : */* mmHG Vent. Rate : 76 BPM Atrial Rate : 76 BPM P-R Int : 172 ms QRS Dur : 86 ms QT Int : 410 ms P-R-T Axes : 74 64 58 degrees QTcB Int : 461 ms Normal sinus rhythm Normal ECG Confirmed by Bairon Urias (Magda), telegraph editor TYSON DAWN ([id number]) on 03/01/2025 10:55:16 AM Also confirmed by Bairon Urias ([id number]), telegraph editor TYSON DAWN ([id number]) on 03/02/2025 11:03:32 AM Referred By: Confirmed By: Bairon Urias
[2025-02-28] MEDS: 0.9% Normal Saline (1000mL) 1,000 ML 1000 ML IV (15:20)
[2025-02-28 15:31] LABS: Hematocrit 45.1 % (37-47); Hemoglobin 16.2 g/dL (12.0-15.0); Immature Granulocytes Count 0.050 X10^3/uL (0.0-0.0); Mean Corp Hgb Conc 35.9 g/dL (32-36); Mean Corpuscular Volume 86.1 fL (81-99); Mean Platelet Vol. 10.5 fl (6.2-12.0); NRBC Flagged by Analyzer 0 % (0-5); Platelet Count 184 K/mm3 (150-450); RBC Distribution Width CV 13.4 % (11.6-14.6); RBC Distribution Width SD 42.0 fl (35.1-43.9); Red Blood Count 5.24 M/mm3 (4.2-5.4); White Blood Count 8.8 K/mm3 (4.4-11.0)
[2025-02-28 16:24] LABS: AST(SGOT) 19 U/L (<=31); Alanine Aminotransfer ALT/SGPT 17 U/L (<=34); Albumin, Serum 4.4 g/dL (3.4-4.8); Alkaline Phosphatase 80 U/L (35-104); Anion Gap 18 (7-18); BUN 17 mg/dL (4-19); BUN/Creat Ratio 17.8 RATIO (10-20); Calcium,Total 10.2 mg/dL (7.6-11.0); Carbon Dioxide 19.8 mmol/L (20.0-29.0); Chloride 101 mmol/L (96-106); Globulin 3.0 g/dL (2.2-4.2); Glucose 80 mg/dL (70-99); Lipase 24 U/L (13-75); Potassium 3.6 mmol/L (3.5-5.1)
--- NOTE | 2025-02-28 16:50 | CT_ITS ---
PROCEDURE: ABDOMEN/PELVIS W IV CONT ONLY 02/28/2025 REASON FOR EXAM: ABDOMINAL PAIN, NAUSEA VOMITING TECHNIQUE: Procedure Code: [id number] Modality: CT Procedure: ABDOMEN/PELVIS W IV CONT ONLY Coronal and Sagittal reconstruction series were provided. CONTRAST: 100 cc of Isovue 370. One or more dose reduction techniques were used (e.g., Automated exposure control, adjustment of the mA and/or kV according to patient size, use of iterative reconstruction technique. COMPARISON: CT abdomen and pelvis 09/02/2023 FINDINGS: Lung bases: Unremarkable. Liver: Normal size. No mass. Gallbladder: Surgically absent. No biliary ductal dilatation. Spleen: Normal size. Pancreas: Normal size without evidence of mass surrounding inflammation or ductal dilation. Adrenals: No adrenal masses. Kidneys: Normal renal sizes. No hydronephrosis. Bladder: Unremarkable. Reproductive Organs: Prior hysterectomy. Adnexal regions are unremarkable. Bowel: No bowel obstruction. No inflammatory changes. Appendix: Surgically absent. Lymph nodes: Unremarkable. Vasculature: Moderate atherosclerotic calcifications. No aneurysm. Peritoneum / Retroperitoneum: No free fluid or air. Bones: Degenerative changes of the spine. Posterior spinal fusion from L3-L4. No acute fractures. CT/Abdomen/Pelvis W IV Cont ONLY IMPRESSION: NO ACUTE FINDINGS AT THE ABDOMEN OR PELVIS ON CONTRAST-ENHANCED CT. Reading Location: [facility]
== END 2025-02-28 19:57 | disposition home or self-care (01) ==
PROVIDERS: Emergency Provider Emergency Medicine; PCP Nurse Practitioner Family; Visit Provider Emergency Medicine
DX: R11.2 Nausea with vomiting, unspecified (principal); J44.9 Chronic obstructive pulmonary disease, unspecified; E11.9 Type 2 diabetes mellitus without complications; R10.84 Generalized abdominal pain; E86.0 Dehydration; I10 Essential (primary) hypertension; K21.9 Gastro-esophageal reflux disease without esophagitis; F32.A Depression, unspecified; E03.9 Hypothyroidism, unspecified; E78.00 Pure hypercholesterolemia, unspecified; F17.210 Nicotine dependence, cigarettes, uncomplicated; Z98.1 Arthrodesis status; Z90.49 Acquired absence of other specified parts of digestive tract; Z79.84 Long term (current) use of oral hypoglycemic drugs; Z79.51 Long term (current) use of inhaled steroids; Z79.85 Long-term (current) use of injectable non-insulin antidiabetic drugs; Z79.890 Hormone replacement therapy; Z79.899 Other long term (current) drug therapy
CPT/HCPCS: 74177; 80053; 83690; 85025; 93005; 96361; 96374; 96375; 96376; 99285; Q9967; A4216; J2405